=== PATIENT | male | born 1960 | race Caucasian/White ===

== ENCOUNTER → 2017-11-29 12:14 | Outpatient (CLI) | payer MEDICARE, SELFPAY ==
[2017-11-29 13:04] LABS: AST(SGOT) 67 U/L (15-37); Alanine Aminotransfer ALT/SGPT 70 U/L (16-61); Albumin, Serum 3.4 g/dL (3.2-5.0); Alkaline Phosphatase 115 U/L (45-117); Bilirubin, Direct 0.19 mg/dL (0.00-0.30); Cholesterol 181 mg/dL (200); Globulin 3.9 g/dL (2.2-4.2); High Density Lipoprotein 107 mg/dL; Protein, Total 7.3 g/dL (6.4-8.2); Triglycerides 111 mg/dL; Very Low Density Lipoprotein 22 mg/dL (5-40)
--- NOTE | 2018-02-18 09:44 | LEAS ---
Arterial Study - Arterial Study Arterial Study: This is a 57-year-old male with a history of coronary artery disease, hypertension, hyperlipidemia, diabetes mellitus, and smoking. 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 Suspecting the presence of atherosclerotic peripheral arterial occlusive disease, the patient was brought to the noninvasive vascular laboratory at this time for the purpose of bilateral noninvasive lower extremity arterial assessment. Doppler signal assessment was used to evaluate the pulses at ankle level bilaterally. The posterior tibial and dorsalis pedis pulses were triphasic bilaterally. Segmental limb pressures were obtained bilaterally. The right ankle pressure, as determined by posterior tibial pulse, was measured at 151 mmHg. The right ankle pressure, as determined by dorsalis pedis pulse, was measured at 147 mmHg. The right digital pressure was measured at 154 mmHg. The left ankle pressure, as determined by posterior tibial pulse, was measured at 156 mmHg. The left ankle pressure, as determined by dorsalis pedis pulse, was measured at 142 mmHg. The left digital pressure was measured at 130 mmHg. Pulse-volume recordings were obtained bilaterally and segmentally. Waveform amplitudes appeared to be satisfactory at all levels bilaterally, including low thigh, calf, ankle, and digital levels. Resting ankle-brachial indices were calculated bilaterally. The resting right ankle-brachial index was calculated to be 1.15. The resting left ankle-brachial index was calculated to be 1.19. Digital-brachial indices were calculated bilaterally. The right digital-brachial index was calculated to be 1.18. The left digital-brachial index was calculated to be 0.99. Impression: Based upon the findings of this resting noninvasive lower extremity arterial study, there is no evidence of significant atherosclerotic peripheral arterial occlusive disease in the lower extremities bilaterally. Triphasic waveforms were noted at ankle level bilaterally. Resting ankle-brachial indices were bilaterally normal. Digital-brachial indices were also normal bilaterally. In summary, this represents a normal resting noninvasive lower extremity arterial study bilaterally.
--- NOTE | 2018-02-18 09:47 | LEAS_ITS ---
Arterial Study - Arterial Study Arterial Study: This is a 57-year-old male with a history of coronary artery disease, hypertension, hyperlipidemia, diabetes mellitus, and smoking. 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 Suspecting the presence of atherosclerotic peripheral arterial occlusive disease , the patient was brought to the noninvasive vascular laboratory at this time for the purpose of bilateral noninvasive lower extremity arterial assessment. Doppler signal assessment was used to evaluate the pulses at ankle level bilaterally. The posterior tibial and dorsalis pedis pulses were triphasic bilaterally. Segmental limb pressures were obtained bilaterally. The right ankle pressure, as determined by posterior tibial pulse, was measured at 151 mmHg. The right ankle pressure, as determined by dorsalis pedis pulse, was measured at 147 mmHg. The right digital pressure was measured at 154 mmHg. The left ankle pressure, as determined by posterior tibial pulse, was measured at 156 mmHg. The left ankle pressure, as determined by dorsalis pedis pulse, was measured at 142 mmHg. The left digital pressure was measured at 130 mmHg. Pulse-volume recordings were obtained bilaterally and segmentally. Waveform amplitudes appeared to be satisfactory at all levels bilaterally, including low thigh, calf, ankle, and digital levels. Resting ankle-brachial indices were calculated bilaterally. The resting right ankle-brachial index was calculated to be 1.15. The resting left ankle- brachial index was calculated to be 1.19. Digital-brachial indices were calculated bilaterally. The right digital- brachial index was calculated to be 1.18. The left digital-brachial index was calculated to be 0.99. Impression: Based upon the findings of this resting noninvasive lower extremity arterial study, there is no evidence of significant atherosclerotic peripheral arterial occlusive disease in the lower extremities bilaterally. Triphasic waveforms were noted at ankle level bilaterally. Resting ankle-brachial indices were bilaterally normal. Digital-brachial indices were also normal bilaterally. In summary, this represents a normal resting noninvasive lower extremity arterial study bilaterally.
== END ==
PROVIDERS: Family Provider Family Medicine; PCP Family Medicine; Visit Provider Internal Medicine Cardiovascular Disease
DX: E78.5 Hyperlipidemia, unspecified (principal); Z79.899 Other long term (current) drug therapy
CPT/HCPCS: 36415; 80061; 80076

== ENCOUNTER 2018-02-14 14:30 | Outpatient (RCR) | payer MEDICARE, SELFPAY ==
[2018-01-24 13:28] VITALS: BP 151/93; PULSE 77; RESP 20; TEMP 37.4; BMI 36.2
--- NOTE | 2018-01-24 14:30 | PCM.WC.PN ---
(1) Malnutrition Status: Chronic Current Visit: Yes Code(s): E46 - Unspecified protein-calorie malnutrition (2) Chronic ulcer of left foot with fat layer exposed Status: Chronic Current Visit: Yes Code(s): L97.522 - Non-pressure chronic ulcer of other part of left foot with fat layer exposed (3) Charcot foot due to diabetes mellitus Status: Chronic Current Visit: Yes Code(s): E11.610 - Type 2 diabetes mellitus with diabetic neuropathic arthropathy (4) Venous insufficiency of both lower extremities Status: Suspected Current Visit: Yes Code(s): I87.2 - Venous insufficiency (chronic) (peripheral) (5) Peripheral vascular disease Status: Suspected Current Visit: Yes Code(s): I73.9 - Peripheral vascular disease, unspecified Type of Wound Date of Service: 01/25/18 Chief Complaint: Left foot has Charcot joint with a diabetic foot ulcer (midfoot)-recurrent History of Wound: This 56 year old male returns to clinic today for left foot ulcer that has returned within the past 3 weeks. He has a history of charcot. He has recently been moving and admits he has not been wearing his ute walker. He has been wearing his athletic sneaker more. He denies redness, odor, fever, chill, nausea, vomiting. He is presenting today for advanced wound evaluation and application of total contact cast. Progress of Wound: Stable - Physical Exam Vital Signs Temp Pulse Resp BP 99.3 F H 77 20 H 151/93 H 01/24/18 13:28 01/24/18 13:28 01/24/18 13:28 01/24/18 13:28 General: Alert, Oriented x3, Cooperative Extremities: No cyanosis, Capillary Refill Less than 3 Seconds, No Calf Tenderness - Negative Jyothi and Carranza sign bilateral, Diminished Peripheral Pulses, Edema - Mild bilateral lower extremities, - - Rocker-bottom left lower extremity with no laxity noted upon passive manipulation of the midfoot the plantar central lateral left foot. The compartments left lower extremity remain soft. Skin: Ulcer/ Wound - There is no purulence, no erythema, no streaking, no infection, no necrosis. There is no deep tissue or bone or joint exposed left foot Wound Measurements and Assessment WC - Nurse 1 - General Ulcer Measurement Start: 01/24/18 13:25 Freq: Status: Active Protocol: Activity Type Activity Date Activity User E-Sign Co-Sign Detail Recorded Client Recorded Date Recorded By Document 01/24/18 13:28 DL [id number] 01/24/18 13:49 DL 01/24/18 13:28 Wound Center Nurse 1 [Ulcer Assessment] #4 L Plantar -Current Size (cm) - Length 1.7 -Current Size (cm) - Width 1.6 -Current Size (cm) - Depth 0.1 -Total Square Cm 2.72 -Photo Taken Yes -Exudate Amt Medium (34-66%) -Exudate Type Serosanguineous -Wound Margin Thickened -Granulation Amt Medium (34-66%) -Granulation Quality [place] -Necrosis Amt Medium (34-66%) -Necrotic Tissue Type Adherent Slough -Structure Exposed N/A -Texture (Ania-wound Skin Appearance) Scarring -Moisture (Ania-wound Skin Appearance Maceration ) -Color (Ania-wound Skin Appearance) No Abnormality -Temperature (Ania-wound Skin No Abnormality Appearance) (Pt Warm) -Tenderness on Palpation (Ania-wound No Skin Appearance) -Ulcer Cleansing Wound Cleanser -Foul Odor after Cleansing No -Anesthetic Used 4% Lidocaine Solution [Edema Assessment] -Right Calf (cm) 43.5 -Right Ankle (cm) 26 -Left Calf (cm) 39 -Left Ankle (cm) 27 WC - Nurse 2 - General Ulcer CM Notes Start: 01/24/18 13:25 Freq: Status: Active Protocol: Activity Type Activity Date Activity User E-Sign Co-Sign Detail Recorded Client Recorded Date Recorded By Document 01/24/18 14:20 [id number] 01/24/18 14:23 01/24/18 14:20 Wound Center Nurse 2 [Procedure/Treatment] #4 L Plantar -Time 14:21 -Correct Patient Yes -Correct Side, Site, Position Yes -Correct Procedure Yes -Procedure Performed Yes -Type of Procedure Debridement -Clinical Debridement Subcutaneous -Post Debridement Size (cm) - Length 1.8 -Post Debridement Size (cm) - Width 1.7 -Post Debridement Size (cm) - Depth 0.1 -Total Square Cm 3.06 -Wound/Ulcer Outcome Not Healed -Ulcer Cleansing Rinsed/ Irrigated with Saline -Foul Odor after Cleansing No -Bioengineered Tissue No -Topical Lidocaine (%) 4 -Bleeding Controlled with Pressure -Treatment Response Procedure Tolerated Well [See Physician Procedure note for Specifics] Pain Scale: 0-10 Numeric [Pain] -Is Patient Pain Free? Yes Musculoskeletal: No Tenderness to Palpation of Joints or Extremities, Muscle Wasting Neurological: - - Lack of epicritic sensation light touch left lower extremity Psych/Mental Status: Normal Affect, Appropriate Debridement Note Post-Debridement Measurements/Treatment WC - Nurse 2 - General Ulcer CM Notes Start: 01/24/18 13:25 Freq: Status: Active Protocol: Activity Type Activity Date Activity User E-Sign Co-Sign Detail Recorded Client Recorded Date Recorded By Document 01/24/18 14:20 [id number] 01/24/18 14:23 TM 01/24/18 14:20 Wound Center Nurse 2 #4 L Plantar -Time 14:21 -Correct Patient Yes -Correct Side, Site, Position Yes -Correct Procedure Yes -Procedure Performed Yes -Type of Procedure Debridement -Clinical Debridement Subcutaneous -Post Debridement Size (cm) - Length 1.8 -Post Debridement Size (cm) - Width 1.7 -Post Debridement Size (cm) - Depth 0.1 -Total Square Cm 3.06 -Wound/Ulcer Outcome Not Healed -Ulcer Cleansing Rinsed/ Irrigated with Saline -Foul Odor after Cleansing No -Bioengineered Tissue No -Topical Lidocaine (%) 4 -Bleeding Controlled with Pressure -Treatment Response Procedure Tolerated Well Pain Scale: 0-10 Numeric Is Patient Pain Free? Yes Wound debrided: plantar foot Laterality: Left Wound Grade/Stage: grade 1 Type of Debridement: Excisional debridement Anesthesia Used: 4% Lidocaine Solution Depth: in the subcutaneous layer Percentage of wound debrided: 100 Instrument Used: #15 blade Tissue Removed: devitalized subcutaneous, biofilm, slough, fibrous Severity: Fat Layer Exposed Amount of bleeding with debridement: Mild Bleeding Controlled with: Pressure Patient tolerated procedure well Assessment/Plan Active Problems (Last Reviewed 10/13/17 @ 13:10 by Renae Henderson) Malnutrition (Chronic) Chronic ulcer of left foot with fat layer exposed (Chronic) Charcot foot due to diabetes mellitus (Chronic) Assessment: charcot left foot - non acute. diabetic foot ulcer - healed left foot. right ankle ulceration - healed. peripheral vascular disease. diabetes with peripheral neuropathy Plan: I reviewed and discussed his case. Subcutaneous excisional debridement was performed as noted in the nursing clinical panel. Debra was applied to the wound. A total contact cast was applied according to standard protocol and this was permitted to drive. He does have the Charcot boot and he was advised to keep in place over the cast. This is his first week back in a total contact cast and he was advised to return to clinic for nursing visit on Monday to evaluate appropriate fit and if adjustments are needed due to swelling fluctuations. He was reassured no signs of infection are noted. We discussed the etiology of this wound and he understands Charcot reconstruction may be necessary to prevent continued recurrence. He is in the process of moving at this time and want to proceed with the total contact casting. Nutritional supplementation was recommended with Bartolo and proper glycemic control. I recommend he considers a anodize machine operator referral. To elevate limb at rest. To follow-up at the wound care center next Monday for physician visit additional debridement and likely total contact cast reapplication. I answered all his questions.
--- NOTE | 2018-01-24 14:33 | PN.PCM_ITS ---
(1) Malnutrition Status: Chronic Current Visit: Yes Code(s): E46 - Unspecified protein- calorie malnutrition (2) Chronic ulcer of left foot with fat layer exposed Status: Chronic Current Visit: Yes Code(s): L97.522 - Non-pressure chronic ulcer of other part of left foot with fat layer exposed (3) Charcot foot due to diabetes mellitus Status: Chronic Current Visit: Yes Code(s): E11.610 - Type 2 diabetes mellitus with diabetic neuropathic arthropathy (4) Venous insufficiency of both lower extremities Status: Suspected Current Visit: Yes Code(s): I87.2 - Venous insufficiency ( chronic) (peripheral) (5) Peripheral vascular disease Status: Suspected Current Visit: Yes Code(s): I73.9 - Peripheral vascular disease, unspecified Type of Wound Date of Service: 01/25/18 Chief Complaint: Left foot has Charcot joint with a diabetic foot ulcer (midfoot )-recurrent History of Wound: This 56 year old male returns to clinic today for left foot ulcer that has returned within the past 3 weeks. He has a history of charcot. He has recently been moving and admits he has not been wearing his [place] walker. He has been wearing his athletic sneaker more. He denies redness, odor, fever , chill, nausea, vomiting. He is presenting today for advanced wound evaluation and application of total contact cast. Progress of Wound: Stable - Physical Exam Vital Signs Temp Pulse Resp BP 99.3 F H 77 20 H 151/93 H 01/24/18 13:28 01/24/18 13:28 01/24/18 13:28 01/24/18 13:28 General: Alert, Oriented x3, Cooperative Extremities: No cyanosis, Capillary Refill Less than 3 Seconds, No Calf Tenderness - Negative Jyothi and Carranza sign bilateral, Diminished Peripheral Pulses, Edema - Mild bilateral lower extremities, - - Rocker-bottom left lower extremity with no laxity noted upon passive manipulation of the midfoot the plantar central lateral left foot. The compartments left lower extremity remain soft. Skin: Ulcer/ Wound - There is no purulence, no erythema, no streaking, no infection, no necrosis. There is no deep tissue or bone or joint exposed left foot Wound Measurements and Assessment WC - Nurse 1 - General Ulcer Measurement Start: 01/24/18 13:25 Freq: Status: Active Protocol: Activity Type Activity Date Activity User E-Sign Co-Sign Detail Recorded Client Recorded Date Recorded By Document 01/24/18 13:28 DL [id number] 01/24/18 13:49 DL 01/24/18 13:28 Wound Center Nurse 1 [Ulcer Assessment] #4 L Plantar -Current Size (cm) - Length 1.7 -Current Size (cm) - Width 1.6 -Current Size (cm) - Depth 0.1 -Total Square Cm 2.72 -Photo Taken Yes -Exudate Amt Medium (34-66%) -Exudate Type Serosanguineous -Wound Margin Thickened -Granulation Amt Medium (34-66%) -Granulation Quality [place] -Necrosis Amt Medium (34-66%) -Necrotic Tissue Type Adherent Slough -Structure Exposed N/A -Texture (Ania-wound Skin Appearance) Scarring -Moisture (Ania-wound Skin Appearance Maceration ) -Color (Ania-wound Skin Appearance) No Abnormality -Temperature (Ania-wound Skin No Abnormality Appearance) (Pt Warm) -Tenderness on Palpation (Ania-wound No Skin Appearance) -Ulcer Cleansing Wound Cleanser -Foul Odor after Cleansing No -Anesthetic Used 4% Lidocaine Solution [Edema Assessment] -Right Calf (cm) 43.5 -Right Ankle (cm) 26 -Left Calf (cm) 39 -Left Ankle (cm) 27 WC - Nurse 2 - General Ulcer CM Notes Start: 01/24/18 13:25 Freq: Status: Active Protocol: Activity Type Activity Date Activity User E-Sign Co-Sign Detail Recorded Client Recorded Date Recorded By Document 01/24/18 14:20 [id number] 01/24/18 14:23 01/24/18 14:20 Wound Center Nurse 2 [Procedure/Treatment] #4 L Plantar -Time 14:21 -Correct Patient Yes -Correct Side, Site, Position Yes -Correct Procedure Yes -Procedure Performed Yes -Type of Procedure Debridement -Clinical Debridement Subcutaneous -Post Debridement Size (cm) - Length 1.8 -Post Debridement Size (cm) - Width 1.7 -Post Debridement Size (cm) - Depth 0.1 -Total Square Cm 3.06 -Wound/Ulcer Outcome Not Healed -Ulcer Cleansing Rinsed/ Irrigated with Saline -Foul Odor after Cleansing No -Bioengineered Tissue No -Topical Lidocaine (%) 4 -Bleeding Controlled with Pressure -Treatment Response Procedure Tolerated Well [See Physician Procedure note for Specifics] Pain Scale: 0-10 Numeric [Pain] -Is Patient Pain Free? Yes Musculoskeletal: No Tenderness to Palpation of Joints or Extremities, Muscle Wasting Neurological: - - Lack of epicritic sensation light touch left lower extremity Psych/Mental Status: Normal Affect, Appropriate Debridement Note Post-Debridement Measurements/Treatment WC - Nurse 2 - General Ulcer CM Notes Start: 01/24/18 13:25 Freq: Status: Active Protocol: Activity Type Activity Date Activity User E-Sign Co-Sign Detail Recorded Client Recorded Date Recorded By Document 01/24/18 14:20 [id number] 01/24/18 14:23 TM 01/24/18 14:20 Wound Center Nurse 2 #4 L Plantar -Time 14:21 -Correct Patient Yes -Correct Side, Site, Position Yes -Correct Procedure Yes -Procedure Performed Yes -Type of Procedure Debridement -Clinical Debridement Subcutaneous -Post Debridement Size (cm) - Length 1.8 -Post Debridement Size (cm) - Width 1.7 -Post Debridement Size (cm) - Depth 0.1 -Total Square Cm 3.06 -Wound/Ulcer Outcome Not Healed -Ulcer Cleansing Rinsed/ Irrigated with Saline -Foul Odor after Cleansing No -Bioengineered Tissue No -Topical Lidocaine (%) 4 -Bleeding Controlled with Pressure -Treatment Response Procedure Tolerated Well Pain Scale: 0-10 Numeric Is Patient Pain Free? Yes Wound debrided: plantar foot Laterality: Left Wound Grade/Stage: grade 1 Type of Debridement: Excisional debridement Anesthesia Used: 4% Lidocaine Solution Depth: in the subcutaneous layer Percentage of wound debrided: 100 Instrument Used: #15 blade Tissue Removed: devitalized subcutaneous, biofilm, slough, fibrous Severity: Fat Layer Exposed Amount of bleeding with debridement: Mild Bleeding Controlled with: Pressure Patient tolerated procedure well Assessment/Plan Active Problems (Last Reviewed 10/13/17 @ 13:10 by Renae Henderson) Malnutrition (Chronic) Chronic ulcer of left foot with fat layer exposed (Chronic) Charcot foot due to diabetes mellitus (Chronic) Assessment: charcot left foot - non acute. diabetic foot ulcer - healed left foot. right ankle ulceration - healed. peripheral vascular disease. diabetes with peripheral neuropathy Plan: I reviewed and discussed his case. Subcutaneous excisional debridement was performed as noted in the nursing clinical panel. Debra was applied to the wound. A total contact cast was applied according to standard protocol and this was permitted to drive. He does have the Charcot boot and he was advised to keep in place over the cast. This is his first week back in a total contact cast and he was advised to return to clinic for nursing visit on Monday to evaluate appropriate fit and if adjustments are needed due to swelling fluctuations. He was reassured no signs of infection are noted. We discussed the etiology of this wound and he understands Charcot reconstruction may be necessary to prevent continued recurrence. He is in the process of moving at this time and want to proceed with the total contact casting. Nutritional supplementation was recommended with Bartolo and proper glycemic control. I recommend he considers a flotation operator referral. To elevate limb at rest. To follow-up at the wound care center next Monday for physician visit additional debridement and likely total contact cast reapplication. I answered all his questions.
[2018-01-24 18:22] LABS: Absolute Lymphocyte Count 1.12 X10^3/ul (0.83-4.51); Absolute Neutrophil Count 4.7 X10^3/uL (2.0-7.7); Basophil# 0.06 X10^3/uL; Basophil% 0.9 % (0-1); Eosinophil# 0.17 X10^3/uL; Eosinophils% 2.6 % (0-5); Hematocrit 39.2 % (40-54); Hemoglobin 13.6 g/dl (13.0-16.5); Lymphocyte # 1.12 X10^3/ul (4.0); Lymphocyte % 17.1 % (19-41); Mean Corp Hgb Conc 34.7 g/gl (32-36); Mean Corpuscular Hgb 32.5 pg (27.0-32.0); Mean Corpuscular Volume 93.8 fL (80-94); Mean Platelet Vol. 10.1 fl (6.2-12.0); Monocyte# 0.52 X10^3/uL; Monocyte% 7.9 % (0-10); Neutrophil # 4.66 X10^3/uL (2.7-7.7); Neutrophil % 71.2 % (47-70); POSITIVE COUNT NO; POSITIVE DIFFERENTIAL NO; POSITIVE MORPHOLOGY NO; Platelet Count 204 K/mm3 (150-450); RBC Distribution Width CV 13.1 % (11.6-14.6); RBC Distribution Width SD 43.8 fl (35.1-43.9); Red Blood Count 4.18 M/mm3 (4.6-6.2); White Blood Count 6.6 K/mm3 (4.4-11.0)
[2018-01-24 18:43] LABS: Hemoglobin A1c 7.6 % (4.2-6.3)
[2018-01-24 18:45] LABS: Vitamin D,25 Hydroxy 15.4 ng/mL (29.95-100.01)
[2018-01-26 10:26] VITALS: BP 142/84; PULSE 71; RESP 18; TEMP 35.7; BMI 36.2
--- NOTE | 2018-01-26 12:43 | PCM.WC.PN ---
(1) Charcot foot due to diabetes mellitus Status: Chronic Current Visit: Yes Code(s): E11.610 - Type 2 diabetes mellitus with diabetic neuropathic arthropathy (2) Diabetic ulcer of left foot Status: Acute Current Visit: Yes Qualifiers: Diabetes mellitus type: type 2 Code(s): E11.621 - Type 2 diabetes mellitus with foot ulcer; L97.529 - Non-pressure chronic ulcer of other part of left foot with unspecified severity Type of Wound Date of Service: 01/26/18 Chief Complaint: Left foot has Charcot joint with a diabetic foot ulcer (midfoot)-recurrent History of Wound: This 56 year old male returns to clinic today for left foot ulcer that has returned within the past 3 weeks. He has a history of charcot. He has recently been moving and admits he has not been wearing his ekl[place] walker. He has been wearing his athletic sneaker more. He denies redness, odor, fever, chill, nausea, vomiting. He is presenting today for advanced wound evaluation and application of total contact cast. Progress of Wound: Left DFU ulcer looks flatter smaller doing well. Both the TCC and will reapply another total contact cast tolerating well - Physical Exam Vital Signs Temp Pulse Resp BP 96.2 F L 71 18 142/84 H 01/26/18 10:26 01/26/18 10:26 01/26/18 10:26 01/26/18 10:26 General: Oriented x3, Cooperative, Well developed HEENT: Atraumatic, PERRLA Oral: Moist Mucosa Neck: Supple, No JVD Lungs: Clear to auscultation, Normal air movement Cardiovascular: Regular rate, Regular Rhythm Abdomen: Bowel Sounds Present, Soft, Non Tender, No Hepato-splenomegaly Extremities: No clubbing, No edema, - - Foot DFU Wound Measurements and Assessment WC - Nurse 1 - General Ulcer Measurement Start: 01/24/18 13:25 Freq: Status: Active Protocol: Activity Type Activity Date Activity User E-Sign Co-Sign Detail Recorded Client Recorded Date Recorded By Document 01/24/18 13:28 DL [id number] 01/24/18 13:49 DL Document 01/26/18 10:26 TM [id number] 01/26/18 10:29 TM 01/24/18 01/26/18 13:28 10:26 Wound Center Nurse 1 [Ulcer Assessment] #5 L Plantar -Combined with other wound No -Current Size (cm) - Length 1.7 2.0 -Current Size (cm) - Width 1.6 1.5 -Current Size (cm) - Depth 0.1 0.1 -Total Square Cm 2.72 3.00 -Photo Taken Yes No -Epithelialization Small 1-33% -Tunneling No -Undermining/Tunneling No -Circular Undermining No -Classification - Thickness Full Thickness without Exposed Support Structure -Exudate Amt Medium (34-66%) Small (1-33%) -Exudate Type Serosanguineous Serosanguineous -Wound Margin Thickened Distinct, Outline Attached -Granulation Amt Medium (34-66%) Large (67-100%) -Granulation Quality [place] -Slough/Fibrin Yes -Necrosis Amt Medium (34-66%) Small (1-33%) -Necrotic Tissue Type Adherent Slough Adherent Slough -Structure Exposed N/A Fascia Fat Layer Exposed -Texture (Ania-wound Skin Appearance) Scarring Callus Localized Edema Scarring -Moisture (Ania-wound Skin Appearance Maceration No Abnormality ) -Color (Ania-wound Skin Appearance) No Abnormality Erythema -Temperature (Ania-wound Skin No Abnormality No Abnormality Appearance) (Pt Warm) (Pt Warm) -Tenderness on Palpation (Ania-wound No No Skin Appearance) -Ulcer Cleansing Wound Cleanser Rinsed/ Irrigated with Saline -Foul Odor after Cleansing No No -Anesthetic Used 4% Lidocaine 5% Lidocaine Solution Gel [Edema Assessment] -Lower Limb Edema Present Yes -Right Calf (cm) 43.5 -Right Ankle (cm) 26 -Left Calf (cm) 39 43.0 -Left Ankle (cm) 27 28.0 WC - Nurse 2 - General Ulcer CM Notes Start: 01/24/18 13:25 Freq: Status: Active Protocol: Activity Type Activity Date Activity User E-Sign Co-Sign Detail Recorded Client Recorded Date Recorded By Document 01/24/18 14:20 TM [id number] 01/24/18 14:23 TM Document 01/26/18 10:49 MW [id number] 01/26/18 10:50 MW 01/24/18 01/26/18 14:20 10:49 Wound Center Nurse 2 [Procedure/Treatment] #5 L Plantar -Time 14:21 10:49 -Correct Patient Yes Yes -Correct Side, Site, Position Yes Yes -Correct Procedure Yes Yes -Procedure Performed Yes No -Type of Procedure Debridement -Clinical Debridement Subcutaneous -Post Debridement Size (cm) - Length 1.8 2.0 -Post Debridement Size (cm) - Width 1.7 1.5 -Post Debridement Size (cm) - Depth 0.1 0.1 -Total Square Cm 3.06 3.00 -Wound/Ulcer Outcome Not Healed Not Healed -Ulcer Cleansing Rinsed/ Rinsed/ Irrigated with Irrigated with Saline Saline -Foul Odor after Cleansing No No -Bioengineered Tissue No No -Topical Lidocaine (%) 4 -Bleeding Controlled with Pressure NA -Treatment Response Procedure Procedure Tolerated Well Tolerated Well [See Physician Procedure note for Specifics] Pain Scale: 0-10 Numeric [Pain] -Is Patient Pain Free? Yes Yes Musculoskeletal: No Tenderness to Palpation of Joints or Extremities Lymphatic: No Cervical, Supraclavicular, or Inguinal Adenopathy Neurological: Cranial nerves II-XII grossly intact, Neuro grossly intact Psych/Mental Status: Normal Affect, Appropriate, Alert and oriented to time, place, person, mood and affect Debridement Note Post-Debridement Measurements/Treatment WC - Nurse 2 - General Ulcer CM Notes Start: 01/24/18 13:25 Freq: Status: Active Protocol: Activity Type Activity Date Activity User E-Sign Co-Sign Detail Recorded Client Recorded Date Recorded By Document 01/24/18 14:20 TM [id number] 01/24/18 14:23 TM Document 01/26/18 10:49 MW [id number] 01/26/18 10:50 MW 01/24/18 01/26/18 14:20 10:49 Wound Center Nurse 2 #5 L Plantar -Time 14:21 10:49 -Correct Patient Yes Yes -Correct Side, Site, Position Yes Yes -Correct Procedure Yes Yes -Procedure Performed Yes No -Type of Procedure Debridement -Clinical Debridement Subcutaneous -Post Debridement Size (cm) - Length 1.8 2.0 -Post Debridement Size (cm) - Width 1.7 1.5 -Post Debridement Size (cm) - Depth 0.1 0.1 -Total Square Cm 3.06 3.00 -Wound/Ulcer Outcome Not Healed Not Healed -Ulcer Cleansing Rinsed/ Rinsed/ Irrigated with Irrigated with Saline Saline -Foul Odor after Cleansing No No -Bioengineered Tissue No No -Topical Lidocaine (%) 4 -Bleeding Controlled with Pressure NA -Treatment Response Procedure Procedure Tolerated Well Tolerated Well Pain Scale: 0-10 Numeric Is Patient Pain Free? Yes Yes Wound debrided: Left foot DFU No debridement was completed today Assessment/Plan Active Problems (Last Reviewed 10/13/17 @ 13:10 by Renae Henderson) Malnutrition (Chronic) Chronic ulcer of left foot with fat layer exposed (Chronic) Charcot foot due to diabetes mellitus (Chronic) Diabetic ulcer of left foot (Acute) Assessment: charcot left foot - non acute. diabetic foot ulcer - healed left foot. right ankle ulceration - healed. peripheral vascular disease. diabetes with peripheral neuropathy Plan: A total contact cast was applied according to standard protocol and this was permitted to drive. He does have the Charcot boot and he was advised to keep in place over the cast. This will be his second week in a total contact cast and he tolerated the first 1 well with no swelling. He was reassured no signs of infection are noted. We discussed the etiology of this wound and he understands Charcot reconstruction may be necessary to prevent continued recurrence. He is in the process of moving at this time and want to proceed with the total contact casting. Nutritional supplementation was recommended with Bartolo and proper glycemic control. I recommend he considers a community health educator referral. To elevate limb at rest.
--- NOTE | 2018-01-26 12:47 | PN.PCM_ITS ---
(1) Charcot foot due to diabetes mellitus Status: Chronic Current Visit: Yes Code(s): E11.610 - Type 2 diabetes mellitus with diabetic neuropathic arthropathy (2) Diabetic ulcer of left foot Status: Acute Current Visit: Yes Qualifiers: Diabetes mellitus type: type 2 Code(s): E11.621 - Type 2 diabetes mellitus with foot ulcer; L97.529 - Non- pressure chronic ulcer of other part of left foot with unspecified severity Type of Wound Date of Service: 01/26/18 Chief Complaint: Left foot has Charcot joint with a diabetic foot ulcer (midfoot )-recurrent History of Wound: This 56 year old male returns to clinic today for left foot ulcer that has returned within the past 3 weeks. He has a history of charcot. He has recently been moving and admits he has not been wearing his apache walker. He has been wearing his athletic sneaker more. He denies redness, odor, fever , chill, nausea, vomiting. He is presenting today for advanced wound evaluation and application of total contact cast. Progress of Wound: Left DFU ulcer looks flatter smaller doing well. Both the TCC and will reapply another total contact cast tolerating well - Physical Exam Vital Signs Temp Pulse Resp BP 96.2 F L 71 18 142/84 H 01/26/18 10:26 01/26/18 10:26 01/26/18 10:26 01/26/18 10:26 General: Oriented x3, Cooperative, Well developed HEENT: Atraumatic, PERRLA Oral: Moist Mucosa Neck: Supple, No JVD Lungs: Clear to auscultation, Normal air movement Cardiovascular: Regular rate, Regular Rhythm Abdomen: Bowel Sounds Present, Soft, Non Tender, No Hepato-splenomegaly Extremities: No clubbing, No edema, - - Foot DFU Wound Measurements and Assessment WC - Nurse 1 - General Ulcer Measurement Start: 01/24/18 13:25 Freq: Status: Active Protocol: Activity Type Activity Date Activity User E-Sign Co-Sign Detail Recorded Client Recorded Date Recorded By Document 01/24/18 13:28 DL [id number] 01/24/18 13:49 DL Document 01/26/18 10:26 TM [id number] 01/26/18 10:29 TM 01/24/18 01/26/18 13:28 10:26 Wound Center Nurse 1 [Ulcer Assessment] #5 L Plantar -Combined with other wound No -Current Size (cm) - Length 1.7 2.0 -Current Size (cm) - Width 1.6 1.5 -Current Size (cm) - Depth 0.1 0.1 -Total Square Cm 2.72 3.00 -Photo Taken Yes No -Epithelialization Small 1-33% -Tunneling No -Undermining/Tunneling No -Circular Undermining No -Classification - Thickness Full Thickness without Exposed Support Structure -Exudate Amt Medium (34-66%) Small (1-33%) -Exudate Type Serosanguineous Serosanguineous -Wound Margin Thickened Distinct, Outline Attached -Granulation Amt Medium (34-66%) Large (67-100%) -Granulation Quality Bellamy Pale Bellamy -Slough/Fibrin Yes -Necrosis Amt Medium (34-66%) Small (1-33%) -Necrotic Tissue Type Adherent Slough Adherent Slough -Structure Exposed N/A Fascia Fat Layer Exposed -Texture (Ania-wound Skin Appearance) Scarring Callus Localized Edema Scarring -Moisture (Ania-wound Skin Appearance Maceration No Abnormality ) -Color (Ania-wound Skin Appearance) No Abnormality Erythema -Temperature (Ania-wound Skin No Abnormality No Abnormality Appearance) (Pt Warm) (Pt Warm) -Tenderness on Palpation (Ania-wound No No Skin Appearance) -Ulcer Cleansing Wound Cleanser Rinsed/ Irrigated with Saline -Foul Odor after Cleansing No No -Anesthetic Used 4% Lidocaine 5% Lidocaine Solution Gel [Edema Assessment] -Lower Limb Edema Present Yes -Right Calf (cm) 43.5 -Right Ankle (cm) 26 -Left Calf (cm) 39 43.0 -Left Ankle (cm) 27 28.0 WC - Nurse 2 - General Ulcer CM Notes Start: 01/24/18 13:25 Freq: Status: Active Protocol: Activity Type Activity Date Activity User E-Sign Co-Sign Detail Recorded Client Recorded Date Recorded By Document 01/24/18 14:20 TM [id number] 01/24/18 14:23 TM Document 01/26/18 10:49 MW [id number] 01/26/18 10:50 MW 01/24/18 01/26/18 14:20 10:49 Wound Center Nurse 2 [Procedure/Treatment] #5 L Plantar -Time 14:21 10:49 -Correct Patient Yes Yes -Correct Side, Site, Position Yes Yes -Correct Procedure Yes Yes -Procedure Performed Yes No -Type of Procedure Debridement -Clinical Debridement Subcutaneous -Post Debridement Size (cm) - Length 1.8 2.0 -Post Debridement Size (cm) - Width 1.7 1.5 -Post Debridement Size (cm) - Depth 0.1 0.1 -Total Square Cm 3.06 3.00 -Wound/Ulcer Outcome Not Healed Not Healed -Ulcer Cleansing Rinsed/ Rinsed/ Irrigated with Irrigated with Saline Saline -Foul Odor after Cleansing No No -Bioengineered Tissue No No -Topical Lidocaine (%) 4 -Bleeding Controlled with Pressure NA -Treatment Response Procedure Procedure Tolerated Well Tolerated Well [See Physician Procedure note for Specifics] Pain Scale: 0-10 Numeric [Pain] -Is Patient Pain Free? Yes Yes Musculoskeletal: No Tenderness to Palpation of Joints or Extremities Lymphatic: No Cervical, Supraclavicular, or Inguinal Adenopathy Neurological: Cranial nerves II-XII grossly intact, Neuro grossly intact Psych/Mental Status: Normal Affect, Appropriate, Alert and oriented to time, place, person, mood and affect Debridement Note Post-Debridement Measurements/Treatment WC - Nurse 2 - General Ulcer CM Notes Start: 01/24/18 13:25 Freq: Status: Active Protocol: Activity Type Activity Date Activity User E-Sign Co-Sign Detail Recorded Client Recorded Date Recorded By Document 01/24/18 14:20 TM [id number] 01/24/18 14:23 TM Document 01/26/18 10:49 MW [id number] 01/26/18 10:50 MW 01/24/18 01/26/18 14:20 10:49 Wound Center Nurse 2 #5 L Plantar -Time 14:21 10:49 -Correct Patient Yes Yes -Correct Side, Site, Position Yes Yes -Correct Procedure Yes Yes -Procedure Performed Yes No -Type of Procedure Debridement -Clinical Debridement Subcutaneous -Post Debridement Size (cm) - Length 1.8 2.0 -Post Debridement Size (cm) - Width 1.7 1.5 -Post Debridement Size (cm) - Depth 0.1 0.1 -Total Square Cm 3.06 3.00 -Wound/Ulcer Outcome Not Healed Not Healed -Ulcer Cleansing Rinsed/ Rinsed/ Irrigated with Irrigated with Saline Saline -Foul Odor after Cleansing No No -Bioengineered Tissue No No -Topical Lidocaine (%) 4 -Bleeding Controlled with Pressure NA -Treatment Response Procedure Procedure Tolerated Well Tolerated Well Pain Scale: 0-10 Numeric Is Patient Pain Free? Yes Yes Wound debrided: Left foot DFU No debridement was completed today Assessment/Plan Active Problems (Last Reviewed 10/13/17 @ 13:10 by Renae Henderson) Malnutrition (Chronic) Chronic ulcer of left foot with fat layer exposed (Chronic) Charcot foot due to diabetes mellitus (Chronic) Diabetic ulcer of left foot (Acute) Assessment: charcot left foot - non acute. diabetic foot ulcer - healed left foot. right ankle ulceration - healed. peripheral vascular disease. diabetes with peripheral neuropathy Plan: A total contact cast was applied according to standard protocol and this was permitted to drive. He does have the Charcot boot and he was advised to keep in place over the cast. This will be his second week in a total contact cast and he tolerated the first 1 well with no swelling. He was reassured no signs of infection are noted. We discussed the etiology of this wound and he understands Charcot reconstruction may be necessary to prevent continued recurrence. He is in the process of moving at this time and want to proceed with the total contact casting. Nutritional supplementation was recommended with Bartolo and proper glycemic control. I recommend he considers a dental technician referral. To elevate limb at rest.
[2018-01-31 14:52] VITALS: BP 145/85; PULSE 72; RESP 16; TEMP 37.1; BMI 36.2
--- NOTE | 2018-01-31 17:20 | PCM.WC.PN ---
(1) Chronic ulcer of left foot with fat layer exposed Status: Chronic Current Visit: Yes Code(s): L97.522 - Non-pressure chronic ulcer of other part of left foot with fat layer exposed (2) Malnutrition Status: Chronic Current Visit: Yes Code(s): E46 - Unspecified protein-calorie malnutrition (3) Charcot foot due to diabetes mellitus Status: Chronic Current Visit: Yes Code(s): E11.610 - Type 2 diabetes mellitus with diabetic neuropathic arthropathy (4) Venous insufficiency of both lower extremities Status: Chronic Current Visit: Yes Code(s): I87.2 - Venous insufficiency (chronic) (peripheral) (5) Peripheral vascular disease Status: Suspected Current Visit: Yes Code(s): I73.9 - Peripheral vascular disease, unspecified Type of Wound Date of Service: 01/31/18 Chief Complaint: Left foot has Charcot joint with a diabetic foot ulcer (midfoot)-recurrent History of Wound: This 56 year old male returns to clinic today for left foot ulcer that has returned within the past 3 weeks. He has a history of charcot. He admits to increased swelling and drainage over the weekend because he was too active. He is trying to move. He denies redness, odor, fever, chill, nausea, vomiting. He is presenting today for advanced wound evaluation and application of total contact cast. Progress of Wound: Stable - Physical Exam Vital Signs Temp Pulse Resp BP 98.7 F 72 16 145/85 H 01/31/18 14:52 01/31/18 14:52 01/31/18 14:52 01/31/18 14:52 General: Alert, Oriented x3, Cooperative Extremities: No cyanosis, Capillary Refill Less than 3 Seconds, No Calf Tenderness - Negative Jyothi and Carranza left, Edema, Peripheral Pulses Normal Skin: Ulcer/ Wound - No purulence, no erythema, no streaking, no infection, necrosis left. Granular wound base noted. Peripheral skin is atrophic. Wound Measurements and Assessment WC - Nurse 1 - General Ulcer Measurement Start: 01/24/18 13:25 Freq: Status: Active Protocol: Activity Type Activity Date Activity User E-Sign Co-Sign Detail Recorded Client Recorded Date Recorded By Document 01/31/18 14:52 MW [id number] 01/31/18 15:11 MW 01/31/18 14:52 Wound Center Nurse 1 [Ulcer Assessment] #5 L Plantar -Combined with other wound No -Current Size (cm) - Length 1.5 -Current Size (cm) - Width 1.3 -Current Size (cm) - Depth 0.1 -Total Square Cm 1.95 -Photo Taken No -Epithelialization None Present -Tunneling No -Undermining/Tunneling No -Circular Undermining No -Exudate Amt Large (67-100%) -Exudate Type Serosanguineous -Wound Margin Distinct, Outline Attached -Granulation Amt Large (67-100%) -Granulation Quality Red -Slough/Fibrin Yes -Necrosis Amt Small (1-33%) -Necrotic Tissue Type Adherent Slough -Structure Exposed N/A -Texture (Ania-wound Skin Appearance) Assessed Localized Edema Scarring -Moisture (Ania-wound Skin Appearance Assessed ) Maceration -Color (Ania-wound Skin Appearance) Assessed Erythema -Temperature (Ania-wound Skin No Abnormality Appearance) (Pt Warm) -Tenderness on Palpation (Ania-wound No Skin Appearance) -Ulcer Cleansing soap and water -Foul Odor after Cleansing No -Anesthetic Used 5% Lidocaine Gel [Edema Assessment] -Lower Limb Edema Present Yes -Right Calf (cm) 43.2 -Right Ankle (cm) 27.4 WC - Nurse 2 - General Ulcer CM Notes Start: 01/24/18 13:25 Freq: Status: Active Protocol: Activity Type Activity Date Activity User E-Sign Co-Sign Detail Recorded Client Recorded Date Recorded By Document 01/31/18 15:24 [id number] 01/31/18 15:25 01/31/18 15:24 Wound Center Nurse 2 [Procedure/Treatment] #5 L Plantar -Time 15:25 -Correct Patient Yes -Correct Side, Site, Position Yes -Correct Procedure Yes -Procedure Performed Yes -Type of Procedure Debridement -Clinical Debridement Subcutaneous -Post Debridement Size (cm) - Length 1.6 -Post Debridement Size (cm) - Width 1.3 -Post Debridement Size (cm) - Depth 0.2 -Total Square Cm 2.08 -Wound/Ulcer Outcome Not Healed -Ulcer Cleansing Rinsed/ Irrigated with Saline -Foul Odor after Cleansing No -Bioengineered Tissue No -Bleeding Controlled with Pressure -Treatment Response Procedure Tolerated Well [See Physician Procedure note for Specifics] Pain Scale: 0-10 Numeric [Pain] -Is Patient Pain Free? Yes Musculoskeletal: No Tenderness to Palpation of Joints or Extremities, Muscle Wasting, - - Rocker-bottom foot noted with palpable central lateral exostosis. There is no laxity erythema streaking or localized foot edema noted at the Charcot site left Neurological: - - Lack of epicritic sensation light touch left lower extremity consistent with neuropathy Psych/Mental Status: Normal Affect, Appropriate Debridement Note Post-Debridement Measurements/Treatment WC - Nurse 2 - General Ulcer CM Notes Start: 01/24/18 13:25 Freq: Status: Active Protocol: Activity Type Activity Date Activity User E-Sign Co-Sign Detail Recorded Client Recorded Date Recorded By Document 01/24/18 14:20 TM [id number] 01/24/18 14:23 TM Document 01/26/18 10:49 MW [id number] 01/26/18 10:50 MW Document 01/31/18 15:24 JF [id number] 01/31/18 15:25 01/24/18 01/26/18 01/31/18 14:20 10:49 15:24 Wound Center Nurse 2 #5 L Plantar -Time 14:21 10:49 15:25 -Correct Patient Yes Yes Yes -Correct Side, Site, Position Yes Yes Yes -Correct Procedure Yes Yes Yes -Procedure Performed Yes No Yes -Type of Procedure Debridement Debridement -Clinical Debridement Subcutaneous Subcutaneous -Post Debridement Size (cm) - Length 1.8 2.0 1.6 -Post Debridement Size (cm) - Width 1.7 1.5 1.3 -Post Debridement Size (cm) - Depth 0.1 0.1 0.2 -Total Square Cm 3.06 3.00 2.08 -Wound/Ulcer Outcome Not Healed Not Healed Not Healed -Ulcer Cleansing Rinsed/ Rinsed/ Rinsed/ Irrigated with Irrigated with Irrigated with Saline Saline Saline -Foul Odor after Cleansing No No No -Bioengineered Tissue No No No -Topical Lidocaine (%) 4 -Bleeding Controlled with Pressure NA Pressure -Treatment Response Procedure Procedure Procedure Tolerated Well Tolerated Well Tolerated Well Pain Scale: 0-10 Numeric Is Patient Pain Free? Yes Yes Yes Wound debrided: plantar foot Laterality: Left Wound Grade/Stage: grade 1 Type of Debridement: Excisional debridement Anesthesia Used: 4% Lidocaine Solution Depth: in the subcutaneous layer Percentage of wound debrided: 100 Instrument Used: #15 blade Tissue Removed: fibrous, devitalized subcutaneous, biofilm, slough Severity: Fat Layer Exposed Amount of bleeding with debridement: Mild Bleeding Controlled with: Pressure Patient tolerated procedure well Assessment/Plan Active Problems (Last Reviewed 10/13/17 @ 13:10 by Renae Henderson) Malnutrition (Chronic) Chronic ulcer of left foot with fat layer exposed (Chronic) Venous insufficiency of both lower extremities (Chronic) Charcot foot due to diabetes mellitus (Chronic) Diabetic ulcer of left foot (Acute) Assessment: Ulcer left foot fat layer exposed, no infection. charcot left foot - non acute. peripheral vascular disease. diabetes with peripheral neuropathy Plan: I reviewed and discussed his case today. A total contact cast was applied according to standard protocol to the left lower extremity and this was permitted to drive. He does have the Charcot boot and he was advised to keep in place over the cast. This will be his second week in a total contact cast and he tolerated the first week well. He was reassured no signs of infection are noted. We discussed the etiology of this wound and he understands Charcot reconstruction may be necessary to prevent continued recurrence. He is in the process of moving at this time and want to proceed with the total contact casting. Nutritional supplementation was recommended with Bartolo and proper glycemic control. I recommend he considers a missile tracking technician referral. To elevate limb at rest. To return to clinic in [address] Alvarez, and to return to clinic this Monday for potential reapplication of total contact cast. I answered all his questions.
[2018-02-07 12:08] VITALS: BP 148/73; PULSE 66; RESP 18; TEMP 36.6; BMI 36.2
--- NOTE | 2018-02-07 12:58 | PN.PCM_ITS ---
(1) Chronic ulcer of left foot with fat layer exposed Status: Chronic Current Visit: Yes Code(s): L97.522 - Non-pressure chronic ulcer of other part of left foot with fat layer exposed (2) Malnutrition Status: Chronic Current Visit: Yes Code(s): E46 - Unspecified protein- calorie malnutrition (3) Charcot foot due to diabetes mellitus Status: Chronic Current Visit: Yes Code(s): E11.610 - Type 2 diabetes mellitus with diabetic neuropathic arthropathy (4) Venous insufficiency of both lower extremities Status: Chronic Current Visit: Yes Code(s): I87.2 - Venous insufficiency ( chronic) (peripheral) (5) Peripheral vascular disease Status: Suspected Current Visit: Yes Code(s): I73.9 - Peripheral vascular disease, unspecified Type of Wound Date of Service: 02/07/18 Chief Complaint: Left foot has Charcot joint with a diabetic foot ulcer (midfoot )-recurrent History of Wound: This 56 year old male returns to clinic today for left foot ulcer that has reoccurred. He has a history of charcot. He denies redness, odor, fever, chill, nausea, vomiting. He has vascular studies scheduled this afternoon. Preauthorization for advanced wound care application is pending today. He has done well this past week with a total contact cast. He relates he can return this afternoon after the test is completed to have the cast applied. Progress of Wound: Improved - Physical Exam Vital Signs Temp Pulse Resp BP 97.8 F 66 18 148/73 H 02/07/18 12:08 02/07/18 12:08 02/07/18 12:08 02/07/18 12:08 General: Alert, Oriented x3, Cooperative Extremities: No cyanosis, Capillary Refill Less than 3 Seconds, No Calf Tenderness - Negative Jyothi and Carranza bilateral, Edema - Decreased, Peripheral Pulses Normal, - - Palpable prominent central lateral exostosis of the left foot consistent with chronic Charcot deformity. There is no warmth, erythema, or laxity on passive manipulation of the midfoot Skin: Ulcer/ Wound - No purulence, no erythema, streaking, no odor, no acute infection left foot. Peripheral epithelialization is noted. Wound Measurements and Assessment WC - Nurse 1 - General Ulcer Measurement Start: 01/24/18 13:25 Freq: Status: Active Protocol: Activity Type Activity Date Activity User E-Sign Co-Sign Detail Recorded Client Recorded Date Recorded By Document 02/07/18 12:08 RB [id number] 02/07/18 12:22 RB 02/07/18 12:08 Wound Center Nurse 1 [Ulcer Assessment] #5 L Plantar -Combined with other wound No -Current Size (cm) - Length 1.3 -Current Size (cm) - Width 1.0 -Current Size (cm) - Depth 0.1 -Total Square Cm 1.30 -Photo Taken No -Epithelialization Medium 34-66% -Tunneling No -Undermining/Tunneling No -Circular Undermining No -Exudate Amt Small (1-33%) -Exudate Type Serosanguineous -Wound Margin Flat & Intact -Granulation Amt Large (67-100%) -Granulation Quality Red -Slough/Fibrin Yes -Necrosis Amt Small (1-33%) -Necrotic Tissue Type Adherent Slough -Structure Exposed N/A -Texture (Ania-wound Skin Appearance) Assessed -Moisture (Ania-wound Skin Appearance Assessed ) Dry/Scaly -Color (Ania-wound Skin Appearance) Assessed -Temperature (Ania-wound Skin No Abnormality Appearance) (Pt Warm) -Tenderness on Palpation (Ania-wound No Skin Appearance) -Ulcer Cleansing Wound Cleanser -Foul Odor after Cleansing No -Anesthetic Used 4% Lidocaine Solution [Edema Assessment] -Lower Limb Edema Present Yes -Left Calf (cm) 43.0 -Left Ankle (cm) 27.0 WC - Nurse 2 - General Ulcer CM Notes Start: 01/24/18 13:25 Freq: Status: Active Protocol: Activity Type Activity Date Activity User E-Sign Co-Sign Detail Recorded Client Recorded Date Recorded By Document 02/07/18 12:31 [id number] 02/07/18 12:35 02/07/18 12:31 Wound Center Nurse 2 [Procedure/Treatment] #5 L Plantar -Time 12:31 -Correct Patient Yes -Correct Side, Site, Position Yes -Correct Procedure Yes -Procedure Performed Yes -Type of Procedure Debridement -Clinical Debridement Subcutaneous -Post Debridement Size (cm) - Length 1.4 -Post Debridement Size (cm) - Width 1.1 -Post Debridement Size (cm) - Depth 0.1 -Total Square Cm 1.54 -Wound/Ulcer Outcome Not Healed -Ulcer Cleansing Rinsed/ Irrigated with Saline -Foul Odor after Cleansing No -Bioengineered Tissue No -Topical Lidocaine (%) 4 -Bleeding Controlled with Pressure -Treatment Response Procedure Tolerated Well [See Physician Procedure note for Specifics] Pain Scale: 0-10 Numeric [Pain] -Is Patient Pain Free? Yes Musculoskeletal: No Tenderness to Palpation of Joints or Extremities, Muscle Wasting Neurological: - - Lack of epicritic sensation light touch left lower extremity Psych/Mental Status: Normal Affect, Appropriate Debridement Note Post-Debridement Measurements/Treatment WC - Nurse 2 - General Ulcer CM Notes Start: 01/24/18 13:25 Freq: Status: Active Protocol: Activity Type Activity Date Activity User E-Sign Co-Sign Detail Recorded Client Recorded Date Recorded By Document 01/24/18 14:20 TM [id number] 01/24/18 14:23 TM Document 01/26/18 10:49 MW [id number] 01/26/18 10:50 MW Document 01/31/18 15:24 [id number] 01/31/18 15:25 Document 02/07/18 12:31 [id number] 02/07/18 12:35 TM 01/24/18 01/26/18 01/31/18 14:20 10:49 15:24 Wound Center Nurse 2 #5 L Plantar -Time 14:21 10:49 15:25 -Correct Patient Yes Yes Yes -Correct Side, Site, Position Yes Yes Yes -Correct Procedure Yes Yes Yes -Procedure Performed Yes No Yes -Type of Procedure Debridement Debridement -Clinical Debridement Subcutaneous Subcutaneous -Post Debridement Size (cm) - Length 1.8 2.0 1.6 -Post Debridement Size (cm) - Width 1.7 1.5 1.3 -Post Debridement Size (cm) - Depth 0.1 0.1 0.2 -Total Square Cm 3.06 3.00 2.08 -Wound/Ulcer Outcome Not Healed Not Healed Not Healed -Ulcer Cleansing Rinsed/ Rinsed/ Rinsed/ Irrigated with Irrigated with Irrigated with Saline Saline Saline -Foul Odor after Cleansing No No No -Bioengineered Tissue No No No -Topical Lidocaine (%) 4 -Bleeding Controlled with Pressure NA Pressure -Treatment Response Procedure Procedure Procedure Tolerated Well Tolerated Well Tolerated Well Pain Scale: 0-10 Numeric Is Patient Pain Free? Yes Yes Yes 02/07/18 12:31 Wound Center Nurse 2 #5 L Plantar -Time 12:31 -Correct Patient Yes -Correct Side, Site, Position Yes -Correct Procedure Yes -Procedure Performed Yes -Type of Procedure Debridement -Clinical Debridement Subcutaneous -Post Debridement Size (cm) - Length 1.4 -Post Debridement Size (cm) - Width 1.1 -Post Debridement Size (cm) - Depth 0.1 -Total Square Cm 1.54 -Wound/Ulcer Outcome Not Healed -Ulcer Cleansing Rinsed/ Irrigated with Saline -Foul Odor after Cleansing No -Bioengineered Tissue No -Topical Lidocaine (%) 4 -Bleeding Controlled with Pressure -Treatment Response Procedure Tolerated Well Pain Scale: 0-10 Numeric Is Patient Pain Free? Yes Wound debrided: plantar foot Laterality: Left Wound Grade/Stage: grade 1 Type of Debridement: Excisional debridement Anesthesia Used: 4% Lidocaine Solution Depth: in the subcutaneous layer Percentage of wound debrided: 100 Instrument Used: #15 blade Tissue Removed: fibrous, devitalized subcutaneous, biofilm, slough Severity: Fat Layer Exposed Amount of bleeding with debridement: Mild Bleeding Controlled with: Pressure Patient tolerated procedure well Assessment/Plan Active Problems (Last Reviewed 10/13/17 @ 13:10 by Renae Henderson) Malnutrition (Chronic) Chronic ulcer of left foot with fat layer exposed (Chronic) Venous insufficiency of both lower extremities (Chronic) Charcot foot due to diabetes mellitus (Chronic) Diabetic ulcer of left foot (Acute) Assessment: Ulcer left foot fat layer exposed, no infection. charcot left foot - non acute. peripheral vascular disease. diabetes with peripheral neuropathy Plan: I reviewed and discussed his case today. A total contact cast was applied according to standard protocol to the left lower extremity after he returns to clinic from completing his noninvasive vascular studies. He does have the Charcot boot and he was advised to keep in place over the cast. He was reassured no signs of infection are noted. We discussed the etiology of this wound and he understands Charcot reconstruction may be necessary to prevent continued recurrence. He is in the process of moving at this time and want to proceed with the total contact casting. Nutritional supplementation was recommended with Bartolo and proper glycemic control. I recommend he considers a infrastructure architect referral. To elevate limb at rest. I reviewed his preliminary results including triphasic PT and DP, right GIOVANI 1.15, left GIOVANI 1.19 , right toe brachial index 1.1 and 8, and left toe brachial index 0.99. His venous duplex Doppler exam was also reviewed from a preliminary standpoint with no deep venous thrombosis noted. All the veins of the left lower extremity were compressible. 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 The final reports are pending. Baseline laboratory data was also reviewed and he had a white blood cell count of 6.6 which does not suggest there are any underlying infections noted. For some reason his basic metabolic panel was canceled and reordering this will be considered in the future. His vitamin D level is 15.4 and treatment recommendations will be provided at his next visit. To return to clinic in [address] Alvarez, and to return to clinic this Monday for potential reapplication of total contact cast. I answered all his questions.
--- NOTE | 2018-02-07 13:06 | VDLE_ITS ---
Reason For Study: Non-healing wound RIGHT LEFT CFV is compressible, spontaneous, phasic, CFV is compressible, spontaneous, phasic, competent and demonstrates normal competent, and demonstrates normal augmentation. augmentation. FV is compressible, spontaneous, phasic, FV is compressible, spontaneous, phasic, competent and demonstrates normal competent and demonstrates normal augmentation. augmentation. POP V is compressible, spontaneous, phasic, POP V is compressible, spontaneous, phasic, competent and demonstrates normal competent and demonstrates normal augmentation. augmentation. T/P Trunk is compressible. T/P Trunk is compressible. PTV is compressible. PTV is compressible. RT PerV is compressible. LT PerV is compressible. SFJ is competent SFJ is competent GSV is competent above knee GSV is competent GSV is INCOMPETENT below knee with reflux SSV is too small in caliber to assess. greater than .5 sec and diameter of .50 x .55 cm SSV is competent. Procedure Exam performed in department. A preliminary report was called and/or faxed to [facility]. Interpretation Summary Deep veins of the lower extremities are bilaterally patent and compressible segmentally. There is no evidence of deep vein thrombosis on either side. Valvular competence appears intact within the proximal deep venous systems bilaterally. The greater saphenous veins appear bilaterally patent and compressible segmentally. Sapheno-femoral junctions are bilaterally competent . The right greater saphenous vein appears competent above the knee. The right greater saphenous vein appears incompetent below the knee. The left greater saphenous vein appears segmentally competent. The right small saphenous vein is patent and competent. The left small saphenous vein is too small to assess. Ordering Physician: Saba Alvarez Referring Physician: Zenon Almeida Performed By: Chen Chapman RVT
[2018-02-14 14:48] VITALS: BP 144/81; PULSE 64; RESP 16; TEMP 36.7; BMI 36.2
--- NOTE | 2018-02-14 15:45 | PN.PCM_ITS ---
(1) Chronic ulcer of left foot with fat layer exposed Status: Chronic Current Visit: Yes Code(s): L97.522 - Non-pressure chronic ulcer of other part of left foot with fat layer exposed (2) Malnutrition Status: Chronic Current Visit: Yes Code(s): E46 - Unspecified protein- calorie malnutrition (3) Charcot foot due to diabetes mellitus Status: Chronic Current Visit: Yes Code(s): E11.610 - Type 2 diabetes mellitus with diabetic neuropathic arthropathy (4) Venous insufficiency of both lower extremities Status: Chronic Current Visit: Yes Code(s): I87.2 - Venous insufficiency ( chronic) (peripheral) (5) Peripheral vascular disease Status: Suspected Current Visit: Yes Code(s): I73.9 - Peripheral vascular disease, unspecified Type of Wound Date of Service: 02/16/18 Chief Complaint: Left foot has Charcot joint with a diabetic foot ulcer (midfoot )-recurrent History of Wound: This 56 year old male returns to clinic today for left foot ulcer that has reoccurred. He has a history of charcot. He denies redness, odor, fever, chill, nausea, vomiting. He has vascular studies scheduled this afternoon. He has done well this past week with a total contact cast in the ulcer site is nearly closed. He tolerated the total contact cast well this past week. Progress of Wound: Improved - Physical Exam Vital Signs Temp Pulse Resp BP 98.0 F 64 16 144/81 H 02/14/18 14:48 02/14/18 14:48 02/14/18 14:48 02/14/18 14:48 General: Alert, Oriented x3, Cooperative Extremities: No cyanosis, Capillary Refill Less than 3 Seconds, No Calf Tenderness - Negative Jyothi and Carranza, Diminished Peripheral Pulses, Edema Skin: Ulcer/ Wound - No purulence, no erythema, streaking, no odor, no infection , - - Skin is atrophic Wound Measurements and Assessment WC - Nurse 1 - General Ulcer Measurement Start: 01/24/18 13:25 Freq: Status: Active Protocol: Activity Type Activity Date Activity User E-Sign Co-Sign Detail Recorded Client Recorded Date Recorded By Document 02/14/18 14:48 JEWELL [id number] 02/14/18 15:02 JEWELL 02/14/18 14:48 Wound Center Nurse 1 [Ulcer Assessment] #5 L Plantar -Combined with other wound No -Current Size (cm) - Length 0.5 -Current Size (cm) - Width 0.3 -Current Size (cm) - Depth 0.2 -Total Square Cm 0.15 -Date of Last Picture (Recall this 01/24/18 field) -Photo Taken No -Epithelialization Small 1-33% -Tunneling No -Undermining/Tunneling No -Circular Undermining No -Classification - Thickness Full Thickness without Exposed Support Structure -Classification - Rivera Grading ( Grade 3 Diabetic Ulcer) -Change in Wound Grade/Stage No Query Text:If change please identify the Stage/Grade in the comment (ie. S2 G3) -Exudate Amt Small (1-33%) -Exudate Type Serosanguineous -Wound Margin Distinct, Outline Attached -Granulation Amt Small (1-33%) -Granulation Quality Red -Slough/Fibrin Yes -Necrosis Amt None Present (0 %) -Necrotic Tissue Type Adherent Slough -Structure Exposed N/A -Texture (Ania-wound Skin Appearance) Callus -Moisture (Ania-wound Skin Appearance No Abnormality ) -Color (Ania-wound Skin Appearance) No Abnormality -Temperature (Ania-wound Skin No Abnormality Appearance) (Pt Warm) -Tenderness on Palpation (Ania-wound No Skin Appearance) -Ulcer Cleansing PURELL SOAP -Foul Odor after Cleansing No -Anesthetic Used 5% Lidocaine Gel [Edema Assessment] -Lower Limb Edema Present No WC - Nurse 2 - General Ulcer CM Notes Start: 01/24/18 13:25 Freq: Status: Active Protocol: Activity Type Activity Date Activity User E-Sign Co-Sign Detail Recorded Client Recorded Date Recorded By Document 02/14/18 15:16 [email or web address] [id number] 02/14/18 15:17 02/14/18 15:16 Wound Center Nurse 2 [Procedure/Treatment] #5 L Plantar -Time 15:17 -Correct Patient Yes -Correct Side, Site, Position Yes -Correct Procedure Yes -Procedure Performed Yes -Type of Procedure Debridement -Clinical Debridement Subcutaneous -Post Debridement Size (cm) - Length 0.5 -Post Debridement Size (cm) - Width 0.5 -Post Debridement Size (cm) - Depth 0.1 -Total Square Cm 0.25 -Wound/Ulcer Outcome Not Healed -Ulcer Cleansing Rinsed/ Irrigated with Saline -Foul Odor after Cleansing No -Bioengineered Tissue No -Bleeding Controlled with Pressure -Treatment Response Procedure Tolerated Well [See Physician Procedure note for Specifics] Pain Scale: 0-10 Numeric [Pain] -Is Patient Pain Free? Yes Musculoskeletal: No Tenderness to Palpation of Joints or Extremities, Muscle Wasting, - - Rocker-bottom foot deformity with palpable plantar central lateral exostosis noted; there is no laxity, calor, or edema to the foot plantar aspect Neurological: - - Lack of epicritic sensation light touch Psych/Mental Status: Normal Affect, Appropriate Debridement Note Post-Debridement Measurements/Treatment WC - Nurse 2 - General Ulcer CM Notes Start: 01/24/18 13:25 Freq: Status: Active Protocol: Activity Type Activity Date Activity User E-Sign Co-Sign Detail Recorded Client Recorded Date Recorded By Document 01/24/18 14:20 TM [id number] 01/24/18 14:23 Document 01/26/18 10:49 MW [id number] 01/26/18 10:50 MW Document 01/31/18 15:24 [id number] 01/31/18 15:25 Document 02/07/18 12:31 TM [id number] 02/07/18 12:35 Document 02/14/18 15:16 [id number] 02/14/18 15:17 01/24/18 01/26/18 01/31/18 14:20 10:49 15:24 Wound Center Nurse 2 #5 L Plantar -Time 14:21 10:49 15:25 -Correct Patient Yes Yes Yes -Correct Side, Site, Position Yes Yes Yes -Correct Procedure Yes Yes Yes -Procedure Performed Yes No Yes -Type of Procedure Debridement Debridement -Clinical Debridement Subcutaneous Subcutaneous -Post Debridement Size (cm) - Length 1.8 2.0 1.6 -Post Debridement Size (cm) - Width 1.7 1.5 1.3 -Post Debridement Size (cm) - Depth 0.1 0.1 0.2 -Total Square Cm 3.06 3.00 2.08 -Wound/Ulcer Outcome Not Healed Not Healed Not Healed -Ulcer Cleansing Rinsed/ Rinsed/ Rinsed/ Irrigated with Irrigated with Irrigated with Saline Saline Saline -Foul Odor after Cleansing No No No -Bioengineered Tissue No No No -Topical Lidocaine (%) 4 -Bleeding Controlled with Pressure NA Pressure -Treatment Response Procedure Procedure Procedure Tolerated Well Tolerated Well Tolerated Well Pain Scale: 0-10 Numeric Is Patient Pain Free? Yes Yes Yes 02/07/18 02/14/18 12:31 15:16 Wound Center Nurse 2 #5 L Plantar -Time 12: 15:17 -Correct Patient Yes Yes -Correct Side, Site, Position Yes Yes -Correct Procedure Yes Yes -Procedure Performed Yes Yes -Type of Procedure Debridement Debridement -Clinical Debridement Subcutaneous Subcutaneous -Post Debridement Size (cm) - Length 1.4 0.5 -Post Debridement Size (cm) - Width 1.1 0.5 -Post Debridement Size (cm) - Depth 0.1 0.1 -Total Square Cm 1.54 0.25 -Wound/Ulcer Outcome Not Healed Not Healed -Ulcer Cleansing Rinsed/ Rinsed/ Irrigated with Irrigated with Saline Saline -Foul Odor after Cleansing No No -Bioengineered Tissue No No -Topical Lidocaine (%) 4 -Bleeding Controlled with Pressure Pressure -Treatment Response Procedure Procedure Tolerated Well Tolerated Well Pain Scale: 0-10 Numeric Is Patient Pain Free? Yes Yes Wound debrided: plantar foot Laterality: Left Wound Grade/Stage: grade 1 Type of Debridement: Excisional debridement Anesthesia Used: 5% Lidocaine Gel Depth: in the subcutaneous layer Percentage of wound debrided: 100 Instrument Used: #15 blade Tissue Removed: fibrous, devitalized subcutaneous, biofilm, slough Severity: Fat Layer Exposed Amount of bleeding with debridement: Mild Bleeding Controlled with: Pressure Patient tolerated procedure well Assessment/Plan Active Problems (Last Reviewed 10/13/17 @ 13:10 by Renae Henderson) Malnutrition (Chronic) Chronic ulcer of left foot with fat layer exposed (Chronic) Venous insufficiency of both lower extremities (Chronic) Charcot foot due to diabetes mellitus (Chronic) Diabetic ulcer of left foot (Acute) Assessment: Ulcer left foot fat layer exposed, no infection. charcot left foot - non acute. peripheral vascular disease. diabetes with peripheral neuropathy Plan: I reviewed and discussed his case today. A total contact cast was applied according to standard protocol to the left lower extremity after he returns to clinic from completing his noninvasive vascular studies. He does have the Charcot boot and he was advised to keep in place over the cast. He was reassured no signs of infection are noted. We discussed the etiology of this wound and he understands Charcot reconstruction may be necessary to prevent continued recurrence. He is in the process of moving at this time and want to proceed with the total contact casting. Nutritional supplementation was recommended with Bartolo and proper glycemic control. I recommend he considers a embedded software test engineer referral. To elevate limb at rest. I reviewed his preliminary results including triphasic PT and DP, right GIOVANI 1.15, left GIOVANI 1.19 , right toe brachial index 1.1 and 8, and left toe brachial index 0.99. His venous duplex Doppler exam was also reviewed from a preliminary standpoint with no deep venous thrombosis noted. All the veins of the left lower extremity were compressible. 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 Baseline laboratory data was also reviewed and he had a white blood cell count of 6.6 which does not suggest there are any underlying infections noted. For some reason his basic metabolic panel was canceled and reordering this will be considered in the future. His vitamin D level is 15.4 and treatment recommendations will be provided at his next visit. To return to clinic in [address] Alvarez. I answered all his questions.
== END 2018-02-19 23:59 ==
LOC: WC 14:30
PROVIDERS: Family Provider Family Medicine; PCP Family Medicine; Visit Provider Podiatrist
DX: E11.621 Type 2 diabetes mellitus with foot ulcer (principal); E11.610 Type 2 diabetes mellitus with diabetic neuropathic arthropathy; E11.40 Type 2 diabetes mellitus with diabetic neuropathy, unspecified; E11.51 Type 2 diabetes mellitus with diabetic peripheral angiopathy without gangrene; L97.522 Non-pressure chronic ulcer of other part of left foot with fat layer exposed; I83.024 Varicose veins of left lower extremity with ulcer of heel and midfoot; R60.0 Localized edema; M79.604 Pain in right leg; M79.605 Pain in left leg
CPT/HCPCS: 11042; 29445; 82306; 83036; 85025; 93923; 93970; 99213; G0463

== ENCOUNTER → 2018-03-12 14:43 | Outpatient (CLI) | payer MEDICARE, SELFPAY ==
[2018-03-12 16:15] LABS: AST(SGOT) 69 U/L (15-37); Alanine Aminotransfer ALT/SGPT 66 U/L (16-61); Albumin, Serum 3.7 g/dL (3.2-5.0); Alkaline Phosphatase 123 U/L (45-117); Bilirubin, Direct 0.26 mg/dL (0.00-0.30); Cholesterol 195 mg/dL (200); High Density Lipoprotein 113 mg/dL; Protein, Total 7.7 g/dL (6.4-8.2); Triglycerides 63 mg/dL; Very Low Density Lipoprotein 13 mg/dL (5-40)
== END ==
PROVIDERS: Family Provider Family Medicine; PCP Family Medicine; Visit Provider Internal Medicine Cardiovascular Disease
DX: E78.5 Hyperlipidemia, unspecified (principal); I25.10 Atherosclerotic heart disease of native coronary artery without angina pectoris; I25.5 Ischemic cardiomyopathy
CPT/HCPCS: 36415; 80061; 80076

== ENCOUNTER 2018-03-21 14:30 | Outpatient (RCR) | payer MEDICARE, SELFPAY ==
[2018-02-20 01:06] VITALS: PULSE 64; RESP 16; TEMP 36.7
[2018-02-21 13:31] VITALS: BP 145/77; PULSE 69; RESP 18; TEMP 37.2
--- NOTE | 2018-02-21 17:24 | PN.PCM_ITS ---
(1) Venous insufficiency of both lower extremities Status: Chronic Current Visit: Yes Code(s): I87.2 - Venous insufficiency ( chronic) (peripheral) (2) Edema extremities Status: Chronic Current Visit: Yes Code(s): R60.0 - Localized edema (3) Chronic ulcer of left foot with fat layer exposed Status: Resolved Current Visit: Yes Code(s): L97.522 - Non-pressure chronic ulcer of other part of left foot with fat layer exposed (4) Diabetes mellitus with polyneuropathy Status: Chronic Current Visit: Yes Qualifiers: Diabetes mellitus type: type 2 Qualified Code(s): E11.42 - Type 2 diabetes mellitus with diabetic polyneuropathy Code(s): E11.42 - Type 2 diabetes mellitus with diabetic polyneuropathy (5) Charcot's joint, left ankle and foot Status: Chronic Current Visit: Yes Code(s): M14.672 - Charcot's joint, left ankle and foot Type of Wound Date of Service: 02/22/18 Chief Complaint: Left foot has Charcot joint with a diabetic foot ulcer (midfoot )-recurrent History of Wound: This 56 year old male returns to clinic today for left foot ulcer that has reoccurred. He has a history of charcot. He denies redness, odor, fever, chill, nausea, vomiting. He has vascular studies scheduled this afternoon. He has done well this past week with a total contact cast in the ulcer site is nearly closed. He tolerated the total contact cast well this past week. Progress of Wound: Improved - Physical Exam Vital Signs Temp Pulse Resp BP 99 F 69 18 145/77 H 02/21/18 13:31 02/21/18 13:31 02/21/18 13:31 02/21/18 13:31 General: Alert, Oriented x3, Cooperative Extremities: No cyanosis, Capillary Refill Less than 3 Seconds, No Calf Tenderness, Diminished Peripheral Pulses, Edema Skin: Ulcer/ Wound - No purulence, no erythema, streaking, no odor, no acute signs of infection. Skin is atrophic Wound Measurements and Assessment WC - Nurse 1 - General Ulcer Measurement Start: 02/21/18 13:31 Freq: Status: Active Protocol: Activity Type Activity Date Activity User E-Sign Co-Sign Detail Recorded Client Recorded Date Recorded By Document 02/21/18 13:31 RB [id number] 02/21/18 13:34 02/21/18 13:31 Wound Center Nurse 1 [Ulcer Assessment] #5 L Plantar -Combined with other wound No -Current Size (cm) - Length 0.3 -Current Size (cm) - Width 0.3 -Current Size (cm) - Depth 0.1 -Total Square Cm 0.09 -Photo Taken Yes -Epithelialization Small 1-33% -Tunneling No -Undermining/Tunneling No -Circular Undermining No -Classification - Rivera Grading ( Grade 3 Diabetic Ulcer) -Exudate Amt Small (1-33%) -Exudate Type Serosanguineous -Wound Margin Thickened -Granulation Amt Medium (34-66%) -Granulation Quality Reader -Slough/Fibrin Yes -Necrosis Amt Small (1-33%) -Necrotic Tissue Type Adherent Slough -Structure Exposed N/A -Texture (Ania-wound Skin Appearance) Callus -Moisture (Ania-wound Skin Appearance Assessed ) -Color (Ania-wound Skin Appearance) Assessed -Temperature (Ania-wound Skin No Abnormality Appearance) (Pt Warm) -Tenderness on Palpation (Ania-wound No Skin Appearance) -Ulcer Cleansing Wound Cleanser -Anesthetic Used 5% Lidocaine Gel [Edema Assessment] -Left Calf (cm) 42.5 -Left Ankle (cm) 26 WC - Nurse 2 - General Ulcer CM Notes Start: 02/21/18 13:31 Freq: Status: Active Protocol: Activity Type Activity Date Activity User E-Sign Co-Sign Detail Recorded Client Recorded Date Recorded By Document 02/21/18 13:52 [id number] 02/21/18 13:53 02/21/18 13:52 Wound Center Nurse 2 [Procedure/Treatment] #5 L Plantar -Time 13:52 -Correct Patient Yes -Correct Side, Site, Position Yes -Correct Procedure Yes -Procedure Performed Yes -Type of Procedure Debridement -Clinical Debridement Subcutaneous -Post Debridement Size (cm) - Length 0.4 -Post Debridement Size (cm) - Width 0.2 -Post Debridement Size (cm) - Depth 0.1 -Total Square Cm 0.08 -Wound/Ulcer Outcome Not Healed -Ulcer Cleansing Rinsed/ Irrigated with Saline -Foul Odor after Cleansing No -Bioengineered Tissue No -Topical Lidocaine (%) 5 -Bleeding Controlled with Pressure -Treatment Response Procedure Tolerated Well [See Physician Procedure note for Specifics] Pain Scale: 0-10 Numeric [Pain] -Is Patient Pain Free? Yes Musculoskeletal: No Tenderness to Palpation of Joints or Extremities, Muscle Wasting, - - Prominent rocker-bottom foot left. No laxity or acute Charcot noted Neurological: - - Lack of epicritic sensation light touch Psych/Mental Status: Normal Affect, Appropriate Debridement Note Post-Debridement Measurements/Treatment WC - Nurse 2 - General Ulcer CM Notes Start: 02/21/18 13:31 Freq: Status: Active Protocol: Activity Type Activity Date Activity User E-Sign Co-Sign Detail Recorded Client Recorded Date Recorded By Document 02/21/18 13:52 [id number] 02/21/18 13:53 TM 02/21/18 13:52 Wound Center Nurse 2 #5 L Plantar -Time 13:52 -Correct Patient Yes -Correct Side, Site, Position Yes -Correct Procedure Yes -Procedure Performed Yes -Type of Procedure Debridement -Clinical Debridement Subcutaneous -Post Debridement Size (cm) - Length 0.4 -Post Debridement Size (cm) - Width 0.2 -Post Debridement Size (cm) - Depth 0.1 -Total Square Cm 0.08 -Wound/Ulcer Outcome Not Healed -Ulcer Cleansing Rinsed/ Irrigated with Saline -Foul Odor after Cleansing No -Bioengineered Tissue No -Topical Lidocaine (%) 5 -Bleeding Controlled with Pressure -Treatment Response Procedure Tolerated Well Pain Scale: 0-10 Numeric Is Patient Pain Free? Yes Wound debrided: plantar foot Laterality: Left Wound Grade/Stage: grade 1 Type of Debridement: Excisional debridement Anesthesia Used: 5% Lidocaine Gel Depth: Down to and including healthy tissue Percentage of wound debrided: 100 Instrument Used: #15 blade Tissue Removed: fibrous, devitalized subcutaneous, biofilm, slough Severity: Fat Layer Exposed Amount of bleeding with debridement: Mild Bleeding Controlled with: Pressure Patient tolerated procedure well Assessment/Plan Active Problems (Last Reviewed 10/13/17 @ 13:10 by Renae Henderson) Venous insufficiency of both lower extremities (Chronic) Edema extremities (Chronic) Diabetes mellitus with polyneuropathy (Chronic) Charcot's joint, left ankle and foot (Chronic) Assessment: Ulcer left foot fat layer exposed, no infection. charcot left foot - non acute. peripheral vascular disease. diabetes with peripheral neuropathy Plan: I reviewed and discussed his case today. A total contact cast was applied according to standard protocol to the left lower extremity after he returns to clinic from completing his noninvasive vascular studies. He does have the Charcot boot and he was advised to keep in place over the cast. He was reassured no signs of infection are noted. We discussed the etiology of this wound and he understands Charcot reconstruction may be necessary to prevent continued recurrence. He is in the process of moving at this time and want to proceed with the total contact casting. Nutritional supplementation was recommended with Bartolo and proper glycemic control. I recommend he considers a block press operator referral. To elevate limb at rest. I reviewed his preliminary results including triphasic PT and DP, right GIOVANI 1.15, left GIOVANI 1.19 , right toe brachial index 1.1 and 8, and left toe brachial index 0.99. His venous duplex Doppler exam was also reviewed from a preliminary standpoint with no deep venous thrombosis noted. All the veins of the left lower extremity were compressible. 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 Baseline laboratory data was also reviewed and he had a white blood cell count of 6.6 which does not suggest there are any underlying infections noted. For some reason his basic metabolic panel was canceled and reordering this will be considered in the future if needed. He is close to healing this wound. An additional debridement and total contact cast will be considered if his ulcer site remains opened next week; otherwise he will resume P[employer]AY[employer]E walker use. To return to clinic in 1 week; Dr. Rios will be covering. I answered all his questions.
[2018-03-01 16:01] VITALS: BP 147/86; PULSE 65; RESP 16; TEMP 36.7
--- NOTE | 2018-03-01 18:00 | PCM.WC.PN ---
(1) Chronic ulcer of left foot with fat layer exposed Status: Chronic Current Visit: No Code(s): L97.522 - Non-pressure chronic ulcer of other part of left foot with fat layer exposed (2) Venous insufficiency of both lower extremities Status: Chronic Current Visit: Yes Code(s): I87.2 - Venous insufficiency (chronic) (peripheral) (3) Edema extremities Status: Chronic Current Visit: Yes Code(s): R60.0 - Localized edema (4) Diabetes mellitus with polyneuropathy Status: Chronic Current Visit: Yes Qualifiers: Diabetes mellitus type: type 2 Qualified Code(s): E11.42 - Type 2 diabetes mellitus with diabetic polyneuropathy Code(s): E11.42 - Type 2 diabetes mellitus with diabetic polyneuropathy (5) Charcot's joint, left ankle and foot Status: Chronic Current Visit: Yes Code(s): M14.672 - Charcot's joint, left ankle and foot Type of Wound Date of Service: 03/01/18 Chief Complaint: Left foot has Charcot joint with a diabetic foot ulcer (midfoot)-recurrent History of Wound: This 56 year old male returns to clinic today for left foot ulcer that has reoccurred. He has a history of charcot. He denies redness, odor, fever, chill, nausea, vomiting. He has vascular studies scheduled this afternoon. He has done well this past week with a total contact cast in the ulcer site is nearly closed. He tolerated the total contact cast well this past week. Progress of Wound: Improved - Physical Exam Vital Signs Temp Pulse Resp BP 98.0 F 65 16 147/86 H 03/01/18 16:01 03/01/18 16:01 03/01/18 16:01 03/01/18 16:01 General: Alert, Oriented x3, Cooperative, No apparent distress Extremities: No cyanosis, Capillary Refill Less than 3 Seconds, No Calf Tenderness, Diminished Peripheral Pulses, Edema Skin: Ulcer/ Wound - No open ulcer appreciated at this time. There is no surrounding or extending cellulitis, increased warmth, or any other signs of local infection appreciated at this time. Skin is atrophic Wound Measurements and Assessment WC - Nurse 1 - General Ulcer Measurement Start: 02/21/18 13:31 Freq: Status: Active Protocol: Activity Type Activity Date Activity User E-Sign Co-Sign Detail Recorded Client Recorded Date Recorded By Document 03/01/18 16:01 MW [id number] 03/01/18 16:14 MW 03/01/18 16:01 Wound Center Nurse 1 [Ulcer Assessment] #5 L Plantar -Combined with other wound No -Current Size (cm) - Length 0.1 -Current Size (cm) - Width 0.1 -Current Size (cm) - Depth 0.1 -Total Square Cm 0.01 -Date of Last Picture (Recall this 03/01/18 field) -Photo Taken Yes -Epithelialization Small 1-33% -Tunneling No -Undermining/Tunneling No -Circular Undermining No -Exudate Amt None Present (0 %) -Granulation Amt None Present (0 %) -Granulation Quality N/A -Slough/Fibrin No -Necrosis Amt None Present (0 %) -Structure Exposed N/A -Texture (Ania-wound Skin Appearance) Assessed Scarring -Moisture (Ania-wound Skin Appearance Assessed ) Dry/Scaly -Color (Ania-wound Skin Appearance) No Abnormality Assessed -Temperature (Ania-wound Skin No Abnormality Appearance) (Pt Warm) -Tenderness on Palpation (Ania-wound No Skin Appearance) -Ulcer Cleansing Wound Cleanser -Foul Odor after Cleansing No -Anesthetic Used 5% Lidocaine Gel [Edema Assessment] -Lower Limb Edema Present Yes -Left Calf (cm) 42.0 -Left Ankle (cm) 25.5 WC - Nurse 2 - General Ulcer CM Notes Start: 02/21/18 13:31 Freq: Status: Active Protocol: Activity Type Activity Date Activity User E-Sign Co-Sign Detail Recorded Client Recorded Date Recorded By Document 03/01/18 16:54 [id number] 03/01/18 17:02 TM 03/01/18 16:54 Wound Center Nurse 2 [Procedure/Treatment] #5 L Plantar -Time 16:54 -Correct Patient Yes -Correct Side, Site, Position Yes -Correct Procedure Yes -Procedure Performed Yes -Post Debridement Size (cm) - Length 0 -Post Debridement Size (cm) - Width 0 -Post Debridement Size (cm) - Depth 0 -Total Square Cm 0 -Wound/Ulcer Outcome Healed- Epithelialized -Ulcer Cleansing Rinsed/ Irrigated with Saline -Foul Odor after Cleansing No -Bioengineered Tissue No -Bleeding Controlled with NA -Treatment Response Procedure Tolerated Well [See Physician Procedure note for Specifics] Pain Scale: 0-10 Numeric [Pain] -Is Patient Pain Free? Yes Musculoskeletal: No Tenderness to Palpation of Joints or Extremities, - - Left Charcot foot deformity Neurological: - - Epicritic sensation is absent Psych/Mental Status: Normal Affect, Appropriate Debridement Note Post-Debridement Measurements/Treatment WC - Nurse 2 - General Ulcer CM Notes Start: 02/21/18 13:31 Freq: Status: Active Protocol: Activity Type Activity Date Activity User E-Sign Co-Sign Detail Recorded Client Recorded Date Recorded By Document 02/21/18 13:52 TM [id number] 02/21/18 13:53 TM Document 03/01/18 16:54 TM [id number] 03/01/18 17:02 TM 02/21/18 03/01/18 13:52 16:54 Wound Center Nurse 2 #5 L Plantar -Time 13:52 16:54 -Correct Patient Yes Yes -Correct Side, Site, Position Yes Yes -Correct Procedure Yes Yes -Procedure Performed Yes Yes -Type of Procedure Debridement -Clinical Debridement Subcutaneous -Post Debridement Size (cm) - Length 0.4 0 -Post Debridement Size (cm) - Width 0.2 0 -Post Debridement Size (cm) - Depth 0.1 0 -Total Square Cm 0.08 0 -Wound/Ulcer Outcome Not Healed Healed- Epithelialized -Ulcer Cleansing Rinsed/ Rinsed/ Irrigated with Irrigated with Saline Saline -Foul Odor after Cleansing No No -Bioengineered Tissue No No -Topical Lidocaine (%) 5 -Bleeding Controlled with Pressure NA -Treatment Response Procedure Procedure Tolerated Well Tolerated Well Pain Scale: 0-10 Numeric Is Patient Pain Free? Yes Yes No debridement was completed today Assessment/Plan Active Problems (Last Reviewed 10/13/17 @ 13:10 by Renae Henderson) Venous insufficiency of both lower extremities (Chronic) Edema extremities (Chronic) Diabetes mellitus with polyneuropathy (Chronic) Charcot's joint, left ankle and foot (Chronic) Assessment: Ulcer left foot fat layer exposed, no infection. charcot left foot - non acute. peripheral vascular disease. diabetes with peripheral neuropathy Plan: Patient was examined in the absence of Dr. Alvarez today. I reviewed and discussed his case today. The ulcer site appears to be healed at this time. He refuses any further TCC because he says he wants to shower. I also do not feel he needs one this week. He was instructed to use his [place] and to monitor his foot multiple times daily to make sure there is no break down of the skin. He was reassured no signs of infection are noted. We discussed the etiology of this wound and he understands Charcot reconstruction may be necessary to prevent continued recurrence. Nutritional supplementation was recommended with Bartolo and proper glycemic control. To elevate limb at rest. To return to clinic in 1 week for any last instruction from Dr. Alvarez. I answered all his questions.
--- NOTE | 2018-03-01 18:10 | PN.PCM_ITS ---
(1) Chronic ulcer of left foot with fat layer exposed Status: Chronic Current Visit: No Code(s): L97.522 - Non-pressure chronic ulcer of other part of left foot with fat layer exposed (2) Venous insufficiency of both lower extremities Status: Chronic Current Visit: Yes Code(s): I87.2 - Venous insufficiency ( chronic) (peripheral) (3) Edema extremities Status: Chronic Current Visit: Yes Code(s): R60.0 - Localized edema (4) Diabetes mellitus with polyneuropathy Status: Chronic Current Visit: Yes Qualifiers: Diabetes mellitus type: type 2 Qualified Code(s): E11.42 - Type 2 diabetes mellitus with diabetic polyneuropathy Code(s): E11.42 - Type 2 diabetes mellitus with diabetic polyneuropathy (5) Charcot's joint, left ankle and foot Status: Chronic Current Visit: Yes Code(s): M14.672 - Charcot's joint, left ankle and foot Type of Wound Date of Service: 03/01/18 Chief Complaint: Left foot has Charcot joint with a diabetic foot ulcer (midfoot )-recurrent History of Wound: This 56 year old male returns to clinic today for left foot ulcer that has reoccurred. He has a history of charcot. He denies redness, odor, fever, chill, nausea, vomiting. He has vascular studies scheduled this afternoon. He has done well this past week with a total contact cast in the ulcer site is nearly closed. He tolerated the total contact cast well this past week. Progress of Wound: Improved - Physical Exam Vital Signs Temp Pulse Resp BP 98.0 F 65 16 147/86 H 03/01/18 16:01 03/01/18 16:01 03/01/18 16:01 03/01/18 16:01 General: Alert, Oriented x3, Cooperative, No apparent distress Extremities: No cyanosis, Capillary Refill Less than 3 Seconds, No Calf Tenderness, Diminished Peripheral Pulses, Edema Skin: Ulcer/ Wound - No open ulcer appreciated at this time. There is no surrounding or extending cellulitis, increased warmth, or any other signs of local infection appreciated at this time. Skin is atrophic Wound Measurements and Assessment WC - Nurse 1 - General Ulcer Measurement Start: 02/21/18 13:31 Freq: Status: Active Protocol: Activity Type Activity Date Activity User E-Sign Co-Sign Detail Recorded Client Recorded Date Recorded By Document 03/01/18 16:01 MW [id number] 03/01/18 16:14 MW 03/01/18 16:01 Wound Center Nurse 1 [Ulcer Assessment] #5 L Plantar -Combined with other wound No -Current Size (cm) - Length 0.1 -Current Size (cm) - Width 0.1 -Current Size (cm) - Depth 0.1 -Total Square Cm 0.01 -Date of Last Picture (Recall this 03/01/18 field) -Photo Taken Yes -Epithelialization Small 1-33% -Tunneling No -Undermining/Tunneling No -Circular Undermining No -Exudate Amt None Present (0 %) -Granulation Amt None Present (0 %) -Granulation Quality N/A -Slough/Fibrin No -Necrosis Amt None Present (0 %) -Structure Exposed N/A -Texture (Ania-wound Skin Appearance) Assessed Scarring -Moisture (Ania-wound Skin Appearance Assessed ) Dry/Scaly -Color (Ania-wound Skin Appearance) No Abnormality Assessed -Temperature (Ania-wound Skin No Abnormality Appearance) (Pt Warm) -Tenderness on Palpation (Ania-wound No Skin Appearance) -Ulcer Cleansing Wound Cleanser -Foul Odor after Cleansing No -Anesthetic Used 5% Lidocaine Gel [Edema Assessment] -Lower Limb Edema Present Yes -Left Calf (cm) 42.0 -Left Ankle (cm) 25.5 WC - Nurse 2 - General Ulcer CM Notes Start: 02/21/18 13:31 Freq: Status: Active Protocol: Activity Type Activity Date Activity User E-Sign Co-Sign Detail Recorded Client Recorded Date Recorded By Document 03/01/18 16:54 [id number] 03/01/18 17:02 TM 03/01/18 16:54 Wound Center Nurse 2 [Procedure/Treatment] #5 L Plantar -Time 16:54 -Correct Patient Yes -Correct Side, Site, Position Yes -Correct Procedure Yes -Procedure Performed Yes -Post Debridement Size (cm) - Length 0 -Post Debridement Size (cm) - Width 0 -Post Debridement Size (cm) - Depth 0 -Total Square Cm 0 -Wound/Ulcer Outcome Healed- Epithelialized -Ulcer Cleansing Rinsed/ Irrigated with Saline -Foul Odor after Cleansing No -Bioengineered Tissue No -Bleeding Controlled with NA -Treatment Response Procedure Tolerated Well [See Physician Procedure note for Specifics] Pain Scale: 0-10 Numeric [Pain] -Is Patient Pain Free? Yes Musculoskeletal: No Tenderness to Palpation of Joints or Extremities, - - Left Charcot foot deformity Neurological: - - Epicritic sensation is absent Psych/Mental Status: Normal Affect, Appropriate Debridement Note Post-Debridement Measurements/Treatment WC - Nurse 2 - General Ulcer CM Notes Start: 02/21/18 13:31 Freq: Status: Active Protocol: Activity Type Activity Date Activity User E-Sign Co-Sign Detail Recorded Client Recorded Date Recorded By Document 02/21/18 13:52 TM [id number] 02/21/18 13:53 TM Document 03/01/18 16:54 TM [id number] 03/01/18 17:02 TM 02/21/18 03/01/18 13:52 16:54 Wound Center Nurse 2 #5 L Plantar -Time 13:52 16:54 -Correct Patient Yes Yes -Correct Side, Site, Position Yes Yes -Correct Procedure Yes Yes -Procedure Performed Yes Yes -Type of Procedure Debridement -Clinical Debridement Subcutaneous -Post Debridement Size (cm) - Length 0.4 0 -Post Debridement Size (cm) - Width 0.2 0 -Post Debridement Size (cm) - Depth 0.1 0 -Total Square Cm 0.08 0 -Wound/Ulcer Outcome Not Healed Healed- Epithelialized -Ulcer Cleansing Rinsed/ Rinsed/ Irrigated with Irrigated with Saline Saline -Foul Odor after Cleansing No No -Bioengineered Tissue No No -Topical Lidocaine (%) 5 -Bleeding Controlled with Pressure NA -Treatment Response Procedure Procedure Tolerated Well Tolerated Well Pain Scale: 0-10 Numeric Is Patient Pain Free? Yes Yes No debridement was completed today Assessment/Plan Active Problems (Last Reviewed 10/13/17 @ 13:10 by Renae Henderson) Venous insufficiency of both lower extremities (Chronic) Edema extremities (Chronic) Diabetes mellitus with polyneuropathy (Chronic) Charcot's joint, left ankle and foot (Chronic) Assessment: Ulcer left foot fat layer exposed, no infection. charcot left foot - non acute. peripheral vascular disease. diabetes with peripheral neuropathy Plan: Patient was examined in the absence of Dr. Alvarez today. I reviewed and discussed his case today. The ulcer site appears to be healed at this time. He refuses any further TCC because he says he wants to shower. I also do not feel he needs one this week. He was instructed to use his [place] and to monitor his foot multiple times daily to make sure there is no break down of the skin. He was reassured no signs of infection are noted. We discussed the etiology of this wound and he understands Charcot reconstruction may be necessary to prevent continued recurrence. Nutritional supplementation was recommended with Bartolo and proper glycemic control. To elevate limb at rest. To return to clinic in 1 week for any last instruction from Dr. Alvarez. I answered all his questions.
[2018-03-07 15:24] VITALS: BP 140/80; PULSE 66; RESP 18; TEMP 36
--- NOTE | 2018-03-07 16:01 | PN.PCM_ITS ---
(1) Chronic ulcer of left foot with fat layer exposed Status: Acute Current Visit: Yes Code(s): L97.522 - Non-pressure chronic ulcer of other part of left foot with fat layer exposed (2) Venous insufficiency of both lower extremities Status: Chronic Current Visit: Yes Code(s): I87.2 - Venous insufficiency ( chronic) (peripheral) (3) Edema extremities Status: Chronic Current Visit: Yes Code(s): R60.0 - Localized edema (4) Diabetes mellitus with polyneuropathy Status: Chronic Current Visit: Yes Qualifiers: Diabetes mellitus type: type 2 Qualified Code(s): E11.42 - Type 2 diabetes mellitus with diabetic polyneuropathy Code(s): E11.42 - Type 2 diabetes mellitus with diabetic polyneuropathy (5) Charcot's joint, left ankle and foot Status: Chronic Current Visit: Yes Code(s): M14.672 - Charcot's joint, left ankle and foot Type of Wound Date of Service: 03/09/18 Chief Complaint: Left foot has Charcot joint with a diabetic foot ulcer (midfoot )-recurrent History of Wound: This 56 year old male returns to clinic today for left foot ulcer that has reoccurred. He has a history of charcot. He denies redness, odor, fever, chill, nausea, vomiting. He has vascular studies scheduled this afternoon. He was active this weekend and his foot got moist. He thinks the ulcer site reopened after he took a shower this morning. Progress of Wound: worse - Physical Exam Vital Signs Temp Pulse Resp BP 96.8 F L 66 18 140/80 H 03/07/18 15:24 03/07/18 15:24 03/07/18 15:24 03/07/18 15:24 General: Alert, Oriented x3, Cooperative Extremities: No cyanosis, Capillary Refill Less than 3 Seconds, No Calf Tenderness - negative bailey and almonte sign bilateral, Diminished Peripheral Pulses - palpable DP pulse, lefft, Edema Skin: Ulcer/ Wound - no erythema, no purulence, no streaking, no acute infection. ulcer has returned. no fluctuance on palpation noted. atrophic skin is noted Wound Measurements and Assessment WC - Nurse 1 - General Ulcer Measurement Start: 02/21/18 13:31 Freq: Status: Active Protocol: Activity Type Activity Date Activity User E-Sign Co-Sign Detail Recorded Client Recorded Date Recorded By Document 03/07/18 15:24 DL [id number] 03/07/18 15:28 DL 03/07/18 15:24 Wound Center Nurse 1 [Ulcer Assessment] #5 L Plantar -Current Size (cm) - Length 0.7 -Current Size (cm) - Width 0.5 -Current Size (cm) - Depth 0.1 -Total Square Cm 0.35 -Photo Taken No -Exudate Amt Small (1-33%) -Exudate Type Serosanguineous -Wound Margin Flat & Intact -Granulation Amt Large (67-100%) -Granulation Quality [place]an -Necrosis Amt Small (1-33%) -Necrotic Tissue Type Adherent Slough -Structure Exposed N/A -Texture (Ania-wound Skin Appearance) Callus -Moisture (Ania-wound Skin Appearance Maceration ) -Color (Ania-wound Skin Appearance) Rubor -Temperature (Ania-wound Skin No Abnormality Appearance) (Pt Warm) -Tenderness on Palpation (Ania-wound No Skin Appearance) -Ulcer Cleansing Rinsed/ Irrigated with Saline -Foul Odor after Cleansing No -Anesthetic Used 4% Lidocaine Solution WC - Nurse 2 - General Ulcer CM Notes Start: 02/21/18 13:31 Freq: Status: Active Protocol: Activity Type Activity Date Activity User E-Sign Co-Sign Detail Recorded Client Recorded Date Recorded By Document 03/07/18 15:47 [id number] 03/07/18 15:48 03/07/18 15:47 Wound Center Nurse 2 [Procedure/Treatment] -Time 15:48 -Correct Patient Yes -Correct Side, Site, Position Yes -Correct Procedure Yes -Procedure Performed Yes -Type of Procedure Debridement -Clinical Debridement Subcutaneous -Post Debridement Size (cm) - Length 1.2 -Post Debridement Size (cm) - Width 1.2 -Post Debridement Size (cm) - Depth 0.1 -Total Square Cm 1.44 -Wound/Ulcer Outcome Not Healed -Ulcer Cleansing Rinsed/ Irrigated with Saline -Foul Odor after Cleansing No -Bioengineered Tissue No -Bleeding Controlled with Pressure -Treatment Response Procedure Tolerated Well [See Physician Procedure note for Specifics] Pain Scale: 0-10 Numeric [Pain] -Is Patient Pain Free? Yes Musculoskeletal: No Tenderness to Palpation of Joints or Extremities, Muscle Wasting, - - left rocker bottom foot deformity noted without laxity, calor, or erythema noted Neurological: - - lack of epicritic sensation via light touch Psych/Mental Status: Normal Affect, Appropriate Debridement Note Post-Debridement Measurements/Treatment WC - Nurse 2 - General Ulcer CM Notes Start: 02/21/18 13:31 Freq: Status: Active Protocol: Activity Type Activity Date Activity User E-Sign Co-Sign Detail Recorded Client Recorded Date Recorded By Document 02/21/18 13:52 [id number] 02/21/18 13:53 TM Document 03/01/18 16:54 [id number] 03/01/18 17:02 TM Document 03/07/18 15:47 [id number] 03/07/18 15:48 02/21/18 03/01/18 03/07/18 13:52 16:54 15:47 Wound Center Nurse 2 #5 L Plantar -Time 13:52 16:54 15:48 -Correct Patient Yes Yes Yes -Correct Side, Site, Position Yes Yes Yes -Correct Procedure Yes Yes Yes -Procedure Performed Yes Yes Yes -Type of Procedure Debridement Debridement -Clinical Debridement Subcutaneous Subcutaneous -Post Debridement Size (cm) - Length 0.4 0 1.2 -Post Debridement Size (cm) - Width 0.2 0 1.2 -Post Debridement Size (cm) - Depth 0.1 0 0.1 -Total Square Cm 0.08 0 1.44 -Wound/Ulcer Outcome Not Healed Healed- Not Healed Epithelialized -Ulcer Cleansing Rinsed/ Rinsed/ Rinsed/ Irrigated with Irrigated with Irrigated with Saline Saline Saline -Foul Odor after Cleansing No No No -Bioengineered Tissue No No No -Topical Lidocaine (%) 5 -Bleeding Controlled with Pressure NA Pressure -Treatment Response Procedure Procedure Procedure Tolerated Well Tolerated Well Tolerated Well Pain Scale: 0-10 Numeric Is Patient Pain Free? Yes Yes Yes Wound debrided: plantar foot Laterality: Left Wound Grade/Stage: grade 1 Type of Debridement: Excisional debridement Anesthesia Used: 5% Lidocaine Gel Depth: in the subcutaneous layer Percentage of wound debrided: 100 Instrument Used: #15 blade Tissue Removed: fibrous, devitalized subcutaneous, biofilm, slough Severity: Fat Layer Exposed Amount of bleeding with debridement: Mild Bleeding Controlled with: Pressure Patient tolerated procedure well Assessment/Plan Active Problems (Last Reviewed 10/13/17 @ 13:10 by Renae Henderson) Venous insufficiency of both lower extremities (Chronic) Edema extremities (Chronic) Chronic ulcer of left foot with fat layer exposed (Acute) Diabetes mellitus with polyneuropathy (Chronic) Charcot's joint, left ankle and foot (Chronic) Assessment: Ulcer left foot fat layer exposed, no infection. charcot left foot - non acute. peripheral vascular disease. diabetes with peripheral neuropathy Plan: I reviewed and discussed his case today. The ulcer site appears to be reopened at this time. A total contact cast was applied according to standard protocol in a rectus position to offload the ulcer site. The ulcer was debrided as noted in the clinical panel and juanito was applied. He was reassured no signs of infection are noted. We discussed the etiology of this wound and he understands Charcot reconstruction may be necessary to prevent continued recurrence. Nutritional supplementation was recommended with Bartolo and proper glycemic control. To elevate limb at rest. To return to clinic in 1 week or call sooner if concerns.
[2018-03-14 14:17] VITALS: BP 160/85; PULSE 81; RESP 18; TEMP 36.3
--- NOTE | 2018-03-14 16:23 | PCM.WC.PN ---
(1) Chronic ulcer of left foot with fat layer exposed Status: Acute Code(s): L97.522 - Non-pressure chronic ulcer of other part of left foot with fat layer exposed (2) Venous insufficiency of both lower extremities Status: Chronic Code(s): I87.2 - Venous insufficiency (chronic) (peripheral) (3) Edema extremities Status: Chronic Code(s): R60.0 - Localized edema (4) Diabetes mellitus with polyneuropathy Status: Chronic Qualifiers: Diabetes mellitus type: type 2 Qualified Code(s): E11.42 - Type 2 diabetes mellitus with diabetic polyneuropathy Code(s): E11.42 - Type 2 diabetes mellitus with diabetic polyneuropathy (5) Charcot's joint, left ankle and foot Status: Chronic Code(s): M14.672 - Charcot's joint, left ankle and foot (6) Onycholysis Status: Acute Code(s): L60.1 - Onycholysis Type of Wound Date of Service: 03/19/18 Chief Complaint: Left foot has Charcot joint with a diabetic foot ulcer (midfoot)-recurrent History of Wound: This 56 year old male returns to clinic today for left foot ulcer that has reoccurred. He has a history of charcot. He denies redness, odor, fever, chill, nausea, vomiting. Progress of Wound: improving - Physical Exam Vital Signs Temp Pulse Resp BP 97.3 F L 81 18 160/85 H 03/14/18 14:17 03/14/18 14:17 03/14/18 14:17 03/14/18 14:17 General: Alert, Oriented x3, Cooperative Extremities: No cyanosis, Capillary Refill Less than 3 Seconds, No Calf Tenderness, Diminished Peripheral Pulses, Edema Skin: Ulcer/ Wound - no purulence no erythema, no necrosis, no infection. atrohic skin. decreased wound size noted Wound Measurements and Assessment WC - Nurse 1 - General Ulcer Measurement Start: 02/21/18 13:31 Freq: Status: Active Protocol: Activity Type Activity Date Activity User E-Sign Co-Sign Detail Recorded Client Recorded Date Recorded By Document 03/14/18 14:17 [facility] [id number] 03/14/18 14:29 [facility] 03/14/18 14:17 Wound Center Nurse 1 [Ulcer Assessment] #5 L Plantar -Combined with other wound No -Current Size (cm) - Length 1.1 -Current Size (cm) - Width 0.5 -Current Size (cm) - Depth 0.1 -Total Square Cm 0.55 -Photo Taken No -Epithelialization Small 1-33% -Tunneling No -Undermining/Tunneling No -Circular Undermining No -Exudate Amt Medium (34-66%) -Exudate Type Serous -Wound Margin Distinct, Outline Attached -Granulation Amt Large (67-100%) -Granulation Quality Red -Slough/Fibrin No -Necrosis Amt None Present (0 %) -Structure Exposed None/Limited to Skin Breakdown -Texture (Ania-wound Skin Appearance) Scarring -Moisture (Ania-wound Skin Appearance Maceration ) -Color (Ania-wound Skin Appearance) Palor -Temperature (Ania-wound Skin No Abnormality Appearance) (Pt Warm) -Tenderness on Palpation (Ania-wound No Skin Appearance) -Ulcer Cleansing Wound Cleanser -Foul Odor after Cleansing No -Anesthetic Used 4% Lidocaine Solution [Edema Assessment] -Lower Limb Edema Present No -Left Calf (cm) 41.5 -Left Ankle (cm) 26.2 WC - Nurse 2 - General Ulcer CM Notes Start: 02/21/18 13:31 Freq: Status: Active Protocol: Activity Type Activity Date Activity User E-Sign Co-Sign Detail Recorded Client Recorded Date Recorded By Document 03/14/18 15:00 [id number] 03/14/18 15:01 03/14/18 15:00 Wound Center Nurse 2 [Procedure/Treatment] #5 L Plantar -Time 15:01 -Correct Patient Yes -Correct Side, Site, Position Yes -Correct Procedure Yes -Procedure Performed Yes -Type of Procedure Debridement -Clinical Debridement Subcutaneous -Post Debridement Size (cm) - Length 0.4 -Post Debridement Size (cm) - Width 0.6 -Post Debridement Size (cm) - Depth 0.1 -Total Square Cm 0.24 -Wound/Ulcer Outcome Not Healed -Ulcer Cleansing Rinsed/ Irrigated with Saline -Foul Odor after Cleansing No -Bioengineered Tissue No -Bleeding Controlled with Pressure -Treatment Response Procedure Tolerated Well [See Physician Procedure note for Specifics] Pain Scale: 0-10 Numeric [Pain] -Is Patient Pain Free? Yes Musculoskeletal: No Tenderness to Palpation of Joints or Extremities, Muscle Wasting, - - rockerbottom foot, left Neurological: - - lack of epicritic sensation noted via light touch, left Psych/Mental Status: Normal Affect, Appropriate Debridement Note Post-Debridement Measurements/Treatment WC - Nurse 2 - General Ulcer CM Notes Start: 02/21/18 13:31 Freq: Status: Active Protocol: Activity Type Activity Date Activity User E-Sign Co-Sign Detail Recorded Client Recorded Date Recorded By Document 02/21/18 13:52 [id number] 02/21/18 13:53 Document 03/01/18 16:54 [id number] 03/01/18 17:02 Document 03/07/18 15:47 [id number] 03/07/18 15:48 Document 03/14/18 15:00 [id number] 03/14/18 15:01 02/21/18 03/01/18 03/07/18 13:52 16:54 15:47 Wound Center Nurse 2 #5 L Plantar -Time 13:52 16:54 15:48 -Correct Patient Yes Yes Yes -Correct Side, Site, Position Yes Yes Yes -Correct Procedure Yes Yes Yes -Procedure Performed Yes Yes Yes -Type of Procedure Debridement Debridement -Clinical Debridement Subcutaneous Subcutaneous -Post Debridement Size (cm) - Length 0.4 0 1.2 -Post Debridement Size (cm) - Width 0.2 0 1.2 -Post Debridement Size (cm) - Depth 0.1 0 0.1 -Total Square Cm 0.08 0 1.44 -Wound/Ulcer Outcome Not Healed Healed- Not Healed Epithelialized -Ulcer Cleansing Rinsed/ Rinsed/ Rinsed/ Irrigated with Irrigated with Irrigated with Saline Saline Saline -Foul Odor after Cleansing No No No -Bioengineered Tissue No No No -Topical Lidocaine (%) 5 -Bleeding Controlled with Pressure NA Pressure -Treatment Response Procedure Procedure Procedure Tolerated Well Tolerated Well Tolerated Well Pain Scale: 0-10 Numeric Is Patient Pain Free? Yes Yes Yes 03/14/18 15:00 Wound Center Nurse 2 #5 L Plantar -Time 15:01 -Correct Patient Yes -Correct Side, Site, Position Yes -Correct Procedure Yes -Procedure Performed Yes -Type of Procedure Debridement -Clinical Debridement Subcutaneous -Post Debridement Size (cm) - Length 0.4 -Post Debridement Size (cm) - Width 0.6 -Post Debridement Size (cm) - Depth 0.1 -Total Square Cm 0.24 -Wound/Ulcer Outcome Not Healed -Ulcer Cleansing Rinsed/ Irrigated with Saline -Foul Odor after Cleansing No -Bioengineered Tissue No -Topical Lidocaine (%) -Bleeding Controlled with Pressure -Treatment Response Procedure Tolerated Well Pain Scale: 0-10 Numeric Is Patient Pain Free? Yes Wound debrided: plantar foot Laterality: Left Wound Grade/Stage: grade 1 Type of Debridement: Excisional debridement Anesthesia Used: 5% Lidocaine Gel Depth: in the subcutaneous layer Percentage of wound debrided: 100 Instrument Used: #15 blade Tissue Removed: fibrous, devitalized subcutaneous, biofilm, slough Severity: Fat Layer Exposed Amount of bleeding with debridement: Mild Bleeding Controlled with: Pressure Patient tolerated procedure well Assessment/Plan Assessment: Ulcer left foot fat layer exposed, no infection. charcot left foot - non acute. peripheral vascular disease. diabetes with peripheral neuropathy Plan: I reviewed and discussed his case today. The ulcer site appears to be reopened at this time. A total contact cast was applied according to standard protocol in a rectus position to offload the ulcer site. The ulcer was debrided as noted in the clinical panel and juanito was applied. He was reassured no signs of infection are noted. We discussed the etiology of this wound and he understands Charcot reconstruction may be necessary to prevent continued recurrence. Nutritional supplementation was recommended with Bartolo and proper glycemic control. To elevate limb at rest. His previous arterial studies from 2018 demonstrate normal perfusion and his left lower extremity veins are compressible without venous reflux noted. To return to clinic in 1 week or call sooner if concerns.
[2018-03-21 14:44] VITALS: BP 137/80; PULSE 76; RESP 18; TEMP 37
--- NOTE | 2018-03-21 15:31 | PCM.WC.PN ---
(1) Ulcer of right foot with fat layer exposed Status: Chronic Current Visit: Yes Code(s): L97.512 - Non-pressure chronic ulcer of other part of right foot with fat layer exposed (2) Chronic ulcer of left foot with fat layer exposed Status: Resolved Current Visit: Yes Code(s): L97.522 - Non-pressure chronic ulcer of other part of left foot with fat layer exposed (3) Venous insufficiency of both lower extremities Status: Chronic Current Visit: Yes Code(s): I87.2 - Venous insufficiency (chronic) (peripheral) (4) Edema extremities Status: Chronic Current Visit: Yes Code(s): R60.0 - Localized edema (5) Diabetes mellitus with polyneuropathy Status: Chronic Current Visit: Yes Qualifiers: Diabetes mellitus type: type 2 Qualified Code(s): E11.42 - Type 2 diabetes mellitus with diabetic polyneuropathy Code(s): E11.42 - Type 2 diabetes mellitus with diabetic polyneuropathy (6) Charcot's joint, left ankle and foot Status: Chronic Current Visit: Yes Code(s): M14.672 - Charcot's joint, left ankle and foot (7) Onycholysis Status: Resolved Current Visit: No Code(s): L60.1 - Onycholysis Type of Wound Date of Service: 03/21/18 Chief Complaint: Left foot has Charcot joint with a diabetic foot ulcer (midfoot)-recurrent. New injury right foot History of Wound: This 56 year old male returns to clinic today for left foot ulcer that has reoccurred. He has a history of charcot. He denies redness, odor, fever, chill, nausea, vomiting. He relates he was mowing the yard a lot this past week and he thinks he has a new wound to his right foot near his fourth and fifth toe. He has been compliant with a total contact cast to left lower extremity. He denies loss of appetite or odor or redness. Progress of Wound: Healed left. New wound right - Physical Exam Vital Signs Temp Pulse Resp BP 98.6 F 76 18 137/80 H 03/21/18 14:44 03/21/18 14:44 03/21/18 14:44 03/21/18 14:44 General: Alert, Oriented x3, Cooperative Extremities: No cyanosis, Capillary Refill Less than 3 Seconds, No Calf Tenderness, Diminished Peripheral Pulses, Edema, - - Rocker-bottom foot left. Dorsal contraction of lesser digits right Skin: Ulcer/ Wound - No purulence, no erythema, streaking, no odor, no infection to the right foot. No interdigital maceration right foot. Full epithelialization is noted to the left recently healed ulcer site at the midfoot. The peripheral skin is atrophic and very thin. Wound Measurements and Assessment WC - Nurse 1 - General Ulcer Measurement Start: 02/21/18 13:31 Freq: Status: Active Protocol: Activity Type Activity Date Activity User E-Sign Co-Sign Detail Recorded Client Recorded Date Recorded By Document 03/21/18 14:44 DL [id number] 03/21/18 15:04 DL 03/21/18 14:44 Wound Center Nurse 1 [Ulcer Assessment] #5 L Plantar -Current Size (cm) - Length 0.1 -Current Size (cm) - Width 0.1 -Current Size (cm) - Depth 0.1 -Total Square Cm 0.01 -Photo Taken No -Exudate Amt Small (1-33%) -Exudate Type Serosanguineous -Wound Margin Flat & Intact -Granulation Amt Small (1-33%) -Granulation Quality [place] -Necrosis Amt Small (1-33%) -Necrotic Tissue Type Adherent Slough -Structure Exposed N/A -Texture (Ania-wound Skin Appearance) No Abnormality -Moisture (Ania-wound Skin Appearance No Abnormality ) -Color (Ania-wound Skin Appearance) No Abnormality -Temperature (Ania-wound Skin No Abnormality Appearance) (Pt Warm) -Ulcer Cleansing Rinsed/ Irrigated with Saline -Foul Odor after Cleansing No -Anesthetic Used 4% Lidocaine Solution WC - Nurse 2 - General Ulcer CM Notes Start: 02/21/18 13:31 Freq: Status: Active Protocol: Activity Type Activity Date Activity User E-Sign Co-Sign Detail Recorded Client Recorded Date Recorded By Document 03/21/18 15:21 DL [id number] 03/21/18 15:21 DL 03/21/18 15:21 Wound Center Nurse 2 [Procedure/Treatment] 6-right 4th/5th webspace -Time 15:27 -Correct Patient Yes -Correct Side, Site, Position Yes -Correct Procedure Yes -Procedure Performed Yes -Type of Procedure Debridement -Clinical Debridement Subcutaneous -Post Debridement Size (cm) - Length 0.1 -Post Debridement Size (cm) - Width 0.1 -Post Debridement Size (cm) - Depth 0.1 -Total Square Cm 0.01 -Wound/Ulcer Outcome Not Healed -Ulcer Cleansing Rinsed/ Irrigated with Saline -Foul Odor after Cleansing No -Bioengineered Tissue No -Bleeding Controlled with Pressure -Treatment Response Procedure Tolerated Well #5 L Plantar -Correct Patient No -Correct Side, Site, Position No -Correct Procedure No -Procedure Performed No -Post Debridement Size (cm) - Length 0 -Post Debridement Size (cm) - Width 0 -Total Square Cm 0 -Wound/Ulcer Outcome Healed- Epithelialized [See Physician Procedure note for Specifics] Pain Scale: 0-10 Numeric [Pain] -Is Patient Pain Free? Yes Musculoskeletal: No Tenderness to Palpation of Joints or Extremities, Muscle Wasting Neurological: - - Lack of epicritic sensation to light touch bilateral lower extremities Psych/Mental Status: Normal Affect, Appropriate Debridement Note Post-Debridement Measurements/Treatment WC - Nurse 2 - General Ulcer CM Notes Start: 02/21/18 13:31 Freq: Status: Active Protocol: Activity Type Activity Date Activity User E-Sign Co-Sign Detail Recorded Client Recorded Date Recorded By Document 02/21/18 13:52 [id number] 02/21/18 13:53 Document 03/01/18 16:54 [id number] 03/01/18 17:02 Document 03/07/18 15:47 [id number] 03/07/18 15:48 Document 03/14/18 15:00 [id number] 03/14/18 15:01 Document 03/21/18 15:21 DL [id number] 03/21/18 15:21 DL 02/21/18 03/01/18 03/07/18 13:52 16:54 15:47 Wound Center Nurse 2 6-right 4th/5th webspace -Time -Correct Patient -Correct Side, Site, Position -Correct Procedure -Procedure Performed -Type of Procedure -Clinical Debridement -Post Debridement Size (cm) - Length -Post Debridement Size (cm) - Width -Post Debridement Size (cm) - Depth -Total Square Cm -Wound/Ulcer Outcome -Ulcer Cleansing -Foul Odor after Cleansing -Bioengineered Tissue -Bleeding Controlled with -Treatment Response #5 L Plantar -Time 13:52 16:54 15:48 -Correct Patient Yes Yes Yes -Correct Side, Site, Position Yes Yes Yes -Correct Procedure Yes Yes Yes -Procedure Performed Yes Yes Yes -Type of Procedure Debridement Debridement -Clinical Debridement Subcutaneous Subcutaneous -Post Debridement Size (cm) - Length 0.4 0 1.2 -Post Debridement Size (cm) - Width 0.2 0 1.2 -Post Debridement Size (cm) - Depth 0.1 0 0.1 -Total Square Cm 0.08 0 1.44 -Wound/Ulcer Outcome Not Healed Healed- Not Healed Epithelialized -Ulcer Cleansing Rinsed/ Rinsed/ Rinsed/ Irrigated with Irrigated with Irrigated with Saline Saline Saline -Foul Odor after Cleansing No No No -Bioengineered Tissue No No No -Topical Lidocaine (%) 5 -Bleeding Controlled with Pressure NA Pressure -Treatment Response Procedure Procedure Procedure Tolerated Well Tolerated Well Tolerated Well Pain Scale: 0-10 Numeric Is Patient Pain Free? Yes Yes Yes 03/14/18 03/21/18 15:00 15:21 Wound Center Nurse 2 6-right 4th/5th webspace -Time 15:27 -Correct Patient Yes -Correct Side, Site, Position Yes -Correct Procedure Yes -Procedure Performed Yes -Type of Procedure Debridement -Clinical Debridement Subcutaneous -Post Debridement Size (cm) - Length 0.1 -Post Debridement Size (cm) - Width 0.1 -Post Debridement Size (cm) - Depth 0.1 -Total Square Cm 0.01 -Wound/Ulcer Outcome Not Healed -Ulcer Cleansing Rinsed/ Irrigated with Saline -Foul Odor after Cleansing No -Bioengineered Tissue No -Bleeding Controlled with Pressure -Treatment Response Procedure Tolerated Well #5 L Plantar -Time 15:01 -Correct Patient Yes No -Correct Side, Site, Position Yes No -Correct Procedure Yes No -Procedure Performed Yes No -Type of Procedure Debridement -Clinical Debridement Subcutaneous -Post Debridement Size (cm) - Length 0.4 0 -Post Debridement Size (cm) - Width 0.6 0 -Post Debridement Size (cm) - Depth 0.1 -Total Square Cm 0.24 0 -Wound/Ulcer Outcome Not Healed Healed- Epithelialized -Ulcer Cleansing Rinsed/ Irrigated with Saline -Foul Odor after Cleansing No -Bioengineered Tissue No -Topical Lidocaine (%) -Bleeding Controlled with Pressure -Treatment Response Procedure Tolerated Well Pain Scale: 0-10 Numeric Is Patient Pain Free? Yes Yes Wound debrided: sulcus sub 4 and 5th toes Laterality: Right - g Wound Grade/Stage: grade 1 Type of Debridement: Excisional debridement Anesthesia Used: 5% Lidocaine Gel Depth: in the subcutaneous layer Percentage of wound debrided: 100 Instrument Used: #15 blade Tissue Removed: fibrous, devitalized subcutaneous, biofilm, slough Severity: Fat Layer Exposed Amount of bleeding with debridement: Mild Bleeding Controlled with: Pressure Assessment/Plan Active Problems (Last Reviewed 10/13/17 @ 13:10 by Renae Henderson) Venous insufficiency of both lower extremities (Chronic) Ulcer of right foot with fat layer exposed (Chronic) Edema extremities (Chronic) Diabetes mellitus with polyneuropathy (Chronic) Charcot's joint, left ankle and foot (Chronic) Assessment: Ulcer left foot fat layer exposed, healed. New ulcer right foot with fat layer exposed, no infection or foreign body. charcot left foot - non acute. peripheral vascular disease. diabetes with peripheral neuropathy Plan: I reviewed and discussed his case today. A new wound is present to the right foot and with subcutaneous debridement was performed as noted in the clinical panel to remove callus and other tissue. Pressure was applied to maintain hemostasis. To change dressing with Debra which is applied today. To secure in place with a interdigital gauze. The ulcer site appears to be healed at this time to the left lower extremity and additional dressing care in total contact cast is not recommended. He will progress back into the [place] walker in a very slow progressive manner and will use crutches this next week. He will only progress to limited weightbearing activities for 30 minute increments and increase each day only if additional blistering or breakdown is not noted. He was reassured no signs of infection are noted. We discussed the etiology of this wound and he understands Charcot reconstruction may be necessary to prevent continued recurrence. Nutritional supplementation was recommended with Bartolo and proper glycemic control. To elevate limb at rest. His previous arterial studies from 2018 demonstrate normal perfusion and his left lower extremity veins are compressible without venous reflux noted. To return to clinic in 2 week or call sooner if concerns.
== END 2018-03-22 23:59 ==
LOC: WC 14:30
PROVIDERS: Family Provider Family Medicine; PCP Family Medicine; Visit Provider Podiatrist
DX: L97.512 Non-pressure chronic ulcer of other part of right foot with fat layer exposed (principal); L97.522 Non-pressure chronic ulcer of other part of left foot with fat layer exposed; I73.9 Peripheral vascular disease, unspecified; E11.42 Type 2 diabetes mellitus with diabetic polyneuropathy; I87.2 Venous insufficiency (chronic) (peripheral); R60.0 Localized edema; M14.672 Charcot's joint, left ankle and foot; L60.1 Onycholysis
CPT/HCPCS: 11042; 29445; 99213; G0463

== ENCOUNTER 2018-04-18 13:00 | Outpatient (RCR) | payer MEDICARE, SELFPAY ==
[2018-03-23 00:54] VITALS: BP 137/80; PULSE 76; RESP 18; TEMP 37
[2018-04-04 13:21] VITALS: BP 151/71; PULSE 69; RESP 18; TEMP 36.1
--- NOTE | 2018-04-04 13:23 | WC ---
pt hastwo scabbed areas on left ant ankle pt states from the cast rubbing use [employer]
--- NOTE | 2018-04-04 13:49 | PCM.WC.PN ---
(1) Ulcer of left lower extremity with fat layer exposed Status: Acute Current Visit: Yes Code(s): L97.922 - Non-pressure chronic ulcer of unspecified part of left lower leg with fat layer exposed (2) Peripheral vascular disease Status: Suspected Current Visit: Yes Code(s): I73.9 - Peripheral vascular disease, unspecified (3) Edema extremities Status: Chronic Current Visit: Yes Code(s): R60.0 - Localized edema (4) Diabetes mellitus with polyneuropathy Status: Chronic Current Visit: Yes Qualifiers: Code(s): E11.42 - Type 2 diabetes mellitus with diabetic polyneuropathy (5) Malnutrition Status: Chronic Current Visit: Yes Code(s): E46 - Unspecified protein-calorie malnutrition (6) Charcot's joint, left ankle and foot Status: Chronic Current Visit: Yes Code(s): M14.672 - Charcot's joint, left ankle and foot Type of Wound Date of Service: 04/04/18 Chief Complaint: Left foot has Charcot joint with a diabetic foot ulcer (midfoot)-remains healed. Left anterior ankle ulcer History of Wound: This 57 year old male returns to clinic today for follow-up of recently healed left foot ulcer at his Charcot site . He also reports a new left anterior leg ulcer with an onset of the last couple weeks. He thinks this may have rubbed on his previous cast. He has been gently brushing aside any scab and washes this while he showers. He wears a [place] walker. He denies redness, odor, fever, chill, nausea, vomiting, leg redness. He denies loss of appetite or odor or redness. Progress of Wound: Healed left foot. left ankle wound new - Physical Exam Vital Signs Temp Pulse Resp BP 97 F L 69 18 151/71 H 04/04/18 13:21 04/04/18 13:21 04/04/18 13:21 04/04/18 13:21 General: Alert, Oriented x3, Cooperative Extremities: No cyanosis, Capillary Refill Less than 3 Seconds, No Calf Tenderness - Negative Jyothi and Carranza bilateral, Diminished Peripheral Pulses, Edema, - - Rocker-bottom Charcot foot left lower extremity without laxity or Calor; this is chronic and stable Skin: Ulcer/ Wound - Full epithelialization continues to plantar left foot and the site remains healed. There is a new skin discontinuity to the anterior left ankle upon removal of eschar. The bed is granular and fibrous. The adjacent skin is atrophic and hairless bilateral lower extremities Wound Measurements and Assessment WC - Nurse 1 - General Ulcer Measurement Start: 04/04/18 13:21 Freq: Status: Active Protocol: Activity Type Activity Date Activity User E-Sign Co-Sign Detail Recorded Client Recorded Date Recorded By Document 04/04/18 13:23 RB [id number] 04/04/18 13:24 RB 04/04/18 13:23 Wound Center Nurse 1 [Edema Assessment] -Lower Limb Edema Present Yes 04/04/18 13:23 Wound Center by Tatum Mccall pt hastwo scabbed areas on left ant ankle pt states from the cast rubbing use [employer] ag Initialized on 04/04/18 13:23 - END OF NOTE WC - Nurse 2 - General Ulcer CM Notes Start: 04/04/18 13:21 Freq: Status: Active Protocol: Activity Type Activity Date Activity User E-Sign Co-Sign Detail Recorded Client Recorded Date Recorded By Document 04/04/18 13:30 [id number] 04/04/18 13:31 04/04/18 13:30 Wound Center Nurse 2 [Procedure/Treatment] 7-left anterior ankle -Time 13:30 -Correct Patient Yes -Correct Side, Site, Position Yes -Correct Procedure Yes -Procedure Performed Yes -Type of Procedure Debridement -Clinical Debridement Subcutaneous -Post Debridement Size (cm) - Length 0.5 -Post Debridement Size (cm) - Width 0.8 -Post Debridement Size (cm) - Depth 0.1 -Total Square Cm 0.40 -Wound/Ulcer Outcome Not Healed -Ulcer Cleansing Rinsed/ Irrigated with Saline -Foul Odor after Cleansing No -Bioengineered Tissue No -Bleeding Controlled with Pressure -Treatment Response Procedure Tolerated Well [See Physician Procedure note for Specifics] Pain Scale: 0-10 Numeric [Pain] -Is Patient Pain Free? Yes Musculoskeletal: No Tenderness to Palpation of Joints or Extremities, Muscle Wasting Neurological: - - Lack of epicritic sensation light touch bilateral lower extremities consistent with neuropathy Psych/Mental Status: Normal Affect, Appropriate Debridement Note Post-Debridement Measurements/Treatment WC - Nurse 2 - General Ulcer CM Notes Start: 04/04/18 13:21 Freq: Status: Active Protocol: Activity Type Activity Date Activity User E-Sign Co-Sign Detail Recorded Client Recorded Date Recorded By Document 04/04/18 13:30 DEREK [id number] 04/04/18 13:31 DEREK 04/04/18 13:30 Wound Center Nurse 2 7-left anterior ankle -Time 13:30 -Correct Patient Yes -Correct Side, Site, Position Yes -Correct Procedure Yes -Procedure Performed Yes -Type of Procedure Debridement -Clinical Debridement Subcutaneous -Post Debridement Size (cm) - Length 0.5 -Post Debridement Size (cm) - Width 0.8 -Post Debridement Size (cm) - Depth 0.1 -Total Square Cm 0.40 -Wound/Ulcer Outcome Not Healed -Ulcer Cleansing Rinsed/ Irrigated with Saline -Foul Odor after Cleansing No -Bioengineered Tissue No -Bleeding Controlled with Pressure -Treatment Response Procedure Tolerated Well Pain Scale: 0-10 Numeric Is Patient Pain Free? Yes Wound debrided: anterior ankle/leg Laterality: Left Wound Grade/Stage: grade 1 Type of Debridement: Excisional debridement Anesthesia Used: 5% Lidocaine Gel Depth: in the subcutaneous layer Percentage of wound debrided: 100 Instrument Used: #15 blade Tissue Removed: fibrous, devitalized subcutaneous, biofilm, slough, eschar Severity: Fat Layer Exposed Amount of bleeding with debridement: Mild Bleeding Controlled with: Pressure Patient tolerated procedure well Assessment/Plan Active Problems (Last Updated 03/23/18 @ 15:06 by Love Ramsey) Ulcer of left lower extremity with fat layer exposed (Acute) Edema extremities (Chronic) Diabetes mellitus with polyneuropathy (Chronic) Malnutrition (Chronic) Charcot's joint, left ankle and foot (Chronic) Assessment: Ulcer left foot fat layer exposed, healed. New ulcer right foot with fat layer exposed, no infection or foreign body. charcot left foot - non acute. peripheral vascular disease. diabetes with peripheral neuropathy Plan: I reviewed and discussed his case today. A new wound is present to the left ankle and with subcutaneous debridement was performed as noted in the clinical panel. Pressure was applied to maintain hemostasis. To change dressing with aquacel which is applied today. To secure in place with a interdigital gauze. The ulcer site appears to be healed at this time to the left lower extremity and additional dressing care in total contact cast is not recommended. He will progress back into the [place] walker in a very slow progressive manner. He was reassured no signs of infection are noted. We discussed the etiology of this wound and he understands Charcot reconstruction may be necessary to prevent continued recurrence. Nutritional supplementation was recommended with Bartolo and proper glycemic control. To elevate limb at rest. His previous arterial studies from 2018 demonstrate normal perfusion and his left lower extremity veins are compressible without venous reflux noted. To return to clinic in 1 week or call sooner if concerns. He was reassured no acute infection is noted.
--- NOTE | 2018-04-04 13:55 | PN.PCM_ITS ---
(1) Ulcer of left lower extremity with fat layer exposed Status: Acute Current Visit: Yes Code(s): L97.922 - Non-pressure chronic ulcer of unspecified part of left lower leg with fat layer exposed (2) Peripheral vascular disease Status: Suspected Current Visit: Yes Code(s): I73.9 - Peripheral vascular disease, unspecified (3) Edema extremities Status: Chronic Current Visit: Yes Code(s): R60.0 - Localized edema (4) Diabetes mellitus with polyneuropathy Status: Chronic Current Visit: Yes Qualifiers: Code(s): E11.42 - Type 2 diabetes mellitus with diabetic polyneuropathy (5) Malnutrition Status: Chronic Current Visit: Yes Code(s): E46 - Unspecified protein- calorie malnutrition (6) Charcot's joint, left ankle and foot Status: Chronic Current Visit: Yes Code(s): M14.672 - Charcot's joint, left ankle and foot Type of Wound Date of Service: 04/04/18 Chief Complaint: Left foot has Charcot joint with a diabetic foot ulcer (midfoot )-remains healed. Left anterior ankle ulcer History of Wound: This 57 year old male returns to clinic today for follow-up of recently healed left foot ulcer at his Charcot site . He also reports a new left anterior leg ulcer with an onset of the last couple weeks. He thinks this may have rubbed on his previous cast. He has been gently brushing aside any scab and washes this while he showers. He wears a [place] walker. He denies redness, odor, fever, chill, nausea, vomiting, leg redness. He denies loss of appetite or odor or redness. Progress of Wound: Healed left foot. left ankle wound new - Physical Exam Vital Signs Temp Pulse Resp BP 97 F L 69 18 151/71 H 04/04/18 13:21 04/04/18 13:21 04/04/18 13:21 04/04/18 13:21 General: Alert, Oriented x3, Cooperative Extremities: No cyanosis, Capillary Refill Less than 3 Seconds, No Calf Tenderness - Negative Jyothi and Carranza bilateral, Diminished Peripheral Pulses, Edema, - - Rocker-bottom Charcot foot left lower extremity without laxity or Calor; this is chronic and stable Skin: Ulcer/ Wound - Full epithelialization continues to plantar left foot and the site remains healed. There is a new skin discontinuity to the anterior left ankle upon removal of eschar. The bed is granular and fibrous. The adjacent skin is atrophic and hairless bilateral lower extremities Wound Measurements and Assessment WC - Nurse 1 - General Ulcer Measurement Start: 04/04/18 13:21 Freq: Status: Active Protocol: Activity Type Activity Date Activity User E-Sign Co-Sign Detail Recorded Client Recorded Date Recorded By Document 04/04/18 13:23 RB [id number] 04/04/18 13:24 RB 04/04/18 13:23 Wound Center Nurse 1 [Edema Assessment] -Lower Limb Edema Present Yes 04/04/18 13:23 Wound Center by Tatum Mccall pt hastwo scabbed areas on left ant ankle pt states from the cast rubbing use aquacel ag Initialized on 04/04/18 13:23 - END OF NOTE WC - Nurse 2 - General Ulcer CM Notes Start: 04/04/18 13:21 Freq: Status: Active Protocol: Activity Type Activity Date Activity User E-Sign Co-Sign Detail Recorded Client Recorded Date Recorded By Document 04/04/18 13:30 [id number] 04/04/18 13:31 04/04/18 13:30 Wound Center Nurse 2 [Procedure/Treatment] 7-left anterior ankle -Time 13:30 -Correct Patient Yes -Correct Side, Site, Position Yes -Correct Procedure Yes -Procedure Performed Yes -Type of Procedure Debridement -Clinical Debridement Subcutaneous -Post Debridement Size (cm) - Length 0.5 -Post Debridement Size (cm) - Width 0.8 -Post Debridement Size (cm) - Depth 0.1 -Total Square Cm 0.40 -Wound/Ulcer Outcome Not Healed -Ulcer Cleansing Rinsed/ Irrigated with Saline -Foul Odor after Cleansing No -Bioengineered Tissue No -Bleeding Controlled with Pressure -Treatment Response Procedure Tolerated Well [See Physician Procedure note for Specifics] Pain Scale: 0-10 Numeric [Pain] -Is Patient Pain Free? Yes Musculoskeletal: No Tenderness to Palpation of Joints or Extremities, Muscle Wasting Neurological: - - Lack of epicritic sensation light touch bilateral lower extremities consistent with neuropathy Psych/Mental Status: Normal Affect, Appropriate Debridement Note Post-Debridement Measurements/Treatment WC - Nurse 2 - General Ulcer CM Notes Start: 04/04/18 13:21 Freq: Status: Active Protocol: Activity Type Activity Date Activity User E-Sign Co-Sign Detail Recorded Client Recorded Date Recorded By Document 04/04/18 13:30 DEREK [id number] 04/04/18 13:31 DEREK 04/04/18 13:30 Wound Center Nurse 2 7-left anterior ankle -Time 13:30 -Correct Patient Yes -Correct Side, Site, Position Yes -Correct Procedure Yes -Procedure Performed Yes -Type of Procedure Debridement -Clinical Debridement Subcutaneous -Post Debridement Size (cm) - Length 0.5 -Post Debridement Size (cm) - Width 0.8 -Post Debridement Size (cm) - Depth 0.1 -Total Square Cm 0.40 -Wound/Ulcer Outcome Not Healed -Ulcer Cleansing Rinsed/ Irrigated with Saline -Foul Odor after Cleansing No -Bioengineered Tissue No -Bleeding Controlled with Pressure -Treatment Response Procedure Tolerated Well Pain Scale: 0-10 Numeric Is Patient Pain Free? Yes Wound debrided: anterior ankle/leg Laterality: Left Wound Grade/Stage: grade 1 Type of Debridement: Excisional debridement Anesthesia Used: 5% Lidocaine Gel Depth: in the subcutaneous layer Percentage of wound debrided: 100 Instrument Used: #15 blade Tissue Removed: fibrous, devitalized subcutaneous, biofilm, slough, eschar Severity: Fat Layer Exposed Amount of bleeding with debridement: Mild Bleeding Controlled with: Pressure Patient tolerated procedure well Assessment/Plan Active Problems (Last Updated 03/23/18 @ 15:06 by Love Ramsey) Ulcer of left lower extremity with fat layer exposed (Acute) Edema extremities (Chronic) Diabetes mellitus with polyneuropathy (Chronic) Malnutrition (Chronic) Charcot's joint, left ankle and foot (Chronic) Assessment: Ulcer left foot fat layer exposed, healed. New ulcer right foot with fat layer exposed, no infection or foreign body. charcot left foot - non acute. peripheral vascular disease. diabetes with peripheral neuropathy Plan: I reviewed and discussed his case today. A new wound is present to the left ankle and with subcutaneous debridement was performed as noted in the clinical panel. Pressure was applied to maintain hemostasis. To change dressing with aquacel which is applied today. To secure in place with a interdigital gauze. The ulcer site appears to be healed at this time to the left lower extremity and additional dressing care in total contact cast is not recommended. He will progress back into the [place] walker in a very slow progressive manner. He was reassured no signs of infection are noted. We discussed the etiology of this wound and he understands Charcot reconstruction may be necessary to prevent continued recurrence. Nutritional supplementation was recommended with Bartolo and proper glycemic control. To elevate limb at rest. His previous arterial studies from 2018 demonstrate normal perfusion and his left lower extremity veins are compressible without venous reflux noted. To return to clinic in 1 week or call sooner if concerns. He was reassured no acute infection is noted.
[2018-04-11 13:18] VITALS: BP 155/87; PULSE 69; RESP 18; TEMP 37.1
--- NOTE | 2018-04-11 14:14 | PCM.WC.PN ---
(1) Ulcer of left lower extremity with fat layer exposed Status: Acute Current Visit: Yes Code(s): L97.922 - Non-pressure chronic ulcer of unspecified part of left lower leg with fat layer exposed (2) Ulcer of right lower extremity with fat layer exposed Status: Acute Current Visit: Yes Code(s): L97.912 - Non-pressure chronic ulcer of unspecified part of right lower leg with fat layer exposed (3) Peripheral vascular disease Status: Suspected Current Visit: Yes Code(s): I73.9 - Peripheral vascular disease, unspecified (4) Edema extremities Status: Chronic Current Visit: Yes Code(s): R60.0 - Localized edema (5) Diabetes mellitus with polyneuropathy Status: Chronic Current Visit: Yes Qualifiers: Code(s): E11.42 - Type 2 diabetes mellitus with diabetic polyneuropathy (6) Malnutrition Status: Chronic Current Visit: Yes Code(s): E46 - Unspecified protein-calorie malnutrition (7) Charcot's joint, left ankle and foot Status: Chronic Current Visit: Yes Code(s): M14.672 - Charcot's joint, left ankle and foot Type of Wound Date of Service: 04/11/18 Chief Complaint: Left foot has Charcot joint with a diabetic foot ulcer (midfoot)-remains healed. Left anterior ankle ulcer. New wound and scratch right leg History of Wound: This 57 year old male returns to clinic today for follow-up of left lower extremity wound and new draining wound to the right leg has reopened. He thinks he is scratching his leg in the middle of night while he is sleeping. To the left lower extremity he wears a [place] walker . He denies redness, odor, fever, chill, nausea, vomiting, leg redness. He denies loss of appetite or odor or redness. Progress of Wound: Remains healed left foot. left ankle wound improving. New wound at previous abrasion scratch site of the right leg - Physical Exam Vital Signs Temp Pulse Resp BP 98.7 F 69 18 155/87 H 04/11/18 13:18 04/11/18 13:18 04/11/18 13:18 04/11/18 13:18 General: Alert, Oriented x3, Cooperative Extremities: No cyanosis, Capillary Refill Less than 3 Seconds, No Calf Tenderness, Diminished Peripheral Pulses, Edema, - - Rocker-bottom left lower extremity with prominent osseous aspect. No calor, edema, laxity left Skin: Ulcer/ Wound - No purulence, no erythema, streaking, no odor, no infection bilateral lower tremors. There is a new serosanguineous draining wound with granular fiber space to the lateral right leg adjacent to the previous abrasion site without infection. There is peripheral epithelialization towards the left lower extremity wound also. The peripheral skin is atrophic and hairless bilateral lower extremities Wound Measurements and Assessment WC - Nurse 1 - General Ulcer Measurement Start: 04/04/18 13:21 Freq: Status: Active Protocol: Activity Type Activity Date Activity User E-Sign Co-Sign Detail Recorded Client Recorded Date Recorded By Document 04/11/18 13:18 DEREK [id number] 04/11/18 13:21 DEREK 04/11/18 13:18 Wound Center Nurse 1 [Ulcer Assessment] 7-left anterior ankle -Combined with other wound No -Current Size (cm) - Length 0.4 -Current Size (cm) - Width 0.5 -Current Size (cm) - Depth 0.1 -Total Square Cm 0.20 -Photo Taken No -Epithelialization Medium 34-66% -Tunneling No -Undermining/Tunneling No -Circular Undermining No -Exudate Amt Small (1-33%) -Exudate Type Serosanguineous -Wound Margin Flat & Intact -Granulation Amt Large (67-100%) -Granulation Quality [place] -Slough/Fibrin Yes -Necrosis Amt Small (1-33%) -Necrotic Tissue Type Adherent Slough -Structure Exposed N/A -Texture (Ania-wound Skin Appearance) Assessed Scarring -Moisture (Ania-wound Skin Appearance Assessed ) Dry/Scaly -Color (Ania-wound Skin Appearance) Assessed -Temperature (Ania-wound Skin No Abnormality Appearance) (Pt Warm) -Tenderness on Palpation (Ania-wound No Skin Appearance) -Ulcer Cleansing Rinsed/ Irrigated with Saline -Foul Odor after Cleansing No -Anesthetic Used 4% Lidocaine Solution [Edema Assessment] -Lower Limb Edema Present Yes -Left Calf (cm) 40.5 -Left Ankle (cm) 26.5 WC - Nurse 2 - General Ulcer CM Notes Start: 04/04/18 13:21 Freq: Status: Active Protocol: Activity Type Activity Date Activity User E-Sign Co-Sign Detail Recorded Client Recorded Date Recorded By Document 04/11/18 13:18 JF [id number] 04/11/18 13:21 04/11/18 13:18 Wound Center Nurse 2 [Procedure/Treatment] 7-left anterior ankle -Time 13:20 -Correct Patient Yes -Correct Side, Site, Position Yes -Correct Procedure Yes -Procedure Performed Yes -Type of Procedure Debridement -Clinical Debridement Subcutaneous -Post Debridement Size (cm) - Length 0.5 -Post Debridement Size (cm) - Width 0.5 -Post Debridement Size (cm) - Depth 0.1 -Total Square Cm 0.25 -Wound/Ulcer Outcome Not Healed -Ulcer Cleansing Rinsed/ Irrigated with Saline -Foul Odor after Cleansing No -Bioengineered Tissue No -Bleeding Controlled with Pressure -Treatment Response Procedure Tolerated Well Musculoskeletal: No Tenderness to Palpation of Joints or Extremities, Muscle Wasting Neurological: - - Lack of epicritic sensation to light touch bilateral lower extremities Psych/Mental Status: Normal Affect, Appropriate Debridement Note Post-Debridement Measurements/Treatment WC - Nurse 2 - General Ulcer CM Notes Start: 04/04/18 13:21 Freq: Status: Active Protocol: Activity Type Activity Date Activity User E-Sign Co-Sign Detail Recorded Client Recorded Date Recorded By Document 04/04/18 13:30 [id number] 04/04/18 13:31 Document 04/11/18 13:18 [id number] 04/11/18 13:21 04/04/18 04/11/18 13:30 13:18 Wound Center Nurse 2 7-left anterior ankle -Time 13:30 13:20 -Correct Patient Yes Yes -Correct Side, Site, Position Yes Yes -Correct Procedure Yes Yes -Procedure Performed Yes Yes -Type of Procedure Debridement Debridement -Clinical Debridement Subcutaneous Subcutaneous -Post Debridement Size (cm) - Length 0.5 0.5 -Post Debridement Size (cm) - Width 0.8 0.5 -Post Debridement Size (cm) - Depth 0.1 0.1 -Total Square Cm 0.40 0.25 -Wound/Ulcer Outcome Not Healed Not Healed -Ulcer Cleansing Rinsed/ Rinsed/ Irrigated with Irrigated with Saline Saline -Foul Odor after Cleansing No No -Bioengineered Tissue No No -Bleeding Controlled with Pressure Pressure -Treatment Response Procedure Procedure Tolerated Well Tolerated Well Pain Scale: 0-10 Numeric Is Patient Pain Free? Yes Wound debrided: dorsal foot/anterior ankle Laterality: Left Wound Grade/Stage: grade 1 Type of Debridement: Excisional debridement Anesthesia Used: 5% Lidocaine Gel Depth: in the subcutaneous layer Percentage of wound debrided: 100 Instrument Used: #15 blade Tissue Removed: fibrous, devitalized subcutaneous, biofilm, slough Severity: Fat Layer Exposed Amount of bleeding with debridement: Mild Bleeding Controlled with: Pressure Patient tolerated procedure well Assessment/Plan Active Problems (Last Updated 03/23/18 @ 15:06 by Love Ramsey) Ulcer of right lower extremity with fat layer exposed (Acute) Ulcer of left lower extremity with fat layer exposed (Acute) Edema extremities (Chronic) Diabetes mellitus with polyneuropathy (Chronic) Malnutrition (Chronic) Charcot's joint, left ankle and foot (Chronic) Assessment: ulcer right foot with fat layer exposed, no infection or foreign body-bell grade 1. Right leg ulcer with previous abrasion- bell grade 1. charcot left foot - non acute. peripheral vascular disease. diabetes with peripheral neuropathy Plan: I reviewed and discussed his case today. Subcutaneous excisional debridement was performed as noted in the clinical panel to the left lower extremity. Pressure was applied to maintain hemostasis. To change dressing with hydrogel and Adaptic which is applied today to bilateral lower extremity ulcer sites. He will see me with the [place] walker in a very slow progressive manner. He was reassured no signs of infection are noted. We discussed the etiology of this wound and he understands Charcot reconstruction may be necessary to prevent continued recurrence. Nutritional supplementation was recommended with Bartolo and proper glycemic control. To elevate limb at rest. His previous arterial studies from 2018 demonstrate normal perfusion and his left lower extremity veins are compressible without venous reflux noted. To return to clinic in 1 week or call sooner if concerns. He was reassured no acute infection is noted.
--- NOTE | 2018-04-11 14:20 | PN.PCM_ITS ---
(1) Ulcer of left lower extremity with fat layer exposed Status: Acute Current Visit: Yes Code(s): L97.922 - Non-pressure chronic ulcer of unspecified part of left lower leg with fat layer exposed (2) Ulcer of right lower extremity with fat layer exposed Status: Acute Current Visit: Yes Code(s): L97.912 - Non-pressure chronic ulcer of unspecified part of right lower leg with fat layer exposed (3) Peripheral vascular disease Status: Suspected Current Visit: Yes Code(s): I73.9 - Peripheral vascular disease, unspecified (4) Edema extremities Status: Chronic Current Visit: Yes Code(s): R60.0 - Localized edema (5) Diabetes mellitus with polyneuropathy Status: Chronic Current Visit: Yes Qualifiers: Code(s): E11.42 - Type 2 diabetes mellitus with diabetic polyneuropathy (6) Malnutrition Status: Chronic Current Visit: Yes Code(s): E46 - Unspecified protein- calorie malnutrition (7) Charcot's joint, left ankle and foot Status: Chronic Current Visit: Yes Code(s): M14.672 - Charcot's joint, left ankle and foot Type of Wound Date of Service: 04/11/18 Chief Complaint: Left foot has Charcot joint with a diabetic foot ulcer (midfoot )-remains healed. Left anterior ankle ulcer. New wound and scratch right leg History of Wound: This 57 year old male returns to clinic today for follow-up of left lower extremity wound and new draining wound to the right leg has reopened. He thinks he is scratching his leg in the middle of night while he is sleeping. To the left lower extremity he wears a [place] walker . He denies redness, odor, fever, chill, nausea, vomiting, leg redness. He denies loss of appetite or odor or redness. Progress of Wound: Remains healed left foot. left ankle wound improving. New wound at previous abrasion scratch site of the right leg - Physical Exam Vital Signs Temp Pulse Resp BP 98.7 F 69 18 155/87 H 04/11/18 13:18 04/11/18 13:18 04/11/18 13:18 04/11/18 13:18 General: Alert, Oriented x3, Cooperative Extremities: No cyanosis, Capillary Refill Less than 3 Seconds, No Calf Tenderness, Diminished Peripheral Pulses, Edema, - - Rocker-bottom left lower extremity with prominent osseous aspect. No calor, edema, laxity left Skin: Ulcer/ Wound - No purulence, no erythema, streaking, no odor, no infection bilateral lower tremors. There is a new serosanguineous draining wound with granular fiber space to the lateral right leg adjacent to the previous abrasion site without infection. There is peripheral epithelialization towards the left lower extremity wound also. The peripheral skin is atrophic and hairless bilateral lower extremities Wound Measurements and Assessment WC - Nurse 1 - General Ulcer Measurement Start: 04/04/18 13:21 Freq: Status: Active Protocol: Activity Type Activity Date Activity User E-Sign Co-Sign Detail Recorded Client Recorded Date Recorded By Document 04/11/18 13:18 DEREK [id number] 04/11/18 13:21 DEREK 04/11/18 13:18 Wound Center Nurse 1 [Ulcer Assessment] 7-left anterior ankle -Combined with other wound No -Current Size (cm) - Length 0.4 -Current Size (cm) - Width 0.5 -Current Size (cm) - Depth 0.1 -Total Square Cm 0.20 -Photo Taken No -Epithelialization Medium 34-66% -Tunneling No -Undermining/Tunneling No -Circular Undermining No -Exudate Amt Small (1-33%) -Exudate Type Serosanguineous -Wound Margin Flat & Intact -Granulation Amt Large (67-100%) -Granulation Quality [place] -Slough/Fibrin Yes -Necrosis Amt Small (1-33%) -Necrotic Tissue Type Adherent Slough -Structure Exposed N/A -Texture (Ania-wound Skin Appearance) Assessed Scarring -Moisture (Ania-wound Skin Appearance Assessed ) Dry/Scaly -Color (Ania-wound Skin Appearance) Assessed -Temperature (Ania-wound Skin No Abnormality Appearance) (Pt Warm) -Tenderness on Palpation (Ania-wound No Skin Appearance) -Ulcer Cleansing Rinsed/ Irrigated with Saline -Foul Odor after Cleansing No -Anesthetic Used 4% Lidocaine Solution [Edema Assessment] -Lower Limb Edema Present Yes -Left Calf (cm) 40.5 -Left Ankle (cm) 26.5 WC - Nurse 2 - General Ulcer CM Notes Start: 04/04/18 13:21 Freq: Status: Active Protocol: Activity Type Activity Date Activity User E-Sign Co-Sign Detail Recorded Client Recorded Date Recorded By Document 04/11/18 13:18 JF [id number] 04/11/18 13:21 04/11/18 13:18 Wound Center Nurse 2 [Procedure/Treatment] 7-left anterior ankle -Time 13:20 -Correct Patient Yes -Correct Side, Site, Position Yes -Correct Procedure Yes -Procedure Performed Yes -Type of Procedure Debridement -Clinical Debridement Subcutaneous -Post Debridement Size (cm) - Length 0.5 -Post Debridement Size (cm) - Width 0.5 -Post Debridement Size (cm) - Depth 0.1 -Total Square Cm 0.25 -Wound/Ulcer Outcome Not Healed -Ulcer Cleansing Rinsed/ Irrigated with Saline -Foul Odor after Cleansing No -Bioengineered Tissue No -Bleeding Controlled with Pressure -Treatment Response Procedure Tolerated Well Musculoskeletal: No Tenderness to Palpation of Joints or Extremities, Muscle Wasting Neurological: - - Lack of epicritic sensation to light touch bilateral lower extremities Psych/Mental Status: Normal Affect, Appropriate Debridement Note Post-Debridement Measurements/Treatment WC - Nurse 2 - General Ulcer CM Notes Start: 04/04/18 13:21 Freq: Status: Active Protocol: Activity Type Activity Date Activity User E-Sign Co-Sign Detail Recorded Client Recorded Date Recorded By Document 04/04/18 13:30 [id number] 04/04/18 13:31 Document 04/11/18 13:18 [id number] 04/11/18 13:21 04/04/18 04/11/18 13:30 13:18 Wound Center Nurse 2 7-left anterior ankle -Time 13:30 13:20 -Correct Patient Yes Yes -Correct Side, Site, Position Yes Yes -Correct Procedure Yes Yes -Procedure Performed Yes Yes -Type of Procedure Debridement Debridement -Clinical Debridement Subcutaneous Subcutaneous -Post Debridement Size (cm) - Length 0.5 0.5 -Post Debridement Size (cm) - Width 0.8 0.5 -Post Debridement Size (cm) - Depth 0.1 0.1 -Total Square Cm 0.40 0.25 -Wound/Ulcer Outcome Not Healed Not Healed -Ulcer Cleansing Rinsed/ Rinsed/ Irrigated with Irrigated with Saline Saline -Foul Odor after Cleansing No No -Bioengineered Tissue No No -Bleeding Controlled with Pressure Pressure -Treatment Response Procedure Procedure Tolerated Well Tolerated Well Pain Scale: 0-10 Numeric Is Patient Pain Free? Yes Wound debrided: dorsal foot/anterior ankle Laterality: Left Wound Grade/Stage: grade 1 Type of Debridement: Excisional debridement Anesthesia Used: 5% Lidocaine Gel Depth: in the subcutaneous layer Percentage of wound debrided: 100 Instrument Used: #15 blade Tissue Removed: fibrous, devitalized subcutaneous, biofilm, slough Severity: Fat Layer Exposed Amount of bleeding with debridement: Mild Bleeding Controlled with: Pressure Patient tolerated procedure well Assessment/Plan Active Problems (Last Updated 03/23/18 @ 15:06 by Love Ramsey) Ulcer of right lower extremity with fat layer exposed (Acute) Ulcer of left lower extremity with fat layer exposed (Acute) Edema extremities (Chronic) Diabetes mellitus with polyneuropathy (Chronic) Malnutrition (Chronic) Charcot's joint, left ankle and foot (Chronic) Assessment: ulcer right foot with fat layer exposed, no infection or foreign body-bell grade 1. Right leg ulcer with previous abrasion- bell grade 1. charcot left foot - non acute. peripheral vascular disease. diabetes with peripheral neuropathy Plan: I reviewed and discussed his case today. Subcutaneous excisional debridement was performed as noted in the clinical panel to the left lower extremity. Pressure was applied to maintain hemostasis. To change dressing with hydrogel and Adaptic which is applied today to bilateral lower extremity ulcer sites. He will see me with the [place] walker in a very slow progressive manner. He was reassured no signs of infection are noted. We discussed the etiology of this wound and he understands Charcot reconstruction may be necessary to prevent continued recurrence. Nutritional supplementation was recommended with Bartolo and proper glycemic control. To elevate limb at rest. His previous arterial studies from 2018 demonstrate normal perfusion and his left lower extremity veins are compressible without venous reflux noted. To return to clinic in 1 week or call sooner if concerns. He was reassured no acute infection is noted.
[2018-04-18 13:02] VITALS: BP 164/90; PULSE 73; RESP 16; TEMP 36.6
--- NOTE | 2018-04-18 16:01 | PCM.WC.PN ---
(1) Ulcer of left lower extremity with fat layer exposed Status: Chronic Code(s): L97.922 - Non-pressure chronic ulcer of unspecified part of left lower leg with fat layer exposed (2) Edema extremities Status: Chronic Code(s): R60.0 - Localized edema (3) Diabetes mellitus with polyneuropathy Status: Chronic Qualifiers: Code(s): E11.42 - Type 2 diabetes mellitus with diabetic polyneuropathy (4) Malnutrition Status: Chronic Code(s): E46 - Unspecified protein-calorie malnutrition (5) Charcot's joint, left ankle and foot Status: Chronic Code(s): M14.672 - Charcot's joint, left ankle and foot Type of Wound Date of Service: 04/22/18 Chief Complaint: Left foot has Charcot joint with a diabetic foot ulcer (midfoot)-remains healed. Left anterior ankle ulcer. New wound and scratch right leg History of Wound: This 57 year old male returns to clinic today for follow-up of left lower extremity wound. He denies redness, odor, fever, chill, nausea, vomiting, leg redness. He denies loss of appetite or odor or redness. He thinks his wound site is closed. Progress of Wound: Remains healed left foot. left ankle wound improving r. ight leg abrasion healed - Physical Exam Vital Signs Temp Pulse Resp BP 98 F 73 16 164/90 H 04/18/18 13:02 04/18/18 13:02 04/18/18 13:02 04/18/18 13:02 General: Alert, Oriented x3, Cooperative Extremities: No cyanosis, Capillary Refill Less than 3 Seconds, No Calf Tenderness, Diminished Peripheral Pulses, Edema Skin: Ulcer/ Wound - No purulence, erythema, streaking, odor, no infection. The peripheral skin is atrophic. There is peripheral epithelialization noted Wound Measurements and Assessment WC - Nurse 1 - General Ulcer Measurement Start: 04/04/18 13:21 Freq: Status: Active Protocol: Activity Type Activity Date Activity User E-Sign Co-Sign Detail Recorded Client Recorded Date Recorded By Document 04/18/18 13:02 [facility] [id number] 04/18/18 13:07 [facility] 04/18/18 13:02 Wound Center Nurse 1 [Ulcer Assessment] 7-left anterior ankle -Combined with other wound No -Current Size (cm) - Length 0.2 -Current Size (cm) - Width 0.2 -Current Size (cm) - Depth 0.1 -Total Square Cm 0.04 -Photo Taken No -Epithelialization Small 1-33% -Tunneling No -Undermining/Tunneling No -Circular Undermining No -Exudate Amt None Present (0 %) -Wound Margin Distinct, Outline Attached -Granulation Amt Large (67-100%) -Granulation Quality Red -Slough/Fibrin No -Necrosis Amt None Present (0 %) -Structure Exposed None/Limited to Skin Breakdown -Texture (Ania-wound Skin Appearance) Scarring -Moisture (Ania-wound Skin Appearance Dry/Scaly ) -Color (Ania-wound Skin Appearance) Assessed Erythema -Temperature (Ania-wound Skin No Abnormality Appearance) (Pt Warm) -Tenderness on Palpation (Ania-wound No Skin Appearance) -Ulcer Cleansing Rinsed/ Irrigated with Saline -Foul Odor after Cleansing No -Anesthetic Used 4% Lidocaine Solution WC - Nurse 2 - General Ulcer CM Notes Start: 04/04/18 13:21 Freq: Status: Active Protocol: Activity Type Activity Date Activity User E-Sign Co-Sign Detail Recorded Client Recorded Date Recorded By Document 04/18/18 13:45 [id number] 04/18/18 13:48 04/18/18 13:45 Wound Center Nurse 2 [Procedure/Treatment] -Time 13:46 -Correct Patient Yes -Correct Side, Site, Position Yes -Correct Procedure Yes -Procedure Performed Yes -Type of Procedure Debridement -Clinical Debridement Subcutaneous -Post Debridement Size (cm) - Length 0.3 -Post Debridement Size (cm) - Width 0.3 -Post Debridement Size (cm) - Depth 0.1 -Total Square Cm 0.09 -Wound/Ulcer Outcome Not Healed -Ulcer Cleansing Rinsed/ Irrigated with Saline -Foul Odor after Cleansing No -Bioengineered Tissue No -Topical Lidocaine (%) 4 -Bleeding Controlled with Pressure -Treatment Response Procedure Tolerated Well [See Physician Procedure note for Specifics] Pain Scale: 0-10 Numeric [Pain] -Is Patient Pain Free? Yes Musculoskeletal: No Tenderness to Palpation of Joints or Extremities, Muscle Wasting, - - Rocker-bottom left lower extremity consistent with chronic stable Charcot Neurological: - - Lack of epicritic sensation light touch bilateral lower extremities Psych/Mental Status: Normal Affect, Appropriate Debridement Note Post-Debridement Measurements/Treatment WC - Nurse 2 - General Ulcer CM Notes Start: 04/04/18 13:21 Freq: Status: Active Protocol: Activity Type Activity Date Activity User E-Sign Co-Sign Detail Recorded Client Recorded Date Recorded By Document 04/04/18 13:30 [id number] 04/04/18 13:31 JF Document 04/11/18 13:18 [id number] [id number] 04/11/18 13:21 Document 04/18/18 13:45 [id number] 04/18/18 13:48 04/04/18 04/11/18 04/18/18 13:30 13:18 13:45 Wound Center Nurse 2 7-left anterior ankle -Time 13:30 13:20 13:46 -Correct Patient Yes Yes Yes -Correct Side, Site, Position Yes Yes Yes -Correct Procedure Yes Yes Yes -Procedure Performed Yes Yes Yes -Type of Procedure Debridement Debridement Debridement -Clinical Debridement Subcutaneous Subcutaneous Subcutaneous -Post Debridement Size (cm) - Length 0.5 0.5 0.3 -Post Debridement Size (cm) - Width 0.8 0.5 0.3 -Post Debridement Size (cm) - Depth 0.1 0.1 0.1 -Total Square Cm 0.40 0.25 0.09 -Wound/Ulcer Outcome Not Healed Not Healed Not Healed -Ulcer Cleansing Rinsed/ Rinsed/ Rinsed/ Irrigated with Irrigated with Irrigated with Saline Saline Saline -Foul Odor after Cleansing No No No -Bioengineered Tissue No No No -Topical Lidocaine (%) 4 -Bleeding Controlled with Pressure Pressure Pressure -Treatment Response Procedure Procedure Procedure Tolerated Well Tolerated Well Tolerated Well Pain Scale: 0-10 Numeric Is Patient Pain Free? Yes Yes Wound debrided: dorsal foot/anterior ankle Laterality: Left Wound Grade/Stage: grade 1 Type of Debridement: Excisional debridement Anesthesia Used: 5% Lidocaine Gel Depth: in the subcutaneous layer Percentage of wound debrided: 100 Instrument Used: #15 blade Tissue Removed: fibrous, devitalized subcutaneous, biofilm, slough Severity: Fat Layer Exposed Amount of bleeding with debridement: Mild Bleeding Controlled with: Pressure Patient tolerated procedure well Assessment/Plan Assessment: ulcer right foot with fat layer exposed, no infection or foreign body-bell grade 1. Right leg ulcer with previous abrasion- bell grade 1. charcot left foot - non acute. peripheral vascular disease. diabetes with peripheral neuropathy Plan: I reviewed and discussed his case today. Subcutaneous excisional debridement was performed as noted in the clinical panel to the left lower extremity. Pressure was applied to maintain hemostasis. To change dressing with hydrogel and Adaptic which is applied today to left lower extremity ulcer site. He will continue to use the [place] walker as advised. He was reassured no signs of infection are noted. Nutritional supplementation was recommended with Bartolo and proper glycemic control. To elevate limb at rest. His previous arterial studies from 2018 demonstrate normal perfusion and his left lower extremity veins are compressible without venous reflux noted. To return to clinic in 2 week or call sooner if concerns. The wound center is closed next mon due to national holiday. He was reassured no acute infection is noted.
== END 2018-04-21 23:59 ==
LOC: WC 13:00
PROVIDERS: Family Provider Family Medicine; PCP Family Medicine; Visit Provider Podiatrist
DX: E11.622 Type 2 diabetes mellitus with other skin ulcer (principal); E11.51 Type 2 diabetes mellitus with diabetic peripheral angiopathy without gangrene; R60.0 Localized edema; E11.42 Type 2 diabetes mellitus with diabetic polyneuropathy; L97.322 Non-pressure chronic ulcer of left ankle with fat layer exposed; M14.672 Charcot's joint, left ankle and foot
CPT/HCPCS: 11042

== ENCOUNTER 2018-05-02 12:31 | Outpatient (RCR) | payer MEDICARE, SELFPAY ==
[2018-04-22 00:47] VITALS: BP 164/90; PULSE 73; RESP 16; TEMP 36.6
[2018-05-02 13:36] VITALS: BP 150/82; PULSE 69; RESP 16; TEMP 35.9
--- NOTE | 2018-05-02 14:25 | PN.PCM_ITS ---
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 Left anterior ankle ulcer healed History of Wound: This 57 year old male returns to clinic today for follow-up of left lower extremity wound and he thinks the site is healed today because there is no drainage. To the left lower extremity he wears a [employer] walker . He denies redness, odor, fever, chill, nausea, vomiting, leg redness. He denies loss of appetite or odor or redness. He does not feel safe trimming his nails today and asked for help trimming right 124 and 5 and left 125. He saw his primary care physician on April 09, 2018; Dr. Cem Nj. Progress of Wound: Ulcer sites remain healed - Physical Exam Vital Signs Temp Pulse Resp BP 96.6 F L 69 16 150/82 H 05/02/18 13:36 05/02/18 13:36 05/02/18 13:36 05/02/18 13:36 General: Alert, Oriented x3, Cooperative Extremities: No cyanosis, Capillary Refill Less than 3 Seconds, No Calf Tenderness - Negative Jyothi and Carranza left, Diminished Peripheral Pulses, Edema - Mild bilateral lower extremities Skin: Ulcer/ Wound - No purulence, no erythema, streaking, odor, no infection bilateral lower extremities. The skin is atrophic bilateral. Full epithelialization is maintained to the anterior left ankle on the plantar left foot and this demonstrates the wound has healed. His toenails are long, thick, dystrophic with subungual debris right 124 and 5 and left 125. Wound Measurements and Assessment WC - Nurse 1 - General Ulcer Measurement Start: 05/02/18 13:36 Freq: Status: Active Protocol: Activity Type Activity Date Activity User E-Sign Co-Sign Detail Recorded Client Recorded Date Recorded By Document 05/02/18 13:36 [facility] [id number] 05/02/18 13:42 [facility] 05/02/18 13:36 Wound Center Nurse 1 [Ulcer Assessment] 7-left anterior ankle -Combined with other wound No -Current Size (cm) - Length 0 -Current Size (cm) - Width 0 -Current Size (cm) - Depth 0 -Total Square Cm 0 -Date of Last Picture (Recall this 05/02/18 field) -Photo Taken Yes -Epithelialization Large 67-100% WC - Nurse 2 - General Ulcer CM Notes Start: 05/02/18 13:36 Freq: Status: Active Protocol: Activity Type Activity Date Activity User E-Sign Co-Sign Detail Recorded Client Recorded Date Recorded By Document 05/02/18 14:07 [id number] 05/02/18 14:10 05/02/18 14:07 Wound Center Nurse 2 [Procedure/Treatment] -Time 14:08 -Correct Patient Yes -Correct Side, Site, Position Yes -Correct Procedure Yes -Procedure Performed Yes -Post Debridement Size (cm) - Length 0 -Post Debridement Size (cm) - Width 0 -Post Debridement Size (cm) - Depth 0 -Total Square Cm 0 -Wound/Ulcer Outcome Healed- Epithelialized -Ulcer Cleansing Rinsed/ Irrigated with Saline -Foul Odor after Cleansing No -Bioengineered Tissue No -Topical Lidocaine (%) 4 -Bleeding Controlled with NA -Treatment Response Procedure Tolerated Well [See Physician Procedure note for Specifics] Pain Scale: 0-10 Numeric [Pain] -Is Patient Pain Free? Yes Musculoskeletal: No Tenderness to Palpation of Joints or Extremities, Muscle Wasting, - - Partial toe amputations right third toe and left third and fourth toes. Rocker-bottom foot consistent with chronic nonactive Charcot left Neurological: - - Lack of epicritic sensation light touch bilateral lower extremities Psych/Mental Status: Normal Affect, Appropriate Debridement Note Post-Debridement Measurements/Treatment WC - Nurse 2 - General Ulcer CM Notes Start: 05/02/18 13:36 Freq: Status: Active Protocol: Activity Type Activity Date Activity User E-Sign Co-Sign Detail Recorded Client Recorded Date Recorded By Document 05/02/18 14:07 [id number] 05/02/18 14:10 05/02/18 14:07 Wound Center Nurse 2 7-left anterior ankle -Time 14:08 -Correct Patient Yes -Correct Side, Site, Position Yes -Correct Procedure Yes -Procedure Performed Yes -Post Debridement Size (cm) - Length 0 -Post Debridement Size (cm) - Width 0 -Post Debridement Size (cm) - Depth 0 -Total Square Cm 0 -Wound/Ulcer Outcome Healed- Epithelialized -Ulcer Cleansing Rinsed/ Irrigated with Saline -Foul Odor after Cleansing No -Bioengineered Tissue No -Topical Lidocaine (%) 4 -Bleeding Controlled with NA -Treatment Response Procedure Tolerated Well Pain Scale: 0-10 Numeric Is Patient Pain Free? Yes Patient tolerated procedure well - The wounds have healed Assessment/Plan Active Problems (Last Updated 03/23/18 @ 15:06 by Love Rmasey) Malnutrition (Chronic) 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) Charcot ankle (Chronic) Charcot's joint, left ankle and foot (Chronic) Assessment: ulcer right foot- healed. charcot left foot - non acute. peripheral vascular disease. diabetes with peripheral neuropathy Plan: I reviewed and discussed his case today. He was reassured no signs of infection are noted. We discussed the etiology of this wound and he understands Charcot reconstruction may be necessary to prevent continued recurrence. to elevate limb at rest. His previous arterial studies from 2018 demonstrate normal perfusion and his left lower extremity veins are compressible without venous reflux noted. The wound has healed. D/c dressing. check daily. D/c from wound center. Follow up [facility] two months. The nails were trimmed with nail nipper to the right 1, 2,4 and 5 nails and to the left 1, 2 and 5 nails without incident. They were debrided in length and thickness to reduce fungal load decrease pressure and promote wound formation. He does not feel safe performing this on his own.
== END 2018-05-22 23:59 ==
LOC: WC 12:31
PROVIDERS: Family Provider Family Medicine; PCP Family Medicine; Visit Provider Podiatrist
DX: Z09 Encounter for follow-up examination after completed treatment for conditions other than malignant neoplasm (principal); E11.610 Type 2 diabetes mellitus with diabetic neuropathic arthropathy; B35.1 Tinea unguium; E11.51 Type 2 diabetes mellitus with diabetic peripheral angiopathy without gangrene; E11.42 Type 2 diabetes mellitus with diabetic polyneuropathy
CPT/HCPCS: 11721; 99213; G0463

== ENCOUNTER → 2018-07-23 09:50 | Outpatient (CLI) | payer MEDICARE, SELFPAY ==
[2018-07-23 10:52] LABS: Hemoglobin A1c 7.6 % (4.2-6.3)
[2018-07-23 11:15] LABS: ALB/GLOB Ratio 0.9 RATIO (0.9-2.4); AST(SGOT) 26 U/L (15-37); Alanine Aminotransfer ALT/SGPT 37 U/L (16-61); Albumin, Serum 3.5 g/dL (3.2-5.0); Alkaline Phosphatase 121 U/L (45-117); Anion Gap 5 (5-15); BUN 7 mg/dL (7-18); BUN/Creat Ratio 7.2 RATIO (10-20); Calcium,Total 9.1 mg/dL (8.5-10.1); Chloride 93 mmol/L (98-107); Creatinine, Serum 0.98 mg/dL (0.70-1.30); EST Glomerular Filtration Rate 84 mL/min (>60); Est Glom Filt Rate - Afr Amer 101 mL/min (>60); Glucose 214 mg/dL (74-106); Potassium 4.3 mmol/L (3.5-5.1); Protein, Total 7.5 g/dL (6.4-8.2); Sodium Level 129 mmol/L (136-145)
== END ==
PROVIDERS: Family Provider Family Medicine; PCP Family Medicine; Referring Provider Family Medicine; Visit Provider Family Medicine
DX: F10.10 Alcohol abuse, uncomplicated (principal); Z79.899 Other long term (current) drug therapy
CPT/HCPCS: 36415; 80053; 83036

== ENCOUNTER → 2018-10-05 12:06 | Outpatient (CLI) | payer MEDICARE, SELFPAY ==
[2018-07-19 15:21] VITALS: BMI 35.4
[2018-10-05 13:57] LABS: AST(SGOT) 68 U/L (15-37); Alanine Aminotransfer ALT/SGPT 53 U/L (16-61); Albumin, Serum 3.4 g/dL (3.2-5.0); Alkaline Phosphatase 118 U/L (45-117); Cholesterol 174 mg/dL (200); Globulin 3.8 g/dL (2.2-4.2); High Density Lipoprotein 96 mg/dL; Protein, Total 7.2 g/dL (6.4-8.2); Triglycerides 75 mg/dL; Very Low Density Lipoprotein 15 mg/dL (5-40)
--- OUTSIDE RECORDS SUMMARY | 2018-11-21 06:50 | XMS RPT_ITS ---
:1960 Author Organization OHIP Support Name Relationship Address Phone D Unavailable Unavailable Unavailable NEGRITO, REESE Unavailable . + [place] [address] D Unavailable Unavailable Unavailable NEGRITO, REESE Unavailable . + [place] [address] D Unavailable Unavailable Unavailable NEGRITO, REESE Unavailable . + [place] [address] D Unavailable Unavailable Unavailable NEGRITO, REESE Unavailable . + [place] [address] D Unavailable Unavailable Unavailable NEGRITO, REESE Unavailable Unavailable + [place] [address] D Unavailable Unavailable Unavailable NEGRITO, REESE Unavailable . + [place] [address] D Unavailable Unavailable Unavailable NEGRITO, REESE Unavailable . + [place] [address] D Unavailable Unavailable Unavailable NEGRITO, REESE Unavailable . + [place] [address] D Unavailable Unavailable Unavailable NEGRITO, REESE Unavailable . + [place] [address] D Unavailable Unavailable Unavailable NEGRITO, REESE Unavailable . + [place] [address] D Unavailable Unavailable Unavailable NEGRITO, REESE Unavailable . + [place] [address] D Unavailable Unavailable Unavailable NEGRITO, REESE Unavailable . + [place] [address] D Unavailable Unavailable Unavailable NEGRITO, REESE Unavailable Unavailable + [place] [address] D Unavailable Unavailable Unavailable NEGRITO, REESE Unavailable Unavailable + [place] [address] D Unavailable Unavailable Unavailable NEGRITO, REESE Unavailable Unavailable + [place] [address] D Unavailable Unavailable Unavailable REESE MAHAN Unavailable NA + [place], [place] D Unavailable Unavailable Unavailable REESE MAHAN Unavailable NA + [place], [place] Care Team Providers Name Role Phone Zenon Almeida Attending Unavailable Elle, Zenon Referring Unavailable Brown, Cem Primary Care Unavailable Roof, Benitez Nobles Attending Unavailable Brown, Cem Referring Unavailable Moodispaw, Zenon Attending Unavailable Moodispaw, Zenon Referring Unavailable Brown, Cem Primary Care Unavailable Fascione, Saba Attending Unavailable Brown, Cem Primary Care Unavailable Fascione, Saba Attending Unavailable Brown, Cem Primary Care Unavailable Brown, Cem Attending Unavailable Brown, Cem Referring Unavailable Fascione, Saba Attending Unavailable Brown, Cem Primary Care Unavailable Fascione, Saba Attending Unavailable Brown, Cem Primary Care Unavailable Moodispaw, Zenon Attending Unavailable Moodispaw, Zenon Referring Unavailable Brown, Cem Primary Care Unavailable Fascione, Saba Attending Unavailable Brown, Cem Primary Care Unavailable Love Ramsey Attending Unavailable Brown, Cem Attending Unavailable Brown, Cem Referring Unavailable Brown, Cem Primary Care Unavailable Roof, Benitez H Attending Unavailable Brown, Cem Referring Unavailable Fascione, Saba Attending Unavailable Brown, Cem Primary Care Unavailable Fascione, Saba Attending Unavailable Brown, Cem Primary Care Unavailable Brown, Cem Attending Unavailable Brown, Cem Referring Unavailable Brown, Cem Attending Unavailable Brown, Cem Referring Unavailable Brown, Cem Primary Care Unavailable PROBLEMS PROBLEMS DATE TYPE CONDITION / CODE ATTENDING STATUS SOURCE 10/30/2018 Unknown E13.9 - Other Cem Nj Active [facility] specified diabetes Community mellitus without Hospital complications / Repository E13.9(ICD-10) 10/09/2018 Unknown R07.9 - Chest pain, Benitez Méndez Active [facility] unspecified / Community R07.9(ICD-10) Hospital Repository 10/09/2018 Unknown I25.10 - Benitez Méndez Active [facility] Atherosclerotic heart Community disease of [facility] coronary artery Repository without angina pectoris / I25.10(ICD-10) 10/09/2018 Unknown I25.5 - Ischemic Benitez Méndez Active [facility] cardiomyopathy / Community I25.5(ICD-10) Hospital Repository 07/23/2018 Unknown Z79.899 - Other long Cem Nj Active [facility] term (current) drug Community therapy / Hospital Z79.899(ICD-10) Repository 07/23/2018 Unknown F10.10 - Alcohol Cem Nj Active [facility] abuse, [facility] Community / F10.10(ICD-10) Hospital Repository 01/26/2018 Unknown I73.9 - Peripheral Fascione, Active [facility] vascular disease, [facility] unspecified / Hospital I73.9(ICD-10) Repository 01/26/2018 Unknown R60.0 - Localized Fascione, Active [facility] edema / R60.0(ICD-10) [facility] Hospital Repository 01/26/2018 Unknown M79.605 - Pain in Fascione, Active [facility] left leg / [facility] M79.605(ICD-10) Hospital Repository 01/26/2018 Unknown M79.604 - Pain in Fascione, Active [facility] right leg / [facility] M79.604(ICD-10) Hospital Repository 01/26/2018 Unknown E11.9 - Type 2 Fascione, Active [facility] diabetes mellitus [facility] without complications Hospital / E11.9(ICD-10) Repository PROCEDURES PROCEDURES No Procedure Records FoundRESULTS RESULTS INTERNAL MEDICINE Observed: 10/30/2018 Status: F Source: [facility] OFFICE VISIT 4:52 PM [facility] REPOSITORY [facility] [address] [place] [address] [place] [address] OFFICE VISIT Date of Service: 10/30/18 MR#: [id number] Acct: [id number] Name: SVETLANA MARQUIS Adriana Rep #: [id number] : 1960 Provider: Cem Nj DO Age/Sex: 58/M Location: [facility] Status: Signed Intake Vital Signs10/30/18 Body Mass Index (BMI) 36.6 10/30/18 Height 5 ft 11 in Intake Visit Reasons: 3 MO FU, UPDATE HIPPA Chief Complaint: f/u diabetic check Is patient in pain?: No Allergies lisinopril Adverse Reaction (Verified 10/09/18 13:05) Cough pet dander Allergy (Intermediate, Uncoded 10/09/18 13:06) runny nose, sneezing Medications aspirin 81 mg tablet,delayed release 81 mg PO QDAY 10/12/17 [History Confirmed 10/30/18] ascorbic acid (vitamin C) 500 mg tablet 500 mg PO BID 03/23/18 [History Confirmed 10/30/18] blood sugar diagnostic strips See Dose Instructions .ROUTE .MEDSUPPLY #20 ea 03/23/18 [History Confirmed 10/30/18] atenolol 50 mg tablet 50 mg PO DAILY #90 tab 06/11/18 [Rx Confirmed 10/30/18] metformin 1,000 mg tablet 1,000 mg PO QDAY #90 tab 07/19/18 [Rx Confirmed 10/30/18] nitroglycerin 0.4 mg sublingual tablet 0.4 mg SUBLINGUAL Q5M PRN #25 tab 07/19/18 [Rx Confirmed 10/30/18] amlodipine 5 mg tablet 5 mg PO QDAY #90 tab 08/06/18 [Rx Confirmed 10/30/18] losartan 25 mg tablet 25 mg PO DAILY #90 tab 10/09/18 [Rx Confirmed 10/30/18] losartan 50 mg tablet 50 mg PO DAILY #90 tab 10/09/18 [Rx Confirmed 10/30/18] amoxicillin 500 mg-potassium clavulanate 125 mg tablet 1 tab PO TID #30 tab 10/30/18 [Rx Confirmed 10/30/18] glipizide ER 2.5 mg tablet, extended release 24 hr 2.5 mg PO DAILY #90 tab 10/30/18 [Rx Confirmed 10/30/18] [facility] Medical History Ulcer of right lower extremity with fat layer exposed (Chronic) 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) Ulcer of left lower extremity with fat layer exposed (Resolved) Sleep disorder (Chronic) Depressive disorder (Chronic) Alcohol abuse (Chronic) Diabetes (Chronic) Malnutrition (Chronic) Chronic ulcer of left foot with fat layer exposed (Chronic) Venous insufficiency of both lower extremities (Chronic) Peripheral vascular disease (Suspected) Onycholysis (Resolved) Ulcer of right foot with fat layer exposed (Chronic) Elevated liver function tests (Acute) Ischemic cardiomyopathy (Chronic) CAD (coronary artery disease) (Chronic) Angina pectoris (Chronic) Chest pain (Acute) Hyperlipidemia (Chronic) HTN (hypertension) (Chronic) Chronic ulcer of right ankle with fat layer exposed (Acute) Diabetes 1.5, managed as type 2 (Chronic) Edema extremities (Chronic) Diabetes mellitus (Chronic) Diabetes mellitus with circulatory complication (Chronic) 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) Diabetes mellitus with neurologic complication, with long- term current use of insulin (Chronic) Charcot ankle (Chronic) Charc t's arthritis due to secondary diabetes (Chronic) Charcot foot due to diabetes mellitus (Chronic) Diabetic foot ulcers (Chronic) Open wound of foot with complication (Chronic) Open wound of right ankle (Chronic) Open wound of left ankle with complication (Chronic) Diabetic ulcer of right foot (Acute) Diabetic ulcer of left foot (Acute) Ulcer of right ankle (Acute) Acquired equinus deformity of both feet (Chronic) Healed ulcer of left foot on examination (Chronic) Chronic ulcer of left foot with fat layer exposed (Resolved) Diabetes mellitus with polyneuropathy (Chronic) Malnutrition (Chronic) Charcot's joint, left ankle and foot (Chronic) Surgical History Hx of oral surgery (Resolved) Hx of cholecystectomy (Resolved) History of amputation of toe (Resolved) S/P PTCA (percutaneous transluminal coronary angioplasty) (Chronic 02/2016) Family History Mother Heart disease Father Heart disease Social History Smoking Status: Former smoker alcohol intake: current alcohol intake frequency: 0-2 drinks per day Alcohol type: beer substance use type: does not use caffeine: Yes Type: carbonated beverages Number of servings: 1 HPI HPI Chief Complaint: f/u diabetic check Details: SVETLANA MARQUIS, is a 58 M who presents to the office today for a follow-up on his diabetes and also examination for upper respiratory tract infection symptoms that he said for over a week. He has had some chest pain with coughing a productive cough and he can feel something in his chest when he coughs. ROS Const Constitutional: No weight change, body ache, chills, fatigue, sleep problems, fever(s), change in appetite, snoring, weakness, frequent falls, headache(s) or excessive sweating Eyes Eyes: No change in vision, eye pain, light sensitivity or blurry vision ENT ENT: Positive for nasal congestion, sore throat and nasal discharge; no headache(s), abnormal hearing, ear pain, tinnitus or neck pain Resp Respiratory: Positive for cough Cough: Yes productive; no snoring, shortness of breath or wheezing Cardio Cardiology: No excessive sweating, chest pain at rest, chest pain with exertion, shortness of breath, dyspnea on exertion, palpitations, orthopnea or lightheadedness Gastro GI: No abdominal pain, change in bowel habits, constipation, diarrhea, vomiting, nausea/dyspepsia or cramping Genitourinary Male: No painful urination, urinary incontinence, urinary frequency, urinary urgency, blood in urine, testicle pain or other Musc Musculoskeletal: No neck pain, abnormal walking, joint pain, back pain, limited range of motion, numbness or tingling Skin Skin: No redness, dry skin, itching, lesions, wounds or rash Neuro Neurology: No weakness, frequent falls, headache(s), abnormal hearing, abnormal walking, numbness, tingling, abnormal speech, dizziness or memory loss Psych Psychiatric: No change in appetite, No memory loss, No anxiety, No depression, No Thoughts of harming yourself/Others Endo Endocrine: No fatigue, excessive sweating, cold intolerance, increased thirst/drinking, heat intolerance, flushing or increased hunger Aller/Imm Allergy/Immunologic: No wheezing, itchy eyes, hives or seasonal allergy symptoms Jairo/Lymp Hematologic/Lymphatic: No easy bleeding, easy bruising or enlarged lymph nodes Exam Const General: cooperative Nutritional Appearance: overweight Orientation: oriented x3 HENMT Head: normal to inspection Ears: hearing grossly normal bilaterally Nose: external nose normal Face and sinus: normal facial exam Neck Neck: no lymphadenopathy Neck mass: No Thyroid: thyroid normal Resp Effort AND Inspection: normal respiratory effort, able to speak in complete sentences, cough Quality of cough: wet Auscultation: Right: Rales, Crackles Cardio Rate: regular rate Rhythm: regular rhythm Skin General: no rashes or lesions noted Extrem General: no clubbing, cyanosis or edema Other: Left leg is in a boot, due to charcot joint Psych Affect: normal affect Results POC A1C POC A1C 8.4 % Last Edit by Cammie Baron on 10/30/18 14:24 Assessment AND Plan Problems 1. Hammertoe of right foot M20.41 2. History of amputation of toe Z89.429 Rt middle toe 3. Depressive disorder F32.9 4. Alcohol abuse F10.10 5. Type 2 diabetes mellitus without complication, without long-term current use of insulin E11.9 6. Peripheral vascular disease I73.9 7. Chest pain R07.2 8. Hyperlipidemia, unspecified hyperlipidemia type E78.5 9. Essential hypertension I10 10. 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 Diabetes mellitus with neurologic complication, with long- term current use of insulin E11.49; Z79.4 Plan This patient was seen for a follow-up examination for his diabetes. His hemoglobin A1c's were significantly elevated and because of that I thought I would add glipizide to his metformin. He is already had many complications of the diabetes and he needs to have much stricter glucose control. He also has had an upper respiratory tract infection and has significant congestion on the right side of his chest, I feel it probably started out as a viral infection and then changed to a bacterial secondary infection. I treated that with Augmentin and will follow up in 3 months to re-evaluate his diabetic control. 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 insulin use: without longterm use Peripheral vascular disease I73.9 Chest pain R07.2 Chest pain type: precordial chest pain Hyperlipidemia, unspecified hyperlipidemia type E78.5 Hyperlipidemia type: unspecified Essential hypertension I10 Hypertension type: essential hypertension 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 [place] [address] OFFICE VISIT Date of Service: 10/09/18 MR#: [id number] Acct: [id number] Name: SVETLANA MARQUIS Rep #: [id number] : 1960 Provider: RICHARD Méndez Age/Sex: 58/M Location: [facility] Status: Signed HPI HPI Details: SVETLANA MARQUIS, is a 58 M who presents to the office today for a cardiovascular outpatient follow-up. He has a history of coronary artery disease status post PTCA/stent to the LCx in 2002 and PTCA/KIRILL to mid and distal RCA and ostial PDA in February 2016. He also has history of ischemic mediated cardiomyopathy, hypertension, hyperlipidemia, elevated liver enzymes, chronic lower extremity ulcers, and diabetes. Pt. denies arm, jaw, or neck discomfort. His exercise tolerance is stable. Pt. denies symptoms of CHF, palpitations, lightheadedness, dizziness, near syncope, or syncopal episodes. Pt. denies edema or claudication issues. Pt. denies orthopnea, PND, blood in stool with recent hemorrhoid flare, myalgia, or unexplainable fatigue. He states questionable chest pain with episodes of anxiety. This occur both at rest and with activity. He denies any secondary symptoms during these episodes. 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 Accompanied by: None Is patient in pain?: No Allergies lisinopril Adverse Reaction (Verified 10/09/18 13:05) Cough pet dander Allergy (Intermediate, Uncoded 10/09/18 13:06) runny nose, sneezing Medications aspirin 81 mg tablet,delayed release 81 mg PO QDAY 10/12/17 [History Confirmed 10/09/18] ascorbic acid (vitamin C) 500 mg tablet 500 mg PO BID 03/23/18 [History Confirmed 10/09/18] blood sugar diagnostic strips See Dose Instructions .ROUTE .MEDSUPPLY #20 ea 03/23/18 [History Confirmed 10/09/18] atenolol 50 mg tablet 50 mg PO DAILY #90 tab 06/11/18 [Rx Confirmed 10/09/18] metformin 1,000 mg tablet 1,000 mg PO QDAY #90 tab 07/19/18 [Rx Confirmed 10/09/18] nitroglycerin 0.4 mg sublingual tablet 0.4 mg SUBLINGUAL Q5M PRN #25 tab 07/19/18 [Rx Confirmed 10/09/18] amlodipine 5 mg tablet 5 mg PO QDAY #90 tab 08/06/18 [Rx Confirmed 10/09/18] losartan 25 mg tablet 25 mg PO DAILY #90 tab 10/09/18 [Rx Confirmed 10/09/18] losartan 50 mg tablet 50 mg PO DAILY #90 tab 10/09/18 [Rx Confirmed 10/09/18] Ejection fraction %: 55 to 59 PFSH Medical History Ulcer of right lower extremity with fat layer exposed (Acute) Other longterm (current) drug therapy (Chronic) Ulcer of left lower extremity with fat layer exposed (Resolved) Sleep disorder (Chronic) Depressive disorder (Chronic) Alcohol abuse (Chronic) Diabetes (Chronic) Malnutrition (Chronic) Chronic ulcer of left foot with fat layer exposed (Chronic) Venous insufficiency of both lower extremities (Chronic) Peripheral vascular disease (Suspected) Onycholysis (Resolved) Ulcer of right foot with fat layer exposed (Chronic) Elevated liver function tests (Acute) Ischemic cardiomyopathy (Chronic) CAD (coronary artery disease) (Chronic) Angina pectoris (Chronic) Chest pain (Acute) Hyperlipidemia (Chronic) HTN (hypertension) (Chronic) Chronic ulcer of right ankle with fat layer exposed (Acute) Diabetes 1.5, managed as type 2 (Chronic) Edema extremities (Chronic) Diabetes mellitus (Chronic) Diabetes mellitus with circulatory complication (Chronic) 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) Diabetes mellitus with neurologic complication, with long- term current use of insulin (Chronic) Charcot ankle (Chronic) Charc t's arthritis due to secondary diabetes (Chronic) Charcot foot due to diabetes mellitus (Chronic) Diabetic foot ulcers (Chronic) Open wound of foot with complication (Chronic) Open wound of right ankle (Chronic) Open wound of left ankle with complication (Chronic) Diabetic ulcer of right foot (Acute) Diabetic ulcer of left foot (Acute) Ulcer of right ankle (Acute) Acquired equinus deformity of both feet (Chronic) Healed ulcer of left foot on examination (Chronic) Chronic ulcer of left foot with fat layer exposed (Resolved) Diabetes mellitus with polyneuropathy (Chronic) Malnutrition (Chronic) Charcot's joint, left ankle and foot (Chronic) Surgical History Hx of oral surgery (Resolved) Hx of cholecystectomy (Resolved) History of amputation of toe (Resolved) S/P PTCA (percutaneous transluminal coronary angioplasty) (Chronic 02/2016) Family History Mother Heart disease Father Heart disease Social History Smoking Status: Former smoker alcohol intake: current alcohol intake frequency: 0-2 drinks per day Alcohol type: beer substance use type: does not use caffeine: Yes Type: carbonated beverages Number of servings: 1 ROS Const Const: Negative for fatigue, weakness, body ache, fever(s) or chills ENT ENT: Negative for dizziness Cardio Chest Pain: Yes Palpitations: No Edema: None Muscle aches with walking: None Resp Respiratory: Negative for SOB with activity, SOB at rest, SOB orthopnea\SOB lying down or paroxysmal nocturnal dyspnea GI GI: Negative nausea, black,tarry stools, bright, red blood in stools or vomiting blood/hematemesis : Negative for hematuria or frequent nighttime urination/ nocturia Musc Musc: Negative for muscle aches/ myalgia Skin Skin: Negative non-healing lesions or rash Neuro Neuro: Negative for weakness, dizziness, lightheadedness, near syncope, syncope or orthostatic symptoms Endo Endo: Negative for fatigue Allergy Allergy/Immunology: Negative for rash Cardiology Exam Const Appearance: cooperative, healthy appearing, comfortable and no acute distress Nutritional Appearance: obese and well nourished Orientation: alert, awake and oriented x3 Head Head: normal to inspection Ears: hearing grossly normal bilaterally Nose: external nose normal Face and Sinus: face symmetric Mouth: oral mucosae normal Eyes General: appearance normal, both eyes and all related structures Eyelids: eyelids normal Neck Neck: no JVD and normal visual inspection Carotids: normal carotid upstroke Chest Chest inspection: normal inspection of the chest, normal respiratory effort and symmetric chest movement; negative cough Auscultation: Bilateral: Clear to Auscultation Cardio Rate: regular rate Rhythm: regular rhythm Heart sounds: S1 normal and S2 normal; negative rub or gallop GI GI: normal to inspection and obese Neuro General: alert, awake, oriented x3 and CN's II-XI intact bilaterally Skin Skin: no rashes or lesions noted Extremities Pulses: Normal: Right Posterior Tibial Pulse, Left Posterior Tibial Pulse, Right Radial Pulse, Left Radial Pulse Lower Extremity Edema: None: Bilateral Psych Psychological: normal affect Assessment AND Plan 1. Coronary artery disease involving [place] coronary artery of [place] heart without angina pectoris I25.10 PCI w/ KIRILL to distal RCA, ostial PDA, and mid RCA 03/07; previous PTCA w/stent to mid main CX 09/24 Plan Patient continues to have chest pain that is most noted during anxious situations. His chest pain continues to appear atypical. However, due to coronary artery disease history and no current explanation of his chest pain to undergo a stress test for further evaluation prior to next office visit. Orders Orders: 2. Ischemic cardiomyopathy I25.5 Plan This appears resolved. His most recent echocardiogram in January 2009 showed ejection fraction 55%. His most recent heart catheterization February 2016 showed ejection fraction of 25%. He will continue with current beta-shalini and ARB. We will continue to monitor. Orders Orders: 3. Essential hypertension I10 Plan He states his blood pressure is better controlled at home. At this time we will continue to monitor and he will continue with current medications. 4. Hyperlipidemia, unspecified hyperlipidemia type E78.5 Plan Lipid panel from September 2018 showed cholesterol: 174, HDL: 96, LDL: 63, and triglycerides: 75. He is not on any cholesterol lowering medication. We will continue to monitor. Plan Detail Other Orders Orders: Other Medications New: Changed: Additional Comments Thank you for allowing us to participate in the patient's plan of care, if you have any questions please do not hesitate to call. This note was generated using a voice recognition system and there may be incorrect words, spelling, or punctuation that were not noted upon reviewing the office note prior to saving. Coding Level of Care Code Off vis,est,level 3 Diagnoses Coronary artery disease involving [place] coronary artery of [place] heart without angina pectoris I25.10 Associated angina: without angina Coronary Disease-Associated Artery/Lesion type: [place] artery [place] vs. transplanted heart: [place] heart Ischemic cardiomyopathy I25.5 Essential hypertension I10 Hypertension type: essential hypertension Hyperlipidemia, unspecified hyperlipidemia type E78.5 Hyperlipidemia type: unspecified Coding Level of Care Code Off vis,est,level 3 Diagnoses Coronary artery disease involving [place] coronary artery of [place] heart without angina pectoris I25.10 Associated angina: without angina Coronary Disease-Associated Artery/Lesion type: [place] artery [place] vs. transplanted heart: [place] heart Ischemic cardiomyopathy I25.5 Essential hypertension I10 Hypertension type: essential hypertension Hyperlipidemia, unspecified hyperlipidemia type E78.5 Hyperlipidemia type: unspecified 10/10/18 1247 <Electronically signed by Benitez HER> Date Benitez HER Cosigner Signature: Date (if applicable) CC: Cem Nj DO LIVER PROFILE Collected: 10/05/2018 Status: F Source: [place] 12:23 PM [facility] REPOSITORY TYPE CODE TESTS RESULT OUT OF RANGE REFERENCE UNITS LAB L501.1500 6.4-8.2 g/dL Normal T PROT 7.2 LAB L501.1800 3.2-5.0 g/dL Normal ALB 3.4 LAB L501.1950 2.2-4.2 g/dL Normal GLOB 3.8 LAB L501.4100 15-37 U/L High AST 68 LAB L501.4305 45-117 U/L High ALK P 118 LAB L501.4405 16-61 U/L Normal ALT 53 LAB L501.4600 0.20-1.00 mg/dL Normal T BILI 0.50 LAB L501.4700 0.00-0.30 mg/dL Normal D BILI 0.20 Performed By: #### L500.3400, L500.4100 #### [facility] [place], [address] LIPID PROFILE Collected: 10/05/2018 Status: F Source: [place] 12:23 PM [facility] REPOSITORY TYPE CODE TESTS RESULT OUT OF RANGE REFERENCE UNITS LAB L501.4900 200 mg/dL Normal CHOL 174 Result Comment: <200 mg/dL Desirable 200-240 mg/dL Borderline >240 mg/dL High Risk LAB L501.5000 mg/dL Normal TRIG 75 Result Comment: The drugs N-Acetylcysteine and Metamizole may falsely depress this assay. Serum Triglycerides Reference Interval Normal <150 mg/dL Borderline high 150 - 199 mg/dL High 200 - 499 mg/dL Very High > or = 500 mg/dL LAB L501.6400 mg/dL Normal HDL 96 Result Comment: The drugs N-Acetylcysteine and Metamizole may falsely depress this assay. Reference Range HDL <40 mg/dL Low HDL Cholesterol HDL >or= 60 mg/dL High HDL Cholesterol LAB L501.6500 0-130 mg/dL Normal LDL 63 LAB L501.6600 5-40 mg/dL Normal VLDL 15 Performed By: #### L500.3400, L500.4100 #### [facility] [address] [place], [address] HEMOGLOBIN A1C Collected: 07/23/2018 Status: F Source: [place] 9:54 AM [facility] REPOSITORY TYPE CODE TESTS RESULT OUT OF RANGE REFERENCE UNITS LAB L501.9985 4.2-6.3 % High HGB A1C 7.6 Performed By: #### L501.9985 #### [facility] [address] [place], [address] COMPREHENSIVE METABOLIC Collected: 07/23/2018 Status: F Source: [facility] 9:54 AM [facility] REPOSITORY TYPE CODE TESTS RESULT OUT OF RANGE REFERENCE UNITS LAB L501.0100 74-106 mg/dL High GLU 214 Result Comment: Glucose result greater than or equal to 200 mg/dL suggests DIABETES MELLITUS per A.D.A. criteria. Please note revised GLUCOSE reference range effective 2017. LAB L501.1000 7-18 mg/dL Normal BUN 7 LAB L501.1100 0.70-1.30 mg/dL Normal CREAT,SERUM 0.98 Result Comment: The validity of the calculated GFR AND GFRAA in patients over 70 years has not been determined. Clinical correlation is essential. LAB L501.1110 >60 mL/min Normal EST GFR 84 Result Comment: Non- GFR Calc LAB L501.1115 >60 mL/min Normal EST GFR - AA 101 Result Comment: GFR Calc LAB L501.1300 10-20 RATIO Low BUN/CRE 7.2 LAB L501.1500 6.4-8.2 g/dL Normal T PROT 7.5 LAB L501.1800 3.2-5.0 g/dL Normal ALB 3.5 LAB L501.1950 2.2-4.2 g/dL Normal GLOB 4.0 LAB L501.2000 0.9-2.4 RATIO Normal A/G 0.9 LAB L501.2200 8.5-10.1 mg/dL Normal CA 9.1 LAB L501.4100 15-37 U/L Normal AST 26 LAB L501.4305 45-117 U/L High ALK P 121 LAB L501.4405 16-61 U/L Normal ALT 37 LAB L501.4600 0.20-1.00 mg/dL Normal T BILI 0.40 LAB L501.5300 136-145 mmol/L Low NA 129 LAB L501.5600 3.5-5.1 mmol/L Normal K 4.3 LAB L501.5900 98-107 mmol/L Low CL 93 LAB L501.6100 21.0-32.0 mmol/L Normal CO2 31.0 LAB L501.6200 5-15 Normal GAP 5 Performed By: #### L500.4050 #### [facility] [address] [place], [address] INTERNAL MEDICINE Observed: 07/19/2018 Status: F Source: [place] OFFICE VISIT 4:03 PM [facility] REPOSITORY [facility] [address] [place] [address] [place] [address] OFFICE VISIT Date of Service: 07/19/18 MR#: [id number] Acct: [id number] Name: SVETLANA MARQUIS Rep #: [id number] : 1960 Provider: Cem Nj DO Age/Sex: 57/M Location: [facility] Status: Signed Intake Vital Signs07/19/18 Height 5 ft 11 in Intake Visit Reasons: 3 MO FU Allergies lisinopril Adverse Reaction (Verified 04/09/18 13:12) Cough Medications amlodipine 5 mg tablet 5 mg PO QDAY 10/12/17 [History Confirmed 07/19/18] aspirin 81 mg tablet,delayed release 81 mg PO QDAY 10/12/17 [History Confirmed 07/19/18] ascorbic acid (vitamin C) 500 mg tablet 500 mg PO BID 03/23/18 [History Confirmed 07/19/18] blood sugar diagnostic strips See Dose Instructions .ROUTE .MEDSUPPLY #20 ea 03/23/18 [History Confirmed 07/19/18] sildenafil (antihypertensive) 20 mg tablet See Rx Instructions PO .COMPLEX PRN 03/23/18 [History Confirmed 07/19/18] atenolol 50 mg tablet 50 mg PO DAILY #90 tab 06/11/18 [Rx Confirmed 07/19/18] losartan 50 mg tablet 50 mg PO DAILY #90 tab 07/11/18 [Rx Confirmed 07/19/18] metformin 1,000 mg tablet 1,000 mg PO QDAY #90 tab 07/19/18 [Rx Confirmed 07/19/18] nitroglycerin 0.4 mg sublingual tablet 0.4 mg SUBLINGUAL Q5M PRN #25 tab 07/19/18 [Rx Confirmed 07/19/18] [facility] Medical History 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) Ulcer of left lower extremity with fat layer exposed (Resolved) Sleep disorder (Chronic) Depressive disorder (Chronic) Alcohol abuse (Chronic) Diabetes (Chronic) Malnutrition (Chronic) Chronic ulcer of left foot with fat layer exposed (Chronic) Venous insufficiency of both lower extremities (Chronic) Peripheral vascular disease (Suspected) Onycholysis (Resolved) Ulcer of right foot with fat layer exposed (Chronic) Elevated liver function tests (Acute) Ischemic cardiomyopathy (Chronic) CAD (coronary artery disease) (Chronic) Angina pectoris (Chronic) Chest pain (Acute) Hyperlipidemia (Chronic) HTN (hypertension) (Chronic) Chronic ulcer of right ankle with fat layer exposed (Acute) Diabetes 1.5, managed as type 2 (Chronic) Edema extremities (Chronic) Diabetes mellitus (Chronic) Diabetes mellitus with circulatory complication (Chronic) 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) Diabetes mellitus with neurologic complication, with long- term current use of insulin (Chronic) Charcot ankle (Chronic) Charc t's arthritis due to secondary diabetes (Chronic) Charcot foot due to diabetes mellitus (Chronic) Diabetic foot ulcers (Chronic) Open wound of foot with complication (Chronic) Open wound of right ankle (Chronic) Open wound of left ankle with complication (Chronic) Diabetic ulcer of right foot (Acute) Diabetic ulcer of left foot (Acute) Ulcer of right ankle (Acute) Acquired equinus deformity of both feet (Chronic) Healed ulcer of left foot on examination (Chronic) Chronic ulcer of left foot with fat layer exposed (Resolved) Diabetes mellitus with polyneuropathy (Chronic) Malnutrition (Chronic) Charcot's joint, left ankle and foot (Chronic) Surgical History Hx of oral surgery (Resolved) Hx of cholecystectomy (Resolved) History of amputation of toe (Resolved) S/P PTCA (percutaneous transluminal coronary angioplasty) (Chronic 02/2016) Family History Mother Heart disease Father Heart disease Social History Smoking Status: Former smoker alcohol intake: current substance use type: does not use caffeine: Yes Type: carbonated beverages Number of servings: 1 HPI HPI Details: SVETLANA MARQUIS, is a 57 M who presents to the office today for follow-up on his diabetes. He is concerned because he has had problems with elevated liver enzymes. He has no new complaints. ROS Const Constitutional: No weight change, body ache, chills, fatigue, sleep problems, fever(s), change in appetite, snoring, weakness, frequent falls, headache(s) or excessive sweating Eyes Eyes: No change in vision, eye pain, light sensitivity or blurry vision ENT ENT: No headache(s), abnormal hearing, ear pain, tinnitus, nasal congestion, sore throat or neck pain Resp Respiratory: No snoring, cough, shortness of breath or wheezing Cardio Cardiology: No excessive sweating, chest pain at rest, chest pain with exertion, shortness of breath, dyspnea on exertion, palpitations, orthopnea or lightheadedness Gastro GI: No abdominal pain, change in bowel habits, constipation, diarrhea, vomiting, nausea/dyspepsia or cramping Genitourinary Male: No painful urination, urinary incontinence, urinary frequency, urinary urgency, blood in urine, testicle pain or other Musc Musculoskeletal: Positive for joint pain (arthritic pains in knuckle and left knee); no neck pain, abnormal walking, back pain, limited range of motion, numbness or tingling Skin Skin: No redness, dry skin, itching, lesions, wounds or rash Neuro Neurology: No weakness, frequent falls, headache(s), abnormal hearing, abnormal walking, numbness, tingling, abnormal speech, dizziness or memory loss Psych Psychiatric: No change in appetite, No memory loss, No anxiety, No depression, No Thoughts of harming yourself/Others Endo Endocrine: No fatigue, excessive sweating, cold intolerance, increased thirst/drinking, heat intolerance, flushing or increased hunger Aller/Imm Allergy/Immunologic: No wheezing, itchy eyes, hives or seasonal allergy symptoms Jairo/Lymp Hematologic/Lymphatic: No easy bleeding, easy bruising or enlarged lymph nodes Exam Const General: cooperative Nutritional Appearance: overweight Orientation: oriented x3 HENMT Head: normal to inspection Ears: hearing grossly normal bilaterally Nose: external nose normal Face and sinus: normal facial exam Neck Neck: no lymphadenopathy Neck mass: No Thyroid: thyroid normal Resp Effort AND Inspection: normal respiratory effort Auscultation: Bilateral: Clear to Auscultation Cardio Rate: regular rate Rhythm: regular rhythm Skin General: no rashes or lesions noted Extrem General: no clubbing, cyanosis or edema Other: Left leg is in a boot, due to charcot joint Psych Affect: normal affect Assessment AND Plan Problems 1. Ulcer of left lower extremity with fat layer exposed L97.922 2. Depressive disorder F32.9 3. Alcohol abuse F10.10 4. Type 2 diabetes mellitus without complication, without long-term current use of insulin E11.9 5. Elevated liver function tests R94.5 6. Hyperlipidemia, unspecified hyperlipidemia type E78.5 7. Essential hypertension I10 8. Charcot foot due to diabetes mellitus E11.610 Plan This patient was seen for regular checkup. He has a Charcot joint of the left foot it remains in the boot because he has frequent ulcerations of that ankle. He is concerned about his elevated liver enzymes he says that he is cut back on hard alcohol but still drinks beer I told him that I would check liver enzymes but really he should abstain from all alcohol. Orders Orders: Medications Refilled: nitroglycerin Place one tab under tongue e0.4 mg Sublingual Q5M PRN 25 tabs 0RF Chest very 5 minutes x 3 doses as needed Pain Plan Detail Follow Up 3 Months Coding Level of Care Code Off vis,est,level 3 Diagnoses Ulcer of left lower extremity with fat layer exposed L97.922 Depressive disorder F32.9 Alcohol abuse F10.10 Type 2 diabetes mellitus without complication, without long- term current use of insulin E11.9 Diabetes mellitus type: type 2 Diabetes mellitus complication status: without complication Diabetes mellitus terminal operations supervisor insulin use: without terminal operations supervisor use Elevated liver function tests R94.5 Hyperlipidemia, unspecified hyperlipidemia type E78.5 Hyperlipidemia type: unspecified Essential hypertension I10 Hypertension type: essential hypertension Charcot foot due to diabetes mellitus E11.610 07/19/18 1603 <Electronically signed by Cem Nj DO> Date Cem Nj DO Cosigner Signature: Date (if applicable) CC: CARDIOLOGY VISIT Observed: 04/10/2018 Status: F Source: [place] REPORT 7:40 AM [facility] REPOSITORY [facility] [address] [place] [address]. [address] [place] [address] OFFICE VISIT Date of Service: 04/09/18 MR#: [id number] Acct: [id number] Name: SVETLANA MARQUIS Rep #: [id number] : 1960 Provider: RICHARD Méndez Age/Sex: 57/M Location[place] [facility] [place] Status: Signed HPI HPI Details: SVETLANA MARQUIS, is a 57 M who presents to the office today for a cardiovascular outpatient follow-up. He has a history of coronary artery disease status post PTCA/stent to the LCx in 2002 and PTCA/KIRILL to mid and distal RCA and ostial PDA in February 2016. He also has history of ischemic mediated cardiomyopathy, hypertension, hyperlipidemia, and diabetes. Pt. denies arm, jaw, or neck discomfort. His exercise tolerance is stable. Pt. denies symptoms of CHF, palpitations, lightheadedness, dizziness, near syncope, or syncopal episodes. Pt. denies edema or claudication issues. Pt. denies orthopnea, PND, fever, chills, blood in urine, blood in stool, myalgia, or unexplainable fatigue. He states questionable chest pain with episodes of anxiety. This occur both at rest and with activity. He denies any secondary symptoms during these episodes. This happened once over the last 6 months and lasts 10-60 minutes. It was relieved on its own. 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 Accompanied by: none Is patient in pain?: No Allergies lisinopril Adverse Reaction (Verified 04/09/18 13:12) Cough Medications Atenolol [Tenormin (beta shalini)] 50 mg PO DAILY 12/09/15 [History Confirmed 04/09/18] Losartan Potassium [Cozaar] 50 mg PO DAILY 12/09/15 [History Confirmed 04/09/18] Nitroglycerin [Nitrostat] 0.4 mg SUBLINGUAL Q5M PRN #25 tab 02/20/16 [Rx Confirmed 04/09/18] amlodipine 5 mg tablet 5 mg PO QDAY 10/12/17 [History Confirmed 04/09/18] aspirin 81 mg tablet,delayed release 81 mg PO QDAY 10/12/17 [History Confirmed 04/09/18] metformin 1,000 mg tablet 1,000 mg PO QDAY #90 tab 01/10/18 [Rx Confirmed 04/09/18] ascorbic acid (vitamin C) 500 mg tablet 500 mg PO BID 03/23/18 [History Confirmed 04/09/18] blood sugar diagnostic strips See Dose Instructions .ROUTE .MEDSUPPLY #20 ea 03/23/18 [History Confirmed 04/09/18] sildenafil (antihypertensive) 20 mg tablet See Label Instructions PO .COMPLEX PRN 03/23/18 [History Confirmed 04/09/18] Ejection fraction %: 55 to 59 PFSH Medical History 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) Ulcer of left lower extremity with fat layer exposed (Acute) Sleep disorder (Chronic) Depressive disorder (Chronic) Alcohol abuse (Chronic) Diabetes (Chronic) Malnutrition (Chronic) Chronic ulcer of left foot with fat layer exposed (Chronic) Venous insufficiency of both lower extremities (Chronic) Peripheral vascular disease (Suspected) Onycholysis (Resolved) Ulcer of right foot with fat layer exposed (Chronic) Elevated liver function tests (Acute) Ischemic cardiomyopathy (Chronic) CAD (coronary artery disease) (Chronic) Angina pectoris (Chronic) Chest pain (Acute) Hyperlipidemia (Chronic) HTN (hypertension) (Chronic) Chronic ulcer of right ankle with fat layer exposed (Acute) Diabetes 1.5, managed as type 2 (Chronic) Edema extremities (Chronic) Diabetes mellitus (Chronic) Diabetes mellitus with circulatory complication (Chronic) 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) Diabetes mellitus with neurologic complication, with long- term current use of insulin (Chronic) Charcot ankle (Chronic) Charc t's arthritis due to secondary diabetes (Chronic) Charcot foot due to diabetes mellitus (Chronic) Diabetic foot ulcers (Chronic) Open wound of foot with complication (Chronic) Open wound of right ankle (Chronic) Open wound of left ankle with complication (Chronic) Diabetic ulcer of right foot (Acute) Diabetic ulcer of left foot (Acute) Ulcer of right ankle (Acute) Acquired equinus deformity of both feet (Chronic) Healed ulcer of left foot on examination (Chronic) Chronic ulcer of left foot with fat layer exposed (Resolved) Diabetes mellitus with polyneuropathy (Chronic) Malnutrition (Chronic) Charcot's joint, left ankle and foot (Chronic) Surgical History Hx of oral surgery (Resolved) Hx of cholecystectomy (Resolved) History of amputation of toe (Resolved) S/P PTCA (percutaneous transluminal coronary angioplasty) (Chronic 02/2016) Family History Mother Heart disease Father Heart disease Social History Smoking Status: Former smoker alcohol intake: current substance use type: does not use caffeine: Yes Type: carbonated beverages Number of servings: 1 ROS Const Const: Negative for fatigue, weakness, body ache, fever(s) or chills ENT ENT: Negative for dizziness Cardio Chest Pain: Yes Palpitations: No Edema: None Muscle aches with walking: None Resp Respiratory: Negative for SOB with activity, SOB at rest, SOB orthopnea\SOB lying down or paroxysmal nocturnal dyspnea GI GI: Negative nausea, black,tarry stools, bright, red blood in stools or vomiting blood/hematemesis : Negative for hematuria or frequent nighttime urination/ nocturia Musc Musc: Negative for muscle aches/ myalgia Skin Skin: Negative non-healing lesions or rash Neuro Neuro: Negative for weakness, dizziness, lightheadedness, near syncope, syncope or orthostatic symptoms Endo Endo: Negative for fatigue Psych Psych: Positive for anxiety Allergy Allergy/Immunology: Negative for rash Cardiology Exam Const Appearance: cooperative, healthy appearing, comfortable and no acute distress Orientation: alert, awake and oriented x3 Head Head: normal to inspection Ears: hearing grossly normal bilaterally Nose: external nose normal Face and Sinus: face symmetric Mouth: oral mucosae normal Eyes General: appearance normal, both eyes and all related structures Eyelids: eyelids normal Neck Neck: no JVD and normal visual inspection Carotids: normal carotid upstroke Chest Chest inspection: normal inspection of the chest and normal respiratory effort; negative cough Auscultation: Bilateral: Clear to Auscultation Cardio Rate: regular rate Rhythm: regular rhythm Heart sounds: S1 normal and S2 normal; negative rub or gallop GI GI: normal to inspection Neuro General: alert, awake, oriented x3 and CN's II-XI intact bilaterally Skin Skin: no rashes or lesions noted Extremities Pulses: Normal: Right Posterior Tibial Pulse, Left Posterior Tibial Pulse, Right Radial Pulse, Left Radial Pulse Lower Extremity Edema: None: Bilateral Psych Psychological: normal affect Supplemental Info Heart catheterization from February 2016 showed an ejection fraction 55%, left main coronary artery that was angiographically normal, LAD with 25-50% stenosis, LCx with patent proximal stent followed by 25% stenosis, and RCA with distal 75% stenosis followed by subsequent subtotal occlusion. He underwent stenting to mid and distal RCA and ostial PDA. Echocardiogram from January 2009 showed estimated ejection fraction 55%, trivial mitral valve insufficiency, trivial tricuspid valve insufficiency, trivial aortic valve insufficiency, and trivial pulmonic valve insufficiency. Assessment AND Plan 1. Coronary artery disease involving [place] coronary artery of [place] heart without angina pectoris I25.10 PCI w/ KIRILL to distal RCA, ostial PDA, and mid RCA 03/07; previous PTCA w/stent to mid main CX 09/24 Plan Patient's one episode of chest pain since last office visit appears atypical. At this time we will continue to monitor. He was instructed to contact our office if chest pain occurs more frequently, worsens with exertion, or reminds him of previous discomfort with PCIs. He denies any shortness of breath, left arm, jaw, or neck pain, or unexplained fatigue. He will continue current medications, lifestyle modification, and risk factor modification. 2. S/P PTCA (percutaneous transluminal coronary angioplasty) Z98.61 PCI w/ KIRILL to distal RCA, ostial PDA, and mid RCA 03/07; previous PTCA w/stent to mid main CX 09/24 Plan He will continue current plan as outlined above. 3. Ischemic cardiomyopathy I25.5 Plan Patient's echocardiogram from January 2009 showed ejection fraction of 55%. His heart catheterization from February 2016 showed ejection fraction of 55%. Patient denies any shortness of breath or bilateral lower extremity pedal edema. His activity level has remained stable. He will continue with atenolol and losartan medication. We will continue to monitor this through history, exam, and repeat echocardiogram as needed. 4. Essential hypertension I10 Plan Patient's blood pressure is well-controlled today in the office. We will continue to monitor this. We will not make any medication regimen changes. 5. Hyperlipidemia, unspecified hyperlipidemia type E78.5 Plan Patient's lipid panel from February 2018 showed cholesterol: 195, HDL: 113, LDL: 69, and triglycerides: 63. His AST remains elevated at 69. His ALT remains elevated at 66. His alkaline phosphatase remains elevated at 123. It will be discussed further with Dr. Almeida regarding statin medication. He is currently not on any statin medication. He was asked to continue to follow-up with primary care physician for noncardiac explanation of elevated liver enzymes. It is possible that his nightly alcohol/beer intake may be contributing to this. He has completely stopped all liquor and statin medication with his most recent liver enzyme evaluation. . 6. Type 2 diabetes mellitus without complication, without long-term current use of insulin E11.9 Plan He will continue current medications and follow-up with primary care physician for ongoing evaluation of this. Plan Detail Additional Comments Thank you for allowing us to participate in the patients plan of care, if you have any questions please do not hesitate to call. This note was generated using a voice recognition system and there may be incorrect words, spelling or punctuation that were not noted when reviewing the office note prior to saving. 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 transplanted heart: [place] heart S/P PTCA (percutaneous transluminal coronary angioplasty) Z98.61 Ischemic cardiomyopathy I25.5 Essential hypertension I10 Hypertension type: essential hypertension Hyperlipidemia, unspecified hyperlipidemia type E78.5 Hyperlipidemia type: unspecified Type 2 diabetes mellitus without complication, without long- term current use of insulin E11.9 Diabetes mellitus complication status: without complication Diabetes mellitus longterm insulin use: without terminal operations supervisor use Diabetes mellitus type: type 2 Coding Level of Care Code Off vis,est,level 3 Diagnoses Coronary artery disease involving [place] coronary artery of [place] heart without angina pectoris I25.10 Associated angina: without angina Coronary Disease-Associated Artery/Lesion type: [place] artery [place] vs. transplanted heart: [place] heart S/P PTCA (percutaneous transluminal coronary angioplasty) Z98.61 Ischemic cardiomyopathy I25.5 Essential hypertension I10 Hypertension type: essential hypertension Hyperlipidemia, unspecified hyperlipidemia type E78.5 Hyperlipidemia type: unspecified Type 2 diabetes mellitus without complication, without long- term current use of insulin E11.9 Diabetes mellitus complication status: without complication Diabetes mellitus terminal operations supervisor insulin use: without longterm use Diabetes mellitus type: type 2 04/10/18 0740 <Electronically signed by Benitez HER> Date Benitez HER Cosigner Signature: Date (if applicable) CC: Cem Nj DO LIVER PROFILE Collected: 03/12/2018 Status: F Source: [place] 2:46 PM [facility] REPOSITORY TYPE CODE TESTS RESULT OUT OF RANGE REFERENCE UNITS LAB L501.1500 6.4-8.2 g/dL Normal T PROT 7.7 LAB L501.1800 3.2-5.0 g/dL Normal ALB 3.7 LAB L501.1950 2.2-4.2 g/dL Normal GLOB 4.0 LAB L501.4100 15-37 U/L High AST 69 LAB L501.4305 45-117 U/L High ALK P 123 LAB L501.4405 16-61 U/L High ALT 66 LAB L501.4600 0.20-1.00 mg/dL Normal T BILI 1.00 LAB L501.4700 0.00-0.30 mg/dL Normal D BILI 0.26 Performed By: #### L500.3400, L500.4100 #### [facility] [address] [place], [address] LIPID PROFILE Collected: 03/12/2018 Status: F Source: [place] 2:46 PM [facility] REPOSITORY TYPE CODE TESTS RESULT OUT OF RANGE REFERENCE UNITS LAB L501.4900 200 mg/dL Normal CHOL 195 Result Comment: <200 mg/dL Desirable 200-240 mg/dL Borderline >240 mg/dL High Risk LAB L501.5000 mg/dL Normal TRIG 63 Result Comment: The drugs N-Acetylcysteine and Metamizole may falsely depress this assay. Serum Triglycerides Reference Interval Normal <150 mg/dL Borderline high 150 - 199 mg/dL High 200 - 499 mg/dL Very High > or = 500 mg/dL LAB L501.6400 mg/dL Normal HDL 113 Result Comment: The drugs N-Acetylcysteine and Metamizole may falsely depress this assay. Reference Range HDL <40 mg/dL Low HDL Cholesterol HDL >or= 60 mg/dL High HDL Cholesterol LAB L501.6500 0-130 mg/dL Normal LDL 69 LAB L501.6600 5-40 mg/dL Normal VLDL 13 Performed By: #### L500.3400, L500.4100 #### [facility] Laboratory [address] [place], [address] LOWER EXT ARTERIAL Observed: 02/18/2018 Status: F Source: [place] STUDY 9:47 AM [facility] REPOSITORY [facility] Cardiovascular Services [address] [place] [address] 02/18/18 0944 MR#: [id number] Acct: [id number] Name: SVETLANA MARQUIS Rep #: [id number] : 1960 57 From: Mark Emerson MD Attending Dr: Zenon Almeida MD Status: REG CLI Ordering Dr: Date: 02/18/18 Location: LAB Sex: Adelina Butler Admitted: Arterial Study - Arterial Study Arterial Study: This is a 57-year-old male with a history of coronary artery disease, hypertension, hyperlipidemia, diabetes mellitus, and smoking. 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 Suspecting the presence of atherosclerotic peripheral arterial occlusive disease, the patient was brought to the noninvasive vascular laboratory at this time for the purpose of bilateral noninvasive lower extremity arterial assessment. Doppler signal assessment was used to evaluate the pulses at ankle level bilaterally. The posterior tibial and dorsalis pedis pulses were triphasic bilaterally. Segmental limb pressures were obtained bilaterally. The right ankle pressure, as determined by posterior tibial pulse, was measured at 151 mmHg. The right ankle pressure, as determined by dorsalis pedis pulse, was measured at 147 mmHg. The right digital pressure was measured at 154 mmHg. The left ankle pressure, as determined by posterior tibial pulse, was measured at 156 mmHg. The left ankle pressure, as determined by dorsalis pedis pulse, was measured at 142 mmHg. The left digital pressure was measured at 130 mmHg. Pulse-volume recordings were obtained bilaterally and segmentally. Waveform amplitudes appeared to be satisfactory at all levels bilaterally, including low thigh, calf, ankle, and digital levels. Resting ankle-brachial indices were calculated bilaterally. The resting right ankle-brachial index was calculated to be 1.15. The resting left ankle-brachial index was calculated to be 1.19. Digital-brachial indices were calculated bilaterally. The right digital-brachial index was calculated to be 1.18. The left digital-brachial index was calculated to be 0.99. Impression: Based upon the findings of this resting noninvasive lower extremity arterial study, there is no evidence of significant atherosclerotic peripheral arterial occlusive disease in the lower extremities bilaterally. Triphasic waveforms were noted at ankle level bilaterally. Resting ankle-brachial indices were bilaterally normal. Digital- brachial indices were also normal bilaterally. In summary, this represents a normal resting noninvasive lower extremity arterial study bilaterally. 02/18/18 0947 <Electronically signed by Mark Emerson MD> Date Mark Emerson MD CC: Cem Nj DO; Zenon Almeida MD Date Dictated: 02/18/18943 Date Transcribed: 02/18/18943 Sound Designer: BRITTON Sanders VENOUS DUPLEX LOWER Observed: 02/11/2018 Status: F Source: [place] EXTREMITY 8:22 PM [facility] REPOSITORY [facility] Cardiovascular Services [address] [place] [address] Venous Duplex US - Jesse Extrem 02/07/18 1309 MR#: [id number] Acct: [id number] Name: SVETLANA MARQUIS Rep #: [id number] : 1960 57 From: Mark Emerson MD Attending Dr: Saba Alvarez DPM Status: REG RCR Ordering Dr: Saba Alvarez DPM Date: 02/07/18 Location: Sex: M C Admitted: Reason For Study: Non-healing wound RIGHT LEFT CFV is compressible, spontaneous, phasic, CFV is compressible, spontaneous, phasic, competent and demonstrates normal competent, and demonstrates normal augmentation. augmentation. FV is compressible, spontaneous, phasic, FV is compressible, spontaneous, phasic, competent and demonstrates normal competent and demonstrates normal augmentation. augmentation. POP V is compressible, spontaneous, phasic, POP V is compressible, spontaneous, phasic, competent and demonstrates normal competent and demonstrates normal augmentation. augmentation. T/P Trunk is compressible. T/P Trunk is compressible. PTV is compressible. PTV is compressible. RT PerV is compressible. LT PerV is compressible. SFJ is competent SFJ is competent GSV is competent above knee GSV is competent GSV is INCOMPETENT below knee with reflux SSV is too small in caliber to assess. greater than .5 sec and diameter of .50 x .55 cm SSV is competent. Procedure Exam performed in department. A preliminary report was called and/or faxed to [facility]. Interpretation Summary Deep veins of the lower extremities are bilaterally patent and compressible segmentally. There is no evidence of deep vein thrombosis on either side. Valvular competence appears intact within the proximal deep venous systems bilaterally. The greater saphenous veins appear bilaterally patent and compressible segmentally. Sapheno-femoral junctions are bilaterally competent . The right greater saphenous vein appears competent above the knee. The right greater saphenous vein appears incompetent below the knee. The left greater saphenous vein appears segmentally competent. The right small saphenous vein is patent and competent. The left small saphenous vein is too small to assess. Ordering Physician: Saba Alvarez Referring Physician: Zenon Almeida Performed By: Chen Chapman RVT 02/11/182020 Date Mark Emerson MD CC: Cem Nj DO; Saba Alvarez DPM Date Dictated: 02/07/18 1309 Date Transcribed: 02/11/182020 Sound Designer: Signed CBC W/DIFF, AUTOMATED Collected: 01/24/2018 Status: F Source: [place] 2:50 PM [facility] REPOSITORY TYPE CODE TESTS RESULT OUT OF RANGE REFERENCE UNITS LAB L100.1000 4.4-11.0 K/mm3 Normal WBC 6.6 LAB L100.1200 4.6-6.2 M/mm3 Low RBC 4.18 LAB L100.1300 13.0-16.5 g/dl Normal HGB 13.6 LAB L100.1400 40-54 % Low HCT 39.2 LAB L100.1500 80-94 fL Normal MCV 93.8 LAB L100.1600 27.0-32.0 pg High MCH 32.5 LAB L100.1700 32-36 g/gl Normal MCHC 34.7 LAB L100.1810 11.6-14.6 % Normal RDW CV 13.1 LAB L100.1820 35.1-43.9 fl Normal RDW SD 43.8 LAB L100.1900 150-450 K/mm3 Normal PLT 204 LAB L100.2000 6.2-12.0 fl Normal MPV 10.1 LAB L100.2100 47-70 % High NEUT% 71.2 LAB L100.2200 19-41 % Low LY% 17.1 LAB L100.2300 0-10 % Normal MONO% 7.9 LAB L100.2400 0-5 % Normal EO% 2.6 LAB L100.2500 0-1 % Normal BASO% 0.9 LAB L100.2550 0.0-0.9 % Normal IM GRAN % 0.300 Result Comment: IG% - Immature Granulocytes (promyelocytes, myelocytes and metamyelocytes) > 1% indicates that a LEFT SHIFT is Present. LAB L100.2620 2.0-7.7 X10 3/uL Normal Absolute Neut 4.7 LAB L100.2720 0.83-4.51 X10 3/ul Normal Absolute Lymph 1.12 Performed By: #### L100.0100 #### [facility] Laboratory [address] [place], [place], [address] HEMOGLOBIN A1C Collected: 01/24/2018 Status: F Source: [place] 2:50 PM [facility] REPOSITORY TYPE CODE TESTS RESULT OUT OF RANGE REFERENCE UNITS LAB L501.9985 4.2-6.3 % High HGB A1C 7.6 Performed By: #### L501.9985 #### [facility] Laboratory [address] [place], [address] VITAMIN D,25 HYDROXY Collected: 01/24/2018 Status: F Source: [place] 2:50 PM [facility] REPOSITORY TYPE CODE TESTS RESULT OUT OF REFERENCE UNITS RANGE LAB L506.1000 29.95-100.01 ng/mL Low Vitamin D 15.4 25-OH Result Comment: Vitamin D 25(OH) Status Range Deficiency <20 ng/mL (50nmol/L) Insuffciency 20 - 30 ng/mL (50 - 75 nmol/L) Sufficiency 30 - 100 ng/mL (75 - 250 nmol/L) Toxicity >100 ng/mL (>250 nmol/L) Performed By: #### L506.1000 #### [facility] [address] [place], [address] LIVER PROFILE Collected: 11/29/2017 Status: F Source: [place] 12:23 PM [facility] REPOSITORY Order Comment: Order Date: 06/01/17 Order Info: [id number] - *Hepatic Function Panel Order Info: [id number] - *Lipid Profile CC PCP Comments: 12 hours fasting, may have water. TYPE CODE TESTS RESULT OUT OF RANGE REFERENCE UNITS LAB L501.1500 6.4-8.2 g/dL Normal T PROT 7.3 LAB L501.1800 3.2-5.0 g/dL Normal ALB 3.4 LAB L501.1950 2.2-4.2 g/dL Normal GLOB 3.9 LAB L501.4100 15-37 U/L High AST 67 LAB L501.4305 45-117 U/L Normal ALK P 115 LAB L501.4405 16-61 U/L High ALT 70 Result Comment: Please note revised ALT reference range effective 2017. LAB L501.4600 0.20-1.00 mg/dL Normal T BILI 0.50 LAB L501.4700 0.00-0.30 mg/dL Normal D BILI 0.19 Performed By: #### L500.3400 #### [facility] [address] [place], [address] LIPID PROFILE Collected: 11/29/2017 Status: F Source: [place] 12:23 PM [facility] REPOSITORY Order Comment: Order Date: 06/01/17 Order Info: [id number] - *Hepatic Function Panel Order Info: [id number] - *Lipid Profile CC PCP Comments: 12 hours fasting, may have water. TYPE CODE TESTS RESULT OUT OF RANGE REFERENCE UNITS LAB L501.4900 200 mg/dL Normal CHOL 181 Result Comment: <200 mg/dL Desirable 200-240 mg/dL Borderline >240 mg/dL High Risk LAB L501.5000 mg/dL Normal TRIG 111 Result Comment: The drugs N-Acetylcysteine and Metamizole may falsely depress this assay. Serum Triglycerides Reference Interval Normal <150 mg/dL Borderline high 150 - 199 mg/dL High 200 - 499 mg/dL Very High > or = 500 mg/dL LAB L501.6400 mg/dL Normal HDL 107 Result Comment: The drugs N-Acetylcysteine and Metamizole may falsely depress this assay. Reference Range HDL <40 mg/dL Low HDL Cholesterol HDL >or= 60 mg/dL High HDL Cholesterol LAB L501.6500 0-130 mg/dL Normal LDL 52 LAB L501.6600 5-40 mg/dL Normal VLDL 22 Performed By: #### L500.4100 #### [facility] [address] [place], [address] ALLERGIES ALLERGIES DATE TYPE / CODE NAME / CODE REACTION SEVERITY SOURCE 10/09/2018 Drug lisinopril/F cough Unknown [place] Allergy/[id number](S [id number](RX [facility] NOM[facility]) NORM) Hospital Repository 10/09/2018 Miscellaneous pet dander runny nose, [place] Allergy/623682884(S sneezing [facility] NOM[facility]) Hospital Repository ENCOUNTERS ENCOUNTERS ADMIT/DISCHARGE ACCOUNT ADMITTING ENCOUNTER LOCATION SOURCE NUMBER CLASS 11/07/2018 [id number] Amb[place] [facility] ing: Repository 10/30/2018/ [id number] Ambulatory [place] [facility] [place] [place] 10/17/2018/ [id number] [place] [address] [facility] ing: Repository 10/09/2018/ [id number] Ambulatory BMSBuilding:B [place] 8 4 [facility] Repository 10/05/2018 [id number] Ambulatory [place] 0 [facility] Hospital ing:LAB Repository 07/23/2018 [id number] Amb[place] [address] [facility] ing:LAB Repository 07/19/2018/ [id number] Ambulatory BMSBuilding:B [place] 8 6 [facility] [place] 06/02/2018 [id number] [place] [address] [facility] ing: Repository 05/02/2018/ [id number] Ambulatory [place] [address] [facility] ing: Repository 04/18/2018/ [id number] [place] [address] [facility] ing:WC Repository 04/09/2018/ [id number] Ambulatory BMSBuilding:B [place] 8 2 [facility] Repository 03/27/2018/ [id number] Ambulatory BMSBuilding:B [place] 8 8 [facility] [place] 03/23/2018 [id number] Ambulatory BMSBuilding:B [place] 2 [facility] [place] 03/21/2018/ [id number] Ambulatory [place] [address] [facility] ing:WC Repository 03/12/2018 [id number] [place] [address] [facility] ing:LAB Repository 02/14/2018/ [id number] Amb[place] [address] [facility] ing:WC Repository 11/29/2017 [id number] Amb[place] [address] [facility] ing:LAB Repository PAYERS PAYERS ENCOUNTER GUARANTOR PAYER SUBSCRIBER SOURCE 11/07/2018 SVETLANA D Primary SVETLANA D [place] [id number] [place] Insurance:MEDICARE SINGERDOB: [place] [facility] [id number] [id number]: (330) Number: Repository [phone] () [id number] Date:2018-10-17 11/07/2018 Secondary NOT GIVENUNK [place] Insurance:SELF PAY [facility] Number: Effective Repository Date:2018-10-23 10/30/2018 SVETLANA D Primary SVETLANA D [place] [id number] [place] Insurance:MEDICARE SINGERDOB: [place] [facility] [id number] Hospital [id number]: (330) Number: Repository [phone] () [id number] Date:2018-07-19 10/30/2018 Secondary NOT GIVENUNK [place] Insurance:SELF PAY [facility] Number: Effective Repository Date:2018-10-17 10/17/2018 SVETLANA D Primary SVETLANA D [place] [id number] [place] Insurance:MEDICARE SINGERDOB: [place] [facility] [id number] Hospital [address]Pbn: (330) Number: Repository [phone] () [id number] Date:2018-10-17 10/17/2018 Secondary NOT GIVENUNK [place] Insurance:SELF PAY [facility] Number: Effective Repository Date:2018-10-17 10/09/2018 SVETLANA D Primary SVETLANA D [place] [id number] [place] Insurance:MEDICARE SINGERDOB: [place] [facility] [id number] Hospital [address]Wky: (330) Number: Repository [phone] () [id number] Date:2018-04-09 10/09/2018 Secondary NOT GIVENUNK [place] Insurance:SELF PAY [facility] Number: Effective Repository Date:2018-10-09 10/05/2018 SVETLANA D Primary SVETLANA D [place] [id number] [place] Insurance:MEDICARE SINGERDOB: [place] [facility] [id number] Hospital [address]Pkx: (330) Number: Repository [phone] () [id number] Date:2018-10-05 10/05/2018 Secondary NOT GIVENUNK [place] Insurance:SELF PAY [facility] Number: Effective Repository Date:2018-10-05 07/23/2018 SVETLANA D Primary SVETLANA D [place] [id number] [place] Insurance:MEDICARE SINGERDOB: [place] [facility] [id number] Hospital [address]Czz: (330) Number: Repository [phone] () [id number] Date:2018-07-23 07/23/2018 Secondary NOT GIVENUNK [place] Insurance:SELF PAY [facility] Number: Effective Repository Date:2018-07-23 07/19/2018 SVETLAAN D Primary SVETLANA D [place] [id number] [place] Insurance:MEDICARE SINGERDOB: [place] [facility] [id number] Hospital [address]Dqp: (330) Number: Repository [phone] () [id number] Date:2018-05-16 07/19/2018 Secondary NOT GIVENUNK [place] Insurance:SELF PAY [facility] Number: Effective Repository Date:2018-07-19 06/02/2018 SVETLANA D Primary SVETLANA D [place] [id number] [place] Insurance:MEDICARE SINGERDOB: [place] [facility] [id number] Hospital [address]Zbt: (330) Number: Repository [phone] () [id number] Date:2018-01-24 06/02/2018 Secondary NOT GIVENUNK [place] Insurance:SELF PAY [facility] Number: Effective Repository Date:2018-05-23 05/02/2018 SVETLANA D Primary SVETLANA D [place] [id number] [place] Insurance:MEDICARE SINGERDOB: [place] [facility] [id number] Hospital [address]Gzy: (330) Number: Repository [phone] () [id number] Date:2018-01-24 05/02/2018 Secondary NOT GIVENUNK [place] Insurance:SELF PAY [facility] Number: Effective Repository Date:2018-04-22 04/18/2018 SVETLANA D Primary SVETLANA D [place] [id number] [place] Insurance:MEDICARE SINGERDOB: [place] [facility] [id number] Hospital [address]Oeb: (330) Number: Repository [phone] () [id number] Date:2018-01-24 04/18/2018 Secondary NOT GIVENUNK [place] Insurance:SELF PAY [facility] Number: Effective Repository Date:2018-03-23 04/09/2018 SVETLANA D Primary SVETLANA D [place] [id number] [place] Insurance:MEDICARE SINGERDOB: [place] [facility] [id number] Hospital [address]Tsy: (330) Number: Repository [phone] () [id number] Date:2017-10-13 04/09/2018 Secondary NOT GIVENUNK [place] Insurance:SELF PAY [facility] Number: Effective Repository Date:2018-04-09 03/27/2018 SVETLANA D Primary SVETLANA D [place] [id number] [place] Insurance:MEDICARE SINGERDOB: [place] [facility] [id number] Hospital [address]Kbd: (330) Number: Repository [phone] () [id number] Date:2018-01-10 03/27/2018 Secondary NOT GIVENUNK [place] Insurance:SELF PAY [facility] Number: Effective Repository Date:2018-04-05 03/23/2018 SVETLANA D Primary SVETLANA D [place] [id number] [place] Insurance:MEDICARE SINGERDOB: [place] [facility] [id number] [id number]: (330) Number: Repository [phone] () [id number] Date:2018-03-23 03/23/2018 Secondary NOT GIVENUNK [place] Insurance:SELF PAY [facility] Number: Effective Repository Date:2018-03-23 03/21/2018 SVETLANA D Primary SVETLANA D [place] [id number] [place] Insurance:MEDICARE SINGERDOB: [place] [facility] [id number] [id number]: (330) Number: Repository [phone] () [id number] Date:2018-01-24 03/21/2018 Secondary NOT GIVENUNK [place] Insurance:SELF PAY [facility] Number: Effective Repository Date:2018-02-20 03/12/2018 SVETLANA D Primary SVETLANA D [place] [id number] [place] Insurance:MEDICARE SINGERDOB: [place] [facility] [id number] [id number]: (330) Number: Repository [phone] () [id number] Date:2018-03-12 03/12/2018 Secondary NOT GIVENUNK [place] Insurance:SELF PAY [facility] Number: Effective Repository Date:2018-03-12 02/14/2018 SVETLANA D Primary SVETLANA D [place] [id number] [place] Insurance:MEDICARE SINGERDOB: [place] [facility] [id number] [id number]: (330) Number: Repository [phone] () [id number] Date:2018-01-24 02/14/2018 Secondary NOT GIVENUNK [place] Insurance:SELF PAY [facility] Number: Effective Repository Date:2018-01-24 11/29/2017 SVETLANA Adriana Primary SVETLANA [place] [id number] [place] Insurance:MEDICARE SINGERDOB: [facility] [place] [facility] [id number] Hospital [address]May: (330) Number: Repository [phone] () [id number] Date:2017-11-29 11/29/2017 Secondary NOT GIVENUNK [place] Insurance:SELF PAY [facility] Number: Effective Repository Date:2017-11-29
== END ==
PROVIDERS: Family Provider Family Medicine; PCP Family Medicine; Referring Provider Internal Medicine Cardiovascular Disease; Visit Provider Internal Medicine Cardiovascular Disease
DX: E78.5 Hyperlipidemia, unspecified (principal)
CPT/HCPCS: 36415; 80061; 80076

== ENCOUNTER 2018-10-17 14:57 | Outpatient (RCR) | payer MEDICARE, SELFPAY ==
[2018-10-09 12:57] VITALS: BMI 36.6
[2018-10-17 15:35] VITALS: BP 141/92; PULSE 72; RESP 18; TEMP 36.8; BMI 36.6
--- NOTE | 2018-10-17 16:28 | PCM.WC.PN ---
(1) Ulcer of right lower extremity with fat layer exposed Status: Acute Current Visit: Yes Code(s): L97.912 - Non-pressure chronic ulcer of unspecified part of right lower leg with fat layer exposed (2) Hammertoe of right foot Status: Chronic Current Visit: Yes Code(s): M20.41 - Other hammer toe(s) (acquired), right foot (3) Diabetes mellitus with polyneuropathy Status: Chronic Current Visit: Yes Qualifiers: Diabetes mellitus type: type 2 Code(s): E11.42 - Type 2 diabetes mellitus with diabetic polyneuropathy (4) Malnutrition Status: Chronic Current Visit: Yes Code(s): E46 - Unspecified protein-calorie malnutrition Type of Wound Date of Service: 10/17/18 Chief Complaint: Right third and fourth toe ulcers History of Wound: This 58 year old male presents to the wound healing center for care of right foot third and fourth toe ulcers with an onset of within the past month. He was referred by the [facility] and [facility] Center. He denies pain, redness, odor, fever, chill, nausea, vomiting. He has been using his knee roller and now reports some skin irritation. He wants to try that using a walker. He is previously well known to the wound healing center for left foot ulcer complicated with Charcot deformity. This has remained closed and he continues to use his car walker. Progress of Wound: Improving - Physical Exam Vital Signs Temp Pulse Resp BP 98.2 F 72 18 141/92 H 10/17/18 15:35 10/17/18 15:35 10/17/18 15:35 10/17/18 15:35 General: Alert, Oriented x3, Cooperative Extremities: No cyanosis, Capillary Refill Less than 3 Seconds, No Calf Tenderness - Negative Jyothi and Carranza sign right, Diminished Peripheral Pulses - Palpable DP pulse right, Edema, - - [place] walker intact left lower extremity Skin: Ulcer/ Wound - No purulence, erythema, streaking, odor, or acute signs of infection. The ulcer bases are granular and healthy. The peripheral skin is hairless and atrophic. There is no interdigital maceration. Wound Measurements and Assessment WC - Nurse 1 - General Ulcer Measurement Start: 10/17/18 15:34 Freq: Status: Active Protocol: Activity Type Activity Date Activity User E-Sign Co-Sign Detail Recorded Client Recorded Date Recorded By Document 12/26/18 15:35 RB [id number] 10/17/18 15:45 RB 10/17/18 15:35 Wound Center Nurse 1 [Ulcer Assessment] 9. R 4th toe -Current Size (cm) - Length 0.5 -Current Size (cm) - Width 0.7 -Current Size (cm) - Depth 0.1 -Total Square Cm 0.35 -Photo Taken Yes -Tunneling No -Undermining/Tunneling No -Circular Undermining No -Classification - Thickness Full Thickness without Exposed Support Structure -Exudate Amt Small (1-33%) -Exudate Type Serosanguineous -Wound Margin Thickened -Granulation Amt Large (67-100%) -Granulation Quality [place] -Slough/Fibrin Yes -Necrosis Amt Small (1-33%) -Necrotic Tissue Type Adherent Slough -Structure Exposed N/A -Texture (Ania-wound Skin Appearance) Callus -Moisture (Ania-wound Skin Appearance Dry/Scaly ) -Color (Ania-wound Skin Appearance) Assessed -Temperature (Ania-wound Skin No Abnormality Appearance) (Pt Warm) -Tenderness on Palpation (Ania-wound No Skin Appearance) -Ulcer Cleansing Rinsed/ Irrigated with Saline -Foul Odor after Cleansing No -Anesthetic Used 5% Lidocaine Gel 8. R 3rd toe -Combined with other wound No -Current Size (cm) - Length 0.8 -Current Size (cm) - Width 0.2 -Current Size (cm) - Depth 0.1 -Total Square Cm 0.16 -Photo Taken Yes -Tunneling No -Undermining/Tunneling No -Circular Undermining No -Classification - Thickness Full Thickness without Exposed Support Structure -Exudate Amt Small (1-33%) -Exudate Type Serosanguineous -Wound Margin Thickened -Granulation Amt Large (67-100%) -Granulation Quality [place] -Slough/Fibrin Yes -Necrosis Amt Small (1-33%) -Necrotic Tissue Type Adherent Slough -Structure Exposed N/A -Texture (Ania-wound Skin Appearance) Callus -Moisture (Ania-wound Skin Appearance Dry/Scaly ) -Color (Ania-wound Skin Appearance) Assessed -Temperature (Ania-wound Skin No Abnormality Appearance) (Pt Warm) -Foul Odor after Cleansing Yes, Due to Product Use -Anesthetic Used 5% Lidocaine Gel [Edema Assessment] -Lower Limb Edema Present Yes -Right Calf (cm) 44 -Right Ankle (cm) 26.6 WC - Nurse 2 - General Ulcer CM Notes Start: 10/17/18 15:34 Freq: Status: Active Protocol: Activity Type Activity Date Activity User E-Sign Co-Sign Detail Recorded Client Recorded Date Recorded By Document 10/17/18 15:56 [id number] 10/17/18 15:57 10/17/18 15:56 Wound Center Nurse 2 [Procedure/Treatment] 9. R 4th toe -Time 15:56 -Correct Patient Yes -Correct Side, Site, Position Yes -Correct Procedure Yes -Procedure Performed Yes -Type of Procedure Debridement -Clinical Debridement Subcutaneous -Post Debridement Size (cm) - Length 0.5 -Post Debridement Size (cm) - Width 0.8 -Post Debridement Size (cm) - Depth 0.1 -Total Square Cm 0.40 -Wound/Ulcer Outcome Not Healed -Ulcer Cleansing Rinsed/ Irrigated with Saline -Foul Odor after Cleansing No -Bioengineered Tissue No -Bleeding Controlled with Pressure -Offloading Yes -Type of Offloading Surgical Shoe -Treatment Response Procedure Tolerated Well 8. R 3rd toe -Time 15:57 -Correct Patient Yes -Correct Side, Site, Position Yes -Correct Procedure Yes -Procedure Performed Yes -Type of Procedure Debridement -Clinical Debridement Subcutaneous -Post Debridement Size (cm) - Length 0.8 -Post Debridement Size (cm) - Width 0.3 -Post Debridement Size (cm) - Depth 0.1 -Total Square Cm 0.24 -Wound/Ulcer Outcome Not Healed -Ulcer Cleansing Rinsed/ Irrigated with Saline -Foul Odor after Cleansing No -Bioengineered Tissue No -Bleeding Controlled with Pressure -Offloading Yes -Type of Offloading Surgical Shoe -Treatment Response Procedure Tolerated Well [See Physician Procedure note for Specifics] Pain Scale: 0-10 Numeric [Pain] -Is Patient Pain Free? Yes Musculoskeletal: No Tenderness to Palpation of Joints or Extremities, Muscle Wasting, - - Dorsal contraction of lesser toes right foot Neurological: - - Lack of epicritic sensation to light touch consistent with neuropathy right lower extremity Psych/Mental Status: Normal Affect, Appropriate Debridement Note Post-Debridement Measurements/Treatment WC - Nurse 2 - General Ulcer CM Notes Start: 10/17/18 15:34 Freq: Status: Active Protocol: Activity Type Activity Date Activity User E-Sign Co-Sign Detail Recorded Client Recorded Date Recorded By Document 10/17/18 15:56 [email or web address] [id number] 10/17/18 15:57 [email or web address] 10/17/18 15:56 Wound Center Nurse 2 9. R 4th toe -Time 15:56 -Correct Patient Yes -Correct Side, Site, Position Yes -Correct Procedure Yes -Procedure Performed Yes -Type of Procedure Debridement -Clinical Debridement Subcutaneous -Post Debridement Size (cm) - Length 0.5 -Post Debridement Size (cm) - Width 0.8 -Post Debridement Size (cm) - Depth 0.1 -Total Square Cm 0.40 -Wound/Ulcer Outcome Not Healed -Ulcer Cleansing Rinsed/ Irrigated with Saline -Foul Odor after Cleansing No -Bioengineered Tissue No -Bleeding Controlled with Pressure -Offloading Yes -Type of Offloading Surgical Shoe -Treatment Response Procedure Tolerated Well 8. R 3rd toe -Time 15:57 -Correct Patient Yes -Correct Side, Site, Position Yes -Correct Procedure Yes -Procedure Performed Yes -Type of Procedure Debridement -Clinical Debridement Subcutaneous -Post Debridement Size (cm) - Length 0.8 -Post Debridement Size (cm) - Width 0.3 -Post Debridement Size (cm) - Depth 0.1 -Total Square Cm 0.24 -Wound/Ulcer Outcome Not Healed -Ulcer Cleansing Rinsed/ Irrigated with Saline -Foul Odor after Cleansing No -Bioengineered Tissue No -Bleeding Controlled with Pressure -Offloading Yes -Type of Offloading Surgical Shoe -Treatment Response Procedure Tolerated Well Pain Scale: 0-10 Numeric Is Patient Pain Free? Yes Wound debrided: third toe Laterality: Right Wound Grade/Stage: grade 1 Type of Debridement: Excisional debridement Anesthesia Used: 5% Lidocaine Gel Depth: in the subcutaneous layer Percentage of wound debrided: 100 Instrument Used: #15 blade Tissue Removed: fibrous, devitalized subcutaneous, biofilm, slough Severity: Fat Layer Exposed Amount of bleeding with debridement: Mild Bleeding Controlled with: Pressure Patient tolerated procedure well - Additional Wound Wound debrided: fourth toe Laterality: Right Wound Grade/Stage: grade 1 Type of Debridement: Excisional debridement Anesthesia Used: 5% Lidocaine Gel Depth: in the subcutaneous layer Percentage of wound debrided: 100 Instrument Used: #15 blade Tissue Removed: fibrous, devitalized subcutaneous, biofilm, slough Severity: Fat Layer Exposed Amount of bleeding with debridement: Mild Bleeding Controlled with: Pressure Patient tolerated procedure: Patient tolerated procedure well Assessment/Plan Active Problems (Last Reviewed 07/19/18 @ 15:28 by Cammie Baron) Hammertoe of right foot (Chronic) Ulcer of right lower extremity with fat layer exposed (Acute) Diabetes mellitus with polyneuropathy (Chronic) Malnutrition (Chronic) Assessment: ulcer right foot third and fourth toes -fat layer exposed, no infection. Right hammertoes. peripheral vascular disease. diabetes with peripheral neuropathy. Malnutrition suspected. History of delayed healing Plan: I reviewed and discussed his case today. Debridement was performed subcutaneously as noted in the clinical panel. To change the dressing daily with Aquacel Ag; this was applied today. To keep pressure off the ulcer sites to promote healing by using a walker. I recommended he give the knee roller a rest to avoid skin irritation and ulcer development on his knee. He demonstrates understanding. He will also continue with a surgical shoe in place weight on the heel during times of transfer. To take nutritional supplementation optimize healing; samples of Bartolo was provided. He was reassured no signs of infection are noted. to elevate limb at rest. His previous arterial studies from 2018 demonstrate normal perfusion. To follow-up with the wound healing center 1 week or call sooner if is any questions or concerns. I answered all his questions today.
--- NOTE | 2018-10-17 16:32 | PN.PCM_ITS ---
(1) Ulcer of right lower extremity with fat layer exposed Status: Acute Current Visit: Yes Code(s): L97.912 - Non-pressure chronic ulcer of unspecified part of right lower leg with fat layer exposed (2) Hammertoe of right foot Status: Chronic Current Visit: Yes Code(s): M20.41 - Other hammer toe(s) (acquired), right foot (3) Diabetes mellitus with polyneuropathy Status: Chronic Current Visit: Yes Qualifiers: Diabetes mellitus type: type 2 Code(s): E11.42 - Type 2 diabetes mellitus with diabetic polyneuropathy (4) Malnutrition Status: Chronic Current Visit: Yes Code(s): E46 - Unspecified protein- calorie malnutrition Type of Wound Date of Service: 10/17/18 Chief Complaint: Right third and fourth toe ulcers History of Wound: This 58 year old male presents to the wound healing center for care of right foot third and fourth toe ulcers with an onset of within the past month. He was referred by the [facility]. He denies pain, redness, odor, fever, chill, nausea, vomiting. He has been using his knee roller and now reports some skin irritation. He wants to try that using a walker. He is previously well known to the wound healing center for left foot ulcer complicated with Charcot deformity. This has remained closed and he continues to use his car walker. Progress of Wound: Improving - Physical Exam Vital Signs Temp Pulse Resp BP 98.2 F 72 18 141/92 H 10/17/18 15:35 10/17/18 15:35 10/17/18 15:35 10/17/18 15:35 General: Alert, Oriented x3, Cooperative Extremities: No cyanosis, Capillary Refill Less than 3 Seconds, No Calf Tenderness - Negative Jyothi and Carranza sign right, Diminished Peripheral Pulses - Palpable DP pulse right, Edema, - - [place] walker intact left lower extremity Skin: Ulcer/ Wound - No purulence, erythema, streaking, odor, or acute signs of infection. The ulcer bases are granular and healthy. The peripheral skin is hairless and atrophic. There is no interdigital maceration. Wound Measurements and Assessment WC - Nurse 1 - General Ulcer Measurement Start: 10/17/18 15:34 Freq: Status: Active Protocol: Activity Type Activity Date Activity User E-Sign Co-Sign Detail Recorded Client Recorded Date Recorded By Document 12/26/18 15:35 RB [id number] 10/17/18 15:45 RB 10/17/18 15:35 Wound Center Nurse 1 [Ulcer Assessment] 9. R 4th toe -Current Size (cm) - Length 0.5 -Current Size (cm) - Width 0.7 -Current Size (cm) - Depth 0.1 -Total Square Cm 0.35 -Photo Taken Yes -Tunneling No -Undermining/Tunneling No -Circular Undermining No -Classification - Thickness Full Thickness without Exposed Support Structure -Exudate Amt Small (1-33%) -Exudate Type Serosanguineous -Wound Margin Thickened -Granulation Amt Large (67-100%) -Granulation Quality [place] -Slough/Fibrin Yes -Necrosis Amt Small (1-33%) -Necrotic Tissue Type Adherent Slough -Structure Exposed N/A -Texture (Ania-wound Skin Appearance) Callus -Moisture (Ania-wound Skin Appearance Dry/Scaly ) -Color (Ania-wound Skin Appearance) Assessed -Temperature (Ania-wound Skin No Abnormality Appearance) (Pt Warm) -Tenderness on Palpation (Ania-wound No Skin Appearance) -Ulcer Cleansing Rinsed/ Irrigated with Saline -Foul Odor after Cleansing No -Anesthetic Used 5% Lidocaine Gel 8. R 3rd toe -Combined with other wound No -Current Size (cm) - Length 0.8 -Current Size (cm) - Width 0.2 -Current Size (cm) - Depth 0.1 -Total Square Cm 0.16 -Photo Taken Yes -Tunneling No -Undermining/Tunneling No -Circular Undermining No -Classification - Thickness Full Thickness without Exposed Support Structure -Exudate Amt Small (1-33%) -Exudate Type Serosanguineous -Wound Margin Thickened -Granulation Amt Large (67-100%) -Granulation Quality [place] -Slough/Fibrin Yes -Necrosis Amt Small (1-33%) -Necrotic Tissue Type Adherent Slough -Structure Exposed N/A -Texture (Ania-wound Skin Appearance) Callus -Moisture (Ania-wound Skin Appearance Dry/Scaly ) -Color (Ania-wound Skin Appearance) Assessed -Temperature (Ania-wound Skin No Abnormality Appearance) (Pt Warm) -Foul Odor after Cleansing Yes, Due to Product Use -Anesthetic Used 5% Lidocaine Gel [Edema Assessment] -Lower Limb Edema Present Yes -Right Calf (cm) 44 -Right Ankle (cm) 26.6 WC - Nurse 2 - General Ulcer CM Notes Start: 10/17/18 15:34 Freq: Status: Active Protocol: Activity Type Activity Date Activity User E-Sign Co-Sign Detail Recorded Client Recorded Date Recorded By Document 10/17/18 15:56 [id number] 10/17/18 15:57 10/17/18 15:56 Wound Center Nurse 2 [Procedure/Treatment] 9. R 4th toe -Time 15:56 -Correct Patient Yes -Correct Side, Site, Position Yes -Correct Procedure Yes -Procedure Performed Yes -Type of Procedure Debridement -Clinical Debridement Subcutaneous -Post Debridement Size (cm) - Length 0.5 -Post Debridement Size (cm) - Width 0.8 -Post Debridement Size (cm) - Depth 0.1 -Total Square Cm 0.40 -Wound/Ulcer Outcome Not Healed -Ulcer Cleansing Rinsed/ Irrigated with Saline -Foul Odor after Cleansing No -Bioengineered Tissue No -Bleeding Controlled with Pressure -Offloading Yes -Type of Offloading Surgical Shoe -Treatment Response Procedure Tolerated Well 8. R 3rd toe -Time 15:57 -Correct Patient Yes -Correct Side, Site, Position Yes -Correct Procedure Yes -Procedure Performed Yes -Type of Procedure Debridement -Clinical Debridement Subcutaneous -Post Debridement Size (cm) - Length 0.8 -Post Debridement Size (cm) - Width 0.3 -Post Debridement Size (cm) - Depth 0.1 -Total Square Cm 0.24 -Wound/Ulcer Outcome Not Healed -Ulcer Cleansing Rinsed/ Irrigated with Saline -Foul Odor after Cleansing No -Bioengineered Tissue No -Bleeding Controlled with Pressure -Offloading Yes -Type of Offloading Surgical Shoe -Treatment Response Procedure Tolerated Well [See Physician Procedure note for Specifics] Pain Scale: 0-10 Numeric [Pain] -Is Patient Pain Free? Yes Musculoskeletal: No Tenderness to Palpation of Joints or Extremities, Muscle Wasting, - - Dorsal contraction of lesser toes right foot Neurological: - - Lack of epicritic sensation to light touch consistent with neuropathy right lower extremity Psych/Mental Status: Normal Affect, Appropriate Debridement Note Post-Debridement Measurements/Treatment WC - Nurse 2 - General Ulcer CM Notes Start: 10/17/18 15:34 Freq: Status: Active Protocol: Activity Type Activity Date Activity User E-Sign Co-Sign Detail Recorded Client Recorded Date Recorded By Document 10/17/18 15:56 [email or web address] [id number] 10/17/18 15:57 [email or web address] 10/17/18 15:56 Wound Center Nurse 2 9. R 4th toe -Time 15:56 -Correct Patient Yes -Correct Side, Site, Position Yes -Correct Procedure Yes -Procedure Performed Yes -Type of Procedure Debridement -Clinical Debridement Subcutaneous -Post Debridement Size (cm) - Length 0.5 -Post Debridement Size (cm) - Width 0.8 -Post Debridement Size (cm) - Depth 0.1 -Total Square Cm 0.40 -Wound/Ulcer Outcome Not Healed -Ulcer Cleansing Rinsed/ Irrigated with Saline -Foul Odor after Cleansing No -Bioengineered Tissue No -Bleeding Controlled with Pressure -Offloading Yes -Type of Offloading Surgical Shoe -Treatment Response Procedure Tolerated Well 8. R 3rd toe -Time 15:57 -Correct Patient Yes -Correct Side, Site, Position Yes -Correct Procedure Yes -Procedure Performed Yes -Type of Procedure Debridement -Clinical Debridement Subcutaneous -Post Debridement Size (cm) - Length 0.8 -Post Debridement Size (cm) - Width 0.3 -Post Debridement Size (cm) - Depth 0.1 -Total Square Cm 0.24 -Wound/Ulcer Outcome Not Healed -Ulcer Cleansing Rinsed/ Irrigated with Saline -Foul Odor after Cleansing No -Bioengineered Tissue No -Bleeding Controlled with Pressure -Offloading Yes -Type of Offloading Surgical Shoe -Treatment Response Procedure Tolerated Well Pain Scale: 0-10 Numeric Is Patient Pain Free? Yes Wound debrided: third toe Laterality: Right Wound Grade/Stage: grade 1 Type of Debridement: Excisional debridement Anesthesia Used: 5% Lidocaine Gel Depth: in the subcutaneous layer Percentage of wound debrided: 100 Instrument Used: #15 blade Tissue Removed: fibrous, devitalized subcutaneous, biofilm, slough Severity: Fat Layer Exposed Amount of bleeding with debridement: Mild Bleeding Controlled with: Pressure Patient tolerated procedure well - Additional Wound Wound debrided: fourth toe Laterality: Right Wound Grade/Stage: grade 1 Type of Debridement: Excisional debridement Anesthesia Used: 5% Lidocaine Gel Depth: in the subcutaneous layer Percentage of wound debrided: 100 Instrument Used: #15 blade Tissue Removed: fibrous, devitalized subcutaneous, biofilm, slough Severity: Fat Layer Exposed Amount of bleeding with debridement: Mild Bleeding Controlled with: Pressure Patient tolerated procedure: Patient tolerated procedure well Assessment/Plan Active Problems (Last Reviewed 07/19/18 @ 15:28 by Cammie Baron) Hammertoe of right foot (Chronic) Ulcer of right lower extremity with fat layer exposed (Acute) Diabetes mellitus with polyneuropathy (Chronic) Malnutrition (Chronic) Assessment: ulcer right foot third and fourth toes -fat layer exposed, no infection. Right hammertoes. peripheral vascular disease. diabetes with peripheral neuropathy. Malnutrition suspected. History of delayed healing Plan: I reviewed and discussed his case today. Debridement was performed subcutaneously as noted in the clinical panel. To change the dressing daily with Aquacel Ag; this was applied today. To keep pressure off the ulcer sites to promote healing by using a walker. I recommended he give the knee roller a rest to avoid skin irritation and ulcer development on his knee. He demonstrates understanding. He will also continue with a surgical shoe in place weight on the heel during times of transfer. To take nutritional supplementation optimize healing; samples of [place] was provided. He was reassured no signs of infection are noted. to elevate limb at rest. His previous arterial studies from 2018 demonstrate normal perfusion. To follow-up with the wound healing center 1 week or call sooner if is any questions or concerns. I answered all his questions today.
== END 2018-10-22 23:59 ==
LOC: WC 14:57
PROVIDERS: Family Provider Family Medicine; PCP Family Medicine; Visit Provider Podiatrist
DX: E11.622 Type 2 diabetes mellitus with other skin ulcer (principal); E11.42 Type 2 diabetes mellitus with diabetic polyneuropathy; M20.41 Other hammer toe(s) (acquired), right foot; L97.812 Non-pressure chronic ulcer of other part of right lower leg with fat layer exposed; E11.610 Type 2 diabetes mellitus with diabetic neuropathic arthropathy
CPT/HCPCS: 11042; 99212; G0463

== ENCOUNTER 2018-11-07 15:45 | Outpatient (RCR) | payer MEDICARE, SELFPAY ==
[2018-10-23 01:38] VITALS: BP 141/92; PULSE 72; RESP 18; TEMP 36.8
[2018-10-24 15:59] VITALS: BP 158/82; PULSE 65; RESP 18; TEMP 34.4; BMI 36.6
--- NOTE | 2018-10-24 16:42 | PCM.WC.PN ---
(1) Ulcer of right lower extremity with fat layer exposed Status: Chronic Current Visit: Yes Code(s): L97.912 - Non-pressure chronic ulcer of unspecified part of right lower leg with fat layer exposed (2) Hammertoe of right foot Status: Chronic Current Visit: Yes Code(s): M20.41 - Other hammer toe(s) (acquired), right foot (3) Diabetes mellitus with polyneuropathy Status: Chronic Current Visit: Yes Qualifiers: Diabetes mellitus type: type 2 Qualified Code(s): E11.42 - Type 2 diabetes mellitus with diabetic polyneuropathy Code(s): E11.42 - Type 2 diabetes mellitus with diabetic polyneuropathy Type of Wound Date of Service: 10/24/18 Chief Complaint: Right third and fourth toe ulcers History of Wound: This 58 year old male presents to the wound healing center for care of right foot third and fourth toe ulcers. He denies pain, redness, odor, fever, chill, nausea, vomiting. He has been using his knee roller and a walker. He denies right third toe drainage and thinks this ulcer site has healed. He has been performing dressing changes as advised. Progress of Wound: Improving fourth toe. Healed third toe ulcer - Physical Exam Vital Signs Temp Pulse Resp BP 94.0 F L 65 18 158/82 H 10/24/18 15:59 10/24/18 15:59 10/24/18 15:59 10/24/18 15:59 General: Alert, Oriented x3, Cooperative Extremities: No cyanosis, Capillary Refill Less than 3 Seconds - All digits right foot, No Calf Tenderness - Negative Jyothi and Carranza sign bilateral, Diminished Peripheral Pulses, Edema - Bilateral lower extremities, - - Dorsal contraction lesser toes right foot Skin: Ulcer/ Wound - No purulence, erythema, streaking, odor, or infection right foot. Peripheral skin is hairless and atrophic. There is full epithelialization noted to the distal right third toe site has healed. There is no interdigital maceration. Wound Measurements and Assessment WC - Nurse 1 - General Ulcer Measurement Start: 10/24/18 15:58 Freq: Status: Active Protocol: Activity Type Activity Date Activity User E-Sign Co-Sign Detail Recorded Client Recorded Date Recorded By Document 10/24/18 15:59 DV [id number] 10/24/18 16:07 DV 10/24/18 15:59 Wound Center Nurse 1 [Ulcer Assessment] 9. R 4th toe -Combined with other wound No -Current Size (cm) - Length 1.1 -Current Size (cm) - Width 1.0 -Current Size (cm) - Depth 0.1 -Total Square Cm 1.10 -Photo Taken No -Epithelialization None Present -Tunneling No -Undermining/Tunneling No -Circular Undermining No -Exudate Amt None Present (0 %) -Wound Margin Indistinct, Non -Visible -Granulation Amt None Present (0 %) -Granulation Quality N/A -Slough/Fibrin Yes -Necrosis Amt Large (67-100%) -Necrotic Tissue Type Adherent Slough -Structure Exposed None/Limited to Skin Breakdown -Texture (Ania-wound Skin Appearance) Assessed Scarring -Moisture (Ania-wound Skin Appearance Assessed ) Dry/Scaly -Color (Ania-wound Skin Appearance) No Abnormality Assessed -Ulcer Cleansing Rinsed/ Irrigated with Saline -Foul Odor after Cleansing No -Anesthetic Used 4% Lidocaine Solution 8. R 3rd toe -Combined with other wound No -Current Size (cm) - Length 1.0 -Current Size (cm) - Width 0.3 -Current Size (cm) - Depth 0.1 -Total Square Cm 0.30 -Photo Taken No -Epithelialization None Present -Tunneling No -Undermining/Tunneling No -Circular Undermining No -Exudate Amt None Present (0 %) -Wound Margin Indistinct, Non -Visible -Granulation Amt None Present (0 %) -Granulation Quality N/A -Slough/Fibrin Yes -Necrosis Amt Large (67-100%) -Necrotic Tissue Type Adherent Slough -Structure Exposed None/Limited to Skin Breakdown -Texture (Ania-wound Skin Appearance) Assessed Scarring -Moisture (Ania-wound Skin Appearance Assessed ) Dry/Scaly -Color (Ania-wound Skin Appearance) Assessed -Temperature (Ania-wound Skin No Abnormality Appearance) (Pt Warm) -Tenderness on Palpation (Ania-wound No Skin Appearance) -Ulcer Cleansing Rinsed/ Irrigated with Saline -Foul Odor after Cleansing No -Anesthetic Used 4% Lidocaine Solution WC - Nurse 2 - General Ulcer CM Notes Start: 10/24/18 15:58 Freq: Status: Active Protocol: Activity Type Activity Date Activity User E-Sign Co-Sign Detail Recorded Client Recorded Date Recorded By Document 10/24/18 16:18 [id number] 10/24/18 16:19 10/24/18 16:18 Wound Center Nurse 2 [Procedure/Treatment] 9. R 4th toe -Time 16:18 -Correct Patient Yes -Correct Side, Site, Position Yes -Correct Procedure Yes -Procedure Performed Yes -Type of Procedure Debridement -Clinical Debridement Subcutaneous -Post Debridement Size (cm) - Length 1.1 -Post Debridement Size (cm) - Width 1.1 -Post Debridement Size (cm) - Depth 0.1 -Total Square Cm 1.21 -Wound/Ulcer Outcome Not Healed -Ulcer Cleansing Rinsed/ Irrigated with Saline -Foul Odor after Cleansing No -Bioengineered Tissue No -Bleeding Controlled with Pressure -Offloading Yes -Type of Offloading Surgical Shoe 8. R 3rd toe -Correct Patient No -Correct Side, Site, Position No -Correct Procedure No -Procedure Performed No -Post Debridement Size (cm) - Length 0 -Post Debridement Size (cm) - Width 0 -Post Debridement Size (cm) - Depth 0 -Total Square Cm 0 -Wound/Ulcer Outcome Healed- Epithelialized [See Physician Procedure note for Specifics] Pain Scale: 0-10 Numeric [Pain] -Is Patient Pain Free? Yes Musculoskeletal: No Tenderness to Palpation of Joints or Extremities, Muscle Wasting Neurological: - - Lack of epicritic sensation light touch right foot consistent with neuropathy status Psych/Mental Status: Normal Affect, Appropriate Debridement Note Post-Debridement Measurements/Treatment WC - Nurse 2 - General Ulcer CM Notes Start: 10/24/18 15:58 Freq: Status: Active Protocol: Activity Type Activity Date Activity User E-Sign Co-Sign Detail Recorded Client Recorded Date Recorded By Document 10/24/18 16:18 [id number] 10/24/18 16:19 10/24/18 16:18 Wound Center Nurse 2 9. R 4th toe -Time 16:18 -Correct Patient Yes -Correct Side, Site, Position Yes -Correct Procedure Yes -Procedure Performed Yes -Type of Procedure Debridement -Clinical Debridement Subcutaneous -Post Debridement Size (cm) - Length 1.1 -Post Debridement Size (cm) - Width 1.1 -Post Debridement Size (cm) - Depth 0.1 -Total Square Cm 1.21 -Wound/Ulcer Outcome Not Healed -Ulcer Cleansing Rinsed/ Irrigated with Saline -Foul Odor after Cleansing No -Bioengineered Tissue No -Bleeding Controlled with Pressure -Offloading Yes -Type of Offloading Surgical Shoe 8. R 3rd toe -Correct Patient No -Correct Side, Site, Position No -Correct Procedure No -Procedure Performed No -Post Debridement Size (cm) - Length 0 -Post Debridement Size (cm) - Width 0 -Post Debridement Size (cm) - Depth 0 -Total Square Cm 0 -Wound/Ulcer Outcome Healed- Epithelialized Pain Scale: 0-10 Numeric Is Patient Pain Free? Yes Wound debrided: fourth distal toe Laterality: Right Wound Grade/Stage: grade 1 Type of Debridement: Excisional debridement Anesthesia Used: 5% Lidocaine Gel Depth: in the subcutaneous layer Percentage of wound debrided: 100 Instrument Used: #15 blade Tissue Removed: fibrous, devitalized subcutaneous, biofilm, slough Severity: Fat Layer Exposed Amount of bleeding with debridement: Mild Bleeding Controlled with: Pressure Patient tolerated procedure well Assessment/Plan Active Problems (Last Reviewed 07/19/18 @ 15:28 by Cammie Baron) Hammertoe of right foot (Chronic) Ulcer of right lower extremity with fat layer exposed (Chronic) Diabetes mellitus with polyneuropathy (Chronic) Assessment: ulcer right foot fourth toes -fat layer exposed, no infection. Healed right third toe ulcer. Right hammertoes. peripheral vascular disease. diabetes with peripheral neuropathy. Malnutrition suspected. History of delayed healing Plan: I reviewed and discussed his case today. Debridement was performed subcutaneously as noted in the clinical panel to the right fourth toe. To change the dressing daily with Aquacel Ag; this was applied today. To keep pressure off the ulcer site to promote healing by using a walker. He will also continue with a surgical shoe in place weight on the heel during times of transfer. To take nutritional supplementation optimize healing; samples of [place] was provided previously. He will try to pick his prescription for later today. He was reassured no signs of infection are noted. to elevate limb at rest. His previous arterial studies from 2018 demonstrate normal perfusion. To follow-up with the wound healing center 1 week or call sooner if is any questions or concerns. I answered all his questions today.
[2018-11-07 15:40] VITALS: BP 150/99; PULSE 79; RESP 18; TEMP 37.1; BMI 36.6
--- NOTE | 2018-11-07 16:38 | PCM.WC.PN ---
(1) Ulcer of right lower extremity with fat layer exposed Status: Resolved Current Visit: Yes Code(s): L97.912 - Non-pressure chronic ulcer of unspecified part of right lower leg with fat layer exposed (2) Hammertoe of right foot Status: Chronic Current Visit: Yes Code(s): M20.41 - Other hammer toe(s) (acquired), right foot (3) Diabetes mellitus with polyneuropathy Status: Chronic Current Visit: Yes Qualifiers: Diabetes mellitus type: type 2 Qualified Code(s): E11.42 - Type 2 diabetes mellitus with diabetic polyneuropathy Code(s): E11.42 - Type 2 diabetes mellitus with diabetic polyneuropathy Type of Wound Date of Service: 11/07/18 Chief Complaint: Right third and fourth toe ulcers History of Wound: This 58 year old male presents to the wound healing center for care of right foot third and fourth toe ulcers. He denies pain, redness, odor, fever, chill, nausea, vomiting. He has been using his knee roller and a walker. He denies right third toe drainage and thinks this ulcer site has healed. He has been performing dressing changes as advised. Progress of Wound: Healed fourth toe. Healed third toe ulcer - Physical Exam Vital Signs Temp Pulse Resp BP 98.8 F 79 18 150/99 H 11/07/18 15:40 11/07/18 15:40 11/07/18 15:40 11/07/18 15:40 General: Alert, Oriented x3, Cooperative Extremities: No cyanosis, Capillary Refill Less than 3 Seconds, No Calf Tenderness - Negative Jyothi and Carranza sign bilateral, Diminished Peripheral Pulses, Edema - Bilateral lower extremities controlled, - - Digital toe deformities noted right lower extremity with dorsal contraction Skin: Ulcer/ Wound - There is no purulence, erythema, streaking, odor, infection, maceration right foot. Full epithelialization is noted to both the third and fourth toe and the sites are healed ulcers. His bilateral lower extremity skin remains hairless and atrophic Wound Measurements and Assessment WC - Nurse 1 - General Ulcer Measurement Start: 10/24/18 15:58 Freq: Status: Active Protocol: Activity Type Activity Date Activity User E-Sign Co-Sign Detail Recorded Client Recorded Date Recorded By Document 11/07/18 15:40 MW [id number] 11/07/18 15:46 MW 11/07/18 15:40 Wound Center Nurse 1 [Ulcer Assessment] 9. R 4th toe -Combined with other wound No -Current Size (cm) - Length 0.1 -Current Size (cm) - Width 0.1 -Current Size (cm) - Depth 0.1 -Total Square Cm 0.01 -Photo Taken No -Epithelialization None Present -Tunneling No -Undermining/Tunneling No -Circular Undermining No -Exudate Amt None Present -Granulation Amt None Present (0 %) -Granulation Quality N/A -Slough/Fibrin Yes -Necrosis Amt Large (67-100%) -Necrotic Tissue Type Adherent Slough -Structure Exposed N/A -Texture (Ania-wound Skin Appearance) Assessed Callus -Moisture (Ania-wound Skin Appearance Assessed ) Dry/Scaly -Color (Ania-wound Skin Appearance) No Abnormality Assessed -Temperature (Ania-wound Skin No Abnormality Appearance) (Pt Warm) -Tenderness on Palpation (Ania-wound No Skin Appearance) -Ulcer Cleansing Rinsed/ Irrigated with Saline -Foul Odor after Cleansing No -Anesthetic Used 5% Lidocaine Gel [Edema Assessment] -Lower Limb Edema Present No WC - Nurse 2 - General Ulcer CM Notes Start: 10/24/18 15:58 Freq: Status: Active Protocol: Activity Type Activity Date Activity User E-Sign Co-Sign Detail Recorded Client Recorded Date Recorded By Document 11/07/18 15:55 [email or web address] [id number] 11/07/18 15:59 DEREK 11/07/18 15:55 Wound Center Nurse 2 [Procedure/Treatment] 9. R 4th toe -Correct Patient No -Correct Side, Site, Position No -Correct Procedure No -Procedure Performed No -Post Debridement Size (cm) - Length 0 -Post Debridement Size (cm) - Width 0 -Post Debridement Size (cm) - Depth 0 -Total Square Cm 0 -Wound/Ulcer Outcome Healed- Epithelialized [See Physician Procedure note for Specifics] Pain Scale: 0-10 Numeric [Pain] -Is Patient Pain Free? Yes Musculoskeletal: No Tenderness to Palpation of Joints or Extremities, Muscle Wasting Neurological: - - Lack of epicritic sensation light touch bilateral lower extremities consistent with neuropathy Psych/Mental Status: Normal Affect, Appropriate Debridement Note Post-Debridement Measurements/Treatment WC - Nurse 2 - General Ulcer CM Notes Start: 10/24/18 15:58 Freq: Status: Active Protocol: Activity Type Activity Date Activity User E-Sign Co-Sign Detail Recorded Client Recorded Date Recorded By Document 10/24/18 16:18 [id number] 10/24/18 16:19 Document 11/07/18 15:55 [id number] 11/07/18 15:59 10/24/18 11/07/18 16:18 15:55 Wound Center Nurse 2 9. R 4th toe -Time 16:18 -Correct Patient Yes No -Correct Side, Site, Position Yes No -Correct Procedure Yes No -Procedure Performed Yes No -Type of Procedure Debridement -Clinical Debridement Subcutaneous -Post Debridement Size (cm) - Length 1.1 0 -Post Debridement Size (cm) - Width 1.1 0 -Post Debridement Size (cm) - Depth 0.1 0 -Total Square Cm 1.21 0 -Wound/Ulcer Outcome Not Healed Healed- Epithelialized -Ulcer Cleansing Rinsed/ Irrigated with Saline -Foul Odor after Cleansing No -Bioengineered Tissue No -Bleeding Controlled with Pressure -Offloading Yes -Type of Offloading Surgical Shoe 8. R 3rd toe -Correct Patient No -Correct Side, Site, Position No -Correct Procedure No -Procedure Performed No -Post Debridement Size (cm) - Length 0 -Post Debridement Size (cm) - Width 0 -Post Debridement Size (cm) - Depth 0 -Total Square Cm 0 -Wound/Ulcer Outcome Healed- Epithelialized Pain Scale: 0-10 Numeric Is Patient Pain Free? Yes Yes No debridement was completed today - the ulcer site has healed Assessment/Plan Active Problems (Last Reviewed 10/30/18 @ 16:49 by Cem Nj, DO) Hammertoe of right foot (Chronic) Diabetes mellitus with polyneuropathy (Chronic) Assessment: ulcer right foot fourth toe now healed. Healed right third toe ulcer. Right hammertoes. peripheral vascular disease. diabetes with peripheral neuropathy. Malnutrition suspected. History of delayed healing Plan: I reviewed and discussed his case today. Debridement was not performed because the ulcer site is healed. To discontinue dressing changes. To progress out of offloading surgical shoe to extra-depth diabetic shoe. It is noted he is ready for an update and I recommend follow-up of the foot and ankle Center to get measured for extra-depth shoe with dual density Plastizote insole. I recommended he check his foot periodically to confirm continued skin remodeling. He was reassured the ulcer is closed today and there are no signs of infection. Is okay to discontinue nutritional supplementation for the ulcer has healed. He is discharged from the wound healing center at this time. To follow-up with the foot and ankle Center as he is already scheduled.
== END 2018-11-22 23:59 ==
LOC: WC 15:45
PROVIDERS: Family Provider Family Medicine; PCP Family Medicine; Visit Provider Podiatrist
DX: E11.622 Type 2 diabetes mellitus with other skin ulcer (principal); E11.42 Type 2 diabetes mellitus with diabetic polyneuropathy; M20.42 Other hammer toe(s) (acquired), left foot; E11.610 Type 2 diabetes mellitus with diabetic neuropathic arthropathy; L97.812 Non-pressure chronic ulcer of other part of right lower leg with fat layer exposed
CPT/HCPCS: 11042; 99213; G0463

== ENCOUNTER 2019-03-21 15:30 | Outpatient (RCR) | payer MEDICARE, SELFPAY ==
[2018-11-23 01:36] VITALS: BP 150/99; PULSE 79; RESP 18; TEMP 37.1
[2019-02-19 13:37] VITALS: BMI 36.6
[2019-02-21 13:56] VITALS: RESP 18; TEMP 36.6; BMI 38.0
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
[2019-02-28 15:51] VITALS: BP 131/95; PULSE 79; RESP 18; TEMP 35.7; BMI 38.0
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
[2019-03-07 15:33] VITALS: BP 150/85; PULSE 75; RESP 18; TEMP 36; BMI 38.0
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
[2019-03-14 15:32] VITALS: BP 143/86; PULSE 79; RESP 18; TEMP 36.6; BMI 38.0
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
[2019-03-21 15:34] VITALS: BP 141/89; PULSE 69; RESP 18; TEMP 36.6; BMI 38.0
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
== END 2019-03-22 23:59 ==
LOC: WC 15:30
PROVIDERS: Family Provider Family Medicine; PCP Family Medicine; Visit Provider Nurse Practitioner Family
DX: E11.622 Type 2 diabetes mellitus with other skin ulcer (principal); I25.10 Atherosclerotic heart disease of native coronary artery without angina pectoris; E11.610 Type 2 diabetes mellitus with diabetic neuropathic arthropathy; I10 Essential (primary) hypertension; L97.822 Non-pressure chronic ulcer of other part of left lower leg with fat layer exposed; T24.202D Burn of second degree of unspecified site of left lower limb, except ankle and foot, subsequent encounter; X16.XXXD Contact with hot heating appliances, radiators and pipes, subsequent encounter; E11.51 Type 2 diabetes mellitus with diabetic peripheral angiopathy without gangrene; E11.42 Type 2 diabetes mellitus with diabetic polyneuropathy
CPT/HCPCS: 11042; 11045; 15271; 15272; 99203; Q4196; G0463

== ENCOUNTER 2019-04-12 14:00 | Outpatient (RCR) | payer MEDICARE, SELFPAY ==
[2019-03-23 00:17] VITALS: BP 141/89; PULSE 69; RESP 18; TEMP 36.6
[2019-03-28 15:25] VITALS: BP 166/89; PULSE 69; RESP 20; TEMP 36.6; BMI 38.0
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
[2019-04-05 16:35] VITALS: BP 147/75; PULSE 64; RESP 12; TEMP 36.6; BMI 38.0
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
[2019-04-12 14:45] VITALS: BP 147/81; PULSE 65; RESP 18; TEMP 37; BMI 38.0
[2019-04-18 15:35] VITALS: BP 130/70; PULSE 69; RESP 18; TEMP 36.5; BMI 38.0
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
== END 2019-04-21 23:59 ==
LOC: WC 14:00
PROVIDERS: Family Provider Family Medicine; PCP Family Medicine; Visit Provider Nurse Practitioner Family
DX: E13.622 Other specified diabetes mellitus with other skin ulcer (principal); I10 Essential (primary) hypertension; E13.51 Other specified diabetes mellitus with diabetic peripheral angiopathy without gangrene; L97.822 Non-pressure chronic ulcer of other part of left lower leg with fat layer exposed; R60.0 Localized edema; M20.41 Other hammer toe(s) (acquired), right foot; T24.20 Burn of second degree of unspecified site of lower limb, except ankle and foot; X19.XXXS Contact with other heat and hot substances, sequela; E13.42 Other specified diabetes mellitus with diabetic polyneuropathy
CPT/HCPCS: 15271; Q4160

== ENCOUNTER → 2019-04-24 14:39 | Outpatient (CLI) | payer MEDICARE, SELFPAY ==
[2019-04-24 13:40] VITALS: BMI 38.2
--- NOTE | 2019-04-24 14:42 | RAD_ITS ---
STUDY: X-RAY CHEST REASON FOR EXAM: Male, 58 years old. Cough. TECHNIQUE: Single frontal view of the chest. COMPARISON: 04/14/2016. FINDINGS: No definite acute abnormality. Probable mild COPD. Probable pleural-parenchymal scarring in the anterior lower left chest from previous rib fractures. No definite infiltrates. No effusions. Normal size heart. Normal mediastinum and annemarie. Normal visualized pulmonary arteries. Normal visualized aortic arch and descending thoracic aorta. There are diffuse degenerative changes of the visualized thoracic spine. Normal visualized ribs, clavicles, and shoulders. There is no demonstrated abnormality of the visualized soft tissue structures of the upper abdomen. RAD/Chest PA and Lateral IMPRESSION: No definite acute chest disease. Electronically Signed: Matthew Parada MD at 19:31 EDT , Service support ,
== END ==
PROVIDERS: Family Provider Family Medicine; PCP Family Medicine; Referring Provider Family Medicine; Visit Provider Family Medicine
DX: R05 Cough (principal)
CPT/HCPCS: 71046

== ENCOUNTER 2019-04-26 10:23 | Outpatient (RCR) | payer MEDICARE, SELFPAY ==
[2019-04-22 00:14] VITALS: BP 130/70; PULSE 69; RESP 18; TEMP 36.5
[2019-04-24 13:40] VITALS: BMI 38.2
[2019-04-26 16:42] VITALS: BP 139/81; PULSE 63; RESP 18; TEMP 36.5; BMI 38.2
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
== END 2019-05-22 23:59 ==
LOC: WC 10:23
PROVIDERS: Family Provider Family Medicine; PCP Family Medicine; Visit Provider Nurse Practitioner Family
DX: E11.622 Type 2 diabetes mellitus with other skin ulcer (principal); E11.42 Type 2 diabetes mellitus with diabetic polyneuropathy; L97.822 Non-pressure chronic ulcer of other part of left lower leg with fat layer exposed; E11.65 Type 2 diabetes mellitus with hyperglycemia; E11.51 Type 2 diabetes mellitus with diabetic peripheral angiopathy without gangrene
CPT/HCPCS: 97597

== ENCOUNTER → 2019-05-20 11:55 | Outpatient (CLI) | payer MEDICARE, SELFPAY ==
[2019-05-03 13:02] VITALS: BMI 36.6
[2019-05-20 12:57] LABS: AST(SGOT) 13 U/L (15-37); Alanine Aminotransfer ALT/SGPT 18 U/L (16-61); Albumin, Serum 3.4 g/dL (3.2-5.0); Alkaline Phosphatase 103 U/L (45-117); Bilirubin, Direct 0.17 mg/dL (0.00-0.30); Cholesterol 178 mg/dL (200); Globulin 3.8 g/dL (2.2-4.2); High Density Lipoprotein 70 mg/dL; Protein, Total 7.2 g/dL (6.4-8.2); Triglycerides 63 mg/dL; Very Low Density Lipoprotein 13 mg/dL (5-40)
== END ==
PROVIDERS: Family Provider Family Medicine; PCP Family Medicine; Referring Provider Internal Medicine Cardiovascular Disease; Visit Provider Internal Medicine Cardiovascular Disease
DX: I25.10 Atherosclerotic heart disease of native coronary artery without angina pectoris (principal); E78.5 Hyperlipidemia, unspecified
CPT/HCPCS: 36415; 80061; 80076

== ENCOUNTER → 2019-05-21 14:59 | Outpatient (CLI) | payer MEDICARE, SELFPAY ==
[2019-05-03 13:02] VITALS: BMI 36.6
--- NOTE | 2019-05-21 15:00 | ECHOCS_ITS ---
Reason For Study: CAD/ASHD Procedure This was a 2D Doppler, Color Flow transthoracic echocardiogram. The study was technically difficult. Contrast injection was performed. Exam performed in department. Left Ventricle Normal LV size. Segmental dysfunction with preserved ejection fraction (see wall motion). The estimated ejection fraction is 65 %. Diastolic function is indeterminate. Posterior-Basal: Hypokinetic. Infero-Basal: Hypokinetic. Mid-Posterior: Hypokinetic. Right Ventricle Normal RV size. Normal systolic function. Atria The left atrium is mildly enlarged. Normal right atrium. No doppler evidence for ASD. Mitral Valve There is no mitral annular calcification. Normal mitral valve. Trivial mitral valve insufficiency. Tricuspid Valve Normal tricuspid valve. Trivial tricuspid valve insufficiency. Right ventricular systolic pressure estimated to be 35 mmHg. Aortic Valve Trisinus/trileaflet aortic valve. Normal aortic valve. Pulmonic Valve The pulmonic valve is not well visualized. Great Vessels Normal sized aortic root. Pericardium/Pleural No pericardial effusion. Medication 22 gauge I.V. with prn adaptor inserted into right arm. Diluted definity 7ml given slow IV push to enhance endocardial definition. MMode/2D Measurements & Calculations LVIDd: 4.8 cm IVSd: 1.0 cm Ao root diam: 3.4 cm LVIDs: 3.2 cm LVPWd: 0.96 cm RVDd: 4.1 cm FS: 33.7 % LAV(MOD-bp): 71.3 ml LVAd ap4: 38.1 cm2 SV(MOD-sp4): 94.6 ml LAV(MOD-bp) Indexed: 30.0 ml/m2 EDV(MOD-sp4): 140.6 ml LAV(MOD-sp2): 90.3 ml EDV(sp4-el): 149.9 ml LAV(MOD-sp4): 56.4 ml LVAs ap4: 18.9 cm2 ESV(MOD-sp4): 46.0 ml ESV(sp4-el): 48.0 ml EF(MOD-sp4): 67.3 % EF(sp4-el): 67.9 % SV(sp4-el): 101.8 ml LA A4 area: 19.9 cm2 LA dimension(2D): 4.2 cm RA A4 area: 17.8 cm2 Time Measurements MV dec time: 0.21 sec Doppler Measurements & Calculations MV E max [place]: 96.4 cm/sec Lat Peak E' [place]: 10.6 cm/sec Med Peak E' [place]: 6.7 cm/sec MV A max [place]: 71.7 cm/sec E/E' lat: 9.1 E/E' med: 14.3 MV E/A: 1.3 Ao V2 max: 132.2 cm/sec LV V1 max: 127.0 cm/sec PA V2 max: 95.2 cm/sec Ao max P.0 mmHg LV V1 max P.5 mmHg TR max [place]: 282.3 cm/sec TR max P.9 mmHg Interpretation Summary The study was technically difficult. Contrast injection was performed. Segmental dysfunction with preserved ejection fraction (see wall motion). The estimated ejection fraction is 65 %. The left atrium is mildly enlarged. Trivial mitral valve insufficiency. Trivial tricuspid valve insufficiency. Right ventricular systolic pressure estimated to be 35 mmHg. Diastolic function is indeterminate. Ordering Physician: Zenon Almeida Referring Physician: DEBBIE MEREDITH Performed By: Becky Santizo RDCS
== END ==
PROVIDERS: Family Provider Family Medicine; PCP Family Medicine; Referring Provider Internal Medicine Cardiovascular Disease; Visit Provider Internal Medicine Cardiovascular Disease
DX: I25.10 Atherosclerotic heart disease of native coronary artery without angina pectoris (principal)
CPT/HCPCS: 93306; Q9957; A4216; C8929

== ENCOUNTER → 2019-12-25 15:53 | Outpatient (CLI) | payer MEDICARE, SELFPAY ==
[2019-12-25 15:44] VITALS: BMI 38.7
[2019-12-25 17:22] LABS: Absolute Lymphocyte Count 0.95 X10^3/uL (0.83-4.51); Absolute Neutrophil Count 6.9 X10^3/uL (2.0-7.7); Basophil# 0.07 X10^3/uL; Basophil% 0.8 % (0-1); Eosinophil# 0.07 X10^3/uL; Eosinophils% 0.8 % (0-5); Hematocrit 38.7 % (40-54); Hemoglobin 13.1 g/dL (13.0-16.5); Lymphocyte # 0.95 X10^3/ul (4.0); Lymphocyte % 10.5 % (19-41); Mean Corp Hgb Conc 33.9 g/dL (32-36); Mean Corpuscular Hgb 30.5 pg (27.0-32.0); Mean Platelet Vol. 10.3 fl (6.2-12.0); Monocyte# 1.01 X10^3/uL; Monocyte% 11.2 % (0-10); NRBC Flagged by Analyzer 0 % (0-5); Neutrophil # 6.89 X10^3/uL (2.7-7.7); Platelet Count 212 K/mm3 (150-450); RBC Distribution Width CV 13.2 % (11.6-14.6); White Blood Count 9.1 K/mm3 (4.4-11.0)
[2019-12-25 17:39] LABS: ALB/GLOB Ratio 0.7 RATIO (0.9-2.4); AST(SGOT) 21 U/L (15-37); Alanine Aminotransfer ALT/SGPT 25 U/L (16-61); Albumin, Serum 3.3 g/dL (3.2-5.0); Alkaline Phosphatase 142 U/L (45-117); BUN 9 mg/dL (7-18); BUN/Creat Ratio 7.7 RATIO (10-20); Calcium,Total 9.1 mg/dL (8.5-10.1); Chloride 86 mmol/L (98-107); Creatinine, Serum 1.17 mg/dL (0.70-1.30); EST Glomerular Filtration Rate 68 mL/min (>60); Est Glom Filt Rate - Afr Amer 82 mL/min (>60); Globulin 4.6 g/dL (2.2-4.2); Glucose 172 mg/dL (74-106); Potassium 4.3 mmol/L (3.5-5.1); Protein, Total 7.9 g/dL (6.4-8.2); Sodium Level 124 mmol/L (136-145)
[2019-12-25 17:40] LABS: Anion Gap 7 (5-15)
[2019-12-25 17:42] LABS: Erythrocyte Sedimentation Rate 19 mm/hr (0-20)
== END ==
PROVIDERS: PCP Family Medicine; Referring Provider Podiatrist; Visit Provider Podiatrist
DX: E11.621 Type 2 diabetes mellitus with foot ulcer (principal); L97.522 Non-pressure chronic ulcer of other part of left foot with fat layer exposed; E11.42 Type 2 diabetes mellitus with diabetic polyneuropathy; I87.2 Venous insufficiency (chronic) (peripheral); R60.0 Localized edema; E78.5 Hyperlipidemia, unspecified; I25.10 Atherosclerotic heart disease of native coronary artery without angina pectoris; L97.422 Non-pressure chronic ulcer of left heel and midfoot with fat layer exposed; E11.610 Type 2 diabetes mellitus with diabetic neuropathic arthropathy
CPT/HCPCS: 11042; 36415; 80053; 85025; 85652; 86140; 87070; 87075; 87077; 87186; 87205; 87640; 99213; G0463

== ENCOUNTER 2020-01-01 15:53 | Inpatient (IN) | payer MEDICARE, SELFPAY ==
[2020-01-01] VITALS (7 sets, daily range): BP systolic 115–139; BP diastolic 63–89; PULSE 63–75; RESP 11–16; TEMP 36.3–37.1; O2SAT 98–100; BMI 38.7; BMI 35.5; BMI 35.6; BMI 35.1
--- NOTE | 2020-01-01 16:31 | ED.RN ---
pt denies abd pain, it's just upset. Normal BM, LBM today.
--- NOTE | 2020-01-01 16:45 | ED.RN ---
LT FOOT DIABETIC ULCER. RT MIDDLE TOE AMPUTATION.
--- NOTE | 2020-01-01 16:49 | EKG12_ITS ---
Test Reason : GEN ILLNESS Blood Pressure : / mmHG Vent. Rate : 060 BPM Atrial Rate : 060 BPM P-R Int : 180 ms QRS Dur : 100 ms QT Int : 468 ms P-R-T Axes : 085 004 076 degrees QTc Int : 468 ms Normal sinus rhythm Normal ECG Confirmed by BRITANY ARROYO, HOME ([id number]), art editor ERICK GARCIA ([id number]) on 01/03/2020 1:00:18 PM Referred By: ASHLEY Confirmed By:ENMANUEL GARG MD
--- NOTE | 2020-01-01 16:51 | ED.DCSUM_ITS ---
History of Present Illness Chief Complaint: General Illness Informant: Patient Onset: Weeks Context: Gradual Onset Current Severity: Moderate Maximum Severity: Moderate Narrative: Patient reports just not feeling well for the past week or so. His PCP put him on Keflex for left foot infection. His order builder loader, Dr. siddiqi on, changed this to Augmentin and Cipro yesterday. He was seen in the wound center today. Packing was change in his left foot. They report the foot overall looks pretty good and they are concerned about another possible infection. Patient was sent to the ER for further evaluation. He has had decreased appetite and increased acid reflux lately. He reports having nausea with some dry heaves. He denies fever or cough but has felt somewhat short of breath. He denies chest pain. - Past Medical History (1) Infection of left foot Status: Acute Comment: differential diagnosis (2) Charcot's joint, left ankle and foot Status: Chronic (3) Diabetes mellitus Status: Chronic (4) Essential hypertension Status: Chronic (5) Hyperlipidemia Status: Chronic (6) Ischemic cardiomyopathy Status: Chronic (7) Presence of stent in coronary artery Status: Chronic Comment: PCI w/ KIRILL to distal RCA, ostial PDA, and mid RCA 03/07; previous PTCA w/stent to mid main CX 09/24 (8) Peripheral vascular disease Status: Suspected Past Medical History - Allergies and Home Meds Allergies/Adverse Reactions: Allergies lisinopril Adverse Reaction (Verified 01/01/20 15:56) Cough pet dander Allergy (Intermediate, Uncoded 01/01/20 15:56) runny nose, sneezing Primary Care Physician: Cem Nj DO [Primary Care Provider] - Prior records reviewed: Yes Surgical History: angioplasty, cholecystectomy Smoking Status: Former smoker - Family History Paternal Family History: Family History (Last Reviewed 12/25/19 @ 15:[address] Cem Nj DO) Mother Heart disease Father Heart disease Family History: Reports: Heart Disease - CHF Maternal Family History: Family History (Last Reviewed 12/25/19 @ 15:[address] Cem Nj DO) Mother Heart disease Father Heart disease Family History: Reports: Heart Disease - CHF Review of Systems General: Reports: Fever, Subjective. Denies: Chills Eyes: Denies: Visual changes - bilaterally ENT: Denies: Bilateral ear pain Cardiovascular: Denies: Chest pain Respiratory: Reports: Dyspnea. Denies: Cough Gastrointestinal: Denies: Abdominal pain, Nausea, Vomiting, Diarrhea Genitourinary: Denies: Dysuria Musculoskeletal: Reports: Extremity Pain Skin: Reports: Wounds Neurological: Denies: Headache Allergy: Denies: Uticaria Physical Exam Vital Signs/Narrative: Vital Signs Temp Pulse Resp BP Pulse Ox 01/01/20 15:54 97.8 F 73 16 136/78 H 98 Inital Vital Signs reviewed: Yes General: Well nourished, Well developed Head: Normocephalic ENT: Moist mucous membranes Neck: Supple Cardiovascular: Regular rate, Regular rhythm Respiratory: No distress, CTA bilaterally Abdomen: Soft, Nontender Extremities: - - Patient has an area of superficial ulceration to the bottom of the left foot measuring 7 x 4 cm. There is a wick in place in the center of this lesion into a deep wound. Neurological: Alert, Oriented x3 Psychological: Normal affect Diagnostic/Tx/Re-eval Impressions Chest X-Ray 01/01/20 17:30 IMPRESSION: No acute disease Electronically Signed: Juan Garner MD at 18:32 EDT , Service support , 01/01/20 17:30 Chest 1 View (Portable) [RAD] Stat 01/01/20 18:46 Foot min 3 Views [RAD] Stat 01/01/20 17:11 Mucosa - Nose Influenza Types A,B Direct FA (PAN) - Final Laboratory Results 01/01/20 01/01/20 01/01/20 17:00 17:00 17:00 WBC 7.6 RBC 4.05 L Hgb 12.5 L Hct 35.0 L MCV 86.4 MCH 30.9 MCHC 35.7 RDW Std Deviation 38.1 RDW Coeff of Sherita 12.0 Plt Count 259 MPV 9.9 Immature Gran % (Auto) 1.200 H Neut % (Auto) 80.9 H Lymph % (Auto) 10.3 L [place] % (Auto) 5.9 Eos % (Auto) 0.8 Baso % (Auto) 0.9 Absolute Neuts (auto) 6.1 Absolute Lymphs (auto) 0.78 L Nucleated RBC % 0 ESR 46 H Sodium 115 L* Potassium 3.8 Chloride 77 L Carbon Dioxide 26.0 Anion Gap 12 BUN 8 Creatinine 0.91 Estim Creat Clear Calc 93.09 Est GFR (MDRD) Af Amer 110 Est GFR (MDRD) Non-Af 91 BUN/Creatinine Ratio 8.8 L Glucose 153 H Lactic Acid 1.4 Calcium 8.8 Total Bilirubin 0.80 Direct Bilirubin 0.29 AST 27 ALT 25 Alkaline Phosphatase 147 H Troponin I < 0.015 C-React Prot Ext Range 23.90 H Total Protein 7.3 Albumin 3.2 Globulin 4.1 Urine Color Urine Clarity Urine pH Ur Specific [place] Urine Protein Urine Glucose (UA) Urine Ketones Urine Occult Blood Urine Nitrite Urine Bilirubin Urine Urobilinogen Ur Leukocyte Esterase Urine RBC Urine WBC Ur Squamous Epith Cells Urine Bacteria Hyaline Casts Urine Mucus 01/01/20 17:33 WBC RBC Hgb Hct MCV MCH MCHC RDW Std Deviation RDW Coeff of Sherita Plt Count MPV Immature Gran % (Auto) Neut % (Auto) Lymph % (Auto) [place] % (Auto) Eos % (Auto) Baso % (Auto) Absolute Neuts (auto) Absolute Lymphs (auto) Nucleated RBC % ESR Sodium Potassium Chloride Carbon Dioxide Anion Gap BUN Creatinine Estim Creat Clear Calc Est GFR (MDRD) Af Amer Est GFR (MDRD) Non-Af BUN/Creatinine Ratio Glucose Lactic Acid Calcium Total Bilirubin Direct Bilirubin AST ALT Alkaline Phosphatase Troponin I C-React Prot Ext Range Total Protein Albumin Globulin Urine Color Yellow Urine Clarity Sl. Cloudy Urine pH 5.0 Ur Specific [place] 1.020 Urine Protein 30 H Urine Glucose (UA) Normal Urine Ketones 50 H Urine Occult Blood 25 H Urine Nitrite Negative Urine Bilirubin Negative Urine Urobilinogen 1 H Ur Leukocyte Esterase 25 H Urine RBC 0 SEEN Urine WBC 0 SEEN Ur Squamous Epith Cells 0 SEEN Urine Bacteria 0 SEEN Hyaline Casts 10-25 SEEN Urine Mucus 0 SEEN - EKG Initial EKG Interpretation: Sinus Rhythm - Sinus at 60 with no acute ischemia. - Medical Decision Making Patient is given IV fluids here. Chest x-ray is unremarkable per my review. Laboratory work-up is remarkable for a sodium level of 115. Earlier this month his sodium was 124. Influenza swab is negative. Sed rate and CRP are both elevated. I spoke with Dr. Alvarez. Patient will be admitted to hospitalist service secondary to his hyponatremia and she will follow along as far as the foot infection is concerned. Patient will get a foot x-ray before going upstairs. ED Disposition - Plan for ED Patient: Disposition: Acute Care [facility] Diagnosis: Hyponatremia, Left foot infection Referrals: Cem Nj DO [Primary Care Provider] -
[2020-01-01] MEDS: 0.9% Normal Saline 1,000 ML 1000 ML IV (17:08)
[2020-01-01] MEDS: 0.9% Normal Saline 1,000 ML 150 ML IV (17:08)
[2020-01-01] MEDS: Ondansetron 4 MG/2 ML Vial IV (17:11)
--- NOTE | 2020-01-01 17:20 | ED.RN ---
PT AWARE THAT HE NEEDS A URINE SAMPLE.
[2020-01-01 17:26] LABS: Absolute Lymphocyte Count 0.78 X10^3/uL (0.83-4.51); Absolute Neutrophil Count 6.1 X10^3/uL (2.0-7.7); Basophil# 0.07 X10^3/uL; Basophil% 0.9 % (0-1); Eosinophil# 0.06 X10^3/uL; Eosinophils% 0.8 % (0-5); Hemoglobin 12.5 g/dL (13.0-16.5); Lymphocyte # 0.78 X10^3/ul (4.0); Lymphocyte % 10.3 % (19-41); Mean Corp Hgb Conc 35.7 g/dL (32-36); Mean Corpuscular Hgb 30.9 pg (27.0-32.0); Mean Corpuscular Volume 86.4 fL (80-94); Mean Platelet Vol. 9.9 fl (6.2-12.0); Monocyte# 0.45 X10^3/uL; Monocyte% 5.9 % (0-10); NRBC Flagged by Analyzer 0 % (0-5); Neutrophil # 6.12 X10^3/uL (2.7-7.7); Neutrophil % 80.9 % (47-70); Platelet Count 259 K/mm3 (150-450); RBC Distribution Width SD 38.1 fl (35.1-43.9); Red Blood Count 4.05 M/mm3 (4.6-6.2); White Blood Count 7.6 K/mm3 (4.4-11.0)
--- NOTE | 2020-01-01 17:30 | RAD_ITS ---
STUDY: X-RAY CHEST REASON FOR EXAM: Male, 59 years old. SOB AND GENERAL ILLNESS TECHNIQUE: Single frontal view of the chest. COMPARISON: April 24, 2019 FINDINGS: The lungs are clear and expanded. Small left pleural reaction. Normal size heart. Normal mediastinum and annemarie. Normal visualized pulmonary arteries. Normal visualized aortic arch and descending thoracic aorta. Normal visualized thoracic spine. old rib fractures on the right. There is no demonstrated abnormality of the visualized soft tissue structures of the upper abdomen. RAD/Chest 1 View (Portable) IMPRESSION: No acute disease Electronically Signed: Juan Garner MD at 18:32 EDT , Service support ,
[2020-01-01 17:41] LABS: Lactic Acid 1.4 mmol/L (0.4-1.9)
[2020-01-01 17:44] LABS: AST(SGOT) 27 U/L (15-37); Alanine Aminotransfer ALT/SGPT 25 U/L (16-61); Albumin, Serum 3.2 g/dL (3.2-5.0); Alkaline Phosphatase 147 U/L (45-117); Anion Gap 12 (5-15); BUN 8 mg/dL (7-18); BUN/Creat Ratio 8.8 RATIO (10-20); Bilirubin, Direct 0.29 mg/dL (0.00-0.30); Calcium,Total 8.8 mg/dL (8.5-10.1); Chloride 77 mmol/L (98-107); Creatinine, Serum 0.91 mg/dL (0.70-1.30); EST Glomerular Filtration Rate 91 mL/min (>60); Est Glom Filt Rate - Afr Amer 110 mL/min (>60); Estimated Creatinine Clearance 93.09 ml/min; Globulin 4.1 g/dL (2.2-4.2); Glucose 153 mg/dL (74-106); Potassium 3.8 mmol/L (3.5-5.1); Protein, Total 7.3 g/dL (6.4-8.2); Sodium Level 115 mmol/L (136-145)
[2020-01-01 17:46] LABS: Bacteria 0 SEEN /hpf (None Seen); Mucous, Urine 0 SEEN /hpf (<or=2+); Red Blood Cells-Urine 0 SEEN /hpf (0-5); Squamous Epithelial Cells - UA 0 SEEN /hpf (0-5); White Blood Cells 0 SEEN /hpf (0-5)
[2020-01-01 17:49] LABS: Color, Urine Yellow (Yellow); Glucose, Dipstick Normal (Normal); Ketone-Dipstick 50 mg/dl (Negative); Leukocyte Esterase-Dipstick 25 /ul (Negative); Nitrite-Dipstick Negative (Negative); Occult Blood-Urine 25 /ul (Negative); Protein-Dipstick 30 mg/dl (Negative); Urine Bilirubin Dipstick Negative (Negative); Urine Clarity Sl. Cloudy (Clear); Urine Urobilinogen 1 mg/dl (Normal)
[2020-01-01 18:03] LABS: Hyaline Cast 10-25 SEEN /lpf (0-5)
[2020-01-01] MEDS: 0.9% Normal Saline 1,000 ML 999 ML IV (18:05)
[2020-01-01 18:17] LABS: Erythrocyte Sedimentation Rate 46 mm/hr (0-20)
--- NOTE | 2020-01-01 19:13 | PCM.HP.STD ---
Problem List (1) Infection of left foot Status: Acute Comment: differential diagnosis (2) Hyponatremia Status: Acute (3) Former tobacco use Status: Chronic (4) Essential hypertension Status: Chronic (5) Alcohol abuse Status: Chronic (6) Ischemic cardiomyopathy Status: Chronic (7) Hyperlipidemia Status: Chronic Qualifiers: Hyperlipidemia type: unspecified Qualified Code(s): E78.5 - Hyperlipidemia, unspecified (8) Diabetes mellitus Status: Chronic Qualifiers: Diabetes mellitus type: type 2 Diabetes mellitus complication status: with skin complications Diabetes mellitus complication detail: with other skin ulcer (9) Charcot's joint, left ankle and foot Status: Chronic History of Present Illness Date of Admission: 01/01/20 Chief Complaint: L foot infection, malaise, fatigue The patient is a 59 y/o M w/ PMHx: Chronic Hyponatremia, HTN, HLD, CAD s/p PCI x 4, Diabetes mellitus type II, Ischemic cardiomyopathy, PVD, Depression and Anxiety, Hx Charcot foot following w/ Dr. Alvarez, EtOH Abuse, Chronic L foot wound following with wound care who presents to the [facility] ED on 01/01/20 with history of ongoing treatment for L foot diabetic wound with [facility] evaluation on day of presentation, started on cipro and augmentin the day prior; however, noted to be feeling so poorly that he was referred to the ED for evaluation with ongoing history of mild nausea, occasional dry heaves, intermittent rare loose stool with poor appetite with no specific fevers or chills prompting evaluation. Work-up in the ED included T 97.8, heart rate of 73, BP 136/78, respiratory rate 16, 98% on room air, CBC with WC 7.6, hemoglobin 12.5, platelet 259 with mild left shift, ESR 46, CMP with sodium 115, chloride 77, glucose 153, lactic acid 1.4, total bilirubin 0.8, direct bilirubin 0.29, AST/ALT 27/25, alk phos 147, troponin less than 0.015, CRP 23.9, urinalysis with elevated specific [place] 1.020, protein 30, ketones 50, occult blood 25, negative nitrite, leukocyte esterase 25, no marketed urine WBCs or bacteria, blood culture x2 pending per ED, rapid influenza negative, chest x-ray with no acute cardiopulmonary findings, EKG was sinus rhythm with no acute evidence of ischemia. In the ED patient ministered normal saline, Zofran. Past Medical History Past Medical History (Chronic Problems): Chronic Problems (Last Reviewed 12/25/19 @ 15:[address] Cem Nj, DO) Localized edema (Chronic) Former tobacco use (Chronic) Eczema of lower extremity (Chronic) Presence of stent in coronary artery (Chronic ~02/2016) PCI w/ KIRILL to distal RCA, ostial PDA, and mid RCA 03/07; previous PTCA w/stent to mid main CX 09/24 Atherosclerotic heart disease of [place] coronary artery without angina pectoris (Chronic) PCI w/ KIRILL to distal RCA, ostial PDA, and mid RCA 03/07; previous PTCA w/stent to mid main CX 09/24 Essential hypertension (Chronic) Hammertoe of right foot (Chronic) Diabetic ulcer of left lower leg (Chronic) s/p 2nd degree burn with fat layer exposed Diabetic ulcer of left lower leg with fat layer exposed (Chronic) 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 (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) Sleep disorder (Chronic) Depressive disorder (Chronic) Alcohol abuse (Chronic) Malnutrition (Chronic) Chronic ulcer of left foot with fat layer exposed (Chronic) Venous insufficiency of both lower extremities (Chronic) Ulcer of right foot with fat layer exposed (Chronic) Ischemic cardiomyopathy (Chronic) Angina pectoris (Chronic) Hyperlipidemia (Chronic) Diabetes 1.5, managed as type 2 (Chronic) Edema extremities (Chronic) Diabetes mellitus (Chronic) Diabetes mellitus with circulatory complication (Chronic) 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) Diabetes mellitus with neurologic complication, with long-term current use of insulin (Chronic) Charcot ankle (Chronic) Charc?t's arthritis due to secondary diabetes (Chronic) Charcot foot due to diabetes mellitus (Chronic) Diabetic foot ulcers (Chronic) Open wound of foot with complication (Chronic) Open wound of right ankle (Chronic) Open wound of left ankle with complication (Chronic) Acquired equinus deformity of both feet (Chronic) Healed ulcer of left foot on examination (Chronic) Diabetes mellitus with polyneuropathy (Chronic) Malnutrition (Chronic) Charcot's joint, left ankle and foot (Chronic) Medical History: Medical History (Last Reviewed 12/25/19 @ 15:[address] Cem Nj, DO) Presence of stent in coronary artery (Chronic) Onset Date: ~02/2016 Z95.5 PCI w/ KIRILL to distal RCA, ostial PDA, and mid RCA 0516; previous PTCA w/stent to mid main CX 09/24 Atherosclerotic heart disease of [place] coronary artery without angina pectoris (Chronic) I25.10 PCI w/ KIRILL to distal RCA, ostial PDA, and mid RCA 0516; previous PTCA w/stent to mid main CX 09/24 Essential hypertension (Chronic) I10 Ulcer of right lower extremity with fat layer exposed (Resolved) L97.912 Other chcf (current) drug therapy (Chronic) Z79.899 Ulcer of left lower extremity with fat layer exposed (Resolved) L97.922 Sleep disorder (Chronic) G47.9 Depressive disorder (Chronic) F32.9 Alcohol abuse (Chronic) F10.10 Malnutrition (Chronic) E46 Chronic ulcer of left foot with fat layer exposed (Chronic) L97.522 Venous insufficiency of both lower extremities (Chronic) I87.2 Peripheral vascular disease (Suspected) I73.9 Onycholysis (Resolved) L60.1 Ulcer of right foot with fat layer exposed (Chronic) L97.512 Elevated liver function tests (Acute) R79.89 Ischemic cardiomyopathy (Chronic) I25.5 Angina pectoris (Chronic) I20.9 Chest pain (Acute) R07.9 Hyperlipidemia (Chronic) E78.5 Chronic ulcer of right ankle with fat layer exposed (Acute) L97.312 Diabetes 1.5, managed as type 2 (Chronic) E13.9 Edema extremities (Chronic) R60.0 Diabetes mellitus (Chronic) E11.9 Diabetes mellitus with circulatory complication (Chronic) E11.59 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) E11.610 Diabetes mellitus with neurologic complication, with long-term current use of insulin (Chronic) E11.49, Z79.4 Charcot ankle (Chronic) M14.679 Charc?t's arthritis due to secondary diabetes (Chronic) E13.610 Charcot foot due to diabetes mellitus (Chronic) E11.610 Diabetic foot ulcers (Chronic) E11.621, L97.509 Open wound of foot with complication (Chronic) S91.309A Open wound of right ankle (Chronic) S91.001A Open wound of left ankle with complication (Chronic) S91.002A Diabetic ulcer of right foot (Acute) E11.621, L97.519 Diabetic ulcer of left foot (Acute) E11.621, L97.529 Ulcer of right ankle (Acute) L97.319 Acquired equinus deformity of both feet (Chronic) M21.6X1, M21.6X2 Healed ulcer of left foot on examination (Chronic) L97.529 Chronic ulcer of left foot with fat layer exposed (Resolved) L97.522 Diabetes mellitus with polyneuropathy (Chronic) E11.42 Malnutrition (Chronic) E46 Charcot's joint, left ankle and foot (Chronic) M14.672 Allergies lisinopril Adverse Reaction (Verified 01/01/20 15:56) Cough pet dander Allergy (Intermediate, Uncoded 01/01/20 15:56) runny nose, sneezing Home Medications: Ambulatory Orders Medication Instructions Recorded aspirin 81 mg tablet,delayed 81 mg PO DAILY 10/12/17 release ascorbic acid (vitamin C) 500 mg 500 mg PO BID 03/23/18 tablet nitroglycerin 0.4 mg sublingual 0.4 mg SUBLINGUAL Q5M PRN #25 tab 07/19/18 tablet atenolol 50 mg tablet 50 mg PO DAILY #90 tab 08/07/19 losartan 100 mg tablet 100 mg PO DAILY #90 tab 08/07/19 betamethasone dipropionate 0.05 % 1 applic TOPICAL BID #45 g 09/12/19 topical cream Amlodipine Besylate 5 mg PO DAILY 01/01/20 Amoxicillin/Potassium Clav 1 tab PO BID 01/01/20 [Augmentin 875-125 Tablet] Ciprofloxacin [Cipro] 500 mg PO BID 01/01/20 Hydrochlorothiazide [Hctz] 25 mg PO DAILY 01/01/20 Metformin HCl 1,000 mg PO DAILY 01/01/20 glipiZIDE XL [Glucotrol Xl] 5 mg PO DAILY 01/01/20 Surgical History: Surgical History (Last Reviewed 12/25/19 @ 15:[address] eCm Nj, DO) S/P PTCA (percutaneous transluminal coronary angioplasty) Onset Date: ~02/2016 Z98.61 PCI w/ KIRILL to distal RCA, ostial PDA, and mid RCA 03/07; previous PTCA w/stent to mid main CX 09/24 History of amputation of toe Z89.429 Rt middle toe Hx of cholecystectomy Z90.49 Hx of oral surgery Z98.890 Surgical History: angioplasty, cholecystectomy, - - PCI x3, bilateral foot surgeries, cholecystectomy. Psychiatric History: Anxiety, Depression Lives: Alone Smoking Status: Former smoker - Quit cigarette tobacco usage in 2002 with prior to this approximately 20-year history of 1 to 1.5 pack/day usage. Tobacco Use: Non-smoker Alcohol: Heavy - Patient notes a 4 to 5, 12 ounce beers daily. Drugs: None - *Family History Paternal Family History: Family History (Last Reviewed 12/25/19 @ 15:[address] Cem Nj DO) Mother Heart disease Father Heart disease History Items: High Cholesterol, Heart Disease - CHF, Hypertension Maternal Family History: Family History (Last Reviewed 12/25/19 @ 15:[address] Cem Nj DO) Mother Heart disease Father Heart disease History Items: High Cholesterol, Heart Disease - CHF, Hypertension Review of Systems Constitutional: Reports: Anorexia, Malaise, Weakness, Fatigue. Denies: Chills, Fever, Weight Change HEENT: Denies: Head Aches, Sinus Congestion, Sinus Drainage Cardiovascular: Denies: Chest Pain, Palpitations Respiratory: Denies: Cough, Shortness of breath at rest, Sputum production Gastrointestinal: Reports: Diarrhea, Nausea, Vomiting. Denies: Abdominal Pain Genitourinary: Denies: Dysuria Musculoskeletal: Reports: Joint Pain. Denies: Joint Tenderness Skin: Reports: Skin Changes, Wounds. Denies: Rash Neurological: Denies: Numbness, Tingling, Focal weakness Psychiatric: Reports: Anxiety, Depression. Denies: Homicidal Ideations, Suicidal Ideations Hematologic/ Lymphatic: Reports: Anemia, Easy Bruising, Easy Bleeding VTE Information - Inpt Only VTE Present on Admission: No VTE Mechan Device Prophylaxis: SCD's VTE Pharm Prophylaxis ordered?: Yes Patient Problems: Active and Suspected Problems (Last Reviewed 12/25/19 @ 15:[address] Cem Nj DO) Infection of left foot (Acute) differential diagnosis Hyponatremia (Acute) Subjective: Patient seated upright in the bed, fatigued appearance but notes since ED administration of IV fluids feeling somewhat improved. Objective: Physical Examination: General: awake, alert, oriented x 3 and cooperative, seated upright in bed in no apparent distress however fatigued appearance. Skin: normal color, turgor, no icterus, cyanosis except for noted left lower extremity with distal edema, not markedly pitting, ulcer with no market purulent material with fibrous base, decreased erythema from prior but ongoing. HEENT: AT/NC, EOMI, PERRLA, dry MM, no carotid bruits or JVD noted. Lungs: CTA bilaterally, moderate effort, moderate decrease BL bases, no rales, ronchi or wheezing. Heart: Regular rate and rhythm; no gallop, rub audible. Abdomen: soft, obese, NTTP, ND, hyperactive BS, positive HM. Extremities: no cyanosis, clubbing, see skin, left lower extremity distal murphy to foot edema, not markedly pitting. Neurological: patient awake, alert, oriented x 3; cognitive function despite significant hyponatremia baseline intact; pupils equally reactive to light and accomodation; cranial nerves II-XII grossly normal, moving all 4 extremities, no focal deficits, strength moderately global decrease secondary to acute complaints. Psychiatric: affect appears fatigued, no acute evidence of depressive or anxiety feelings. - Physical Exam Vitals/I&O's: Vital Signs Temp Pulse Resp BP Pulse Ox 97.5 F L 66 13 123/80 H 100 01/01/20 17:00 01/01/20 18:15 01/01/20 17:00 01/01/20 18:15 01/01/20 18:15 Oxygen Delivery Method Room Air Weight: 255 lb Body Mass Index (BMI) 35.5 Intake and Output for Last 24 Hours 12/30/19 12/31/19 01/01/20 23:59 23:59 23:59 Intake Total 1000 / 1000 Balance 1000 / 1000 Microbiology Past 72 Hours 01/01/20 17:11 Mucosa - Nose Influenza Types A,B Direct FA (PAN) - Final Laboratory Results 01/01/20 17:00: WBC 7.6, RBC 4.05 L, Hgb 12.5 L, Hct 35.0 L, MCV 86.4, MCH 30.9, MCHC 35.7, RDW Std Deviation 38.1, RDW Coeff of [place]ita 12.0, Plt Count 259, MPV 9.9, Immature Gran % (Auto) 1.200 H, Neut % (Auto) 80.9 H, Lymph % (Auto) 10.3 L, [place] % (Auto) 5.9, Eos % (Auto) 0.8, Baso % (Auto) 0.9, Absolute Neuts (auto) 6.1, Absolute Lymphs (auto) 0.78 L, Nucleated RBC % 0, ESR 46 H 01/01/20 17:00: Sodium 115 L*, Potassium 3.8, Chloride 77 L, Carbon Dioxide 26.0, Anion Gap 12, BUN 8, Creatinine 0.91, Estim Creat Clear Calc 93.09, Est GFR (MDRD) Af Amer 110, Est GFR (MDRD) Non-Af 91, BUN/Creatinine Ratio 8.8 L, Glucose 153 H, Calcium 8.8, Total Bilirubin 0.80, Direct Bilirubin 0.29, AST 27, ALT 25, Alkaline Phosphatase 147 H, Troponin I < 0.015, C-React Prot Ext Range 23.90 H, Total Protein 7.3, Albumin 3.2, Globulin 4.1 01/01/20 17:00: Lactic Acid 1.4 01/01/20 17:33: Urine Color Yellow, Urine Clarity Sl. Cloudy, Urine pH 5.0, Ur Specific [place] 1.020, Urine Protein 30 H, Urine Glucose (UA) Normal, Urine Ketones 50 H, Urine Occult Blood 25 H, Urine Nitrite Negative, Urine Bilirubin Negative, Urine Urobilinogen 1 H, Ur Leukocyte Esterase 25 H, Urine RBC 0 SEEN, Urine WBC 0 SEEN, Ur Squamous Epith Cells 0 SEEN, Urine Bacteria 0 SEEN, Hyaline Casts 10-25 SEEN, Urine Mucus 0 SEEN Current Medications Sodium Chloride () 1,000 mls @ 150 mls/hr IV .Q6H40M KEVIN Last Admin: 01/01/20 17:08 Dose: 150 mls/hr Documented by: Assessment/Plan All Active Problems (Last Reviewed 12/25/19 @ 15:[address] Cem Nj, DO) Infection of left foot (Acute) Hyponatremia (Acute) Ulcer of right lower extremity with fat layer exposed (Resolved) Ulcer of left lower extremity with fat layer exposed (Resolved) Onycholysis (Resolved) Elevated liver function tests (Acute) Chest pain (Acute) Chronic ulcer of right ankle with fat layer exposed (Acute) Diabetic ulcer of right foot (Acute) Diabetic ulcer of left foot (Acute) Ulcer of right ankle (Acute) Chronic ulcer of left foot with fat layer exposed (Resolved) Myocardial infarction (Resolved) The patient is a 59 y/o M w/ PMHx: Chronic Hyponatremia, HTN, HLD, CAD s/p PCI x 4, Diabetes mellitus type II, Ischemic cardiomyopathy, PVD, Depression and Anxiety, Hx Charcot foot following w/ Dr. Alvarez, EtOH Abuse, Chronic L foot wound following with wound care who presents to the [facility] ED on 01/01/20 with history of ongoing treatment for L foot diabetic wound with [facility] evaluation on day of presentation, started on cipro and augmentin the day prior; however, noted to be feeling so poorly that he was referred to the ED for evaluation with ongoing history of mild nausea, occasional dry heaves, intermittent rare loose stool with poor appetite with no specific fevers or chills prompting evaluation. 1. Acute L Foot Diabetic Wound Infection: Will admit to PCU given concurrent findings, maintain on IV vanc and zosyn, will obtain Wound Cx, will obtain Wound MRSA PCR, continue podiatry consultation, pending plain film of the L foot per Podiatry request, plan repeat CBC in AM, continue affected extremity elevation above heart when seated and in bed, monitor erythema outline with VS checks. Respiratory panel requested as well as stool culture and C. difficile given vague generalized complaints and loose stools concurrently. 2. Acute on Chronic Hyponatremia: Likely secondary to oral intake as well as chronic component with alcohol abuse, admission sodium 115, baseline appears 120s to 133, will gently hydrate, to be cautious will obtain FeNa, TSH, UOsm also and continue to serially obtain BMP to avoid too aggressive correction. 3. EtOH Abuse: Patient notes routine consumption of 4-5 12 ounce beers per day but does note he has gone days at a time without having any beer and has not not had any withdrawal symptoms. Will maintain on CIWA protocol, MVI, thiamine and folic acid. Magnesium and phosphorus levels requested. Case management consulted. 4. CAD: PTCA/stent LCx 2002 and PTCA/KIRILL to mid and distal RCA, ostial PDA in February 2016, continue aspirin, beta-shalini, losartan, from current list not on statin therapy but clarifying. 5. Ischemic cardiomyopathy: We will continue patient aspirin, beta-shalini, losartan, from current list not on statin therapy but clarifying, holding hydrochlorothiazide given patient severe hyponatremia. 05/04/19 ECHO w/ segmental dysfunction with preserved EF, EF 65%, mild enlarged LA, trivial MVI, trivial TBI, RVSP 35 mmHg, diastolic function indeterminate. 6. Hypertension: Continue home regimen including Norvasc, atenolol, losartan, PRN hydralazine. Hydrochlorothiazide given severity of hyponatremia. 7. Hyperlipidemia: Not currently listed on statin, awaiting med rec, continue if present. 8. Diabetes mellitus type II: Hold oral home regimen, ADA diet, accu checks w/ ISS. 9. Depression and anxiety: Not on regimen per current list, defer to outpatient. 10. DVT Prophylaxis: SCDs, lovenox. 11. CODE status: Patient HCPOA is his niece Shoshana Portillo and living will is currently in place. Discussed CODE status at length including difference between FULL code, DNR-CCA and DNR-CC status. Following discussions about the differences in these status, requested Full Code status. Advanced Care Planning Face to Face Time: 16 minutes. Inpatient E&M: 52261 Init Hosp L3 Procedures: 86276 Advncd Care Plan 30 Min
--- NOTE | 2020-01-01 20:02 | RAD_ITS ---
STUDY: X-RAY - LEFT FOOT CLINICAL: Male, 59 years old. LEFT FOOT INFECTION TECHNIQUE: 3 view(s) of the foot. COMPARISON: December 27, 2019 FINDINGS: Normal talus, calcaneus, and tarsal bones. Plantar heel spur. Degenerative changes again noted in the midfoot. Periosteal reaction second third and fourth metatarsals. Normal metatarsophalangeal joint of the great toe. Normal tibial and fibular sesamoid bones. Normal interphalangeal joint of the great toe. Normal phalanges of the great toe. Normal second through fifth metatarsophalangeal joints. Normal interphalangeal joints and phalanges of the lesser toes. Increasing soft tissue swelling of the forefoot. No subcutaneous gas noted. RAD/Foot min 3 Views IMPRESSION: Increasing soft tissue swelling. 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 Triple phase bone scan or MRI with contrast would be more sensitive for infection. Electronically Signed: Juan Garner MD at 20:25 EDT , Service support ,
[2020-01-01 21:08] LABS: Amphetamine Urine VISTA NEGATIVE (<1000 ng/mL); Barbiturate Urine VISTA NEGATIVE (< 200 ng/mL); Benzodiazepine Urine VISTA NEGATIVE (< 200 ng/mL); Cocaine Urine VISTA NEGATIVE (< 300 ng/mL); Ecstacy Urine VISTA NEGATIVE (< 500 ng/mL); Methadone Urine VISTA NEGATIVE (< 300 ng/mL); PCP Urine VISTA NEGATIVE (< 25 ng/mL); THC Urine VISTA POSITIVE (< 50 ng/mL); Vista UDS pH Range 7
--- NOTE | 2020-01-01 21:29 | ED.RN ---
pt temp was not taken before pt taken to floor by TILE DESIGNER.
[2020-01-01 21:54] LABS: Hemoglobin A1c 6.2 % (4.2-6.3)
[2020-01-01] MEDS: 0.9% Normal Saline 1,000 ML 125 ML IV (22:08)
[2020-01-01 22:10] LABS: BUN 7 mg/dL (7-18); Glucose 153 mg/dL (74-106)
[2020-01-01] MEDS: Famotidine 20 MG Tablet PO (22:10)
[2020-01-01] MEDS: Ascorbic Acid 500 MG Tablet PO (22:10)
[2020-01-01 22:11] LABS: Anion Gap 8 (5-15); BUN/Creat Ratio 8.8 RATIO (10-20); Calcium,Total 8.4 mg/dL (8.5-10.1); Chloride 84 mmol/L (98-107); EST Glomerular Filtration Rate 105 mL/min (>60); Est Glom Filt Rate - Afr Amer 127 mL/min (>60); Estimated Creatinine Clearance 105.89 ml/min; Magnesium 1.5 mg/dL (1.6-2.6); Phosphorus 2.3 mg/dL (2.5-4.9); Sodium Level 120 mmol/L (136-145); T4 Free Direct 1.02 ng/dL (0.76-1.46); Thyroid Stim Hormone (TSH) 1.88 uIU/mL (0.358-3.74)
[2020-01-01 22:30] LABS: Bedside Glucose 142 mg/dL (70-110)
[2020-01-02] VITALS (10 sets, daily range): BP systolic 103–157; BP diastolic 65–89; PULSE 69–84; RESP 16–18; TEMP 36.4–37.1; O2SAT 95–99
[2020-01-02 00:33] LABS: Urine Sodium 20 mmol/L (Not Establ.)
[2020-01-02 02:04] LABS: Anion Gap 9 (5-15); BUN 7 mg/dL (7-18); BUN/Creat Ratio 9.2 RATIO (10-20); Calcium,Total 8.5 mg/dL (8.5-10.1); Chloride 87 mmol/L (98-107); Creatinine, Serum 0.76 mg/dL (0.70-1.30); EST Glomerular Filtration Rate 112 mL/min (>60); Est Glom Filt Rate - Afr Amer 135 mL/min (>60); Estimated Creatinine Clearance 111.46 ml/min; Glucose 125 mg/dL (74-106); Potassium 3.9 mmol/L (3.5-5.1); Sodium Level 122 mmol/L (136-145)
[2020-01-02 02:10] LABS: Osmolality, Urine 93 mOsm/KG
--- NOTE | 2020-01-02 02:18 | PCM.RX.CS ---
Consult Pharmacy has been consulted to manage selected antiobiotic: Vancomycin Type of Consult: New start Labs: Sodium 122 mmol/L (136-145) L 01/02/20 01:00 Potassium 3.9 mmol/L (3.5-5.1) 01/02/20 01:00 Chloride 87 mmol/L (98-107) L 01/02/20 01:00 Carbon Dioxide 26.0 mmol/L (21.0-32.0) 01/02/20 01:00 Anion Gap 9 (5-15) 01/02/20 01:00 BUN 7 mg/dL (7-18) 01/02/20 01:00 Creatinine 0.76 mg/dL (0.70-1.30) 01/02/20 01:00 Est GFR (MDRD) Af Amer 135 mL/min (>60) 01/02/20 01:00 Est GFR (MDRD) Non-Af 112 mL/min (>60) 01/02/20 01:00 BUN/Creatinine Ratio 9.2 RATIO (10-20) L 01/02/20 01:00 Glucose 125 mg/dL (74-106) H 01/02/20 01:00 Microbiology: Microbiology 01/01/20 17:11 Mucosa - Nose Influenza Types A,B Direct FA (PAN) - Final Weight used for dosin kg Estimated Creatinine Clearance: 112.23 Goal Trough: 15-20 mcg/mL Pharmacy Plan for Drug Dosing: Pharmacy Service will continue to monitor and adjust dosing as required. Medications Vancomycin HCl 1,500 mg/ (Sodium Chloride) 530 mls @ 250 mls/hr IV Q8H KEVIN Discontinued Medications Vancomycin HCl 2,000 mg/ (Sodium Chloride) 540 mls @ 250 mls/hr IV X1 ONE Stop: 01/01/20 23:39 Last Admin: 01/01/20 22:48 Dose: 250 mls/hr Documented by: Follow-Up Labs: Trough Vancomycin Labs to be done on [date and time ordered]: 01/01 @ 2418
[2020-01-02 04:57] LABS: Absolute Lymphocyte Count 0.89 X10^3/uL (0.83-4.51); Absolute Neutrophil Count 4.5 X10^3/uL (2.0-7.7); Basophil# 0.08 X10^3/uL; Basophil% 1.3 % (0-1); Eosinophil# 0.08 X10^3/uL; Eosinophils% 1.3 % (0-5); Hematocrit 32.5 % (40-54); Hemoglobin 11.6 g/dL (13.0-16.5); Lymphocyte # 0.89 X10^3/ul (4.0); Lymphocyte % 14.4 % (19-41); Mean Corp Hgb Conc 35.7 g/dL (32-36); Mean Corpuscular Hgb 31.1 pg (27.0-32.0); Mean Corpuscular Volume 87.1 fL (80-94); Mean Platelet Vol. 10.1 fl (6.2-12.0); Monocyte# 0.54 X10^3/uL; Monocyte% 8.7 % (0-10); NRBC Flagged by Analyzer 0 % (0-5); Neutrophil # 4.54 X10^3/uL (2.7-7.7); Neutrophil % 73.3 % (47-70); Platelet Count 246 K/mm3 (150-450); Red Blood Count 3.73 M/mm3 (4.6-6.2); White Blood Count 6.2 K/mm3 (4.4-11.0)
[2020-01-02 05:35] LABS: Anion Gap 10 (5-15); BUN 7 mg/dL (7-18); BUN/Creat Ratio 8.6 RATIO (10-20); Calcium,Total 8.2 mg/dL (8.5-10.1); Chloride 87 mmol/L (98-107); Creatinine, Serum 0.82 mg/dL (0.70-1.30); EST Glomerular Filtration Rate 103 mL/min (>60); Est Glom Filt Rate - Afr Amer 124 mL/min (>60); Estimated Creatinine Clearance 103.31 ml/min; Glucose 152 mg/dL (74-106); Potassium 3.8 mmol/L (3.5-5.1); Sodium Level 122 mmol/L (136-145)
[2020-01-02 07:01] LABS: Bedside Glucose 142 mg/dL (70-110)
--- NOTE | 2020-01-02 07:53 | CON.PCM_ITS ---
Reason for Consult Date of Consultation: 01/02/20 Reason for Consultation: Left foot ulcer History of Present Illness: The patient is a 59 year old gentleman was seen today for left foot ulceration. 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 Alvarez yesterday at wound center. Wound was debrided. There is some surrounding cellulitis to the ulcer site, culture pending. Patient relates he has knee walker, crutches and a wheelchair at home to stay off of the foot. He also relates he has a [place] boot, but has trouble with the fit so he does not wear it much. He relates he would like to go home today. He has no other complaints at this time. Past Medical History Past Medical History (Chronic Problems): Chronic Problems (Last Reviewed 12/25/19 @ 15:[address] Cem Nj, DO) Localized edema (Chronic) Former tobacco use (Chronic) Eczema of lower extremity (Chronic) Presence of stent in coronary artery (Chronic ~02/2016) PCI w/ KIRILL to distal RCA, ostial PDA, and mid RCA 03/07; previous PTCA w/stent to mid main CX 09/24 Atherosclerotic heart disease of [place] coronary artery without angina pectoris (Chronic) PCI w/ KIRILL to distal RCA, ostial PDA, and mid RCA 03/07; previous PTCA w/stent to mid main CX 09/24 Essential hypertension (Chronic) Hammertoe of right foot (Chronic) Diabetic ulcer of left lower leg (Chronic) s/p 2nd degree burn with fat layer exposed Diabetic ulcer of left lower leg with fat layer exposed (Chronic) Other detention (current) drug therapy (Chronic) Sleep disorder (Chronic) Depressive disorder (Chronic) Alcohol abuse (Chronic) Malnutrition (Chronic) Chronic ulcer of left foot with fat layer exposed (Chronic) Venous insufficiency of both lower extremities (Chronic) Ulcer of right foot with fat layer exposed (Chronic) Ischemic cardiomyopathy (Chronic) Angina pectoris (Chronic) Hyperlipidemia (Chronic) Diabetes 1.5, managed as type 2 (Chronic) Edema extremities (Chronic) Diabetes mellitus (Chronic) Diabetes mellitus with circulatory complication (Chronic) 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) Diabetes mellitus with neurologic complication, with long-term current use of insulin (Chronic) Charcot ankle (Chronic) Charc?t's arthritis due to secondary diabetes (Chronic) Charcot foot due to diabetes mellitus (Chronic) Diabetic foot ulcers (Chronic) Open wound of foot with complication (Chronic) Open wound of right ankle (Chronic) Open wound of left ankle with complication (Chronic) Acquired equinus deformity of both feet (Chronic) Healed ulcer of left foot on examination (Chronic) Diabetes mellitus with polyneuropathy (Chronic) Malnutrition (Chronic) Charcot's joint, left ankle and foot (Chronic) Medical History: Medical History (Last Reviewed 12/25/19 @ 15:[address] Cem Nj, DO) Presence of stent in coronary artery (Chronic) Onset Date: ~02/2016 Z95.5 PCI w/ KIRILL to distal RCA, ostial PDA, and mid RCA 16; previous PTCA w/stent to mid main CX 09/24 Atherosclerotic heart disease of [place] coronary artery without angina pectoris (Chronic) I25.10 PCI w/ KIRILL to distal RCA, ostial PDA, and mid RCA /16; previous PTCA w/stent to mid main CX 09/24 Essential hypertension (Chronic) I10 Ulcer of right lower extremity with fat layer exposed (Resolved) L97.912 Other detention (current) drug therapy (Chronic) Z79.899 Ulcer of left lower extremity with fat layer exposed (Resolved) L97.922 Sleep disorder (Chronic) G47.9 Depressive disorder (Chronic) F32.9 Alcohol abuse (Chronic) F10.10 Malnutrition (Chronic) E46 Chronic ulcer of left foot with fat layer exposed (Chronic) L97.522 Venous insufficiency of both lower extremities (Chronic) I87.2 Peripheral vascular disease (Suspected) I73.9 Onycholysis (Resolved) L60.1 Ulcer of right foot with fat layer exposed (Chronic) L97.512 Elevated liver function tests (Acute) R79.89 Ischemic cardiomyopathy (Chronic) I25.5 Angina pectoris (Chronic) I20.9 Chest pain (Acute) R07.9 Hyperlipidemia (Chronic) E78.5 Chronic ulcer of right ankle with fat layer exposed (Acute) L97.312 Diabetes 1.5, managed as type 2 (Chronic) E13.9 Edema extremities (Chronic) R60.0 Diabetes mellitus (Chronic) E11.9 Diabetes mellitus with circulatory complication (Chronic) E11.59 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) E11.610 Diabetes mellitus with neurologic complication, with long-term current use of insulin (Chronic) E11.49, Z79.4 Charcot ankle (Chronic) M14.679 Charc?t's arthritis due to secondary diabetes (Chronic) E13.610 Charcot foot due to diabetes mellitus (Chronic) E11.610 Diabetic foot ulcers (Chronic) E11.621, L97.509 Open wound of foot with complication (Chronic) S91.309A Open wound of right ankle (Chronic) S91.001A Open wound of left ankle with complication (Chronic) S91.002A Diabetic ulcer of right foot (Acute) E11.621, L97.519 Diabetic ulcer of left foot (Acute) E11.621, L97.529 Ulcer of right ankle (Acute) L97.319 Acquired equinus deformity of both feet (Chronic) M21.6X1, M21.6X2 Healed ulcer of left foot on examination (Chronic) L97.529 Chronic ulcer of left foot with fat layer exposed (Resolved) L97.522 Diabetes mellitus with polyneuropathy (Chronic) E11.42 Malnutrition (Chronic) E46 Charcot's joint, left ankle and foot (Chronic) M14.672 Allergies lisinopril Adverse Reaction (Verified 01/01/20 15:56) Cough pet dander Allergy (Intermediate, Uncoded 01/01/20 15:56) runny nose, sneezing Home Medications: Ambulatory Orders Medication Instructions Recorded aspirin 81 mg tablet,delayed 81 mg PO DAILY 10/12/17 release ascorbic acid (vitamin C) 500 mg 500 mg PO BID 03/23/18 tablet nitroglycerin 0.4 mg sublingual 0.4 mg SUBLINGUAL Q5M PRN #25 tab 07/19/18 tablet atenolol 50 mg tablet 50 mg PO DAILY #90 tab 08/07/19 losartan 100 mg tablet 100 mg PO DAILY #90 tab 08/07/19 betamethasone dipropionate 0.05 % 1 applic TOPICAL BID #45 g 09/12/19 topical cream Amlodipine Besylate 5 mg PO DAILY 01/01/20 Amoxicillin/Potassium Clav 1 tab PO BID 01/01/20 [Augmentin 875-125 Tablet] Ciprofloxacin [Cipro] 500 mg PO BID 01/01/20 Hydrochlorothiazide [Hctz] 25 mg PO DAILY 01/01/20 Metformin HCl 1,000 mg PO DAILY 01/01/20 glipiZIDE XL [Glucotrol Xl] 5 mg PO DAILY 01/01/20 Surgical History: Surgical History (Last Reviewed 12/25/19 @ 15:[address] Cme Nj DO) S/P PTCA (percutaneous transluminal coronary angioplasty) Onset Date: ~02/2016 Z98.61 PCI w/ KIRILL to distal RCA, ostial PDA, and mid RCA 03/07; previous PTCA w/stent to mid main CX 09/24 History of amputation of toe Z89.429 Rt middle toe Hx of cholecystectomy Z90.49 Hx of oral surgery Z98.890 Surgical History: angioplasty, cholecystectomy, - - PCI x3, bilateral foot surgeries, cholecystectomy. Psychiatric History: Anxiety, Depression Lives: Alone Smoking Status: Former smoker - Quit cigarette tobacco usage in 2002 with prior to this approximately 20-year history of 1 to 1.5 pack/day usage. Tobacco Use: Non-smoker Alcohol: Heavy - Patient notes a 4 to 5, 12 ounce beers daily. Drugs: None - *Family History Paternal Family History: Family History (Last Reviewed 12/25/19 @ 15:[address] Cem Nj DO) Mother Heart disease Father Heart disease History Items: High Cholesterol, Heart Disease - CHF, Hypertension Maternal Family History: Family History (Last Reviewed 12/25/19 @ 15:[address] Cem Nj DO) Mother Heart disease Father Heart disease History Items: High Cholesterol, Heart Disease - CHF, Hypertension Review of Systems Constitutional: Denies: Chills, Fever Gastrointestinal: Denies: Nausea, Vomiting Skin: Reports: Wounds Patient Problems: Active and Suspected Problems (Last Reviewed 12/25/19 @ 15:[address] Cem Nj DO) Infection of left foot (Acute) differential diagnosis Hyponatremia (Acute) - Physical Exam Vitals/I&O's: Vital Signs Temp Pulse Resp BP Pulse Ox 98.4 F 74 16 123/89 H 98 01/02/20 02:25 01/02/20 02:40 01/02/20 02:25 01/02/20 02:25 01/02/20 02:25 Oxygen Delivery Method Room Air Weight: 114.1 kg Body Mass Index (BMI) 35.1 Intake and Output for Last 24 Hours 12/31/19 01/01/20 01/02/20 23:59 23:59 23:59 Intake Total 3004.17 / 3004.17 590 / 590 Output Total 1000 / 1000 Balance 3004.17 / 2404.17 -410 / -410 General: Alert, Oriented x3, Cooperative, No apparent distress Extremities: No cyanosis, Capillary Refill Less than 3 Seconds, No Calf Tenderness, Peripheral Pulses Normal, - - Ulceration x 2 to the plantar left foot down to subcutaneous tissue, no probe to bone or joint, or to deeper tissue, base granular and margins viable, there is no necrosis, no maloder, no fluctuance, no visible abscess, no crepitus, no purulence at this time; there is some mild erythema to the area. There is chronic charcot deformity to the left foot, no gross instability at this time. No POP or pain on ROM to the foot / ankle bilateral. No open lesions to the right foot, there is a dry callus to the plantar right arch, but no open lesions or evidence of infection to the right foot or ankle. There is a rash to the lateral right leg which he relates is from his psoriasis. Musculoskeletal: No Tenderness to Palpation of Joints or Extremities - to the foot/ankle bilateral. Psych/Mental Status: Appropriate, Alert and oriented to time, place, person, mood and affect Microbiology Past 72 Hours 01/02/20 01:26 Stool C. difficile DNA Amplification - Final 01/01/20 17:11 Mucosa - Nose Influenza Types A,B Direct FA (PAN) - Final Laboratory Results 01/01/20 17:00: WBC 7.6, RBC 4.05 L, Hgb 12.5 L, Hct 35.0 L, MCV 86.4, MCH 30.9, MCHC 35.7, RDW Std Deviation 38.1, RDW Coeff of Sherita 12.0, Plt Count 259, MPV 9.9, Immature Gran % (Auto) 1.200 H, Neut % (Auto) 80.9 H, Lymph % (Auto) 10.3 L , [place] % (Auto) 5.9, Eos % (Auto) 0.8, Baso % (Auto) 0.9, Absolute Neuts (auto) 6.1, Absolute Lymphs (auto) 0.78 L, Nucleated RBC % 0, ESR 46 H 01/01/20 17:00: Sodium 115 L*, Potassium 3.8, Chloride 77 L, Carbon Dioxide 26.0, Anion Gap 12, BUN 8, Creatinine 0.91, Estim Creat Clear Calc 93.09, Est GFR (MDRD) Af Amer 110, Est GFR (MDRD) Non-Af 91, BUN/Creatinine Ratio 8.8 L, Glucose 153 H, Calcium 8.8, Total Bilirubin 0.80, Direct Bilirubin 0.29, AST 27, ALT 25, Alkaline Phosphatase 147 H, Troponin I < 0.015, C-React Prot Ext Range 23.90 H, Total Protein 7.3, Albumin 3.2, Globulin 4.1 01/01/20 17:00: Lactic Acid 1.4 01/01/20 17:00: Hemoglobin A1c 6.2 01/01/20 17:33: Urine Color Yellow, Urine Clarity Sl. Cloudy, Urine pH 5.0, Ur Specific [place] 1.020, Urine Protein 30 H, Urine Glucose (UA) Normal, Urine Ketones 50 H, Urine Occult Blood 25 H, Urine Nitrite Negative, Urine Bilirubin Negative, Urine Urobilinogen 1 H, Ur Leukocyte Esterase 25 H, Urine RBC 0 SEEN, Urine WBC 0 SEEN, Ur Squamous Epith Cells 0 SEEN, Urine Bacteria 0 SEEN, Hyaline Casts 10-25 SEEN, Urine Mucus 0 SEEN 01/01/20 17:33: Urine Opiates Screen NEGATIVE, Urine Methadone Screen NEGATIVE, Ur Barbiturates Screen NEGATIVE, Ur Phencyclidine Scrn NEGATIVE, Ur Amphetamines Screen NEGATIVE, U Methamphetamin-MDMA NEGATIVE, U Benzodiazepines Scrn NEGATIVE, Urine Cocaine Screen NEGATIVE, U Cannabinoids Screen POSITIVE H, Ur Drug Screen Comment 01/01/20 21:26: Ethyl Alcohol 6.0 01/01/20 21:26: Sodium 120 L, Potassium 4.0, Chloride 84 L, Carbon Dioxide 28.0, Anion Gap 8, BUN 7, Creatinine 0.80, Estim Creat Clear Calc 105.89, Est GFR (MDRD) Af Amer 127, Est GFR (MDRD) Non-Af 105, BUN/Creatinine Ratio 8.8 L, Glucose 153 H, Calcium 8.4 L, Phosphorus 2.3 L, Magnesium 1.5 L, TSH 1.88, Free T4 1.02 01/01/20 22:21: POC Glucose 142 H 01/02/20 00:02: Urine Osmolality 93 01/02/20 00:02: Urine Creatinine 15.70 01/02/20 00:02: Ur Random Sodium 20 01/02/20 01:00: Sodium 122 L, Potassium 3.9, Chloride 87 L, Carbon Dioxide 26.0, Anion Gap 9, BUN 7, Creatinine 0.76, Estim Creat Clear Calc 111.46, Est GFR (MDRD) Af Amer 135, Est GFR (MDRD) Non-Af 112, BUN/Creatinine Ratio 9.2 L, Glucose 125 H, Calcium 8.5 01/02/20 04:40: Sodium 122 L, Potassium 3.8, Chloride 87 L, Carbon Dioxide 25.0, Anion Gap 10, BUN 7, Creatinine 0.82, Estim Creat Clear Calc 103.31, Est GFR (MDRD) Af Amer 124, Est GFR (MDRD) Non-Af 103, BUN/Creatinine Ratio 8.6 L, Glucose 152 H, Calcium 8.2 L 01/02/20 04:40: WBC 6.2, RBC 3.73 L, Hgb 11.6 L, Hct 32.5 L, MCV 87.1, MCH 31.1, MCHC 35.7, RDW Std Deviation 39.0, RDW Coeff of Sherita 12.0, Plt Count 246, MPV 10.1, Immature Gran % (Auto) 1.000 H, Neut % (Auto) 73.3 H, Lymph % (Auto) 14.4 L, [place] % (Auto) 8.7, Eos % (Auto) 1.3, Baso % (Auto) 1.3 H, Absolute Neuts (auto) 4.5, Absolute Lymphs (auto) 0.89, Nucleated RBC % 0 01/02/20 06:55: POC Glucose 142 H Current Medications Acetaminophen (Tylenol) 650 mg PO Q6H PRN PRN PRN Reason: Pain Score 1-10/Temp > 100.7 F Al Hydroxide/Mg Hydroxide (Mylanta Ii) 30 ml PO Q6H PRN PRN PRN Reason: Gastric Burning Albuterol Sulfate (Ventolin Aerosols) 2.5 mg INHALATION Q2H PRN PRN PRN Reason: SOB/Wheezing Amlodipine Besylate (Norvasc) 5 mg PO DAILY [facility] Ascorbic Acid (Vitamin C) 500 mg PO BID [facility] Last Admin: 01/01/20 22:10 Dose: 500 mg Documented by: Aspirin (Ecotrin) 81 mg PO DAILY [facility] Atenolol (Tenormin (Beta Yolanda)) 50 mg PO DAILY [facility] Betamethasone Valerate (Valisone 0.1% Cream ([facility])) 1 applic TOPICAL BID [facility] Enoxaparin Sodium (Lovenox) 40 mg SC DAILY [facility] Famotidine (Pepcid) 20 mg PO BID [facility] Last Admin: 01/01/20 22:10 Dose: 20 mg Documented by: Folic Acid (Folic Acid) 1 mg PO DAILY@0800 [facility] Stop: 01/04/20 08:01 Glucagon () 1 mg IM .X1 PRN PRN Reason: Hypoglycemia Guaifenesin (Robitussin) 20 ml PO Q4H PRN PRN PRN Reason: COUGH Hydralazine HCl (Apresoline Iv) 10 mg IV Q4H PRN PRN PRN Reason: SBP > 160 Sodium Chloride () 1,000 mls @ 125 mls/hr IV .Q8H [facility] Last Infusion: 01/02/20 02:10 Dose: 125 mls/hr Documented by: Piperacillin Sod/Tazobactam (Sod 3.375 gm/ Sodium Chloride) 50 mls @ 12.5 mls/hr IV Q8 [facility] Last Infusion: 01/02/20 02:10 Dose: Infused Documented by: Vancomycin IV Pharmacy to Dose (1 ea/ Sodium Chloride) 500 mls @ 250 mls/hr IV X1 PRN; Protocol PRN Reason: Rx to Dose Dextrose (Dextrose 10%-Water) 250 mls @ 999 mls/hr IV .Q16M PRN; Protocol PRN Reason: HYPOGLYCEMIA Vancomycin HCl 1,500 mg/ (Sodium Chloride) 530 mls @ 250 mls/hr IV Q8H [facility] Insulin Human Lispro (Humalog Kwikpen ([facility])) 0 unit SC ACHS [facility]; Protocol Last Admin: 01/02/20 06:58 Dose: Not Given Documented by: Lactobacillus Acidophilus (Acidophilus) 2 tablet PO TID [facility] Last Admin: 01/01/20 22:10 Dose: 2 tablet Documented by: Lorazepam (Ativan) 2 mg PO Q2H PRN PRN; Protocol PRN Reason: CIWA score > 8 but <15 Lorazepam (Ativan) 2 mg PO UD PRN; Protocol PRN Reason: CIWA score >/=15. Lorazepam (Ativan) 2 mg IV Q2H PRN PRN; Protocol PRN Reason: CIWA score > 8 but <15 Lorazepam (Ativan) 2 mg IV UD PRN; Protocol PRN Reason: CIWA score >/=15. Losartan Potassium (Cozaar) 100 mg PO DAILY [facility] Melatonin (Melatonin) 3 mg PO QHS PRN PRN PRN Reason: INSOMNIA Morphine Sulfate () 2 mg IV Q3H PRN PRN PRN Reason: Pain Score 6-10/10 Multivitamins/Minerals (Multivitamin With Minerals ([facility])) [facility] Nitroglycerin (Nitrostat) 0.4 mg SUBLINGUAL Q5M PRN PRN Reason: CARDIAC/CHEST PAIN Nutritional Formula (Lactose Free) (Glucerna Shake) 120 ml PO TIDCM [facility] Ondansetron HCl (Zofran) 4 mg IV Q8H PRN PRN PRN Reason: NAUSEA/VOMITING Oxycodone HCl (Oxyir) 5 mg PO Q4H PRN PRN PRN Reason: Pain Score 4-5/10 Prochlorperazine Edisylate (Compazine Iv) 5 mg IV Q4H PRN PRN PRN Reason: Breakthrough Nausea/Vomiting Sodium Chloride () 10 - 40 ml IV UD PRN PRN Reason: SALINE FLUSH Thiamine HCl (Vitamin B1) 100 mg PO BIDCM [facility] Stop: 01/04/20 17:01 Throat Lozenges (Cepacol Sore Throat Lozenge) 1 lozenge MUCOUS MEM Q2H PRN PRN PRN Reason: SORE THROAT Assessment/Plan All Active Problems (Last Reviewed 12/25/19 @ 15:[address] Cem Nj, DO) Infection of left foot (Acute) Hyponatremia (Acute) Ulcer of right lower extremity with fat layer exposed (Resolved) Ulcer of left lower extremity with fat layer exposed (Resolved) Onycholysis (Resolved) Elevated liver function tests (Acute) Chest pain (Acute) Chronic ulcer of right ankle with fat layer exposed (Acute) Diabetic ulcer of right foot (Acute) Diabetic ulcer of left foot (Acute) Ulcer of right ankle (Acute) Chronic ulcer of left foot with fat layer exposed (Resolved) Myocardial infarction (Resolved) Ulceration plantar left foot down to subcutaneous tissue layer w/ cellulitis Chronic Charcot Neuroarthropathy, left foot Alcoholism, Diabetes, w/ Peripheral Neuropathy Patient afebrile, WBC normal, left foot xrays reviewed - no gas, no acute osseous finding - there is chronic charcot neuroarthropathy. Culture from ulceration left foot has been obtained and now pending. Continue with board spectrum antibiotics, follow cultures. No urgent foot surgery needed at this time. Wound care left foot: Aquacel Ag with overlying gauze, kerlix and nicholas - change daily. No weightbearing left foot. Diabetes and management of other medical conditions per medicine team. Podiatry will continue to follow.
--- NOTE | 2020-01-02 08:12 | NURSING ---
wound photo: left foot
[2020-01-02] MEDS: Folic Acid 1 MG Tablet PO (08:54)
[2020-01-02] MEDS: Multivitamins,Ther W-Minerals Tablet 1 TABLET PO (08:54)
[2020-01-02] MEDS: Thiamine Hydrochloride 100 MG Tablet PO ×2 (08:54→17:47)
[2020-01-02] MEDS: Glucerna Shake 120 ML LIQUID PO ×2 (09:07→11:59)
[2020-01-02] MEDS: 0.9% Saline Lock 10 ML Syringe IV (09:07)
[2020-01-02] MEDS: amLODIPine 5 MG Tablet PO (09:24)
[2020-01-02] MEDS: Losartan Potassium 100 MG Tablet PO (09:24)
[2020-01-02] MEDS: Enoxaparin 40 MG/0.4 ML Syringe SC (09:24)
[2020-01-02] MEDS: Ascorbic Acid 500 MG Tablet PO ×2 (09:24→22:45)
[2020-01-02] MEDS: Atenolol 50 MG Tablet PO (09:24)
[2020-01-02] MEDS: Famotidine 20 MG Tablet PO ×2 (09:24→22:45)
[2020-01-02] MEDS: Aspirin E.C. 81 MG Tablet PO (09:24)
[2020-01-02 09:35] LABS: Anion Gap 9 (5-15); BUN 6 mg/dL (7-18); BUN/Creat Ratio 6.7 RATIO (10-20); Calcium,Total 8.7 mg/dL (8.5-10.1); Chloride 88 mmol/L (98-107); Creatinine, Serum 0.89 mg/dL (0.70-1.30); EST Glomerular Filtration Rate 93 mL/min (>60); Est Glom Filt Rate - Afr Amer 112 mL/min (>60); Estimated Creatinine Clearance 95.18 ml/min; Glucose 140 mg/dL (74-106); Potassium 4.1 mmol/L (3.5-5.1); Sodium Level 126 mmol/L (136-145)
[2020-01-02 11:02] LABS: M R Staph aureus DNA By PCR Negative (Negative); Probe Check PASS; Specimen Processing Control PASS; Staph aureus DNA By PCR NEGATIVE (Negative)
--- NOTE | 2020-01-02 11:25 | CASEMGMT ---
RN [employer] CM to room to meet with patient for initial transition planning/care coordination assessment. GERALD BEE introduced self and role at [facility]. Pt voices understanding and consents to assessment at this time. Pt sitting up in bed in no distress at this time. Pt is A/O at this time and answers all questions appropriately. Care providers, pharmacy, and demographics verified/updated at this time. PCP: Dr Cem Nj Specialists: Dr Almeida--cardiology. [facility]. Dr Alvarez-Podiatry Preferred Pharmacy: [facility] Insurance: MCR A B. No supplemental insurance. Prescription Benefit: none Living Will/HPOA: Pt states he thinks has completed paperwork for LW and Healthcare POA, and states if he has, it would be his niece, Shoshana Portillo. He states does not know where the paperwork is but it may be locked up in a lock box. He was made aware if he is unable to find paperwork or if he wants to do new/updated paperwork, that SW can assist with this while @ [facility] or as an out-pt. Given patient financial services specialist rac card. Pt states he does not wish to talk with SW at this time, that he wants to talk with Shoshana first to see if he may have the paperwork. LNOK: Niece, Shoshana Portillo--pt thinks she is his Healthcare POA. Sister, Belkis Robledo Living Arrangements: Lives alone in one story home w/2 steps to enter. is independent @ home w/ADL's and IADL's. Shoshana comes once a week to do cleaning. Transportation: Pt states drives self and states no transportation concerns at this time. Pt states his car is @ [facility] and he plans to drive himself home. DME: has the following DME: shower chair, Glucometer--states is working properly and he has all the needed supplies, has several canes, knee walker, and 2 W/C's. Does not have standard or wheeled walker. Pt states I've been getting around mostly with a W/C. States does not thinks he needs a walker, unless therapy would reocmmend it. Pt states no need for further DME at this time. [facility]. No history of HHC. Denies need for HHC and does not feel that he needs any OP therapy. Pt wishes to return home and states has no concerns with going home at time of discharge. Pt states I can't wait to go home. CM to follow for any discharge planning/needs. Pt voices no concerns/needs at this time. Advised pt to ask for CM if any further questions/concerns/needs arise. Voices understanding. PLAN: Home Follow for cost of meds @ d/c, as pt does not have prescription coverage PT/OT evals pending. Pt states does not feel like he needs any OP therapy and does not feel that he needs a walker, unless therapy recommends it. Leonid GUDINON RN CM
[2020-01-02] MEDS: Insulin Lispro 100 UNIT/ML INSULN.PEN SC ×3 (12:04→22:45)
[2020-01-02 12:41] LABS: Bedside Glucose 257 mg/dL (70-110)
--- NOTE | 2020-01-02 14:33 | PN_ITS ---
Patient Problems: Active and Suspected Problems (Last Reviewed 12/25/19 @ 15:[address] Cem Nj, DO) Infection of left foot (Acute) differential diagnosis Hyponatremia (Acute) Subjective: Patient seen and examined. He was admitted on account of malaise and fever after he went to see his hoop cutter for ongoing treatment of left foot diabetic wound infection. On admission, he was found to be hyponatremic with sodium of 115. He was started on IV fluid normal saline. Patient feels well today and was even asking about going home. He denies any nausea, vomiting, fever chills, abdominal pain. Review of systems otherwise negative. Vitals/I&O's: Vital Signs Temp Pulse Resp BP Pulse Ox 98.7 F 78 18 125/79 H 97 01/02/20 09:00 01/02/20 11:00 01/02/20 09:00 01/02/20 09:00 01/02/20 09:00 Oxygen Delivery Method Room Air Weight: 251 lb 8.759 oz Body Mass Index (BMI) 35.1 Intake and Output for Last 24 Hours 12/31/19 01/01/20 01/02/20 23:59 23:59 23:59 Intake Total 3004.17 / 3004.17 2525.83 / 2525.83 Output Total 1550 / 1550 Balance 3004.17 / 2404.17 975.83 / 975.83 General: Alert, Oriented x3, Cooperative, No apparent distress HEENT: Atraumatic, PERRLA, EOMI, Normocephalic Oral: Moist Mucosa Neck: Supple, No JVD, Negative Carotid Bruits Lungs: Clear to auscultation, Normal air movement, No rhonchi, No wheeze, No rales Cardiovascular: Regular rate, Regular Rhythm, Normal S1, Normal S2, No murmurs Abdomen: Bowel Sounds Present, Soft, Non Tender, Non-Distended, No Hepato- splenomegaly Extremities: No clubbing, No cyanosis, No edema, Capillary Refill Less than 3 Seconds Skin: - - left foot bandaged. Musculoskeletal: No Tenderness to Palpation of Joints or Extremities Lymphatic: No Cervical, Supraclavicular, or Inguinal Adenopathy Neurological: Cranial nerves II-XII grossly intact, Neuro grossly intact, Motor Exam 5/5 strength throughout Psych/Mental Status: Normal Affect, Appropriate, Alert and oriented to time, place, person, mood and affect Microbiology Past 72 Hours 01/02/20 01:26 Stool C. difficile DNA Amplification - Final 01/01/20 17:11 Mucosa - Nose Influenza Types A,B Direct FA (PAN) - Final Laboratory Results 01/01/20 17:00: WBC 7.6, RBC 4.05 L, Hgb 12.5 L, Hct 35.0 L, MCV 86.4, MCH 30.9, MCHC 35.7, RDW Std Deviation 38.1, RDW Coeff of Sherita 12.0, Plt Count 259, MPV 9.9, Immature Gran % (Auto) 1.200 H, Neut % (Auto) 80.9 H, Lymph % (Auto) 10.3 L , Lewis % (Auto) 5.9, Eos % (Auto) 0.8, Baso % (Auto) 0.9, Absolute Neuts (auto) 6.1, Absolute Lymphs (auto) 0.78 L, Nucleated RBC % 0, ESR 46 H 01/01/20 17:00: Sodium 115 L*, Potassium 3.8, Chloride 77 L, Carbon Dioxide 26.0, Anion Gap 12, BUN 8, Creatinine 0.91, Estim Creat Clear Calc 93.09, Est GFR (MDRD) Af Amer 110, Est GFR (MDRD) Non-Af 91, BUN/Creatinine Ratio 8.8 L, Glucose 153 H, Calcium 8.8, Total Bilirubin 0.80, Direct Bilirubin 0.29, AST 27, ALT 25, Alkaline Phosphatase 147 H, Troponin I < 0.015, C-React Prot Ext Range 23.90 H, Total Protein 7.3, Albumin 3.2, Globulin 4.1 01/01/20 17:00: Lactic Acid 1.4 01/01/20 17:00: Hemoglobin A1c 6.2 01/01/20 17:33: Urine Color Yellow, Urine Clarity Sl. Cloudy, Urine pH 5.0, Ur Specific [place] 1.020, Urine Protein 30 H, Urine Glucose (UA) Normal, Urine Ketones 50 H, Urine Occult Blood 25 H, Urine Nitrite Negative, Urine Bilirubin Negative, Urine Urobilinogen 1 H, Ur Leukocyte Esterase 25 H, Urine RBC 0 SEEN, Urine WBC 0 SEEN, Ur Squamous Epith Cells 0 SEEN, Urine Bacteria 0 SEEN, Hyaline Casts 10-25 SEEN, Urine Mucus 0 SEEN 01/01/20 17:33: Urine Opiates Screen NEGATIVE, Urine Methadone Screen NEGATIVE, Ur Barbiturates Screen NEGATIVE, Ur Phencyclidine Scrn NEGATIVE, Ur Amphetamines Screen NEGATIVE, U Methamphetamin-MDMA NEGATIVE, U Benzodiazepines Scrn NEGATIVE, Urine Cocaine Screen NEGATIVE, U Cannabinoids Screen POSITIVE H, Ur Drug Screen Comment 01/01/20 21:26: Ethyl Alcohol 6.0 01/01/20 21:26: Sodium 120 L, Potassium 4.0, Chloride 84 L, Carbon Dioxide 28.0, Anion Gap 8, BUN 7, Creatinine 0.80, Estim Creat Clear Calc 105.89, Est GFR (MDRD) Af Amer 127, Est GFR (MDRD) Non-Af 105, BUN/Creatinine Ratio 8.8 L, Glucose 153 H, Calcium 8.4 L, Phosphorus 2.3 L, Magnesium 1.5 L, TSH 1.88, Free T4 1.02 01/01/20 22:21: POC Glucose 142 H 01/02/20 00:02: Urine Osmolality 93 01/02/20 00:02: Urine Creatinine 15.70 01/02/20 00:02: Ur Random Sodium 20 01/02/20 01:00: Sodium 122 L, Potassium 3.9, Chloride 87 L, Carbon Dioxide 26.0, Anion Gap 9, BUN 7, Creatinine 0.76, Estim Creat Clear Calc 111.46, Est GFR (MDRD) Af Amer 135, Est GFR (MDRD) Non-Af 112, BUN/Creatinine Ratio 9.2 L, Glucose 125 H, Calcium 8.5 01/02/20 04:40: Sodium 122 L, Potassium 3.8, Chloride 87 L, Carbon Dioxide 25.0, Anion Gap 10, BUN 7, Creatinine 0.82, Estim Creat Clear Calc 103.31, Est GFR (MDRD) Af Amer 124, Est GFR (MDRD) Non-Af 103, BUN/Creatinine Ratio 8.6 L, Glucose 152 H, Calcium 8.2 L 01/02/20 04:40: WBC 6.2, RBC 3.73 L, Hgb 11.6 L, Hct 32.5 L, MCV 87.1, MCH 31.1, MCHC 35.7, RDW Std Deviation 39.0, RDW Coeff of Sherita 12.0, Plt Count 246, MPV 10.1, Immature Gran % (Auto) 1.000 H, Neut % (Auto) 73.3 H, Lymph % (Auto) 14.4 L, Lewis % (Auto) 8.7, Eos % (Auto) 1.3, Baso % (Auto) 1.3 H, Absolute Neuts (auto) 4.5, Absolute Lymphs (auto) 0.89, Nucleated RBC % 0 01/02/20 06:55: POC Glucose 142 H 01/02/20 08:06: S.aureus Protein A PCR NEGATIVE, MRSA (PCR) Negative 01/02/20 08:56: Sodium 126 L, Potassium 4.1, Chloride 88 L, Carbon Dioxide 29.0, Anion Gap 9, BUN 6 L, Creatinine 0.89, Estim Creat Clear Calc 95.18, Est GFR (MDRD) Af Amer 112, Est GFR (MDRD) Non-Af 93, BUN/Creatinine Ratio 6.7 L, Glucose 140 H, Calcium 8.7 01/02/20 11:57: POC Glucose 257 H Diagnostic Data Chest X-Ray 01/01/20 17:30 IMPRESSION: No acute disease Electronically Signed: Juan Garner MD at 18:32 EDT , Service support , Foot X-Ray 01/01/20 20:02 IMPRESSION: Increasing soft tissue swelling. 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 Triple phase bone scan or MRI with contrast would be more sensitive for infection. Electronically Signed: Juan Garner MD at 20:25 EDT , Service support , Current Medications Acetaminophen (Tylenol) 650 mg PO Q6H PRN PRN PRN Reason: Pain Score 1-10/Temp > 100.7 F Al Hydroxide/Mg Hydroxide (Mylanta Ii) 30 ml PO Q6H PRN PRN PRN Reason: Gastric Burning Albuterol Sulfate (Ventolin Aerosols) 2.5 mg INHALATION Q2H PRN PRN PRN Reason: SOB/Wheezing Amlodipine Besylate (Norvasc) 5 mg PO DAILY [facility] Last Admin: 01/02/20 09:24 Dose: 5 mg Documented by: Ascorbic Acid (Vitamin C) 500 mg PO BID [facility] Last Admin: 01/02/20 09:24 Dose: 500 mg Documented by: Aspirin (Ecotrin) 81 mg PO DAILY [facility] Last Admin: 01/02/20 09:24 Dose: 81 mg Documented by: Atenolol (Tenormin (Beta Yolanda)) 50 mg PO DAILY [facility] Last Admin: 01/02/20 09:24 Dose: 50 mg Documented by: Betamethasone Valerate (Valisone 0.1% Cream (Bkc)) 1 applic TOPICAL BID [facility] Last Admin: 01/02/20 09:25 Dose: 1 applicatio Documented by: Enoxaparin Sodium (Lovenox) 40 mg SC DAILY [facility] Last Admin: 01/02/20 09:24 Dose: 40 mg Documented by: Famotidine (Pepcid) 20 mg PO BID [facility] Last Admin: 01/02/20 09:24 Dose: 20 mg Documented by: Folic Acid (Folic Acid) 1 mg PO DAILY@0800 [facility] Stop: 01/04/20 08:01 Last Admin: 01/02/20 08:54 Dose: 1 mg Documented by: Glucagon () 1 mg IM .X1 PRN PRN Reason: Hypoglycemia Guaifenesin (Robitussin) 20 ml PO Q4H PRN PRN PRN Reason: COUGH Hydralazine HCl (Apresoline Iv) 10 mg IV Q4H PRN PRN PRN Reason: SBP > 160 Sodium Chloride () 1,000 mls @ 125 mls/hr IV .Q8H [facility] Last Infusion: 01/02/20 10:55 Dose: Infused Documented by: Piperacillin Sod/Tazobactam (Sod 3.375 gm/ Sodium Chloride) 50 mls @ 12.5 mls/hr IV Q8 [facility] Last Infusion: 01/02/20 13:13 Dose: Infused Documented by: Vancomycin IV Pharmacy to Dose (1 ea/ Sodium Chloride) 500 mls @ 250 mls/hr IV X1 PRN; Protocol PRN Reason: Rx to Dose Dextrose (Dextrose 10%-Water) 250 mls @ 999 mls/hr IV .Q16M PRN; Protocol PRN Reason: HYPOGLYCEMIA Vancomycin HCl 1,500 mg/ (Sodium Chloride) 530 mls @ 250 mls/hr IV Q8H [facility] Last Infusion: 01/02/20 11:39 Dose: Infused Documented by: Insulin Human Lispro (Humalog Kwikpen (Bkc)) 0 unit SC ACHS [facility]; Protocol Last Admin: 01/02/20 12:04 Dose: 3 u Documented by: Lactobacillus Acidophilus (Acidophilus) 2 tablet PO TID [facility] Last Admin: 01/02/20 08:46 Dose: 2 tablet Documented by: Lorazepam (Ativan) 2 mg PO Q2H PRN PRN; Protocol PRN Reason: CIWA score > 8 but <15 Lorazepam (Ativan) 2 mg PO UD PRN; Protocol PRN Reason: CIWA score >/=15. Lorazepam (Ativan) 2 mg IV Q2H PRN PRN; Protocol PRN Reason: CIWA score > 8 but <15 Lorazepam (Ativan) 2 mg IV UD PRN; Protocol PRN Reason: CIWA score >/=15. Losartan Potassium (Cozaar) 100 mg PO DAILY [facility] Last Admin: 01/02/20 09:24 Dose: 100 mg Documented by: Melatonin (Melatonin) 3 mg PO QHS PRN PRN PRN Reason: INSOMNIA Morphine Sulfate () 2 mg IV Q3H PRN PRN PRN Reason: Pain Score 6-10/10 Multivitamins/Minerals ([facility]ivitamin With Minerals (Bkc)) [facility] Last Admin: 01/02/20 08:54 Dose: 1 tablet Documented by: Nitroglycerin (Nitrostat) 0.4 mg SUBLINGUAL Q5M PRN PRN Reason: CARDIAC/CHEST PAIN Nutritional Formula (Lactose Free) (Glucerna Shake) 120 ml PO TIDCM [facility] Last Admin: 01/02/20 11:59 Dose: 120 ml Documented by: Ondansetron HCl (Zofran) 4 mg IV Q8H PRN PRN PRN Reason: NAUSEA/VOMITING Oxycodone HCl (Oxyir) 5 mg PO Q4H PRN PRN PRN Reason: Pain Score 4-5/10 Prochlorperazine Edisylate (Compazine Iv) 5 mg IV Q4H PRN PRN PRN Reason: Breakthrough Nausea/Vomiting Sodium Chloride () 10 - 40 ml IV UD PRN PRN Reason: SALINE FLUSH Last Admin: 01/02/20 09:07 Dose: 10 ml Documented by: Thiamine HCl (Vitamin B1) 100 mg PO BIDCM [facility] Stop: 01/04/20 17:01 Last Admin: 01/02/20 08:54 Dose: 100 mg Documented by: Throat Lozenges (Cepacol Sore Throat Lozenge) 1 lozenge MUCOUS MEM Q2H PRN PRN PRN Reason: SORE THROAT STROKE Vital Signs/Narrative: Vital Signs Pulse 01/02/20 11:00 78 Medical Necessity - Tobacco Use Smoking Status: Former smoker - Quit cigarette tobacco usage in 2002 with prior to this approximately 20-year history of 1 to 1.5 pack/day usage. Tobacco Use: Non-smoker Assessment/Plan All Active Problems (Last Reviewed 12/25/19 @ 15:[address] Cem Nj, DO) Infection of left foot (Acute) Hyponatremia (Acute) Ulcer of right lower extremity with fat layer exposed (Resolved) Ulcer of left lower extremity with fat layer exposed (Resolved) Onycholysis (Resolved) Elevated liver function tests (Acute) Chest pain (Acute) Chronic ulcer of right ankle with fat layer exposed (Acute) Diabetic ulcer of right foot (Acute) Diabetic ulcer of left foot (Acute) Ulcer of right ankle (Acute) Chronic ulcer of left foot with fat layer exposed (Resolved) Myocardial infarction (Resolved) 1. Acute on chronic hyponatremia * Patient's baseline sodium is usually around 128. On admission her sodium was 115. Sodium is now 126. * Likely due to be able to me as patient has a history of alcohol dependence. * Will DC IV fluids now. serum osmolality not checked on admission * continue monitoring sodium. Urine osmolality is 93 and urine sodium is 20. * sodium went up to 128; this is correction by 13 mmol over 22 hours. Discussed with nephrology. Will start patient on 10 5 mils per hour of D5 water due to overcorrection. Goal is to bring sodium down to around 1 23-1 25. check BMP q4hrly * nephrology consulted. * 2. Left diabetic foot infection: * podiatry on board. On IV vancomycin and zosyn * blood and wound cultures pending. 3. History of alcohol dependence: * States he occasionally drinks 4 to 512 ounce cans of beer daily. * On CIWA protocol. On Multivite, thiamine and folic acid. * 4. CAD status post stents: On aspirin, beta-yolanda and losartan. 5. History of ischemic cardiomyopathy: Known EF of 65% from echo done in 2019. On aspirin, beta-yolanda and losartan. 6. Hypertension : On amlodipine, atenolol and losartan. 8. Type 2 diabetes mellitus: Sliding scale. Accu-Cheks AC at bedtime. DVT prophylaxis: Lovenox Inpatient E&M: [id number] [facility] L3
[2020-01-02 16:07] LABS: Anion Gap 8 (5-15); BUN 8 mg/dL (7-18); BUN/Creat Ratio 7.5 RATIO (10-20); Calcium,Total 8.7 mg/dL (8.5-10.1); Chloride 93 mmol/L (98-107); Creatinine, Serum 1.06 mg/dL (0.70-1.30); EST Glomerular Filtration Rate 76 mL/min (>60); Est Glom Filt Rate - Afr Amer 92 mL/min (>60); Estimated Creatinine Clearance 79.92 ml/min; Glucose 186 mg/dL (74-106); Potassium 3.7 mmol/L (3.5-5.1); Sodium Level 128 mmol/L (136-145)
--- NOTE | 2020-01-02 16:08 | CHAPLAIN ---
Type of Pastoral Visit _x__ Initial Visit ___ Follow-up Visit ___ On-call Visit ___ General Patient Visit ___ Spiritual Assessment ___ Family Conference ___ Bereavement ___ Rapid Response ___ Code Blue ___ Other (describe below) Pastoral Care Referral From _x__ Patient ___ Family ___ Nurse ___ Physician ___ Manager Tax ___ Family Consumer Science [employer] Teacher ___ Other (describe below) Sacrament/Intervention _x__ Active listening ___ Anointing ___ Quaker ___ Bereavement ___ Communion ___ Kirti exploration ___ _x__ Life review _x__ Prayer ___ Reconciliation ___ Sacrament of Sick _x__ Supportive presence ___ Wedding ___ Other (describe below) Pastoral Comments
[2020-01-02 18:15] LABS: Bedside Glucose 244 mg/dL (70-110)
[2020-01-02 20:30] LABS: Anion Gap 6 (5-15); BUN 11 mg/dL (7-18); Calcium,Total 8.3 mg/dL (8.5-10.1); Chloride 95 mmol/L (98-107); EST Glomerular Filtration Rate 73 mL/min (>60); Est Glom Filt Rate - Afr Amer 88 mL/min (>60); Estimated Creatinine Clearance 77.01 ml/min; Glucose 202 mg/dL (74-106); Potassium 4.2 mmol/L (3.5-5.1); Sodium Level 129 mmol/L (136-145)
[2020-01-02 23:09] LABS: Vancomycin, Trough Level 23.1 ug/mL (5.0-15.0)
--- NOTE | 2020-01-02 23:09 | NURSING ---
All medications were originally scanned, computer locked up and could not verify medication administration. Had to restart computer and lost all previous scanned meds. Marked these as given without rescanning as there were not extra meds in pt. bin to scan a second time due to computer freeze.
--- NOTE | 2020-01-02 23:25 | NURSING ---
Pharmacy notified of vanc. trough 23.1. Ordered to hold tonight dose of vancomycin.
[2020-01-02 23:55] LABS: Bedside Glucose 184 mg/dL (70-110)
--- NOTE | 2020-01-03 01:00 | PCM.RX.CS ---
Consult Pharmacy has been consulted to manage selected antiobiotic: Vancomycin Type of Consult: Follow-up Labs: Sodium 129 mmol/L (136-145) L 01/02/20 19:58 Potassium 4.2 mmol/L (3.5-5.1) 01/02/20 19:58 Chloride 95 mmol/L (98-107) L 01/02/20 19:58 Carbon Dioxide 28.0 mmol/L (21.0-32.0) 01/02/20 19:58 Anion Gap 6 (5-15) 01/02/20 19:58 BUN 11 mg/dL (7-18) 01/02/20 19:58 Creatinine 1.10 mg/dL (0.70-1.30) 01/02/20 19:58 Est GFR (MDRD) Af Amer 88 mL/min (>60) 01/02/20 19:58 Est GFR (MDRD) Non-Af 73 mL/min (>60) 01/02/20 19:58 BUN/Creatinine Ratio 10.0 RATIO (10-20) 01/02/20 19:58 Glucose 202 mg/dL (74-106) H 01/02/20 19:58 Vancomycin Trough 23.1 ug/mL (5.0-15.0) H 01/02/20 22:30 Microbiology: Microbiology 01/02/20 08:06 Wound - Left Foot Gram Stain - Final 01/02/20 01:26 Stool C. difficile DNA Amplification - Final 01/01/20 17:11 Mucosa - Nose Influenza Types A,B Direct FA (PAN) - Final Goal Trough: 15-20 mcg/mL Pharmacy Plan for Drug Dosing: Pharmacy Service will continue to monitor and adjust dosing as required. TROUGH 23.1. HOLD DOSE AND REDRAW RANDOM TROUGH 01/02 @ 0700 Follow-Up Labs: Trough Vancomycin Labs to be done on [date and time ordered]: 01/02 @ 0700
[2020-01-03 03:08] VITALS: PULSE 70
[2020-01-03 04:40] VITALS: BP 135/62; PULSE 64; RESP 16; TEMP 36.6; O2SAT 97
[2020-01-03] MEDS: Insulin Lispro 100 UNIT/ML INSULN.PEN SC ×2 (06:47→11:02)
[2020-01-03 06:50] LABS: Bedside Glucose 180 mg/dL (70-110)
[2020-01-03 07:00] VITALS: PULSE 68
[2020-01-03 07:11] LABS: Absolute Lymphocyte Count 0.98 X10^3/uL (0.83-4.51); Absolute Neutrophil Count 2.7 X10^3/uL (2.0-7.7); Basophil# 0.07 X10^3/uL; Basophil% 1.6 % (0-1); Eosinophil# 0.12 X10^3/uL; Eosinophils% 2.8 % (0-5); Hematocrit 32.8 % (40-54); Hemoglobin 11.2 g/dL (13.0-16.5); Lymphocyte # 0.98 X10^3/ul (4.0); Lymphocyte % 22.8 % (19-41); Mean Corp Hgb Conc 34.1 g/dL (32-36); Mean Corpuscular Hgb 30.8 pg (27.0-32.0); Mean Corpuscular Volume 90.1 fL (80-94); Mean Platelet Vol. 9.8 fl (6.2-12.0); Monocyte# 0.41 X10^3/uL; Monocyte% 9.6 % (0-10); NRBC Flagged by Analyzer 0 % (0-5); Neutrophil # 2.67 X10^3/uL (2.7-7.7); Neutrophil % 62.3 % (47-70); Platelet Count 248 K/mm3 (150-450); RBC Distribution Width CV 12.4 % (11.6-14.6); RBC Distribution Width SD 41.3 fl (35.1-43.9); Red Blood Count 3.64 M/mm3 (4.6-6.2); White Blood Count 4.3 K/mm3 (4.4-11.0)
--- NOTE | 2020-01-03 07:31 | PN_ITS ---
Patient Problems: Active and Suspected Problems (Last Reviewed 12/25/19 @ 15:[address] Cem Nj, DO) Infection of left foot (Acute) differential diagnosis Hyponatremia (Acute) Subjective: Patient was seen this morning, he relates he would like to go home as soon as possible. He has no new pedal complaints, no complaints of fever, chills, nausea or vomiting. - Physical Exam Vitals/I&O's: Vital Signs Temp Pulse Resp BP Pulse Ox 97.9 F 64 16 135/62 H 97 01/03/20 04:40 01/03/20 04:40 01/03/20 04:40 01/03/20 04:40 01/03/20 04:40 Oxygen Delivery Method Room Air Weight: 114.1 kg Body Mass Index (BMI) 35.1 Intake and Output for Last 24 Hours 01/01/20 01/02/20 01/03/20 23:59 23:59 23:59 Intake Total 3004.17 / 3004.17 3965.83 / 3965.83 1417.5 / 1417.5 Output Total 2450 / 2450 1100 / 1100 Balance 3004.17 / 2404.17 1515.83 / 1515.83 317.5 / 317.5 General: Alert, Oriented x3, Cooperative, No apparent distress Extremities: Capillary Refill Less than 3 Seconds, No Calf Tenderness, - - Ulceration x 2 to the plantar left foot down to subcutaneous tissue, no probe to bone or joint, or to deeper tissue, tissues viable, there is no necrosis, no maloder, no fluctuance, no visible abscess, no crepitus, no purulence at this time; there mild erythema to the area. There is chronic charcot deformity to the left foot, no gross instability at this time. No POP or pain on ROM to the foot / ankle bilateral. Psych/Mental Status: Alert and oriented to time, place, person, mood and affect Microbiology Past 72 Hours 01/02/20 08:06 Wound - Left Foot Gram Stain - Final 01/02/20 01:26 Stool C. difficile DNA Amplification - Final 01/01/20 17:11 Mucosa - Nose Influenza Types A,B Direct FA (PAN) - Final Laboratory Results 01/02/20 08:06: S.aureus Protein A PCR NEGATIVE, MRSA (PCR) Negative 01/02/20 08:56: Sodium 126 L, Potassium 4.1, Chloride 88 L, Carbon Dioxide 29.0, Anion Gap 9, BUN 6 L, Creatinine 0.89, Estim Creat Clear Calc 95.18, Est GFR (MDRD) Af Amer 112, Est GFR (MDRD) Non-Af 93, BUN/Creatinine Ratio 6.7 L, Glucose 140 H, Calcium 8.7 01/02/20 11:57: POC Glucose 257 H 01/02/20 15:02: Sodium 128 L, Potassium 3.7, Chloride 93 L, Carbon Dioxide 27.0, Anion Gap 8, BUN 8, Creatinine 1.06, Estim Creat Clear Calc 79.92, Est GFR (MDRD) Af Amer 92, Est GFR (MDRD) Non-Af 76, BUN/Creatinine Ratio 7.5 L, Glucose 186 H, Calcium 8.7 01/02/20 17:42: POC Glucose 244 H 01/02/20 19:58: Sodium 129 L, Potassium 4.2, Chloride 95 L, Carbon Dioxide 28.0, Anion Gap 6, BUN 11, Creatinine 1.10, Estim Creat Clear Calc 77.01, Est GFR (MDRD) Af Amer 88, Est GFR (MDRD) Non-Af 73, BUN/Creatinine Ratio 10.0, Glucose 202 H, Calcium 8.3 L 01/02/20 22:30: Vancomycin Trough 23.1 H 01/02/20 22:44: POC Glucose 184 H 01/03/20 06:46: POC Glucose 180 H 01/03/20 06:58: WBC 4.3 L, RBC 3.64 L, Hgb 11.2 L, Hct 32.8 L, MCV 90.1, MCH 30.8, MCHC 34.1, RDW Std Deviation 41.3, RDW Coeff of Sherita 12.4, Plt Count 248, MPV 9.8, Immature Gran % (Auto) 0.900, Neut % (Auto) 62.3, Lymph % (Auto) 22.8, [place] % (Auto) 9.6, Eos % (Auto) 2.8, Baso % (Auto) 1.6 H, Absolute Neuts (auto) 2.7, Absolute Lymphs (auto) 0.98, Nucleated RBC % 0 01/03/20 06:58: Sodium Pending, Potassium Pending, Chloride Pending, Carbon Dioxide Pending, Anion Gap Pending, BUN Pending, Creatinine Pending, Est GFR (MDRD) Af Amer Pending, Est GFR (MDRD) Non-Af Pending, BUN/Creatinine Ratio Pending, Glucose Pending, Calcium Pending 01/03/20 06:58: Random Vancomycin Pending Current Medications Acetaminophen (Tylenol) 650 mg PO Q6H PRN PRN PRN Reason: Pain Score 1-10/Temp > 100.7 F Al Hydroxide/Mg Hydroxide (Mylanta Ii) 30 ml PO Q6H PRN PRN PRN Reason: Gastric Burning Albuterol Sulfate (Ventolin Aerosols) 2.5 mg INHALATION Q2H PRN PRN PRN Reason: SOB/Wheezing Amlodipine Besylate (Norvasc) 5 mg PO DAILY [facility] Last Admin: 01/02/20 09:24 Dose: 5 mg Documented by: Ascorbic Acid (Vitamin C) 500 mg PO BID [facility] Last Admin: 01/02/20 22:45 Dose: 500 mg Documented by: Aspirin (Ecotrin) 81 mg PO DAILY [facility] Last Admin: 01/02/20 09:24 Dose: 81 mg Documented by: Atenolol (Tenormin (Beta Yolanda)) 50 mg PO DAILY [facility] Last Admin: 01/02/20 09:24 Dose: 50 mg Documented by: Betamethasone Valerate (Valisone 0.1% Cream (Bkc)) 1 applic TOPICAL BID [facility] Last Admin: 01/02/20 22:45 Dose: Not Given Documented by: Enoxaparin Sodium (Lovenox) 40 mg SC DAILY [facility] Last Admin: 01/02/20 09:24 Dose: 40 mg Documented by: Famotidine (Pepcid) 20 mg PO BID [facility] Last Admin: 01/02/20 22:45 Dose: 20 mg Documented by: Folic Acid (Folic Acid) 1 mg PO DAILY@0800 [facility] Stop: 01/04/20 08:01 Last Admin: 01/02/20 08:54 Dose: 1 mg Documented by: Glucagon () 1 mg IM .X1 PRN PRN Reason: Hypoglycemia Guaifenesin (Robitussin) 20 ml PO Q4H PRN PRN PRN Reason: COUGH Hydralazine HCl (Apresoline Iv) 10 mg IV Q4H PRN PRN PRN Reason: SBP > 160 Piperacillin Sod/Tazobactam (Sod 3.375 gm/ Sodium Chloride) 50 mls @ 12.5 mls/hr IV Q8 [facility] Last Admin: 01/03/20 05:54 Dose: 12.5 mls/hr Documented by: Vancomycin IV Pharmacy to Dose (1 ea/ Sodium Chloride) 500 mls @ 250 mls/hr IV X1 PRN; Protocol PRN Reason: Rx to Dose Dextrose (Dextrose 10%-Water) 250 mls @ 999 mls/hr IV .Q16M PRN; Protocol PRN Reason: HYPOGLYCEMIA Insulin Human Lispro (Humalog Kwikpen (Bkc)) 0 unit SC ACHS [facility]; Protocol Last Admin: 01/03/20 06:47 Dose: 1 u Documented by: Lactobacillus Acidophilus (Acidophilus) 2 tablet PO TID [facility] Last Admin: 01/03/20 05:54 Dose: 2 tablet Documented by: Lorazepam (Ativan) 2 mg PO Q2H PRN PRN; Protocol PRN Reason: CIWA score > 8 but <15 Lorazepam (Ativan) 2 mg PO UD PRN; Protocol PRN Reason: CIWA score >/=15. Lorazepam (Ativan) 2 mg IV Q2H PRN PRN; Protocol PRN Reason: CIWA score > 8 but <15 Lorazepam (Ativan) 2 mg IV UD PRN; Protocol PRN Reason: CIWA score >/=15. Losartan Potassium (Cozaar) 100 mg PO DAILY [facility] Last Admin: 01/02/20 09:24 Dose: 100 mg Documented by: Melatonin (Melatonin) 3 mg PO QHS PRN PRN PRN Reason: INSOMNIA Morphine Sulfate () 2 mg IV Q3H PRN PRN PRN Reason: Pain Score 6-10/10 Multivitamins/Minerals (Multivitamin With Minerals (Bkc)) [facility] Last Admin: 01/02/20 08:54 Dose: 1 tablet Documented by: Nitroglycerin (Nitrostat) 0.4 mg SUBLINGUAL Q5M PRN PRN Reason: CARDIAC/CHEST PAIN Nutritional Formula (Bartolo - Foard Flavor) 1 packet PO BIDCM [facility] Last Admin: 01/02/20 17:47 Dose: 1 packet Documented by: Ondansetron HCl (Zofran) 4 mg IV Q8H PRN PRN PRN Reason: NAUSEA/VOMITING Oxycodone HCl (Oxyir) 5 mg PO Q4H PRN PRN PRN Reason: Pain Score 4-5/10 Prochlorperazine Edisylate (Compazine Iv) 5 mg IV Q4H PRN PRN PRN Reason: Breakthrough Nausea/Vomiting Sodium Chloride () 10 - 40 ml IV UD PRN PRN Reason: SALINE FLUSH Last Admin: 01/02/20 09:07 Dose: 10 ml Documented by: Thiamine HCl (Vitamin B1) 100 mg PO BIDCM [facility] Stop: 01/04/20 17:01 Last Admin: 01/02/20 17:47 Dose: 100 mg Documented by: Throat Lozenges (Cepacol Sore Throat Lozenge) 1 lozenge MUCOUS MEM Q2H PRN PRN PRN Reason: SORE THROAT Medical Necessity - Tobacco Use Smoking Status: Former smoker - Quit cigarette tobacco usage in 2002 with prior to this approximately 20-year history of 1 to 1.5 pack/day usage. Tobacco Use: Non-smoker Assessment/Plan All Active Problems (Last Reviewed 12/25/19 @ 15:[address] Cem Nj, DO) Infection of left foot (Acute) Hyponatremia (Acute) Ulcer of right lower extremity with fat layer exposed (Resolved) Ulcer of left lower extremity with fat layer exposed (Resolved) Onycholysis (Resolved) Elevated liver function tests (Acute) Chest pain (Acute) Chronic ulcer of right ankle with fat layer exposed (Acute) Diabetic ulcer of right foot (Acute) Diabetic ulcer of left foot (Acute) Ulcer of right ankle (Acute) Chronic ulcer of left foot with fat layer exposed (Resolved) Myocardial infarction (Resolved) Ulceration plantar left foot down to subcutaneous tissue layer w/ cellulitis Chronic Charcot Neuroarthropathy, left foot Alcoholism, Diabetes, w/ Peripheral Neuropathy Foot improving. Patient afebrile, left foot xrays reviewed - no gas, no acute osseous finding, there is chronic charcot neuroarthropathy. Culture from ulceration left foot has been obtained - gram negative rods, follow cultures. No urgent foot surgery needed at this time, but charcot reconstruction has been discussed with him in the past. He relates he really does not want surgery at this time because of the [place] afterwards. Wound care left foot: Aquacel Ag with overlying gauze, kerlix and nicholas - change daily. No weightbearing left foot. Diabetes and management of other medical conditions per medicine team. Podiatry will continue to follow. Patient will need to follow up with Dr. Alvarez (who he normally follows with as outpatient for foot/wound care) at wound center after discharge.
[2020-01-03 07:47] LABS: Vancomycin, Random Level 16.9 ug/mL (0.0-15.0)
[2020-01-03 08:16] LABS: Anion Gap 6 (5-15); BUN 9 mg/dL (7-18); BUN/Creat Ratio 9.8 RATIO (10-20); Calcium,Total 8.5 mg/dL (8.5-10.1); Chloride 95 mmol/L (98-107); Creatinine, Serum 0.92 mg/dL (0.70-1.30); EST Glomerular Filtration Rate 90 mL/min (>60); Est Glom Filt Rate - Afr Amer 108 mL/min (>60); Estimated Creatinine Clearance 92.08 ml/min; Glucose 206 mg/dL (74-106); Sodium Level 129 mmol/L (136-145)
[2020-01-03] MEDS: Thiamine Hydrochloride 100 MG Tablet PO (09:31)
[2020-01-03] MEDS: Enoxaparin 40 MG/0.4 ML Syringe SC (09:32)
[2020-01-03] MEDS: Multivitamins,Ther W-Minerals Tablet 1 TABLET PO (09:32)
[2020-01-03] MEDS: Aspirin E.C. 81 MG Tablet PO (09:32)
--- NOTE | 2020-01-03 09:32 | NURSING ---
Had talked with Dr Carrero. states dressing was changed this am. no need to change dressing. will leave D&I.
[2020-01-03] MEDS: Folic Acid 1 MG Tablet PO (09:37)
[2020-01-03] MEDS: Ascorbic Acid 500 MG Tablet PO (09:37)
[2020-01-03] MEDS: Famotidine 20 MG Tablet PO (09:37)
[2020-01-03 09:51] VITALS: BP 96/56; PULSE 72; RESP 14; TEMP 36.8; O2SAT 95
--- NOTE | 2020-01-03 10:01 | CON.PCM_ITS ---
Consultation - Renal PCP/ Referring MD: Requesting physician: [] Primary care physician: Cem Nj DO - History of Present Illness History of Present Illness: The patient is a 59 year old M PMH of DM, left infected diabetic foot, HTN, CAD, Ischemic cardiomyopathy, PVD,EtoH abuse Pt was sent from wound care center for hyponatremia. Na level was found to be low at 115. Pt has been on HCTZ for about a year Pt also has been having nausea and poor oral appetite for few weeks. Pt was admitted for acute hyponatremia. Pt was started on NS at 125 cc/hour . Na level corrected from 115 to 128 in 20 hour. D5W started yesterday for Na overcorrection Na level this am is appropriate at 129 Pt denied any headache, N/V this am ROS:12 system review is negative this am [] - Allergies Allergies: Allergies lisinopril Adverse Reaction (Verified 01/01/20 15:56) Cough pet dander Allergy (Intermediate, Uncoded 01/01/20 15:56) runny nose, sneezing - Current Medications Current Medications: Current Medications Acetaminophen (Tylenol) 650 mg PO Q6H PRN PRN PRN Reason: Pain Score 1-10/Temp > 100.7 F Al Hydroxide/Mg Hydroxide (Mylanta Ii) 30 ml PO Q6H PRN PRN PRN Reason: Gastric Burning Albuterol Sulfate (Ventolin Aerosols) 2.5 mg INHALATION Q2H PRN PRN PRN Reason: SOB/Wheezing Amlodipine Besylate (Norvasc) 5 mg PO DAILY [facility] Last Admin: 01/03/20 09:51 Dose: Not Given Documented by: Ascorbic Acid (Vitamin C) 500 mg PO BID [facility] Last Admin: 01/03/20 09:37 Dose: 500 mg Documented by: Aspirin (Ecotrin) 81 mg PO DAILY [facility] Last Admin: 01/03/20 09:32 Dose: 81 mg Documented by: Atenolol (Tenormin (Beta Yolanda)) 50 mg PO DAILY [facility] Last Admin: 01/03/20 09:51 Dose: Not Given Documented by: Betamethasone Valerate (Valisone 0.1% Cream (Bkc)) 1 applic TOPICAL BID [facility] Last Admin: 01/03/20 09:37 Dose: Not Given Documented by: Enoxaparin Sodium (Lovenox) 40 mg SC DAILY [facility] Last Admin: 01/03/20 09:32 Dose: 40 mg Documented by: Famotidine (Pepcid) 20 mg PO BID [facility] Last Admin: 01/03/20 09:37 Dose: 20 mg Documented by: Folic Acid (Folic Acid) 1 mg PO DAILY@0800 [facility] Stop: 01/04/20 08:01 Last Admin: 01/03/20 09:37 Dose: 1 mg Documented by: Glucagon () 1 mg IM .X1 PRN PRN Reason: Hypoglycemia Guaifenesin (Robitussin) 20 ml PO Q4H PRN PRN PRN Reason: COUGH Hydralazine HCl (Apresoline Iv) 10 mg IV Q4H PRN PRN PRN Reason: SBP > 160 Piperacillin Sod/Tazobactam (Sod 3.375 gm/ Sodium Chloride) 50 mls @ 12.5 mls/hr IV Q8 [facility] Last Infusion: 01/03/20 09:52 Dose: Infused Documented by: Vancomycin IV Pharmacy to Dose (1 ea/ Sodium Chloride) 500 mls @ 250 mls/hr IV X1 PRN; Protocol PRN Reason: Rx to Dose Dextrose (Dextrose 10%-Water) 250 mls @ 999 mls/hr IV .Q16M PRN; Protocol PRN Reason: HYPOGLYCEMIA Insulin Human Lispro (Humalog Kwikpen (Bkc)) 0 unit SC ACHS [facility]; Protocol Last Admin: 01/03/20 06:47 Dose: 1 u Documented by: Lactobacillus Acidophilus (Acidophilus) 2 tablet PO TID [facility] Last Admin: 01/03/20 05:54 Dose: 2 tablet Documented by: Lorazepam (Ativan) 2 mg PO Q2H PRN PRN; Protocol PRN Reason: CIWA score > 8 but <15 Lorazepam (Ativan) 2 mg PO UD PRN; Protocol PRN Reason: CIWA score >/=15. Lorazepam (Ativan) 2 mg IV Q2H PRN PRN; Protocol PRN Reason: CIWA score > 8 but <15 Lorazepam (Ativan) 2 mg IV UD PRN; Protocol PRN Reason: CIWA score >/=15. Losartan Potassium (Cozaar) 100 mg PO DAILY [facility] Last Admin: 01/03/20 09:51 Dose: Not Given Documented by: Melatonin (Melatonin) 3 mg PO QHS PRN PRN PRN Reason: INSOMNIA Morphine Sulfate () 2 mg IV Q3H PRN PRN PRN Reason: Pain Score 6-10/10 Multivitamins/Minerals (Multivitamin With Minerals (Bkc)) [facility] Last Admin: 01/03/20 09:32 Dose: 1 tablet Documented by: Nitroglycerin (Nitrostat) 0.4 mg SUBLINGUAL Q5M PRN PRN Reason: CARDIAC/CHEST PAIN Nutritional Formula ([place]art[place] - [place] Flavor) [facility] Last Admin: 01/03/20 09:32 Dose: 1 packet Documented by: Ondansetron HCl (Zofran) 4 mg IV Q8H PRN PRN PRN Reason: NAUSEA/VOMITING Oxycodone HCl (Oxyir) 5 mg PO Q4H PRN PRN PRN Reason: Pain Score 4-5/10 Prochlorperazine Edisylate (Compazine Iv) 5 mg IV Q4H PRN PRN PRN Reason: Breakthrough Nausea/Vomiting Sodium Chloride () 10 - 40 ml IV UD PRN PRN Reason: SALINE FLUSH Last Admin: 01/02/20 09:07 Dose: 10 ml Documented by: Thiamine HCl (Vitamin B1) [facility] Stop: 01/04/20 17:01 Last Admin: 01/03/20 09:31 Dose: 100 mg Documented by: Throat Lozenges (Cepacol Sore Throat Lozenge) 1 lozenge MUCOUS MEM Q2H PRN PRN PRN Reason: SORE THROAT - Past Medical History Past Medical History (Chronic Problems): Chronic Problems (Last Reviewed 12/25/19 @ 15:[address] Cem Nj, DO) Localized edema (Chronic) Former tobacco use (Chronic) Eczema of lower extremity (Chronic) Presence of stent in coronary artery (Chronic ~02/2016) PCI w/ KIRILL to distal RCA, ostial PDA, and mid RCA 03/07; previous PTCA w/stent to mid main CX 09/24 Atherosclerotic heart disease of [place] coronary artery without angina pectoris (Chronic) PCI w/ KIRILL to distal RCA, ostial PDA, and mid RCA 03/07; previous PTCA w/stent to mid main CX 09/24 Essential hypertension (Chronic) Hammertoe of right foot (Chronic) Diabetic ulcer of left lower leg (Chronic) s/p 2nd degree burn with fat layer exposed Diabetic ulcer of left lower leg with fat layer exposed (Chronic) 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 (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) Sleep disorder (Chronic) Depressive disorder (Chronic) Alcohol abuse (Chronic) Malnutrition (Chronic) Chronic ulcer of left foot with fat layer exposed (Chronic) Venous insufficiency of both lower extremities (Chronic) Ulcer of right foot with fat layer exposed (Chronic) Ischemic cardiomyopathy (Chronic) Angina pectoris (Chronic) Hyperlipidemia (Chronic) Diabetes 1.5, managed as type 2 (Chronic) Edema extremities (Chronic) Diabetes mellitus (Chronic) Diabetes mellitus with circulatory complication (Chronic) 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) Diabetes mellitus with neurologic complication, with long-term current use of insulin (Chronic) Charcot ankle (Chronic) Charc?t's arthritis due to secondary diabetes (Chronic) Charcot foot due to diabetes mellitus (Chronic) Diabetic foot ulcers (Chronic) Open wound of foot with complication (Chronic) Open wound of right ankle (Chronic) Open wound of left ankle with complication (Chronic) Acquired equinus deformity of both feet (Chronic) Healed ulcer of left foot on examination (Chronic) Diabetes mellitus with polyneuropathy (Chronic) Malnutrition (Chronic) Charcot's joint, left ankle and foot (Chronic) - Past Surgical History Surgical History: angioplasty, cholecystectomy, - - PCI x3, bilateral foot surgeries, cholecystectomy. - Social History Smoking Status: Former smoker - Quit cigarette tobacco usage in 2002 with prior to this approximately 20-year history of 1 to 1.5 pack/day usage. Alcohol: Heavy - Patient notes a 4 to 5, 12 ounce beers daily. Drugs: None - Family History Paternal Family History: Family History (Last Reviewed 12/25/19 @ 15:[address] Cem Nj DO) Mother Heart disease Father Heart disease History Items: High Cholesterol, Heart Disease - CHF, Hypertension Maternal Family History: Family History (Last Reviewed 12/25/19 @ 15:[address] Cem Nj DO) Mother Heart disease Father Heart disease History Items: High Cholesterol, Heart Disease - CHF, Hypertension Patient Problems: Active and Suspected Problems (Last Reviewed 12/25/19 @ 15:[address] Cem Nj DO) Infection of left foot (Acute) differential diagnosis Hyponatremia (Acute) - Physical Exam Vitals/I&O's: Vital Signs Temp Pulse Resp BP Pulse Ox 98.2 F 72 14 96/56 L 95 01/03/20 09:51 01/03/20 09:51 01/03/20 09:51 01/03/20 09:51 01/03/20 09:51 Oxygen Delivery Method Room Air Weight: 114.1 kg Body Mass Index (BMI) 35.1 Intake and Output for Last 24 Hours 01/01/20 01/02/20 01/03/20 23:59 23:59 23:59 Intake Total 3004.17 / 3004.17 3965.83 / 3965.83 1467.5 / 1467.5 Output Total 2450 / 2450 1100 / 1100 Balance 3004.17 / 2404.17 1515.83 / 1515.83 367.5 / 367.5 General: Alert, Oriented x3 HEENT: Atraumatic Oral: Moist Mucosa Neck: Supple, No JVD Lungs: Clear to auscultation, Normal air movement, No rhonchi, No wheeze Cardiovascular: Regular rate, Regular Rhythm, Normal S1, Normal S2 Abdomen: Bowel Sounds Present, Soft, Non Tender, Non-Distended Extremities: Edema - trace LLE Skin: No rashes Musculoskeletal: No Tenderness to Palpation of Joints or Extremities, Arthritic Changes Lymphatic: No Cervical, Supraclavicular, or Inguinal Adenopathy Neurological: Cranial nerves II-XII grossly intact, Neuro grossly intact Psych/Mental Status: Appropriate Microbiology Past 72 Hours 01/02/20 08:06 Wound - Left Foot Gram Stain - Final 01/02/20 01:26 Stool C. difficile DNA Amplification - Final 01/01/20 17:11 Mucosa - Nose Influenza Types A,B Direct FA (PAN) - Final Laboratory Results 01/02/20 08:06: S.aureus Protein A PCR NEGATIVE, MRSA (PCR) Negative 01/02/20 11:57: POC Glucose 257 H 01/02/20 15:02: Sodium 128 L, Potassium 3.7, Chloride 93 L, Carbon Dioxide 27.0, Anion Gap 8, BUN 8, Creatinine 1.06, Estim Creat Clear Calc 79.92, Est GFR (MDRD) Af Amer 92, Est GFR (MDRD) Non-Af 76, BUN/Creatinine Ratio 7.5 L, Glucose 186 H, Calcium 8.7 01/02/20 17:42: POC Glucose 244 H 01/02/20 19:58: Sodium 129 L, Potassium 4.2, Chloride 95 L, Carbon Dioxide 28.0, Anion Gap 6, BUN 11, Creatinine 1.10, Estim Creat Clear Calc 77.01, Est GFR (MDRD) Af Amer 88, Est GFR (MDRD) Non-Af 73, BUN/Creatinine Ratio 10.0, Glucose 202 H, Calcium 8.3 L 01/02/20 22:30: Vancomycin Trough 23.1 H 01/02/20 22:44: POC Glucose 184 H 01/03/20 06:46: POC Glucose 180 H 01/03/20 06:58: WBC 4.3 L, RBC 3.64 L, Hgb 11.2 L, Hct 32.8 L, MCV 90.1, MCH 30.8, MCHC 34.1, RDW Std Deviation 41.3, RDW Coeff of Sherita 12.4, Plt Count 248, MPV 9.8, Immature Gran % (Auto) 0.900, Neut % (Auto) 62.3, Lymph % (Auto) 22.8, Harlan % (Auto) 9.6, Eos % (Auto) 2.8, Baso % (Auto) 1.6 H, Absolute Neuts (auto) 2.7, Absolute Lymphs (auto) 0.98, Nucleated RBC % 0 01/03/20 06:58: Sodium 129 L, Potassium 4.0, Chloride 95 L, Carbon Dioxide 28.0, Anion Gap 6, BUN 9, Creatinine 0.92, Estim Creat Clear Calc 92.08, Est GFR (MDRD) Af Amer 108, Est GFR (MDRD) Non-Af 90, BUN/Creatinine Ratio 9.8 L, Glucose 206 H, Calcium 8.5 01/03/20 06:58: Random Vancomycin 16.9 H Current Medications Acetaminophen (Tylenol) 650 mg PO Q6H PRN PRN PRN Reason: Pain Score 1-10/Temp > 100.7 F Al Hydroxide/Mg Hydroxide (Mylanta Ii) 30 ml PO Q6H PRN PRN PRN Reason: Gastric Burning Albuterol Sulfate (Ventolin Aerosols) 2.5 mg INHALATION Q2H PRN PRN PRN Reason: SOB/Wheezing Amlodipine Besylate (Norvasc) 5 mg PO DAILY [facility] Last Admin: 01/03/20 09:51 Dose: Not Given Documented by: Ascorbic Acid (Vitamin C) 500 mg PO BID [facility] Last Admin: 01/03/20 09:37 Dose: 500 mg Documented by: Aspirin (Ecotrin) 81 mg PO DAILY [facility] Last Admin: 01/03/20 09:32 Dose: 81 mg Documented by: Atenolol (Tenormin (Beta Yolanda)) 50 mg PO DAILY [facility] Last Admin: 01/03/20 09:51 Dose: Not Given Documented by: Betamethasone Valerate (Valisone 0.1% Cream ([facility])) 1 applic TOPICAL BID [facility] Last Admin: 01/03/20 09:37 Dose: Not Given Documented by: Enoxaparin Sodium (Lovenox) 40 mg SC DAILY [facility] Last Admin: 01/03/20 09:32 Dose: 40 mg Documented by: Famotidine (Pepcid) 20 mg PO BID [facility] Last Admin: 01/03/20 09:37 Dose: 20 mg Documented by: Folic Acid (Folic Acid) 1 mg PO DAILY@0800 [facility] Stop: 01/04/20 08:01 Last Admin: 01/03/20 09:37 Dose: 1 mg Documented by: Glucagon () 1 mg IM .X1 PRN PRN Reason: Hypoglycemia Guaifenesin (Robitussin) 20 ml PO Q4H PRN PRN PRN Reason: COUGH Hydralazine HCl (Apresoline Iv) 10 mg IV Q4H PRN PRN PRN Reason: SBP > 160 Piperacillin Sod/Tazobactam (Sod 3.375 gm/ Sodium Chloride) 50 mls @ 12.5 mls/hr IV Q8 [facility] Last Infusion: 01/03/20 09:52 Dose: Infused Documented by: Vancomycin IV Pharmacy to Dose (1 ea/ Sodium Chloride) 500 mls @ 250 mls/hr IV X1 PRN; Protocol PRN Reason: Rx to Dose Dextrose (Dextrose 10%-Water) 250 mls @ 999 mls/hr IV .Q16M PRN; Protocol PRN Reason: HYPOGLYCEMIA Insulin Human Lispro (Humalog Kwikpen ([facility])) 0 unit SC ACHS [facility]; Protocol Last Admin: 01/03/20 06:47 Dose: 1 u Documented by: Lactobacillus Acidophilus (Acidophilus) 2 tablet PO TID [facility] Last Admin: 01/03/20 05:54 Dose: 2 tablet Documented by: Lorazepam (Ativan) 2 mg PO Q2H PRN PRN; Protocol PRN Reason: CIWA score > 8 but <15 Lorazepam (Ativan) 2 mg PO UD PRN; Protocol PRN Reason: CIWA score >/=15. Lorazepam (Ativan) 2 mg IV Q2H PRN PRN; Protocol PRN Reason: CIWA score > 8 but <15 Lorazepam (Ativan) 2 mg IV UD PRN; Protocol PRN Reason: CIWA score >/=15. Losartan Potassium (Cozaar) 100 mg PO DAILY [facility] Last Admin: 01/03/20 09:51 Dose: Not Given Documented by: Melatonin (Melatonin) 3 mg PO QHS PRN PRN PRN Reason: INSOMNIA Morphine Sulfate () 2 mg IV Q3H PRN PRN PRN Reason: Pain Score 6-10/10 Multivitamins/Minerals (Multivitamin With Minerals (Bkc)) [facility] Last Admin: 01/03/20 09:32 Dose: 1 tablet Documented by: Nitroglycerin (Nitrostat) 0.4 mg SUBLINGUAL Q5M PRN PRN Reason: CARDIAC/CHEST PAIN Nutritional Formula ([place] - [place] Flavor) [facility] Last Admin: 01/03/20 09:32 Dose: 1 packet Documented by: Ondansetron HCl (Zofran) 4 mg IV Q8H PRN PRN PRN Reason: NAUSEA/VOMITING Oxycodone HCl (Oxyir) 5 mg PO Q4H PRN PRN PRN Reason: Pain Score 4-5/10 Prochlorperazine Edisylate (Compazine Iv) 5 mg IV Q4H PRN PRN PRN Reason: Breakthrough Nausea/Vomiting Sodium Chloride () 10 - 40 ml IV UD PRN PRN Reason: SALINE FLUSH Last Admin: 01/02/20 09:07 Dose: 10 ml Documented by: Thiamine HCl (Vitamin B1) [facility] Stop: 01/04/20 17:01 Last Admin: 01/03/20 09:31 Dose: 100 mg Documented by: Throat Lozenges (Cepacol Sore Throat Lozenge) 1 lozenge MUCOUS MEM Q2H PRN PRN PRN Reason: SORE THROAT Assessment/Plan All Active Problems (Last Reviewed 12/25/19 @ 15:[address] Cem Nj, DO) Infection of left foot (Acute) Hyponatremia (Acute) Ulcer of right lower extremity with fat layer exposed (Resolved) Ulcer of left lower extremity with fat layer exposed (Resolved) Onycholysis (Resolved) Elevated liver function tests (Acute) Chest pain (Acute) Chronic ulcer of right ankle with fat layer exposed (Acute) Diabetic ulcer of right foot (Acute) Diabetic ulcer of left foot (Acute) Ulcer of right ankle (Acute) Chronic ulcer of left foot with fat layer exposed (Resolved) Myocardial infarction (Resolved) 1- Acute hyponatremia: likely from HCTZ in addition to decreased Na intake from poor appetite wit nausea/vomiting Pt presented with Na 115. Na level overcorrected to 128 with IVF NS . NS was stopped yesterday around 3 pm and D5W started at 75 cc/hour Na level is acceptable at 129. overall Na correction rate is acceptable as per today lab. ok to stop D5W Ok to d/c patient home today from nephrology stand point. Please hold HCTZ at discharge. If diuretic is needed for CHF prevention, then loop diuretics are preferred since likely won't cause hyponatremia I encouraged PO solute intake Check Na level in am if remains inpatient 2- HTN: BP seems well controlled please d/c HCTZ at discharge Continue losartan and Norvasc 3- infected left diabetic foot Abx as per the primary/ID service Continue wound care Thank you for the consult . please call if any question at [phone] Will d/w with the primary hospitalist service Angeline Parisi MD
[2020-01-03 11:36] LABS: Bedside Glucose 342 mg/dL (70-110)
--- NOTE | 2020-01-03 11:51 | DCINST_ITS ---
- Discharge Diagnoses Current Active Problems: Current Active and Chronic Problems (Last Reviewed 12/25/19 @ 15:[address] Cem Nj DO) Infection of left foot (Acute) differential diagnosis Localized edema (Chronic) Hyponatremia (Acute) Former tobacco use (Chronic) Chronic ulcer of left foot with fat layer exposed (Chronic) Venous insufficiency of both lower extremities (Chronic) Diabetes mellitus with polyneuropathy (Chronic) Malnutrition (Chronic) Charcot's joint, left ankle and foot (Chronic) You will use the following diet at home:: Calorie/Carbohydrate Controlled (specify 1200, 1400, etc) Your food should be the consistency of: Regular Your liquids should be the consistency of: Regular/Thin Discharge Activity: Return to Normal Activity Call your doctor if you observe: Fever of 101 or Higher, Shortness of breath, Dizziness, Fainting spells, Swelling in the ankles, Chest pain, Increased palpitations (irregular heartbeat) Additional Instructions: BMP in 3-5 days to monitor sodium Allergies/Adverse Reactions: Allergies lisinopril Adverse Reaction (Verified 01/01/20 15:56) Cough pet dander Allergy (Intermediate, Uncoded 01/01/20 15:56) runny nose, sneezing Medications to take at Discharge aspirin 81 mg tablet,delayed release 81 mg PO DAILY 10/12/17 ascorbic acid (vitamin C) 500 mg tablet 500 mg PO BID 03/23/18 nitroglycerin 0.4 mg sublingual tablet 0.4 mg SUBLINGUAL Q5M PRN #25 tab 07/19/18 atenolol 50 mg tablet 50 mg PO DAILY #90 tab 08/07/19 losartan 100 mg tablet 100 mg PO DAILY #90 tab 08/07/19 betamethasone dipropionate 0.05 % topical cream 1 applic TOPICAL BID #45 g 09/12/19 Amlodipine Besylate 5 mg PO DAILY 01/01/20 Amoxicillin/Potassium Clav [Augmentin 875-125 Tablet] 1 tab PO BID 01/01/20 Ciprofloxacin [Cipro] 500 mg PO BID 01/01/20 Metformin HCl 1,000 mg PO DAILY 01/01/20 glipiZIDE XL [Glucotrol Xl] 5 mg PO DAILY 01/01/20 Primary Care Physician: Cem Nj DO [Primary Care Provider] - Please follow up with your Primary Care Physician in: 3-5 days Test Results: Test results from this visit will be discussed in further detail at your follow- up appointment, if applicable. Please Follow Up With: Saba Alvarez DPM When: 3-5 days
--- NOTE | 2020-01-03 11:56 | DCINST_ITS ---
Discharge Activity: Return to Normal Activity Weight Bearing Status: No weight bearing - No weightbearing on left foot Keep extremity elevated above heart level: Left Leg Call your doctor if you observe: Fever of 101 or Higher, Shortness of breath, Dizziness, Fainting spells, Swelling in the ankles, Chest pain, Increased palpitations (irregular heartbeat) Additional Dressing/Incision Instructions:: Wound care left foot: cleanse w/ normal saline solution, apply aquacel Ag, w/ overlying gauze and nicholas dressing - change daily. Allergies/Adverse Reactions: Allergies lisinopril Adverse Reaction (Verified 01/01/20 15:56) Cough pet dander Allergy (Intermediate, Uncoded 01/01/20 15:56) runny nose, sneezing Medications to take at Discharge aspirin 81 mg tablet,delayed release 81 mg PO DAILY 10/12/17 ascorbic acid (vitamin C) 500 mg tablet 500 mg PO BID 03/23/18 nitroglycerin 0.4 mg sublingual tablet 0.4 mg SUBLINGUAL Q5M PRN #25 tab 07/19/18 atenolol 50 mg tablet 50 mg PO DAILY #90 tab 08/07/19 losartan 100 mg tablet 100 mg PO DAILY #90 tab 08/07/19 betamethasone dipropionate 0.05 % topical cream 1 applic TOPICAL BID #45 g 09/12/19 Amlodipine Besylate 5 mg PO DAILY 01/01/20 Amoxicillin/Potassium Clav [Augmentin 875-125 Tablet] 1 tab PO BID 01/01/20 Ciprofloxacin [Cipro] 500 mg PO BID 01/01/20 Metformin HCl 1,000 mg PO DAILY 01/01/20 glipiZIDE XL [Glucotrol Xl] 5 mg PO DAILY 01/01/20 Primary Care Physician: Cem Nj DO [Primary Care Provider] - Please follow up with your Primary Care Physician in: 3-5 days Test Results: Test results from this visit will be discussed in further detail at your follow- up appointment, if applicable. Please Follow Up With: Saba Alvarez DPM When: 3-5 days
[2020-01-03 13:06] VITALS: BP 127/69; PULSE 74; RESP 14; O2SAT 96
--- NOTE | 2020-01-03 14:57 | PCM.DC.SUM ---
Discharge Date and Diagnosis Date of Admission: 01/01/20 Date of Discharge: 01/03/20 - Secondary Discharge Diagnosis Chronic Problems (Last Reviewed 12/25/19 @ 15:[address] 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) PCI w/ KIRILL to distal RCA, ostial PDA, and mid RCA 03/07; previous PTCA w/stent to mid main CX 09/24 Essential hypertension (Chronic) Hammertoe of right foot (Chronic) Diabetic ulcer of left lower leg (Chronic) s/p 2nd degree burn with fat layer exposed Diabetic ulcer of left lower leg with fat layer exposed (Chronic) Other retirement (current) drug therapy (Chronic) Sleep disorder (Chronic) Depressive disorder (Chronic) Alcohol abuse (Chronic) Malnutrition (Chronic) Chronic ulcer of left foot with fat layer exposed (Chronic) Venous insufficiency of both lower extremities (Chronic) Ulcer of right foot with fat layer exposed (Chronic) Ischemic cardiomyopathy (Chronic) Angina pectoris (Chronic) Hyperlipidemia (Chronic) Diabetes 1.5, managed as type 2 (Chronic) Edema extremities (Chronic) Diabetes mellitus (Chronic) Diabetes mellitus with circulatory complication (Chronic) 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) Diabetes mellitus with neurologic complication, with long-term current use of insulin (Chronic) Charcot ankle (Chronic) Charc?t's arthritis due to secondary diabetes (Chronic) Charcot foot due to diabetes mellitus (Chronic) Diabetic foot ulcers (Chronic) Open wound of foot with complication (Chronic) Open wound of right ankle (Chronic) Open wound of left ankle with complication (Chronic) Acquired equinus deformity of both feet (Chronic) Healed ulcer of left foot on examination (Chronic) Diabetes mellitus with polyneuropathy (Chronic) Malnutrition (Chronic) Charcot's joint, left ankle and foot (Chronic) Hospital Course and Treatment Imaging Results: CXR: IMPRESSION: No acute disease Foot XR L: IMPRESSION: Increasing soft tissue swelling. 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 Triple phase bone scan or MRI with contrast would be more sensitive for infection. Consultations 01/02/20 04:50 Consult: Onc/Wound/tin dipper Routine Comment: Reason for Consult:: left foot ulcer Podiatry Nephrology Operations: None Procedures: None Summary of Care Provided: Per HPI: The patient is a 59 y/o M w/ PMHx: Chronic Hyponatremia, HTN, HLD, CAD s/p PCI x 4, Diabetes mellitus type II, Ischemic cardiomyopathy, PVD, Depression and Anxiety, Hx Charcot foot following w/ Dr. Alvarez, EtOH Abuse, Chronic L foot wound following with wound care who presents to the [facility] ED on 01/01/20 with history of ongoing treatment for L foot diabetic wound with [facility] evaluation on day of presentation, started on cipro and augmentin the day prior; however, noted to be feeling so poorly that he was referred to the ED for evaluation with ongoing history of mild nausea, occasional dry heaves, intermittent rare loose stool with poor appetite with no specific fevers or chills prompting evaluation. Work-up in the ED included T 97.8, heart rate of 73, BP 136/78, respiratory rate 16, 98% on room air, CBC with WC 7.6, hemoglobin 12.5, platelet 259 with mild left shift, ESR 46, CMP with sodium 115, chloride 77, glucose 153, lactic acid 1.4, total bilirubin 0.8, direct bilirubin 0.29, AST/ALT 27/25, alk phos 147, troponin less than 0.015, CRP 23.9, urinalysis with elevated specific raphe 1.020, protein 30, ketones 50, occult blood 25, negative nitrite, leukocyte esterase 25, no marketed urine WBCs or bacteria, blood culture x2 pending per ED, rapid influenza negative, chest x-ray with no acute cardiopulmonary findings, EKG was sinus rhythm with no acute evidence of ischemia. In the ED patient ministered normal saline, Zofran. Hospital Course: 1. Acute on chronic hyponatremia/chronic alcohol [id number] male who presents from home with chronic left foot wound that is being managed by podiatry as an outpatient as well as not feeling well with nausea and occasional dry heaves as well as intermittent loose stools. He was found to have a sodium of 115. His hydrochlorothiazide was discontinued and he was placed on IV fluids. Sodium is now 129, and he is doing well and wants to go home. This was discussed with nephrology and they said to continue holding his hydrochlorothiazide and otherwise from a renal standpoint he was good for discharge. He does admit to drinking 4 to 5 12 ounce cans of beer every day, however he states that he has quit drinking for. At the time of alcohol withdrawal. Initially he was placed on alcohol withdrawal protocol however he is asking to be discharged today. He was discharged home and his hydrochlorothiazide was discontinued as discussed with him he needs to follow-up with his primary care doctor in 3 to 5 days. 2. Acute left foot diabetic wound infection-a few days prior to admission he was started on Augmentin and Cipro as an outpatient, he was transitioned to vancomycin and Zosyn while here however he states he never came in for his foot and that his foot is not a problem. His vancomycin was discontinued as his cultures were growing gram-negative rods. Podiatry was consulted and they felt that his wound actually looked as good as it was prior to him coming in, therefore they are okay with him following up with them next week and to continue the Augmentin and Cipro that he had been on. 3. His other medical diagnoses were evaluated and his home medications were continued where appropriate - Physical Exam Vitals/I&O's: Vital Signs Temp Pulse Resp BP Pulse Ox 98.2 F 74 14 127/69 H 96 01/03/20 09:51 01/03/20 13:06 01/03/20 13:06 01/03/20 13:06 01/03/20 13:06 Oxygen Delivery Method Room Air Weight: 251 lb 8.759 oz Body Mass Index (BMI) 35.1 Intake and Output for Last 24 Hours 01/01/20 01/02/20 01/03/20 23:59 23:59 23:59 Intake Total 3004.17 / 3004.17 3965.83 / 3965.83 2250.0 / 2250.0 Output Total 2450 / 2450 1100 / 1100 Balance 3004.17 / 2404.17 1515.83 / 1515.83 1150.0 / 1150.0 General: Alert, Oriented x3, Cooperative, No apparent distress HEENT: Atraumatic, PERRLA, EOMI, Normocephalic Oral: Moist Mucosa Neck: Supple, No JVD Lungs: Clear to auscultation, Normal air movement, No rhonchi, No wheeze, No rales, Diminished Cardiovascular: Regular rate, Regular Rhythm, Normal S1, Normal S2, No murmurs Abdomen: Soft, Non Tender, Non-Distended, No Hepato-splenomegaly Extremities: No edema, Capillary Refill Less than 3 Seconds Skin: Ulcer/ Wound - Evaluated by wound care, dressing intact Neurological: Neuro grossly intact, Sensory exam intact to light touch and pain Psych/Mental Status: Normal Affect, Appropriate Microbiology Past 72 Hours 01/02/20 08:06 Wound - Left Foot Gram Stain - Final 01/02/20 08:06 Wound - Left Foot Wound Culture - Preliminary No growth-Final to follow 01/02/20 01:26 Stool C. difficile DNA Amplification - Final 01/01/20 17:11 Mucosa - Nose Influenza Types A,B Direct FA (PAN) - Final Laboratory Results 01/02/20 15:02: Sodium 128 L, Potassium 3.7, Chloride 93 L, Carbon Dioxide 27.0, Anion Gap 8, BUN 8, Creatinine 1.06, Estim Creat Clear Calc 79.92, Est GFR (MDRD) Af Amer 92, Est GFR (MDRD) Non-Af 76, BUN/Creatinine Ratio 7.5 L, Glucose 186 H, Calcium 8.7 01/02/20 17:42: POC Glucose 244 H 01/02/20 19:58: Sodium 129 L, Potassium 4.2, Chloride 95 L, Carbon Dioxide 28.0, Anion Gap 6, BUN 11, Creatinine 1.10, Estim Creat Clear Calc 77.01, Est GFR (MDRD) Af Amer 88, Est GFR (MDRD) Non-Af 73, BUN/Creatinine Ratio 10.0, Glucose 202 H, Calcium 8.3 L 01/02/20 22:30: Vancomycin Trough 23.1 H 01/02/20 22:44: POC Glucose 184 H 01/03/20 06:46: POC Glucose 180 H 01/03/20 06:58: WBC 4.3 L, RBC 3.64 L, Hgb 11.2 L, Hct 32.8 L, MCV 90.1, MCH 30.8, MCHC 34.1, RDW Std Deviation 41.3, RDW Coeff of Sherita 12.4, Plt Count 248, MPV 9.8, Immature Gran % (Auto) 0.900, Neut % (Auto) 62.3, Lymph % (Auto) 22.8, [place] % (Auto) 9.6, Eos % (Auto) 2.8, Baso % (Auto) 1.6 H, Absolute Neuts (auto) 2.7, Absolute Lymphs (auto) 0.98, Nucleated RBC % 0 01/03/20 06:58: Sodium 129 L, Potassium 4.0, Chloride 95 L, Carbon Dioxide 28.0, Anion Gap 6, BUN 9, Creatinine 0.92, Estim Creat Clear Calc 92.08, Est GFR (MDRD) Af Amer 108, Est GFR (MDRD) Non-Af 90, BUN/Creatinine Ratio 9.8 L, Glucose 206 H, Calcium 8.5 01/03/20 06:58: Random Vancomycin 16.9 H 01/03/20 11:01: POC Glucose 342 H Discharge Activity: Return to Normal Activity Weight Bearing Status: No weight bearing - No weightbearing on left foot Keep extremity elevated above heart level: Left Leg Call your doctor if you observe: Fever of 101 or Higher, Shortness of breath, Dizziness, Fainting spells, Swelling in the ankles, Chest pain, Increased palpitations (irregular heartbeat) Additional Dressing/Incision Instructions:: Wound care left foot: cleanse w/ normal saline solution, apply aquacel Ag, w/ overlying gauze and nicholas dressing - change daily. Home Medications: Medications to take at Discharge aspirin 81 mg tablet,delayed release 81 mg PO DAILY 10/12/17 ascorbic acid (vitamin C) 500 mg tablet 500 mg PO BID 03/23/18 nitroglycerin 0.4 mg sublingual tablet 0.4 mg SUBLINGUAL Q5M PRN #25 tab 07/19/18 atenolol 50 mg tablet 50 mg PO DAILY #90 tab 08/07/19 losartan 100 mg tablet 100 mg PO DAILY #90 tab 08/07/19 betamethasone dipropionate 0.05 % topical cream 1 applic TOPICAL BID #45 g 09/12/19 Amlodipine Besylate 5 mg PO DAILY 01/01/20 Amoxicillin/Potassium Clav [Augmentin 875-125 Tablet] 1 tab PO BID 01/01/20 Ciprofloxacin [Cipro] 500 mg PO BID 01/01/20 Metformin HCl 1,000 mg PO DAILY 01/01/20 glipiZIDE XL [Glucotrol Xl] 5 mg PO DAILY 01/01/20 Primary Care Physician: Cem Nj DO [Primary Care Provider] - Please follow up with your Primary Care Physician in: 3-5 days Please Follow Up With: Saba Alvarez DPM When: 3-5 days Disposition: Home Minutes spent on discharge:: 35 Patient Condition:: Stable Medical Necessity - Tobacco Use Smoking Status: Former smoker - Quit cigarette tobacco usage in 2002 with prior to this approximately 20-year history of 1 to 1.5 pack/day usage. Tobacco Use: Non-smoker Meaningful Use Info Meaningful Use Diagnoses (Choose all that apply): None applicable Inpatient E&M: 09739 [facility]
--- NOTE | 2020-01-07 14:44 | CASEMGMT ---
DC DATE: 01.03.2020 DC DISPOSITION: Home DC DIAGNOSIS: Hyponatremia, ETOH abuse LACE/STRATA: 07/25 F/U APPTS MADE PRIOR TO DC: no, pt has already been in contact with her physician. PRESCRIPTIONS ACQUIRED BY PT: yes Intro role of CM to patient via phone. Pt states he is doing well, no questions re: prescriptions or instructions. Pt states he is speaking with his physician re: lab work they would like to have him do. No care improvement suggestions at this time. Angelica GUDINON RN ACM
== END 2020-01-03 13:25 | disposition home or self-care (01) | DRG 641 ==
LOC: ED 18:48 → PCU 19:59
PROVIDERS: Podiatrist; Student in an Organized Health Care Education/Training Program; Admitting Provider Family Medicine; Emergency Provider Emergency Medicine; PCP Family Medicine; Visit Provider Family Medicine
DX: E87.1 Hypo-osmolality and hyponatremia (principal); L03.116 Cellulitis of left lower limb; L97.422 Non-pressure chronic ulcer of left heel and midfoot with fat layer exposed; E11.628 Type 2 diabetes mellitus with other skin complications; E11.621 Type 2 diabetes mellitus with foot ulcer; E11.42 Type 2 diabetes mellitus with diabetic polyneuropathy; I25.5 Ischemic cardiomyopathy; I25.10 Atherosclerotic heart disease of native coronary artery without angina pectoris; I10 Essential (primary) hypertension; E11.610 Type 2 diabetes mellitus with diabetic neuropathic arthropathy; E11.51 Type 2 diabetes mellitus with diabetic peripheral angiopathy without gangrene; I87.2 Venous insufficiency (chronic) (peripheral); Z79.82 Long term (current) use of aspirin; E78.5 Hyperlipidemia, unspecified; Z95.5 Presence of coronary angioplasty implant and graft; Z87.891 Personal history of nicotine dependence; Z79.84 Long term (current) use of oral hypoglycemic drugs; L97.522 Non-pressure chronic ulcer of other part of left foot with fat layer exposed; R60.0 Localized edema
CPT/HCPCS: 11042; 36415; 71045; 73630; 80048; 80076; 80202; 80307; 80320; 81001; 82570; 82962; 83036; 83605; 83735; 83935; 84100; 84300; 84439; 84443; 84484; 85025; 85652; 86140; 87040; 87070; 87075; 87077; 87186; 87205; 87493; 87640; 87804; 93005; 97802; 99251; 99283; J7030; J7040; A4216; G0463; G0480; J2405

== ENCOUNTER → 2020-01-07 12:06 | Outpatient (CLI) | payer MEDICARE, SELFPAY ==
[2020-01-01 20:30] VITALS: BMI 35.1
[2020-01-07 15:48] LABS: Anion Gap 10 (5-15); BUN 9 mg/dL (7-18); BUN/Creat Ratio 11.7 RATIO (10-20); Calcium,Total 8.4 mg/dL (8.5-10.1); Chloride 88 mmol/L (98-107); Creatinine, Serum 0.77 mg/dL (0.70-1.30); EST Glomerular Filtration Rate 110 mL/min (>60); Est Glom Filt Rate - Afr Amer 134 mL/min (>60); Glucose 104 mg/dL (74-106); Potassium 3.8 mmol/L (3.5-5.1); Sodium Level 122 mmol/L (136-145)
== END ==
PROVIDERS: PCP Family Medicine; Referring Provider Family Medicine; Visit Provider Family Medicine
DX: E87.1 Hypo-osmolality and hyponatremia (principal)
CPT/HCPCS: 36415; 80048

== ENCOUNTER 2020-01-15 14:00 | Outpatient (RCR) | payer MEDICARE, SELFPAY ==
[2019-11-26 15:25] VITALS: BMI 38.7
[2019-12-25 13:21] VITALS: BP 140/80; PULSE 77; RESP 20; TEMP 37.4; BMI 38.7
--- NOTE | 2019-12-25 21:53 | PN.PCM_ITS ---
(1) Chronic ulcer of left foot with fat layer exposed Status: Chronic Code(s): L97.522 - Non-pressure chronic ulcer of other part of left foot with fat layer exposed (2) Venous insufficiency of both lower extremities Status: Chronic Code(s): I87.2 - Venous insufficiency (chronic) (peripheral) (3) Diabetes mellitus with polyneuropathy Status: Chronic Qualifiers: Diabetes mellitus type: type 2 Qualified Code(s): E11.42 - Type 2 diabetes mellitus with diabetic polyneuropathy Code(s): E11.42 - Type 2 diabetes mellitus with diabetic polyneuropathy (4) Malnutrition Status: Chronic Code(s): E46 - Unspecified protein-calorie malnutrition (5) Charcot's joint, left ankle and foot Status: Suspected Code(s): M14.672 - Charcot's joint, left ankle and foot (6) Infection of left foot Status: Suspected Code(s): L08.9 - Local infection of the skin and subcutaneous tissue, unspecified Comment: differential diagnosis (7) Localized edema Status: Chronic Code(s): R60.0 - Localized edema Type of Wound Date of Service: 12/25/19 Chief Complaint: Nonhealing ulcer to left anterior lower extremity History of Wound: This is a 58 M who presents to the wound center for return of left foot ulcer with an onset within the past week. He denies trauma. He admits he is been active and he does have some intermittent lower extremity swelling. He reports a mild odor. There is some swelling and redness. He does have a significant past medical history of Charcot. He has a past medical history as listed above significant for uncontrolled type 2 diabetes mellitus. The patient otherwise denies any fever, chills, nausea, vomiting, shortness of breath, calf pain. Progress of Wound: New ulcer - Physical Exam Vital Signs Temp Pulse Resp BP 99.3 F H 77 20 H 140/80 H 12/25/19 13:21 12/25/19 13:21 12/25/19 13:21 12/25/19 13:21 General: Alert, Oriented x3, Cooperative, No apparent distress Extremities: No cyanosis, Capillary Refill Less than 3 Seconds, No Calf Tenderness - Negative Jyothi and Carranza bilateral, Diminished Peripheral Pulses, Edema Skin: Ulcer/ Wound - Skin discontinuity with granular base noted upon debridement there is no judith odor or purulence on expression. There is no bogginess or fluctuance or necrosis. There is no laxity of the midfoot with manipulation. There is some mild edema erythema and inflammation around this Ulcer site. This extends less than 1 cm. The compartments remain soft. His skin in general is hairless and atrophic Wound Measurements and Assessment WC - Nurse 1 - General Ulcer Measurement Start: 12/25/19 13:21 Freq: Status: Active Protocol: Activity Type Activity Date Activity User E-Sign Co-Sign Detail Recorded Client Recorded Date Recorded By Document 12/25/19 13:21 DL [id number] 12/25/19 13:46 DL 12/25/19 13:21 Wound Center Nurse 1 [Ulcer Assessment] #11 L Plantar -Current Size (cm) - Length 1.5 -Current Size (cm) - Width 1.4 -Current Size (cm) - Depth 0.1 -Total Square Cm 2.10 -Photo Taken Yes -Maximum Distance #2 (cm) 1.5 -Circular Undermining Yes -Classification - Rivera Grading ( Grade 3 Diabetic Ulcer) -Exudate Amt Small -Exudate Type Serosanguineous -Wound Margin Distinct, Outline Attached -Granulation Amt Large (67-100%) -Granulation Quality Pale,Sweeny -Necrosis Amt None Present (0 %) -Structure Exposed N/A -Texture (Ania-wound Skin Appearance) Localized Edema -Moisture (Ania-wound Skin Appearance Dry/Scaly ) -Color (Ania-wound Skin Appearance) Erythema -Temperature (Ania-wound Skin No Abnormality Appearance) (Pt Warm) -Tenderness on Palpation (Ania-wound No Skin Appearance) -Ulcer Cleansing Rinsed/ Irrigated with Saline -Foul Odor after Cleansing No -Anesthetic Used 4% Lidocaine Solution [Edema Assessment] -Left Calf (cm) 40 -Left Ankle (cm) 27 WC - Nurse 2 - General Ulcer CM Notes Start: 12/25/19 13:21 Freq: Status: Active Protocol: Activity Type Activity Date Activity User E-Sign Co-Sign Detail Recorded Client Recorded Date Recorded By Document 12/25/19 14:09 DL [id number] 12/25/19 14:14 DL 12/25/19 14:09 Wound Center Nurse 2 [Procedure/Treatment] #11 L Plantar -Time 14:13 -Correct Patient Yes -Correct Side, Site, Position Yes -Correct Procedure Yes -Procedure Performed Yes -Type of Procedure Debridement -Clinical Debridement Subcutaneous -Post Debridement Size (cm) - Length 3.1 -Post Debridement Size (cm) - Width 4.0 -Post Debridement Size (cm) - Depth 0.2 -Total Square Cm 12.40 -Wound/Ulcer Outcome Not Healed -Ulcer Cleansing Rinsed/ Irrigated with Saline -Foul Odor after Cleansing No -Bioengineered Tissue No -Bleeding Controlled with Pressure -Offloading Yes -Type of Offloading Surgical Shoe -Treatment Response Procedure Tolerated Well [See Physician Procedure note for Specifics] Pain Scale: 0-10 Numeric [Pain] -Is Patient Pain Free? Yes Musculoskeletal: No Tenderness to Palpation of Joints or Extremities, Muscle Wasting, - - Rocker-bottom left foot consistent with Charcot limb Neurological: - - Lack of epicritic sensation light touch is consistent with neuropathy Psych/Mental Status: Normal Affect, Appropriate Debridement Note Post-Debridement Measurements/Treatment WC - Nurse 2 - General Ulcer CM Notes Start: 12/25/19 13:21 Freq: Status: Active Protocol: Activity Type Activity Date Activity User E-Sign Co-Sign Detail Recorded Client Recorded Date Recorded By Document 12/25/19 14:09 DL [id number] 12/25/19 14:14 DL 12/25/19 14:09 Wound Center Nurse 2 #11 L Plantar -Time 14:13 -Correct Patient Yes -Correct Side, Site, Position Yes -Correct Procedure Yes -Procedure Performed Yes -Type of Procedure Debridement -Clinical Debridement Subcutaneous -Post Debridement Size (cm) - Length 3.1 -Post Debridement Size (cm) - Width 4.0 -Post Debridement Size (cm) - Depth 0.2 -Total Square Cm 12.40 -Wound/Ulcer Outcome Not Healed -Ulcer Cleansing Rinsed/ Irrigated with Saline -Foul Odor after Cleansing No -Bioengineered Tissue No -Bleeding Controlled with Pressure -Offloading Yes -Type of Offloading Surgical Shoe -Treatment Response Procedure Tolerated Well Pain Scale: 0-10 Numeric Is Patient Pain Free? Yes Wound debrided: plantar mid foot Laterality: Left Wound Grade/Stage: grade 1 Type of Debridement: Excisional debridement Anesthesia Used: 5% Lidocaine Gel Depth: in the subcutaneous layer Percentage of wound debrided: 100 Instrument Used: #15 blade Tissue Removed: fibrous, devitalized subcutaneous, biofilm, slough Severity: Fat Layer Exposed Amount of bleeding with debridement: Mild Bleeding Controlled with: Pressure Patient tolerated procedure well Assessment/Plan Assessment: Left Charcot foot acute versus subacute versus chronic. Left foot ulcer with fat layer exposed with inflammation secondary to Charcot versus infection. Infected left foot is a differential diagnosis. Lower extremity edema. peripheral vascular disease. diabetes with peripheral neuropathy. Malnutrition suspected. History of delayed healing Plan: I reviewed and discussed his case. Debridement was performed as noted in the clinical panel. It is noted his last hemoglobin A1c was 7.6%. I recommend that he update his labs and cultures and foot x-rays. These orders were provided today. A culture was obtained after debridement and brief saline irrigation. He is advised to offload by maintain a strict nonweightbearing status. He reports he has been using a wheelchair at home. I also recommended he wash his foot with Yudith-Hex anti-microbial medical grade soap. He has been started on antibiotics of cephalexin by his primary care physician, Dr. Nj. He was advised to continue with this. He did have ABIs at the time of January 2018 which these were normal. He did also have venous Dopplers performed with some evidence of venous insufficiency noted. He had a incompetent right greater saphenous vein to be specific. To maintain a healthy well-balanced diet to optimize blood glucose and healing. To return to clinic in 1 week or call s ooner if he has any questions or concerns.
[2019-12-26 13:17] LABS: M R Staph aureus DNA By PCR Negative (Negative); Probe Check PASS; Specimen Processing Control PASS; Staph aureus DNA By PCR NEGATIVE (Negative)
--- NOTE | 2019-12-27 11:25 | RAD_ITS ---
STUDY: X-RAY - LEFT FOOT CLINICAL: Charcot foot, open ulcer at the plantar aspect of the left foot. TECHNIQUE: 3 view(s) of the foot. COMPARISON: Radiographs 04/27/2016. FINDINGS: There is neuropathic osteoarthropathy of the midfoot and tarsometatarsal articulations with collapse of the arch of the foot as on the prior study. There is a plantar calcaneal enthesophyte. There is an os trigonum. There is chronic cortical thickening of the second through fourth metatarsals as on the prior study. Normal metatarsophalangeal joint of the great toe. Normal tibial and fibular sesamoid bones. There is flexion deformity at the interphalangeal joint of the great toe. Normal phalanges of the great toe. There is avascular necrosis with flattening of the third metatarsal head and third metatarsophalangeal arthrosis as on the prior study. Normal interphalangeal joints and phalanges of the lesser toes. There are hammertoe deformities of the lesser toes. There is soft tissue swelling. 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 Soft tissue swelling. No demonstrated active bone destruction. Electronically Signed: Edin Clark MD at 13:15 EST Tel , Service support ,
[2020-01-01 14:46] VITALS: BP 126/71; RESP 86; TEMP 36.4; BMI 38.7
--- NOTE | 2020-01-01 15:27 | PN.PCM_ITS ---
(1) Infection of left foot Status: Acute Current Visit: Yes Code(s): L08.9 - Local infection of the skin and subcutaneous tissue, unspecified Comment: differential diagnosis (2) Chronic ulcer of left foot with fat layer exposed Status: Chronic Current Visit: Yes Code(s): L97.522 - Non-pressure chronic ulcer of other part of left foot with fat layer exposed (3) Venous insufficiency of both lower extremities Status: Chronic Current Visit: Yes Code(s): I87.2 - Venous insufficiency (chronic) (peripheral) (4) Diabetes mellitus with polyneuropathy Status: Chronic Current Visit: Yes Qualifiers: Diabetes mellitus type: type 2 Qualified Code(s): E11.42 - Type 2 diabetes mellitus with diabetic polyneuropathy Code(s): E11.42 - Type 2 diabetes mellitus with diabetic polyneuropathy (5) Malnutrition Status: Chronic Current Visit: Yes Code(s): E46 - Unspecified protein- calorie malnutrition (6) Charcot's joint, left ankle and foot Status: Suspected Current Visit: Yes Code(s): M14.672 - Charcot's joint, left ankle and foot (7) Localized edema Status: Chronic Current Visit: Yes Code(s): R60.0 - Localized edema Type of Wound Date of Service: 01/01/20 Chief Complaint: Nonhealing ulcer to left anterior lower extremity History of Wound: This is a 59 M who presents to the wound center for return of left foot ulcer with an onset within the past 1 1/2 weeks. He does have a significant past podiatry history of Charcot. He has a past medical history as listed above significant for uncontrolled type 2 diabetes mellitus, hyperlipedemia and coronary artery disease. He denies trauma. He denies odor. There is some decrease swelling and redness compared to last week. He has been on oral cephalexin for over 2 weeks that was prescribed by his primary care physician, Dr. Nj. After culture result reviewed from the wound care center last week, I recommended Augmentin and ciprofloxacin. He was unable to pick this up and start this until yesterday. He relates overall he does not feel well. He has chills, loss of appetite, and fatigue. He denies coughing or fever. He is afebrile in clinic this afternoon and his glucose level is 149 mg/dL. He denies diarrhea. He denies recent travel. He does not have known exposure to coronavirus. Progress of Wound: Stable foot - Physical Exam Vital Signs Temp Pulse Resp BP 97.5 F L 77 86 H 126/71 H 01/01/20 14:46 12/25/19 13:21 01/01/20 14:46 01/01/20 14:46 General: Alert, Oriented x3, Cooperative, No apparent distress Extremities: No cyanosis, Capillary Refill Less than 3 Seconds, No Calf Tenderness - Negative Jyothi and Carranza sign left, Diminished Peripheral Pulses, Edema, - - There is no laxity with passive manipulation of the midfoot, left. He does have a rocker-bottom foot consistent with his previous Charcot neuroarthropathy left Skin: Ulcer/ Wound - There is no purulence on expression. The ulcer bed is mainly granular with about 20% fibrous tissue. There is no deep probing. There is no bogginess or fluctuance on palpation. The erythema from last week has decreased in intensity and location. Edema to the foot has also decreased. There is plantar skin peeling noted there was prior inflammation noted last week. His skin in general is hairless and atrophic. There is no deep probing to deep structures or judith necrosis. Wound Measurements and Assessment WC - Nurse 1 - General Ulcer Measurement Start: 12/25/19 13:21 Freq: Status: Active Protocol: Activity Type Activity Date Activity User E-Sign Co-Sign Detail Recorded Client Recorded Date Recorded By Document 01/01/20 14:46 MT [id number] 01/01/20 14:50 MT 01/01/20 14:46 Wound Center Nurse 1 [Ulcer Assessment] #11 L Plantar -Current Size (cm) - Length 2.7 -Current Size (cm) - Width 2.9 -Current Size (cm) - Depth 0.1 -Total Square Cm 7.83 -Exudate Amt Small -Exudate Type Purulent -Wound Margin Flat & Intact -Granulation Amt Medium (34-66%) -Granulation Quality Pale,Gardners -Necrosis Amt Small (1-33%) -Necrotic Tissue Type Adherent Slough -Texture (Ania-wound Skin Appearance) Assessed -Moisture (Ania-wound Skin Appearance Assessed ) -Color (Ania-wound Skin Appearance) No Abnormality -Temperature (Ania-wound Skin No Abnormality Appearance) (Pt Warm) -Tenderness on Palpation (Ania-wound No Skin Appearance) -Ulcer Cleansing Rinsed/ Irrigated with Saline -Foul Odor after Cleansing No -Anesthetic Used 4% Lidocaine Solution [Edema Assessment] -Lower Limb Edema Present NA - Nurse 2 - General Ulcer CM Notes Start: 12/25/19 13:21 Freq: Status: Active Protocol: Activity Type Activity Date Activity User E-Sign Co-Sign Detail Recorded Client Recorded Date Recorded By Document 01/01/20 15:18 [id number] 01/01/20 15:21 01/01/20 15:18 Wound Center Nurse 2 [Procedure/Treatment] #11 L Plantar -Time 15:19 -Correct Patient Yes -Correct Side, Site, Position Yes -Correct Procedure Yes -Procedure Performed Yes -Type of Procedure Debridement -Clinical Debridement Subcutaneous -Post Debridement Size (cm) - Length 2.4 -Post Debridement Size (cm) - Width 6.4 -Post Debridement Size (cm) - Depth 0.2 -Total Square Cm 15.36 -Wound/Ulcer Outcome Not Healed -Ulcer Cleansing Rinsed/ Irrigated with Saline -Foul Odor after Cleansing No -Bioengineered Tissue No -Bleeding Controlled with Pressure -Offloading Yes -Type of Offloading Camwalker -Treatment Response Procedure Tolerated Well [See Physician Procedure note for Specifics] Pain Scale: 0-10 Numeric [Pain] -Is Patient Pain Free? Yes Musculoskeletal: No Tenderness to Palpation of Joints or Extremities, Muscle Wasting Neurological: - - Lack of epicritic sensation to light touch is consistent with neuropathy status Psych/Mental Status: Normal Affect, Appropriate Debridement Note Post-Debridement Measurements/Treatment - Nurse 2 - General Ulcer CM Notes Start: 12/25/19 13:21 Freq: Status: Active Protocol: Activity Type Activity Date Activity User E-Sign Co-Sign Detail Recorded Client Recorded Date Recorded By Document 12/25/19 14:09 DL [id number] 12/25/19 14:14 DL Document 01/01/20 15:18 [id number] [id number] 01/01/20 15:21 12/25/19 01/01/20 14:09 15:18 Wound Center Nurse 2 #11 L Plantar -Time 14:13 15:19 -Correct Patient Yes Yes -Correct Side, Site, Position Yes Yes -Correct Procedure Yes Yes -Procedure Performed Yes Yes -Type of Procedure Debridement Debridement -Clinical Debridement Subcutaneous Subcutaneous -Post Debridement Size (cm) - Length 3.1 2.4 -Post Debridement Size (cm) - Width 4.0 6.4 -Post Debridement Size (cm) - Depth 0.2 0.2 -Total Square Cm 12.40 15.36 -Wound/Ulcer Outcome Not Healed Not Healed -Ulcer Cleansing Rinsed/ Rinsed/ Irrigated with Irrigated with Saline Saline -Foul Odor after Cleansing No No -Bioengineered Tissue No No -Bleeding Controlled with Pressure Pressure -Offloading Yes Yes -Type of Offloading Surgical Shoe Camwalker -Treatment Response Procedure Procedure Tolerated Well Tolerated Well Pain Scale: 0-10 Numeric Is Patient Pain Free? 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 Soft tissue swelling. No demonstrated active bone destruction. Electronically Signed: Edin Clark MD at 13:15 EST Tel , Service support , Active Problems (Last Reviewed 12/25/19 @ 15:[address] Cem Nj, DO) Infection of left foot (Acute) differential diagnosis Localized edema (Chronic) Chronic ulcer of left foot with fat layer exposed (Chronic) Venous insufficiency of both lower extremities (Chronic) Diabetes mellitus with polyneuropathy (Chronic) Malnutrition (Chronic) Assessment: Left Charcot foot, chronic. Left foot ulcer with fat layer exposed with inflammation secondary to Charcot versus infection. Infected left foot. Lower extremity edema. peripheral vascular disease. diabetes with peripheral neuropathy. Malnutrition suspected. History of delayed healing. Systemic illness Plan: I reviewed and discussed his case. Debridement was performed as noted in the clinical panel. A culture was obtained last week and he was advised to take Augmentin and ciprofloxacin and to transition off of his Keflex. He was unable to get this medication until yesterday. The clinical appearance of his foot does demonstrate some improvement compared to last week with decreased erythema intensity and location. There is no purulence. And there is less edema noted. However, he does not appear to be feeling well. He is afebrile and his glucose level is normal at this time. I am concerned that he is not fully responding to his outpatient clinical treatment of this left foot infection. He is high risk with his diabetes status and history of Charcot and other comorbidities. I am also concerned he has systemic illness from a different source. He is very fatigued in clinic and is barely able to hold his head up. This is uncharacteristic for him. He denies recent travel, cough, or fever. I have discussed the case with the emergency room physician. He will go over for screening including updated CBC, ESR, and C-reactive protein and additional clinical evaluation. This patient understands he may need to be admitted and will complete the screening process initially. It is also noted he may not be mounting as large of a systemic effect, for example fever, due to his immunocompromise status now to have a lower threshold for recommending admission. He is advised to offload by maintaining a strict nonweightbearing status. He reports he has been using a wheelchair at home. I also recommended he wash his foot with Yudith-Hex anti-microbial medical grade soap. He did have ABIs at the time of January 2018 which these were normal. He did also have venous Dopplers performed with some evidence of venous insufficiency noted. He had a incompetent right greater saphenous vein to be specific. To maintain a healthy well-balanced diet to optimize blood glucose and healing. We will follow him closely pending his emergency room visit potential mission.
[2020-01-01 15:40] LABS: Bedside Glucose 149 mg/dL (70-110)
[2020-01-08 14:38] VITALS: BP 148/85; PULSE 70; RESP 18; TEMP 37.2; BMI 38.7
--- NOTE | 2020-01-08 15:12 | PN.PCM_ITS ---
(1) Infection of left foot Status: Resolved Current Visit: Yes Code(s): L08.9 - Local infection of the skin and subcutaneous tissue, unspecified Comment: differential diagnosis (2) Chronic ulcer of left foot with fat layer exposed Status: Chronic Current Visit: Yes Code(s): L97.522 - Non-pressure chronic ulcer of other part of left foot with fat layer exposed (3) Venous insufficiency of both lower extremities Status: Chronic Current Visit: Yes Code(s): I87.2 - Venous insufficiency (chronic) (peripheral) (4) Diabetes mellitus with polyneuropathy Status: Chronic Current Visit: Yes Qualifiers: Diabetes mellitus type: type 2 Qualified Code(s): E11.42 - Type 2 diabetes mellitus with diabetic polyneuropathy Code(s): E11.42 - Type 2 diabetes mellitus with diabetic polyneuropathy (5) Malnutrition Status: Chronic Current Visit: Yes Code(s): E46 - Unspecified protein- calorie malnutrition (6) Charcot's joint, left ankle and foot Status: Chronic Current Visit: Yes Code(s): M14.672 - Charcot's joint, left ankle and foot (7) Localized edema Status: Chronic Current Visit: Yes Code(s): R60.0 - Localized edema Type of Wound Date of Service: 01/08/20 Chief Complaint: Nonhealing ulcer to left anterior lower extremity History of Wound: This is a 59 M who presents to the wound center for return of left foot ulcer with an onset within the past 1 1/2 weeks. He does have a significant past podiatry history of Charcot. He denies recent reinjury. He has a past medical history as listed above significant for uncontrolled type 2 diabetes mellitus, hyperlipedemia and coronary artery disease. He denies trauma. He denies odor. There is some decrease swelling and redness compared to last week after he was admitted to the hospital. He was admitted for hyponatremia and also for some residual cellulitis to the left foot. He denies fever, chill, nausea, vomiting, diarrhea. He is receiving oral antibiotics and will complete his initial prescription course. He relates he is also on a water pill now and is stopped his hydrochlorothiazide. Progress of Wound: Improving quality - Physical Exam Vital Signs Temp Pulse Resp BP 99 F 70 18 148/85 H 01/08/20 14:38 01/08/20 14:38 01/08/20 14:38 01/08/20 14:38 General: Alert, Oriented x3, Cooperative, No apparent distress Extremities: No cyanosis, Capillary Refill Less than 3 Seconds, No Calf Tenderness, Diminished Peripheral Pulses, Edema Skin: Ulcer/ Wound - No purulence, erythema, streaking, odor, infection. There is no warmth noted to the tissue or gross laxity with manipulation of the midfoot. He does have a rocker-bottom foot that is consistent with Charcot deformity., - - hIs adjacent skin is hairless and atrophic Wound Measurements and Assessment WC - Nurse 1 - General Ulcer Measurement Start: 12/25/19 13:21 Freq: Status: Active Protocol: Activity Type Activity Date Activity User E-Sign Co-Sign Detail Recorded Client Recorded Date Recorded By Document 01/08/20 14:38 RB [id number] 01/08/20 14:44 RB 01/08/20 14:38 Wound Center Nurse 1 [Ulcer Assessment] #11 L Plantar -Combined with other wound No -Current Size (cm) - Length 2.8 -Current Size (cm) - Width 2.5 -Current Size (cm) - Depth 0.1 -Total Square Cm 7.00 -Tunneling No -Undermining/Tunneling No -Circular Undermining No -Exudate Amt Small -Exudate Type Serosanguineous -Wound Margin Flat & Intact -Granulation Amt Medium (34-66%) -Granulation Quality Level Green -Slough/Fibrin Yes -Necrosis Amt Small (1-33%) -Necrotic Tissue Type Adherent Slough -Structure Exposed N/A -Texture (Ania-wound Skin Appearance) Callus -Moisture (Ania-wound Skin Appearance Dry/Scaly ) -Color (Ania-wound Skin Appearance) Assessed -Temperature (Ania-wound Skin No Abnormality Appearance) (Pt Warm) -Tenderness on Palpation (Ania-wound No Skin Appearance) -Ulcer Cleansing Wound Cleanser -Foul Odor after Cleansing No -Anesthetic Used 5% Lidocaine Gel WC - Nurse 2 - General Ulcer CM Notes Start: 12/25/19 13:21 Freq: Status: Active Protocol: Activity Type Activity Date Activity User E-Sign Co-Sign Detail Recorded Client Recorded Date Recorded By Document 01/08/20 14:55 [id number] 01/08/20 14:58 01/08/20 14:55 Wound Center Nurse 2 [Procedure/Treatment] 12-left medial plantar foot -Time 14:57 -Correct Patient Yes -Correct Side, Site, Position Yes -Correct Procedure Yes -Procedure Performed Yes -Type of Procedure Debridement -Clinical Debridement Subcutaneous -Post Debridement Size (cm) - Length 0.2 -Post Debridement Size (cm) - Width 0.5 -Post Debridement Size (cm) - Depth 0.6 -Total Square Cm 0.10 -Wound/Ulcer Outcome Not Healed -Ulcer Cleansing Rinsed/ Irrigated with Saline -Foul Odor after Cleansing No -Bioengineered Tissue No -Bleeding Controlled with Pressure -Offloading Yes -Type of Offloading Surgical Shoe -Treatment Response Procedure Tolerated Well #11 L Plantar -Time 14:55 -Correct Patient Yes -Correct Side, Site, Position Yes -Correct Procedure Yes -Procedure Performed Yes -Type of Procedure Debridement -Clinical Debridement Subcutaneous -Post Debridement Size (cm) - Length 2.8 -Post Debridement Size (cm) - Width 2.4 -Post Debridement Size (cm) - Depth 0.1 -Total Square Cm 6.72 -Wound/Ulcer Outcome Not Healed -Ulcer Cleansing Rinsed/ Irrigated with Saline -Foul Odor after Cleansing No -Bioengineered Tissue No -Bleeding Controlled with Pressure -Offloading Yes -Type of Offloading Surgical Shoe -Treatment Response Procedure Tolerated Well [See Physician Procedure note for Specifics] Pain Scale: 0-10 Numeric [Pain] -Is Patient Pain Free? Yes Musculoskeletal: No Tenderness to Palpation of Joints or Extremities, Muscle Wasting Neurological: - - Lack of epicritic sensation light touch is consistent with neuropathy status Psych/Mental Status: Normal Affect, Appropriate Debridement Note Post-Debridement Measurements/Treatment WC - Nurse 2 - General Ulcer CM Notes Start: 12/25/19 13:21 Freq: Status: Active Protocol: Activity Type Activity Date Activity User E-Sign Co-Sign Detail Recorded Client Recorded Date Recorded By Document 12/25/19 14:09 DL [id number] 12/25/19 14:14 DL Document 01/01/20 15:18 JF [id number] 01/01/20 15:21 JF Document 01/08/20 14:55 [id number] 01/08/20 14:58 12/25/19 01/01/20 01/08/20 14:09 15:18 14:55 Wound Center Nurse 2 12-left medial plantar foot -Time 14:57 -Correct Patient Yes -Correct Side, Site, Position Yes -Correct Procedure Yes -Procedure Performed Yes -Type of Procedure Debridement -Clinical Debridement Subcutaneous -Post Debridement Size (cm) - Length 0.2 -Post Debridement Size (cm) - Width 0.5 -Post Debridement Size (cm) - Depth 0.6 -Total Square Cm 0.10 -Wound/Ulcer Outcome Not Healed -Ulcer Cleansing Rinsed/ Irrigated with Saline -Foul Odor after Cleansing No -Bioengineered Tissue No -Bleeding Controlled with Pressure -Offloading Yes -Type of Offloading Surgical Shoe -Treatment Response Procedure Tolerated Well #11 L Plantar -Time 14:13 15:19 14:55 -Correct Patient Yes Yes Yes -Correct Side, Site, Position Yes Yes Yes -Correct Procedure Yes Yes Yes -Procedure Performed Yes Yes Yes -Type of Procedure Debridement Debridement Debridement -Clinical Debridement Subcutaneous Subcutaneous Subcutaneous -Post Debridement Size (cm) - Length 3.1 2.4 2.8 -Post Debridement Size (cm) - Width 4.0 6.4 2.4 -Post Debridement Size (cm) - Depth 0.2 0.2 0.1 -Total Square Cm 12.40 15.36 6.72 -Wound/Ulcer Outcome Not Healed Not Healed Not Healed -Ulcer Cleansing Rinsed/ Rinsed/ Rinsed/ Irrigated with Irrigated with Irrigated with Saline Saline Saline -Foul Odor after Cleansing No No No -Bioengineered Tissue No No No -Bleeding Controlled with Pressure Pressure Pressure -Offloading Yes Yes Yes -Type of Offloading Surgical Shoe Camwalker Surgical Shoe -Treatment Response Procedure Procedure Procedure Tolerated Well Tolerated Well Tolerated Well Pain Scale: 0-10 Numeric Is Patient Pain Free? Yes Yes Yes Wound debrided: plantar midfoot Laterality: Left Wound Grade/Stage: grade 1 Type of Debridement: Excisional debridement Anesthesia Used: 5% Lidocaine Gel Depth: in the subcutaneous layer Percentage of wound debrided: 100 Instrument Used: #15 blade Tissue Removed: fibrous, devitalized subcutaneous, biofilm, slough Severity: Fat Layer Exposed Amount of bleeding with debridement: Mild Bleeding Controlled with: Pressure Patient tolerated procedure well - Additional Wound Wound debrided: plantar medial foot Laterality: Left Wound Grade/Stage: grade 1 Type of Debridement: Excisional debridement Anesthesia Used: 5% Lidocaine Gel Depth: in the subcutaneous layer Percentage of wound debrided: 100 Instrument Used: #15 blade Tissue Removed: fibrous, devitalized subcutaneous, biofilm, slough Severity: Fat Layer Exposed Amount of bleeding with debridement: Mild Bleeding Controlled with: Pressure Patient tolerated procedure: Patient tolerated procedure well Assessment/Plan Clinical Impression(s) from Imaging Studies Foot X-Ray 12/27/19 11:25 IMPRESSION: Neuropathic osteoarthropathy as on the prior study. 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 Soft tissue swelling. No demonstrated active bone destruction. Electronically Signed: Edin Clark MD at 13:15 EST Tel , Service support , Active Problems (Last Reviewed 01/07/20 @ 12:[address] Cem Nj, DO) Localized edema (Chronic) Chronic ulcer of left foot with fat layer exposed (Chronic) Venous insufficiency of both lower extremities (Chronic) Diabetes mellitus with polyneuropathy (Chronic) Malnutrition (Chronic) Charcot's joint, left ankle and foot (Chronic) Assessment: Left Charcot foot, chronic. Left foot ulcer with fat layer exposed with inflammation secondary to Charcot chronic vs subacute. Infected left foot resolved. Lower extremity edema. peripheral vascular disease. diabetes with peripheral neuropathy. Malnutrition suspected. History of delayed healing. Systemic illness. recent hyponatremia Plan: I reviewed and discussed his case. Debridement was performed as noted in the clinical panel. He was reassured no local signs of infection were noted however he was advised to complete his oral antibiotic course including Augmentin and ciprofloxacin. It is noted he was admitted to the hospital last week for some residual cellulitis of the foot but mainly for hyponatremia. He had underwent medication adjustments he continues to work with his medical doctor in managing this condition. He is high risk with his diabetes status and history of Charcot and other comorbidities. We have discussed Charcot reconstruction surgical options intermittently for the past couple of years. He is unable to proceed so far because he cannot commit to taking the recovery time after correction. He is considering having this performed after he sells his house and does not have as many weightbearing tasks. He understands continued ulcer formation puts him at risk for limb loss and infections. He would like to proceed with a comprehensive wound healing plan at this time. He is advised to offload by maintaining a strict nonweightbearing status. He uses a wheelchair at home. I recommend he wears a surgical shoe even if he is in a wheelchair for additional protection especially when he is placing weight on his heel for transfers. He relates that he has one at home already. I also recommended he continues to wash his foot with Yudith-Hex anti-microbial medical grade soap. He did have ABIs at the time of January 2018 which these were normal. He did also have venous Dopplers performed with some evidence of venous insufficiency noted. He had a incompetent right greater saphenous vein to be specific. To maintain a healthy well-balanced diet to optimize blood glucose and healing. To return to clinic in 1 week for reassessment or call sooner if he has any questions or concerns. We reviewed signs of infection and Charcot reoccurrence; he demonstrates understanding.
[2020-01-15 14:06] VITALS: BP 140/73; PULSE 79; RESP 16; TEMP 36.6; BMI 38.7
--- NOTE | 2020-01-15 16:15 | PN.PCM_ITS ---
(1) Infection of left foot Status: Resolved Current Visit: Yes Code(s): L08.9 - Local infection of the skin and subcutaneous tissue, unspecified Comment: differential diagnosis (2) Chronic ulcer of left foot with fat layer exposed Status: Chronic Current Visit: Yes Code(s): L97.522 - Non-pressure chronic ulcer of other part of left foot with fat layer exposed (3) Venous insufficiency of both lower extremities Status: Chronic Current Visit: Yes Code(s): I87.2 - Venous insufficiency (chronic) (peripheral) (4) Diabetes mellitus with polyneuropathy Status: Chronic Current Visit: Yes Qualifiers: Diabetes mellitus type: type 2 Qualified Code(s): E11.42 - Type 2 diabetes mellitus with diabetic polyneuropathy Code(s): E11.42 - Type 2 diabetes mellitus with diabetic polyneuropathy (5) Malnutrition Status: Chronic Current Visit: Yes Code(s): E46 - Unspecified protein- calorie malnutrition (6) Charcot's joint, left ankle and foot Status: Chronic Current Visit: Yes Code(s): M14.672 - Charcot's joint, left ankle and foot (7) Localized edema Status: Chronic Current Visit: Yes Code(s): R60.0 - Localized edema Type of Wound Date of Service: 01/15/20 Chief Complaint: Nonhealing ulcer to left anterior lower extremity History of Wound: This is a 59 M who presents to the wound center for return of left foot. He does have a significant past podiatry history of Charcot. He denies recent reinjury. He has a past medical history as listed above significant for uncontrolled type 2 diabetes mellitus, hyperlipedemia and coronary artery disease. He denies trauma. He denies odor. He was recently admitted for hyponatremia and also for some residual cellulitis to the left foot. These conditions have resolved and he is doing much better. He denies fever, chill, nausea, vomiting, diarrhea. He completed his oral antibiotics. He has been trying to keep pressure off of his foot. Progress of Wound: Improving quality - Physical Exam Vital Signs Temp Pulse Resp BP 97.8 F 79 16 140/73 H 01/15/20 14:06 01/15/20 14:06 01/15/20 14:06 01/15/20 14:06 General: Alert, Oriented x3, Cooperative, No apparent distress Extremities: No cyanosis, Capillary Refill Less than 3 Seconds, No Calf Tenderness, Diminished Peripheral Pulses, Edema Skin: Ulcer/ Wound - No purulence, erythema, streaking, odor, infection. His peripheral skin is hairless and atrophic. Wound Measurements and Assessment WC - Nurse 1 - General Ulcer Measurement Start: 12/25/19 13:21 Freq: Status: Active Protocol: Activity Type Activity Date Activity User E-Sign Co-Sign Detail Recorded Client Recorded Date Recorded By Document 01/15/20 14:06 [id number] 01/15/20 14:12 01/15/20 14:06 Wound Center Nurse 1 [Ulcer Assessment] 12-left medial plantar foot -Combined with other wound No -Current Size (cm) - Length 0.3 -Current Size (cm) - Width 0.4 -Current Size (cm) - Depth 0.3 -Total Square Cm 0.12 -Photo Taken No -Epithelialization None Present -Tunneling No -Undermining/Tunneling No -Circular Undermining No -Exudate Amt None Present -Wound Margin Distinct, Outline Attached -Granulation Amt Medium (34-66%) -Granulation Quality Red -Slough/Fibrin Yes -Necrosis Amt None Present (0 %) -Necrotic Tissue Type Adherent Slough -Structure Exposed None/Limited to Skin Breakdown -Texture (Ania-wound Skin Appearance) No Abnormality, Assessed -Moisture (Ania-wound Skin Appearance No Abnormality, ) Assessed -Color (Ania-wound Skin Appearance) No Abnormality, Assessed -Temperature (Ania-wound Skin No Abnormality Appearance) (Pt Warm) -Tenderness on Palpation (Ania-wound No Skin Appearance) -Ulcer Cleansing Rinsed/ Irrigated with Saline -Foul Odor after Cleansing No -Anesthetic Used 4% Lidocaine Solution #11 L Plantar -Combined with other wound No -Current Size (cm) - Length 2.6 -Current Size (cm) - Width 2.3 -Current Size (cm) - Depth 0.1 -Total Square Cm 5.98 -Photo Taken No -Epithelialization None Present -Tunneling No -Undermining/Tunneling No -Circular Undermining No -Exudate Amt Medium -Exudate Type Serosanguineous -Wound Margin Distinct, Outline Attached -Granulation Amt Large (67-100%) -Granulation Quality Red -Slough/Fibrin Yes -Necrosis Amt None Present (0 %) -Necrotic Tissue Type Adherent Slough -Texture (Ania-wound Skin Appearance) No Abnormality, Assessed -Moisture (Ania-wound Skin Appearance Dry/Scaly ) -Color (Ania-wound Skin Appearance) No Abnormality, Assessed -Temperature (Ania-wound Skin No Abnormality Appearance) (Pt Warm) -Tenderness on Palpation (Ania-wound No Skin Appearance) -Ulcer Cleansing Rinsed/ Irrigated with Saline -Foul Odor after Cleansing No -Anesthetic Used 4% Lidocaine Solution [Edema Assessment] -Lower Limb Edema Present NA WC - Nurse 2 - General Ulcer CM Notes Start: 12/25/19 13:21 Freq: Status: Active Protocol: Activity Type Activity Date Activity User E-Sign Co-Sign Detail Recorded Client Recorded Date Recorded By Document 01/15/20 14:25 DEREK [id number] 01/15/20 14:28 DEREK 01/15/20 14:25 Wound Center Nurse 2 [Procedure/Treatment] 12-left medial plantar foot -Time 14:26 -Correct Patient Yes -Correct Side, Site, Position Yes -Correct Procedure Yes -Procedure Performed Yes -Type of Procedure Debridement -Clinical Debridement Subcutaneous -Post Debridement Size (cm) - Length 0.5 -Post Debridement Size (cm) - Width 0.7 -Post Debridement Size (cm) - Depth 0.3 -Total Square Cm 0.35 -Wound/Ulcer Outcome Not Healed -Ulcer Cleansing Rinsed/ Irrigated with Saline -Foul Odor after Cleansing No -Bioengineered Tissue No -Bleeding Controlled with Pressure -Offloading Yes -Type of Offloading Camwalker -Treatment Response Procedure Tolerated Well #11 L Plantar -Time 14:26 -Correct Patient Yes -Correct Side, Site, Position Yes -Correct Procedure Yes -Procedure Performed Yes -Type of Procedure Debridement -Clinical Debridement Subcutaneous -Post Debridement Size (cm) - Length 2.5 -Post Debridement Size (cm) - Width 2.1 -Post Debridement Size (cm) - Depth 0.1 -Total Square Cm 5.25 -Wound/Ulcer Outcome Not Healed -Ulcer Cleansing Rinsed/ Irrigated with Saline -Foul Odor after Cleansing No -Bioengineered Tissue No -Bleeding Controlled with Pressure -Offloading Yes -Type of Offloading Camwalker -Treatment Response Procedure Tolerated Well [See Physician Procedure note for Specifics] Pain Scale: 0-10 Numeric [Pain] -Is Patient Pain Free? Yes Musculoskeletal: No Tenderness to Palpation of Joints or Extremities, Muscle Wasting Neurological: - - Lack of normal epicritic sensation light touch is consistent with neuropathy status Psych/Mental Status: Normal Affect, Appropriate Debridement Note Post-Debridement Measurements/Treatment WC - Nurse 2 - General Ulcer CM Notes Start: 12/25/19 13:21 Freq: Status: Active Protocol: Activity Type Activity Date Activity User E-Sign Co-Sign Detail Recorded Client Recorded Date Recorded By Document 12/25/19 14:09 DL [id number] 12/25/19 14:14 DL Document 01/01/20 15:18 JF [id number] 01/01/20 15:21 JF Document 01/08/20 14:55 [id number] 01/08/20 14:58 Document 01/15/20 14:25 [id number] 01/15/20 14:28 12/25/19 01/01/20 01/08/20 14:09 15:18 14:55 Wound Center Nurse 2 12-left medial plantar foot -Time 14:57 -Correct Patient Yes -Correct Side, Site, Position Yes -Correct Procedure Yes -Procedure Performed Yes -Type of Procedure Debridement -Clinical Debridement Subcutaneous -Post Debridement Size (cm) - Length 0.2 -Post Debridement Size (cm) - Width 0.5 -Post Debridement Size (cm) - Depth 0.6 -Total Square Cm 0.10 -Wound/Ulcer Outcome Not Healed -Ulcer Cleansing Rinsed/ Irrigated with Saline -Foul Odor after Cleansing No -Bioengineered Tissue No -Bleeding Controlled with Pressure -Offloading Yes -Type of Offloading Surgical Shoe -Treatment Response Procedure Tolerated Well #11 L Plantar -Time 14:13 15:19 14:55 -Correct Patient Yes Yes Yes -Correct Side, Site, Position Yes Yes Yes -Correct Procedure Yes Yes Yes -Procedure Performed Yes Yes Yes -Type of Procedure Debridement Debridement Debridement -Clinical Debridement Subcutaneous Subcutaneous Subcutaneous -Post Debridement Size (cm) - Length 3.1 2.4 2.8 -Post Debridement Size (cm) - Width 4.0 6.4 2.4 -Post Debridement Size (cm) - Depth 0.2 0.2 0.1 -Total Square Cm 12.40 15.36 6.72 -Wound/Ulcer Outcome Not Healed Not Healed Not Healed -Ulcer Cleansing Rinsed/ Rinsed/ Rinsed/ Irrigated with Irrigated with Irrigated with Saline Saline Saline -Foul Odor after Cleansing No No No -Bioengineered Tissue No No No -Bleeding Controlled with Pressure Pressure Pressure -Offloading Yes Yes Yes -Type of Offloading Surgical Shoe Camwalker Surgical Shoe -Treatment Response Procedure Procedure Procedure Tolerated Well Tolerated Well Tolerated Well Pain Scale: 0-10 Numeric Is Patient Pain Free? Yes Yes Yes 01/15/20 14:25 Wound Center Nurse 2 12-left medial plantar foot -Time 14:26 -Correct Patient Yes -Correct Side, Site, Position Yes -Correct Procedure Yes -Procedure Performed Yes -Type of Procedure Debridement -Clinical Debridement Subcutaneous -Post Debridement Size (cm) - Length 0.5 -Post Debridement Size (cm) - Width 0.7 -Post Debridement Size (cm) - Depth 0.3 -Total Square Cm 0.35 -Wound/Ulcer Outcome Not Healed -Ulcer Cleansing Rinsed/ Irrigated with Saline -Foul Odor after Cleansing No -Bioengineered Tissue No -Bleeding Controlled with Pressure -Offloading Yes -Type of Offloading Camwalker -Treatment Response Procedure Tolerated Well #11 L Plantar -Time 14:26 -Correct Patient Yes -Correct Side, Site, Position Yes -Correct Procedure Yes -Procedure Performed Yes -Type of Procedure Debridement -Clinical Debridement Subcutaneous -Post Debridement Size (cm) - Length 2.5 -Post Debridement Size (cm) - Width 2.1 -Post Debridement Size (cm) - Depth 0.1 -Total Square Cm 5.25 -Wound/Ulcer Outcome Not Healed -Ulcer Cleansing Rinsed/ Irrigated with Saline -Foul Odor after Cleansing No -Bioengineered Tissue No -Bleeding Controlled with Pressure -Offloading Yes -Type of Offloading Camwalker -Treatment Response Procedure Tolerated Well Pain Scale: 0-10 Numeric Is Patient Pain Free? 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 Soft tissue swelling. No demonstrated active bone destruction. Electronically Signed: Edin Clark MD at 13:15 EST Tel , Service support , Active Problems (Last Reviewed 01/07/20 @ 12:[address] Cem Nj, DO) Localized edema (Chronic) Chronic ulcer of left foot with fat layer exposed (Chronic) Venous insufficiency of both lower extremities (Chronic) Diabetes mellitus with polyneuropathy (Chronic) Malnutrition (Chronic) Charcot's joint, left ankle and foot (Chronic) Assessment: Left Charcot foot, chronic. Left foot ulcer with fat layer exposed with inflammation secondary to Charcot chronic vs subacute. Infected left foot resolved. Lower extremity edema. peripheral vascular disease. diabetes with peripheral neuropathy. Malnutrition suspected. History of delayed healing. Systemic illness. recent hyponatremia Plan: I reviewed and discussed his case. Debridement was performed as noted in the clinical panel. He was reassured no local signs of infection were noted. he has completed his course of recent antibiotics and is doing well. He is high risk with his diabetes status and history of Charcot and other comorbidities. We have discussed Charcot reconstruction surgical options intermittently for the past couple of years. He is unable to proceed so far because he cannot commit to taking the recovery time after correction. He is considering having this performed after he sells his house and does not have as many weightbearing tasks. He understands continued ulcer formation puts him at risk for limb loss and infections. He would like to proceed with a comprehensive wound healing plan at this time. Advanced wound healing product such as epi-fix, will be considered there is still lack of overall significant progress after 1 month duration. He has high risk for limb loss and this is medically necessary. Prior authorization will be initiated at that time. He is advised to offload by maintaining a strict nonweightbearing status. He uses a wheelchair at home. I recommend he wears a surgical shoe even if he is in a wheelchair for additional protection especially when he is placing weight on his heel for transfers. He relates that he has one at home already. I recommend he washes the foot daily with soap and water and avoid soaking activities. He did have ABIs at the time of January 2018 which these were normal. He did also have venous Dopplers performed with some evidence of venous insufficiency noted. He had a incompetent right greater saphenous vein to be specific. To maintain a healthy well-balanced diet to optimize blood glucose and healing. To return to clinic in 1 week for reassessment or call sooner if he has any questions or c oncerns. We reviewed signs of infection and Charcot reoccurrence; he demonstrates understanding.
== END 2020-01-21 23:59 ==
LOC: WC 14:00
PROVIDERS: PCP Family Medicine; Referring Provider Podiatrist; Visit Provider Podiatrist
DX: E11.621 Type 2 diabetes mellitus with foot ulcer (principal); L97.522 Non-pressure chronic ulcer of other part of left foot with fat layer exposed; E11.42 Type 2 diabetes mellitus with diabetic polyneuropathy; I87.2 Venous insufficiency (chronic) (peripheral); R60.0 Localized edema; E78.5 Hyperlipidemia, unspecified; I25.10 Atherosclerotic heart disease of native coronary artery without angina pectoris; L97.422 Non-pressure chronic ulcer of left heel and midfoot with fat layer exposed; E11.610 Type 2 diabetes mellitus with diabetic neuropathic arthropathy
CPT/HCPCS: 11042; 73630; 82962; 87070; 87075; 87077; 87186; 87205; 87640; 99213; G0463

== ENCOUNTER 2020-02-19 15:00 | Outpatient (RCR) | payer MEDICARE, SELFPAY ==
[2020-01-22 00:56] VITALS: BP 140/73; PULSE 79; RESP 16; TEMP 36.6; BMI 35.1
[2020-01-22 13:49] VITALS: BP 104/73; PULSE 72; RESP 16; TEMP 36.6; BMI 35.1
--- NOTE | 2020-01-22 16:15 | PN.PCM_ITS ---
(1) Chronic ulcer of left foot with fat layer exposed Status: Chronic Current Visit: Yes Code(s): L97.522 - Non-pressure chronic ulcer of other part of left foot with fat layer exposed (2) Malnutrition Status: Chronic Current Visit: Yes Code(s): E46 - Unspecified protein- calorie malnutrition (3) Venous insufficiency of both lower extremities Status: Chronic Current Visit: Yes Code(s): I87.2 - Venous insufficiency (chronic) (peripheral) (4) Charcot foot due to diabetes mellitus Status: Chronic Current Visit: Yes Code(s): E11.610 - Type 2 diabetes mellitus with diabetic neuropathic arthropathy (5) Diabetes mellitus with polyneuropathy Status: Chronic Current Visit: Yes Qualifiers: Diabetes mellitus type: type 2 Code(s): E11.42 - Type 2 diabetes mellitus with diabetic polyneuropathy (6) Malnutrition Status: Chronic Current Visit: Yes Code(s): E46 - Unspecified protein- calorie malnutrition Type of Wound Date of Service: 01/22/20 Chief Complaint: Nonhealing ulcer to left foot History of Wound: This is a 59 M who presents to the wound center for return of left foot ulcer. He does have a significant past podiatry history of Charcot neuroarthropathy of the midfoot that is not acute at this time. He denies recent reinjury. He has a past medical history as listed above significant for uncontrolled type 2 diabetes mellitus, hyperlipedemia and coronary artery disease. He denies trauma. He denies odor. He was recently admitted for hyponatremia and also for some residual cellulitis to the left foot. These conditions have resolved and he is doing much better. He denies fever, chill, nausea, vomiting, diarrhea. He completed his oral antibiotics. He has been trying to keep pressure off of his foot. His infection signs have completely resolved. His ulcer is not considered chronic and has been open for over 4 weeks. He wears a [place] walker and also tries to keep a nonweightbearing status at home. Progress of Wound: Improving quality - Physical Exam Vital Signs Temp Pulse Resp BP 97.8 F 72 16 104/73 01/22/20 13:49 01/22/20 13:49 01/22/20 13:49 01/22/20 13:49 General: Alert, Oriented x3, Cooperative, No apparent distress Extremities: No cyanosis, Capillary Refill Less than 3 Seconds, No Calf Tenderness, Diminished Peripheral Pulses, Edema Skin: Ulcer/ Wound - No purulence, erythema, streaking, odor, infection. Peripheral skin is hairless and atrophic. There is no deep tissue exposed, necrosis, or maceration Wound Measurements and Assessment WC - Nurse 1 - General Ulcer Measurement Start: 01/22/20 13:49 Freq: Status: Active Protocol: Activity Type Activity Date Activity User E-Sign Co-Sign Detail Recorded Client Recorded Date Recorded By Document 01/22/20 13:49 MW [id number] 01/22/20 13:55 MW 01/22/20 13:49 Wound Center Nurse 1 [Ulcer Assessment] 12-left medial plantar foot -Combined with other wound No -Current Size (cm) - Length 0.1 -Current Size (cm) - Width 0.1 -Current Size (cm) - Depth 0.1 -Total Square Cm 0.01 -Photo Taken No -Epithelialization None Present -Tunneling No -Undermining/Tunneling No -Circular Undermining No -Exudate Amt None Present -Wound Margin Flat & Intact -Granulation Amt None Present (0 %) -Granulation Quality N/A -Slough/Fibrin Yes -Necrosis Amt Large (67-100%) -Necrotic Tissue Type Adherent Slough -Structure Exposed N/A -Texture (Ania-wound Skin Appearance) No Abnormality, Assessed -Moisture (Ania-wound Skin Appearance Assessed,Dry/ ) Scaly -Color (Ania-wound Skin Appearance) No Abnormality, Assessed -Temperature (Ania-wound Skin No Abnormality Appearance) (Pt Warm) -Tenderness on Palpation (Ania-wound Yes Skin Appearance) -Ulcer Cleansing Rinsed/ Irrigated with Saline -Foul Odor after Cleansing No -Anesthetic Used 4% Lidocaine Solution #11 L Plantar -Combined with other wound No -Current Size (cm) - Length 2.5 -Current Size (cm) - Width 1.5 -Current Size (cm) - Depth 0.1 -Total Square Cm 3.75 -Photo Taken No -Epithelialization None Present -Tunneling No -Undermining/Tunneling No -Circular Undermining No -Exudate Amt Medium -Exudate Type Serosanguineous -Wound Margin Flat & Intact -Granulation Amt Medium (34-66%) -Granulation Quality Red -Slough/Fibrin Yes -Necrosis Amt Medium (34-66%) -Necrotic Tissue Type Adherent Slough -Structure Exposed N/A -Texture (Ania-wound Skin Appearance) Assessed, Scarring -Moisture (Ania-wound Skin Appearance Assessed,Dry/ ) Scaly -Color (Ania-wound Skin Appearance) No Abnormality, Assessed -Temperature (Ania-wound Skin No Abnormality Appearance) (Pt Warm) -Tenderness on Palpation (Ania-wound Yes Skin Appearance) -Ulcer Cleansing Rinsed/ Irrigated with Saline -Foul Odor after Cleansing No -Anesthetic Used 4% Lidocaine Solution [Edema Assessment] -Lower Limb Edema Present No WC - Nurse 2 - General Ulcer CM Notes Start: 01/22/20 13:49 Freq: Status: Active Protocol: Activity Type Activity Date Activity User E-Sign Co-Sign Detail Recorded Client Recorded Date Recorded By Document 01/22/20 14:06 DEREK [id number] 01/22/20 14:08 DEREK 01/22/20 14:06 Wound Center Nurse 2 [Procedure/Treatment] 12-left medial plantar foot -Time 14:06 -Correct Patient Yes -Correct Side, Site, Position Yes -Correct Procedure Yes -Procedure Performed Yes -Type of Procedure Debridement -Clinical Debridement Subcutaneous -Post Debridement Size (cm) - Length 0.1 -Post Debridement Size (cm) - Width 0.2 -Post Debridement Size (cm) - Depth 0.2 -Total Square Cm 0.02 -Wound/Ulcer Outcome Not Healed -Ulcer Cleansing Rinsed/ Irrigated with Saline -Foul Odor after Cleansing No -Bioengineered Tissue No -Bleeding Controlled with Pressure -Offloading Yes -Type of Offloading Camwalker -Treatment Response Procedure Tolerated Well #11 L Plantar -Time 14:06 -Correct Patient Yes -Correct Side, Site, Position Yes -Correct Procedure Yes -Procedure Performed Yes -Type of Procedure Debridement -Clinical Debridement Subcutaneous -Post Debridement Size (cm) - Length 2.3 -Post Debridement Size (cm) - Width 1.6 -Post Debridement Size (cm) - Depth 0.2 -Total Square Cm 3.68 -Wound/Ulcer Outcome Not Healed -Ulcer Cleansing Rinsed/ Irrigated with Saline -Foul Odor after Cleansing No -Bioengineered Tissue No -Bleeding Controlled with Pressure -Offloading Yes -Type of Offloading Camwalker -Treatment Response Procedure Tolerated Well [See Physician Procedure note for Specifics] Pain Scale: 0-10 Numeric [Pain] -Is Patient Pain Free? Yes Musculoskeletal: No Tenderness to Palpation of Joints or Extremities, Muscle Wasting, - - Rocker-bottom left foot with no laxity, calor, bogginess or fluctuance with acid manipulation and palpation of the foot. Neurological: - - Lack of epicritic sensation light touch is consistent with neuropathy status Psych/Mental Status: Normal Affect, Appropriate Debridement Note Post-Debridement Measurements/Treatment WC - Nurse 2 - General Ulcer CM Notes Start: 01/22/20 13:49 Freq: Status: Active Protocol: Activity Type Activity Date Activity User E-Sign Co-Sign Detail Recorded Client Recorded Date Recorded By Document 01/22/20 14:06 DEREK [id number] 01/22/20 14:08 DEREK 01/22/20 14:06 Wound Center Nurse 2 12-left medial plantar foot -Time 14:06 -Correct Patient Yes -Correct Side, Site, Position Yes -Correct Procedure Yes -Procedure Performed Yes -Type of Procedure Debridement -Clinical Debridement Subcutaneous -Post Debridement Size (cm) - Length 0.1 -Post Debridement Size (cm) - Width 0.2 -Post Debridement Size (cm) - Depth 0.2 -Total Square Cm 0.02 -Wound/Ulcer Outcome Not Healed -Ulcer Cleansing Rinsed/ Irrigated with Saline -Foul Odor after Cleansing No -Bioengineered Tissue No -Bleeding Controlled with Pressure -Offloading Yes -Type of Offloading Camwalker -Treatment Response Procedure Tolerated Well #11 L Plantar -Time 14:06 -Correct Patient Yes -Correct Side, Site, Position Yes -Correct Procedure Yes -Procedure Performed Yes -Type of Procedure Debridement -Clinical Debridement Subcutaneous -Post Debridement Size (cm) - Length 2.3 -Post Debridement Size (cm) - Width 1.6 -Post Debridement Size (cm) - Depth 0.2 -Total Square Cm 3.68 -Wound/Ulcer Outcome Not Healed -Ulcer Cleansing Rinsed/ Irrigated with Saline -Foul Odor after Cleansing No -Bioengineered Tissue No -Bleeding Controlled with Pressure -Offloading Yes -Type of Offloading Camwalker -Treatment Response Procedure Tolerated Well Pain Scale: 0-10 Numeric Is Patient Pain Free? Yes Wound debrided: plantar foot, plantar medial foot Laterality: Left Wound Grade/Stage: grade 1 Type of Debridement: Excisional debridement Anesthesia Used: 5% Lidocaine Gel Depth: in the subcutaneous layer Percentage of wound debrided: 100 Instrument Used: #15 blade Tissue Removed: fibrous, devitalized subcutaneous, biofilm, slough Severity: Fat Layer Exposed Amount of bleeding with debridement: Mild Bleeding Controlled with: Pressure Patient tolerated procedure well Assessment/Plan Active Problems (Last Reviewed 01/07/20 @ 12:[address] Cem Nj, DO) Malnutrition (Chronic) Chronic ulcer of left foot with fat layer exposed (Chronic) Venous insufficiency of both lower extremities (Chronic) Charcot foot due to diabetes mellitus (Chronic) Diabetes mellitus with polyneuropathy (Chronic) Malnutrition (Chronic) Assessment: Left foot ulcer with fat layer exposed, bell grade 1. Charcot chronic, midfoot stable. Infected left foot resolved. Lower extremity edema. peripheral vascular disease. diabetes with peripheral neuropathy. Malnutrition suspected. History of delayed healing Plan: I reviewed and discussed his case. Debridement was performed as noted in the clinical panel. He was reassured no local signs of infection were noted. he has completed his course of recent antibiotics and is doing well. He is high risk with his diabetes status and history of Charcot and other c omorbidities. We have discussed Charcot reconstruction surgical options intermittently for the past couple of years. He is unable to proceed so far because he cannot commit to taking the recovery time after correction. He is considering having this performed after he sells his house and does not have as many weightbearing tasks. He understands continued ulcer formation puts him at risk for limb loss and infections. He would like to proceed with a comprehensive wound healing plan at this time. Advanced wound healing product such as epi-fix, is recommended at this time because there is still lack of overall significant progress after 1 month duration. He has high risk for limb loss and this is medically necessary. Prior authorization will be initiated at that time. He is advised to offload by maintaining a strict nonweightbearing status. He uses a wheelchair at home. I recommend he wears a surgical shoe even if he is in a wheelchair for additional protection especially when he is placing weight on his heel for transfers. He relates that he has one at home already. I recommend he washes the foot daily with soap and water and avoid soaking activities. He did have ABIs at the time of January 2018 which these were normal. He did also have venous Dopplers performed with some evidence of venous insufficiency noted. He had a incompetent right greater saphenous vein to be specific. To maintain a healthy well-balanced diet to optimize blood glucose and healing. To return to clinic in 1 week for reassessment or call sooner if he has any questions or concerns. We reviewed signs of infection and Charcot reoccurrence; he demonstrates understanding.
[2020-01-29 13:59] VITALS: BP 138/84; PULSE 78; RESP 18; TEMP 36.7; BMI 35.1
--- NOTE | 2020-01-29 15:23 | PCM.WC.PN ---
(1) Chronic ulcer of left foot with fat layer exposed Status: Chronic Current Visit: Yes Code(s): L97.522 - Non-pressure chronic ulcer of other part of left foot with fat layer exposed (2) Malnutrition Status: Chronic Current Visit: Yes Code(s): E46 - Unspecified protein-calorie malnutrition (3) Venous insufficiency of both lower extremities Status: Chronic Current Visit: Yes Code(s): I87.2 - Venous insufficiency (chronic) (peripheral) (4) Charcot foot due to diabetes mellitus Status: Chronic Current Visit: Yes Code(s): E11.610 - Type 2 diabetes mellitus with diabetic neuropathic arthropathy (5) Diabetes mellitus with polyneuropathy Status: Chronic Current Visit: Yes Qualifiers: Diabetes mellitus type: type 2 Qualified Code(s): E11.42 - Type 2 diabetes mellitus with diabetic polyneuropathy Code(s): E11.42 - Type 2 diabetes mellitus with diabetic polyneuropathy (6) Malnutrition Status: Chronic Current Visit: Yes Code(s): E46 - Unspecified protein-calorie malnutrition Type of Wound Date of Service: 01/29/20 Chief Complaint: Nonhealing ulcer to left foot History of Wound: This is a 59 M who presents to the wound center for return of left foot ulcer. He does have a significant past podiatry history of Charcot neuroarthropathy of the midfoot that is not acute at this time. He denies recent reinjury. He has a past medical history as listed above significant for uncontrolled type 2 diabetes mellitus, hyperlipedemia and coronary artery disease. He denies trauma. He denies odor. He was recently admitted for hyponatremia and also for some residual cellulitis to the left foot. These conditions have resolved and he is doing much better. He denies fever, chill, nausea, vomiting, diarrhea. He completed his oral antibiotics. He has been trying to keep pressure off of his foot. His infection signs have completely resolved. His ulcer is now considered chronic and has been present for well over a month. He wears a [place] walker and also tries to keep a nonweightbearing status at home. He was informed today that he is approved for advanced to healing product, epi-fix however would be responsible for copayment. He would like to think about this another week prior to proceeding with application. Progress of Wound: Improving quality - Physical Exam Vital Signs Temp Pulse Resp BP 98.1 F 78 18 138/84 H 01/29/20 13:59 01/29/20 13:59 01/29/20 13:59 01/29/20 13:59 General: Alert, Oriented x3, Cooperative, No apparent distress Extremities: No cyanosis, Capillary Refill Less than 3 Seconds, No Calf Tenderness, Diminished Peripheral Pulses, Edema Skin: Ulcer/ Wound - No purulence, erythema, streaking, odor, infection. The adjacent skin is hairless and atrophic. The medial plantar ulcer site is only pinpoint and is very superficial Wound Measurements and Assessment WC - Nurse 1 - General Ulcer Measurement Start: 01/22/20 13:49 Freq: Status: Active Protocol: Activity Type Activity Date Activity User E-Sign Co-Sign Detail Recorded Client Recorded Date Recorded By Document 01/29/20 13:59 PL [id number] 01/29/20 14:09 PL 01/29/20 13:59 Wound Center Nurse 1 [Ulcer Assessment] 12-left medial plantar foot -Combined with other wound No -Current Size (cm) - Length 0.1 -Current Size (cm) - Width 0.1 -Current Size (cm) - Depth 0.1 -Total Square Cm 0.01 -Photo Taken No -Epithelialization None Present -Tunneling No -Undermining/Tunneling No -Circular Undermining No -Exudate Amt None Present -Slough/Fibrin Yes -Necrosis Amt Large (67-100%) -Necrotic Tissue Type Eschar -Ulcer Cleansing Rinsed/ Irrigated with Saline -Foul Odor after Cleansing No #11 L Plantar -Combined with other wound No -Current Size (cm) - Length 2.2 -Current Size (cm) - Width 1.2 -Current Size (cm) - Depth 0.1 -Total Square Cm 2.64 -Photo Taken No -Tunneling No -Undermining/Tunneling No -Circular Undermining No -Exudate Amt Medium -Exudate Type Serosanguineous -Granulation Amt Large (67-100%) -Granulation Quality [place],Red -Necrosis Amt Small (1-33%) -Necrotic Tissue Type Eschar -Ulcer Cleansing Rinsed/ Irrigated with Saline -Foul Odor after Cleansing No -Anesthetic Used 4% Lidocaine Solution WC - Nurse 2 - General Ulcer CM Notes Start: 01/22/20 13:49 Freq: Status: Active Protocol: Activity Type Activity Date Activity User E-Sign Co-Sign Detail Recorded Client Recorded Date Recorded By Document 01/29/20 14:24 [id number] 01/29/20 14:30 01/29/20 14:24 Wound Center Nurse 2 [Procedure/Treatment] 12-left medial plantar foot -Time 14:29 -Correct Patient Yes -Correct Side, Site, Position Yes -Correct Procedure Yes -Procedure Performed Yes -Type of Procedure Debridement -Clinical Debridement Subcutaneous -Post Debridement Size (cm) - Length 0.1 -Post Debridement Size (cm) - Width 0.1 -Post Debridement Size (cm) - Depth 0.1 -Total Square Cm 0.01 -Wound/Ulcer Outcome Not Healed -Ulcer Cleansing Rinsed/ Irrigated with Saline -Foul Odor after Cleansing No -Bioengineered Tissue No -Bleeding Controlled with Pressure -Offloading Yes -Type of Offloading Camwalker -Treatment Response Procedure Tolerated Well #11 L Plantar -Time 14:29 -Correct Patient Yes -Correct Side, Site, Position Yes -Correct Procedure Yes -Procedure Performed Yes -Type of Procedure Debridement -Clinical Debridement Subcutaneous -Post Debridement Size (cm) - Length 2.0 -Post Debridement Size (cm) - Width 1.0 -Post Debridement Size (cm) - Depth 0.1 -Total Square Cm 2.00 -Wound/Ulcer Outcome Not Healed -Ulcer Cleansing Rinsed/ Irrigated with Saline -Foul Odor after Cleansing No -Bioengineered Tissue No -Bleeding Controlled with Pressure -Offloading Yes -Type of Offloading Camwalker -Treatment Response Procedure Tolerated Well [See Physician Procedure note for Specifics] Pain Scale: 0-10 Numeric [Pain] -Is Patient Pain Free? Yes Musculoskeletal: No Tenderness to Palpation of Joints or Extremities, Muscle Wasting, - - Rocker-bottom foot consistent with Charcot. There is no laxity, calor or erythema Neurological: - Psych/Mental Status: Normal Affect, Appropriate - Lack of normal epicritic sensation via light touch is consistent with his neuropathy status Debridement Note Post-Debridement Measurements/Treatment WC - Nurse 2 - General Ulcer CM Notes Start: 01/22/20 13:49 Freq: Status: Active Protocol: Activity Type Activity Date Activity User E-Sign Co-Sign Detail Recorded Client Recorded Date Recorded By Document 01/22/20 14:06 [id number] 01/22/20 14:08 JF Document 01/29/20 14:24 [id number] 01/29/20 14:30 01/22/20 01/29/20 14:06 14:24 Wound Center Nurse 2 12-left medial plantar foot -Time 14:06 14:29 -Correct Patient Yes Yes -Correct Side, Site, Position Yes Yes -Correct Procedure Yes Yes -Procedure Performed Yes Yes -Type of Procedure Debridement Debridement -Clinical Debridement Subcutaneous Subcutaneous -Post Debridement Size (cm) - Length 0.1 0.1 -Post Debridement Size (cm) - Width 0.2 0.1 -Post Debridement Size (cm) - Depth 0.2 0.1 -Total Square Cm 0.02 0.01 -Wound/Ulcer Outcome Not Healed Not Healed -Ulcer Cleansing Rinsed/ Rinsed/ Irrigated with Irrigated with Saline Saline -Foul Odor after Cleansing No No -Bioengineered Tissue No No -Bleeding Controlled with Pressure Pressure -Offloading Yes Yes -Type of Offloading Camwalker Camwalker -Treatment Response Procedure Procedure Tolerated Well Tolerated Well #11 L Plantar -Time 14:06 14:29 -Correct Patient Yes Yes -Correct Side, Site, Position Yes Yes -Correct Procedure Yes Yes -Procedure Performed Yes Yes -Type of Procedure Debridement Debridement -Clinical Debridement Subcutaneous Subcutaneous -Post Debridement Size (cm) - Length 2.3 2.0 -Post Debridement Size (cm) - Width 1.6 1.0 -Post Debridement Size (cm) - Depth 0.2 0.1 -Total Square Cm 3.68 2.00 -Wound/Ulcer Outcome Not Healed Not Healed -Ulcer Cleansing Rinsed/ Rinsed/ Irrigated with Irrigated with Saline Saline -Foul Odor after Cleansing No No -Bioengineered Tissue No No -Bleeding Controlled with Pressure Pressure -Offloading Yes Yes -Type of Offloading Camwalker Camwalker -Treatment Response Procedure Procedure Tolerated Well Tolerated Well Pain Scale: 0-10 Numeric Is Patient Pain Free? Yes Yes Wound debrided: plantar foot Laterality: Left Wound Grade/Stage: grade 1 Type of Debridement: Excisional debridement Anesthesia Used: 5% Lidocaine Gel Depth: in the subcutaneous layer Percentage of wound debrided: 100 Instrument Used: #15 blade Tissue Removed: fibrous, devitalized subcutaneous, biofilm, slough Severity: Fat Layer Exposed Amount of bleeding with debridement: Mild Bleeding Controlled with: Pressure Patient tolerated procedure well Assessment/Plan Active Problems (Last Reviewed 01/07/20 @ 12:[address] Cem Nj, DO) Malnutrition (Chronic) Chronic ulcer of left foot with fat layer exposed (Chronic) Venous insufficiency of both lower extremities (Chronic) Charcot foot due to diabetes mellitus (Chronic) Diabetes mellitus with polyneuropathy (Chronic) Malnutrition (Chronic) Assessment: Left foot ulcer with fat layer exposed, bell grade 1. Charcot chronic, midfoot stable. Infected left foot resolved. Lower extremity edema. peripheral vascular disease. diabetes with peripheral neuropathy. Malnutrition suspected. History of delayed healing Plan: I reviewed and discussed his case. Debridement was performed as noted in the clinical panel. He was reassured no local signs of infection were noted. he has completed his course of recent antibiotics and is doing well. He is high risk with his diabetes status and history of Charcot and other comorbidities. We have discussed Charcot reconstruction surgical options intermittently for the past couple of years. He is unable to proceed so far because he cannot commit to taking the recovery time after correction. He is considering having this performed after he sells his house and does not have as many weightbearing tasks. He understands continued ulcer formation puts him at risk for limb loss and infections. He would like to proceed with a comprehensive wound healing plan at this time. Advanced wound healing product such as epi-fix, is recommended at this time because there is still lack of overall significant progress after 1 month duration. He has high risk for limb loss and this is medically necessary. Prior authorization was initiated at that time. He was approved but has a copayment of approximately 20%. He would like to see think about this and consider his financial situation prior to proceeding and will make a decision hopefully by next week. He is advised to offload by maintaining a strict nonweightbearing status. He uses a wheelchair at home. I recommend he wears a surgical shoe even if he is in a wheelchair for additional protection especially when he is placing weight on his heel for transfers. He relates that he has one at home already. I recommend he washes the foot daily with soap and water and avoid soaking activities. He did have ABIs at the time of January 2018 which these were normal. He did also have venous Dopplers performed with some evidence of venous insufficiency noted. He had a incompetent right greater saphenous vein to be specific. To maintain a healthy well-balanced diet to optimize blood glucose and healing. To return to clinic in 1 week for reassessment or call sooner if he has any questions or concerns. We reviewed signs of infection and Charcot reoccurrence; he demonstrates understanding. He was offered a telehealth follow-up option due to the coronavirus pandemic and defers. He would like to return to clinic in person next week and he would benefit from this to proceed with serial debridements and potential application of advanced wound healing product.
[2020-02-05 15:16] VITALS: PULSE 70; RESP 18; TEMP 36.1; O2SAT 98; BMI 35.1
--- NOTE | 2020-02-05 15:48 | PCM.WC.PN ---
(1) Chronic ulcer of left foot with fat layer exposed Status: Chronic Current Visit: Yes Code(s): L97.522 - Non-pressure chronic ulcer of other part of left foot with fat layer exposed (2) Malnutrition Status: Chronic Current Visit: Yes Code(s): E46 - Unspecified protein-calorie malnutrition (3) Venous insufficiency of both lower extremities Status: Chronic Current Visit: Yes Code(s): I87.2 - Venous insufficiency (chronic) (peripheral) (4) Charcot foot due to diabetes mellitus Status: Chronic Current Visit: Yes Code(s): E11.610 - Type 2 diabetes mellitus with diabetic neuropathic arthropathy (5) Diabetes mellitus with polyneuropathy Status: Chronic Current Visit: Yes Qualifiers: Diabetes mellitus type: type 2 Qualified Code(s): E11.42 - Type 2 diabetes mellitus with diabetic polyneuropathy Code(s): E11.42 - Type 2 diabetes mellitus with diabetic polyneuropathy (6) Malnutrition Status: Chronic Current Visit: Yes Code(s): E46 - Unspecified protein-calorie malnutrition Type of Wound Date of Service: 02/05/20 Chief Complaint: Nonhealing ulcer to left foot History of Wound: This is a 59 M who presents to the wound center for return of left foot ulcer. He does have a significant past podiatry history of Charcot neuroarthropathy of the midfoot that is not acute at this time. He denies recent reinjury. He has a past medical history as listed above significant for uncontrolled type 2 diabetes mellitus, hyperlipedemia and coronary artery disease. He denies trauma. He denies odor. He was recently admitted for hyponatremia and also for some residual cellulitis to the left foot. These conditions have resolved and he is doing much better. He denies fever, chill, nausea, vomiting, diarrhea. He completed his oral antibiotics. He has been trying to keep pressure off of his foot. His infection signs have completely resolved. His ulcer is now considered chronic and has been present for well over a month. He wears a [place] walker and also tries to keep a nonweightbearing status at home. He was informed today that he is approved for advanced to healing product, epi-fix. He would like to proceed with an application today. Progress of Wound: Improving quality - Physical Exam Vital Signs Temp Pulse Resp BP Pulse Ox 97.0 F L 70 18 138/84 H 98 02/05/20 15:16 02/05/20 15:16 02/05/20 15:16 01/29/20 13:59 02/05/20 15:16 General: Alert, Oriented x3, Cooperative HEENT: Atraumatic Extremities: No cyanosis, Capillary Refill Less than 3 Seconds, No Calf Tenderness, Diminished Peripheral Pulses, Edema Skin: Ulcer/ Wound - No purulence, erythema, string, odor, infection. Adjacent skin is hairless and atrophic. The medial foot ulcer is healed with full epithelialization noted. Peripheral epithelialization does progress to the central plantar foot ulcer site Wound Measurements and Assessment WC - Nurse 1 - General Ulcer Measurement Start: 01/22/20 13:49 Freq: Status: Active Protocol: Activity Type Activity Date Activity User E-Sign Co-Sign Detail Recorded Client Recorded Date Recorded By Document 02/05/20 15:16 MT [id number] 02/05/20 15:18 MT 02/05/20 15:16 Wound Center Nurse 1 [Ulcer Assessment] 12-left medial plantar foot -Current Size (cm) - Length 1.8 -Current Size (cm) - Width 0.8 -Current Size (cm) - Depth 0.1 -Total Square Cm 1.44 -Wound Margin Flat & Intact -Granulation Amt Large (67-100%) -Granulation Quality Pale,[place],Red -Necrosis Amt Small (1-33%) -Necrotic Tissue Type Adherent Slough -Texture (Ania-wound Skin Appearance) Assessed,Callus -Moisture (Ania-wound Skin Appearance Assessed ) -Color (Ania-wound Skin Appearance) Assessed -Temperature (Ania-wound Skin No Abnormality Appearance) (Pt Warm) -Tenderness on Palpation (Ania-wound No Skin Appearance) -Ulcer Cleansing Rinsed/ Irrigated with Saline -Foul Odor after Cleansing No -Anesthetic Used 4% Lidocaine Solution #11 L Plantar -Current Size (cm) - Length 0.1 -Current Size (cm) - Width 0.1 -Current Size (cm) - Depth 0.1 -Total Square Cm 0.01 WC - Nurse 2 - General Ulcer CM Notes Start: 01/22/20 13:49 Freq: Status: Active Protocol: Activity Type Activity Date Activity User E-Sign Co-Sign Detail Recorded Client Recorded Date Recorded By Document 02/05/20 15:44 [email or web address] [id number] 02/05/20 15:48 02/05/20 15:44 Wound Center Nurse 2 [Procedure/Treatment] 12-left medial plantar foot -Time 15:44 -Correct Patient No -Correct Side, Site, Position No -Correct Procedure No -Procedure Performed No -Post Debridement Size (cm) - Length 0 -Post Debridement Size (cm) - Width 0 -Post Debridement Size (cm) - Depth 0 -Total Square Cm 0 -Wound/Ulcer Outcome Healed- Epithelialized -Ulcer Cleansing Rinsed/ Irrigated with Saline -Foul Odor after Cleansing No -Bioengineered Tissue No -Bleeding Controlled with Pressure -Offloading Yes -Type of Offloading Camwalker -Treatment Response Procedure Tolerated Well #11 L Plantar -Time 15:46 -Correct Patient Yes -Correct Side, Site, Position Yes -Correct Procedure Yes -Procedure Performed Yes -Type of Procedure Debridement -Clinical Debridement Subcutaneous -Post Debridement Size (cm) - Length 1.8 -Post Debridement Size (cm) - Width 0.8 -Post Debridement Size (cm) - Depth 0.2 -Total Square Cm 1.44 -Wound/Ulcer Outcome Not Healed -Ulcer Cleansing Rinsed/ Irrigated with Saline -Foul Odor after Cleansing No -Bioengineered Tissue Yes -Type of bioengineered Tissue EPIFIX -Expiration Date 09/22/24 -Product Lot Number [id number] -Percent Used 100 -Saline Lot Number [id number] -Bleeding Controlled with Pressure -Offloading Yes -Type of Offloading Camwalker -Treatment Response Procedure Tolerated Well [See Physician Procedure note for Specifics] Pain Scale: 0-10 Numeric [Pain] -Is Patient Pain Free? Yes Musculoskeletal: No Tenderness to Palpation of Joints or Extremities, Muscle Wasting, - - Rocker-bottom foot deformity Neurological: - - Lack of epicritic sensation light touch is consistent with neuropathy status Psych/Mental Status: Normal Affect, Appropriate Debridement Note Post-Debridement Measurements/Treatment WC - Nurse 2 - General Ulcer CM Notes Start: 01/22/20 13:49 Freq: Status: Active Protocol: Activity Type Activity Date Activity User E-Sign Co-Sign Detail Recorded Client Recorded Date Recorded By Document 01/22/20 14:06 [id number] 01/22/20 14:08 Document 01/29/20 14:24 [id number] 01/29/20 14:30 JF Document 02/05/20 15:44 [id number] 02/05/20 15:48 JF 01/22/20 01/29/20 02/05/20 14:06 14:24 15:44 Wound Center Nurse 2 12-left medial plantar foot -Time 14:06 14:29 15:44 -Correct Patient Yes Yes No -Correct Side, Site, Position Yes Yes No -Correct Procedure Yes Yes No -Procedure Performed Yes Yes No -Type of Procedure Debridement Debridement -Clinical Debridement Subcutaneous Subcutaneous -Post Debridement Size (cm) - Length 0.1 0.1 0 -Post Debridement Size (cm) - Width 0.2 0.1 0 -Post Debridement Size (cm) - Depth 0.2 0.1 0 -Total Square Cm 0.02 0.01 0 -Wound/Ulcer Outcome Not Healed Not Healed Healed- Epithelialized -Ulcer Cleansing Rinsed/ Rinsed/ Rinsed/ Irrigated with Irrigated with Irrigated with Saline Saline Saline -Foul Odor after Cleansing No No No -Bioengineered Tissue No No No -Bleeding Controlled with Pressure Pressure Pressure -Offloading Yes Yes Yes -Type of Offloading Camwalker Camwalker Camwalker -Treatment Response Procedure Procedure Procedure Tolerated Well Tolerated Well Tolerated Well #11 L Plantar -Time 14:06 14:29 15:46 -Correct Patient Yes Yes Yes -Correct Side, Site, Position Yes Yes Yes -Correct Procedure Yes Yes Yes -Procedure Performed Yes Yes Yes -Type of Procedure Debridement Debridement Debridement -Clinical Debridement Subcutaneous Subcutaneous Subcutaneous -Post Debridement Size (cm) - Length 2.3 2.0 1.8 -Post Debridement Size (cm) - Width 1.6 1.0 0.8 -Post Debridement Size (cm) - Depth 0.2 0.1 0.2 -Total Square Cm 3.68 2.00 1.44 -Wound/Ulcer Outcome Not Healed Not Healed Not Healed -Ulcer Cleansing Rinsed/ Rinsed/ Rinsed/ Irrigated with Irrigated with Irrigated with Saline Saline Saline -Foul Odor after Cleansing No No No -Bioengineered Tissue No No Yes -Type of bioengineered Tissue EPIFIX -Expiration Date 09/22/24 -Product Lot Number [id number] -Percent Used 100 -Saline Lot Number [id number] -Bleeding Controlled with Pressure Pressure Pressure -Offloading Yes Yes Yes -Type of Offloading Camwalker Camwalker Camwalker -Treatment Response Procedure Procedure Procedure Tolerated Well Tolerated Well Tolerated Well Pain Scale: 0-10 Numeric Is Patient Pain Free? Yes Yes Yes Wound debrided: plantar midfoot Laterality: Left Wound Grade/Stage: grade 1 Type of Debridement: Excisional debridement Anesthesia Used: 5% Lidocaine Gel Depth: in the subcutaneous layer Percentage of wound debrided: 100 Instrument Used: #15 blade Tissue Removed: fibrous, devitalized subcutaneous, biofilm, slough Severity: Fat Layer Exposed Amount of bleeding with debridement: Mild Bleeding Controlled with: Compression and gauze Patient tolerated procedure well Assessment/Plan Active Problems (Last Reviewed 01/07/20 @ 12:[address] Cem Nj, DO) Malnutrition (Chronic) Chronic ulcer of left foot with fat layer exposed (Chronic) Venous insufficiency of both lower extremities (Chronic) Charcot foot due to diabetes mellitus (Chronic) Diabetes mellitus with polyneuropathy (Chronic) Malnutrition (Chronic) Assessment: Left foot ulcer with fat layer exposed, bell grade 1. Charcot chronic, midfoot stable. Infected left foot resolved. Lower extremity edema. peripheral vascular disease. diabetes with peripheral neuropathy. Malnutrition suspected. History of delayed healing Plan: I reviewed and discussed his case. Debridement was performed as noted in the clinical panel. He was reassured no local signs of infection were noted. he has completed his course of recent antibiotics and is doing well. He is high risk with his diabetes status and history of Charcot and other comorbidities. We have discussed Charcot reconstruction surgical options intermittently for the past couple of years. He is unable to proceed so far because he cannot commit to taking the recovery time after correction. He is considering having this performed after he sells his house and does not have as many weightbearing tasks. He understands continued ulcer formation puts him at risk for limb loss and infections. He would like to proceed with a comprehensive wound healing plan at this time. Advanced wound healing product such as epi-fix, is recommended at this time because there is still lack of overall significant progress after 1 month duration. He has high risk for limb loss and this is medically necessary. Prior authorization was initiated at that time. He was approved but has a copayment of approximately 20%. He is amenable to proceed today. Verbal consent was obtained and this was applied according standard protocol. The advancement plain product was secured in place with a wound veil and Steri-Strips. He was advised to keep this clean, dry, and intact until follow-up visit next week. Secondary dressing was also applied. He tolerated this procedure well. He is advised to offload by maintaining a strict nonweightbearing status. He uses a wheelchair at home. I recommend he wears a surgical shoe even if he is in a wheelchair for additional protection especially when he is placing weight on his heel for transfers. He relates that he has one at home already. He did have ABIs at the time of January 2018 which these were normal. He did also have venous Dopplers performed with some evidence of venous insufficiency noted. He had a incompetent right greater saphenous vein to be specific. To maintain a healthy well-balanced diet to optimize blood glucose and healing. To return to clinic in 1 week for reassessment or call sooner if he has any questions or concerns. We reviewed signs of infection and Charcot reoccurrence; he demonstrates understanding. He was offered a telehealth follow-up option due to the coronavirus pandemic and defers. He would like to return to clinic in person next week and he would benefit from this to proceed with serial debridements and potential application of advanced wound healing product.
[2020-02-19 15:16] VITALS: BP 137/82; PULSE 69; RESP 16; TEMP 36.6; BMI 35.1
--- NOTE | 2020-02-19 22:49 | PCM.WC.PN ---
(1) Chronic ulcer of left foot with fat layer exposed Status: Chronic Code(s): L97.522 - Non-pressure chronic ulcer of other part of left foot with fat layer exposed (2) Malnutrition Status: Chronic Code(s): E46 - Unspecified protein-calorie malnutrition (3) Venous insufficiency of both lower extremities Status: Chronic Code(s): I87.2 - Venous insufficiency (chronic) (peripheral) (4) Charcot foot due to diabetes mellitus Status: Chronic Code(s): E11.610 - Type 2 diabetes mellitus with diabetic neuropathic arthropathy (5) Diabetes mellitus with polyneuropathy Status: Chronic Qualifiers: Diabetes mellitus type: type 2 Qualified Code(s): E11.42 - Type 2 diabetes mellitus with diabetic polyneuropathy Code(s): E11.42 - Type 2 diabetes mellitus with diabetic polyneuropathy (6) Malnutrition Status: Chronic Code(s): E46 - Unspecified protein-calorie malnutrition Type of Wound Date of Service: 02/19/20 Chief Complaint: Nonhealing ulcer to left foot History of Wound: This is a 59 M who presents to the wound center for return of left foot ulcer. He does have a significant past podiatry history of Charcot neuroarthropathy of the midfoot that is not acute at this time. He denies recent reinjury. He has a past medical history as listed above significant for uncontrolled type 2 diabetes mellitus, hyperlipedemia and coronary artery disease. He denies trauma. He denies odor. He was recently admitted for hyponatremia and also for some residual cellulitis to the left foot. These conditions have resolved and he is doing much better. He denies fever, chill, nausea, vomiting, diarrhea. He completed his oral antibiotics. He has been trying to keep pressure off of his foot. His infection signs have completely resolved. His ulcer is now considered chronic and has been present for well over a month. He wears a [place] walker and also tries to keep a nonweightbearing status at home. He was informed today that he is approved for advanced to healing product, epi-fix. He would not like to proceed forward with additional applications at this time due to the cost. Progress of Wound: Improving quality - Physical Exam Vital Signs Temp Pulse Resp BP Pulse Ox 98 F 69 16 137/82 H 98 02/19/20 15:16 02/19/20 15:16 02/19/20 15:16 02/19/20 15:16 02/05/20 15:16 General: Alert, Oriented x3, Cooperative, No apparent distress Extremities: No cyanosis, Capillary Refill Less than 3 Seconds, No Calf Tenderness, Diminished Peripheral Pulses, Edema Skin: Ulcer/ Wound - No purulence, erythema, streaking, odor, infection. The adjacent skin is Wound Measurements and Assessment WC - Nurse 1 - General Ulcer Measurement Start: 01/22/20 13:49 Freq: Status: Active Protocol: Activity Type Activity Date Activity User E-Sign Co-Sign Detail Recorded Client Recorded Date Recorded By Document 02/19/20 15:16 CP [id number] 02/19/20 15:23 CP 02/19/20 15:16 Wound Center Nurse 1 [Ulcer Assessment] #11 L Plantar -Current Size (cm) - Length 1 -Current Size (cm) - Width 0.5 -Current Size (cm) - Depth 0.2 -Total Square Cm 0.5 -Epithelialization None Present -Exudate Amt Small -Exudate Type Serosanguineous -Wound Margin Thickened -Granulation Amt Medium (34-66%) -Granulation Quality [place] -Slough/Fibrin Yes -Necrosis Amt Medium (34-66%) -Necrotic Tissue Type Adherent Slough -Structure Exposed N/A -Texture (Ania-wound Skin Appearance) Callus -Moisture (Ania-wound Skin Appearance No Abnormality ) -Color (Ania-wound Skin Appearance) No Abnormality -Temperature (Ania-wound Skin No Abnormality Appearance) (Pt Warm) -Tenderness on Palpation (Ania-wound No Skin Appearance) -Ulcer Cleansing Rinsed/ Irrigated with Saline -Foul Odor after Cleansing No -Anesthetic Used 4% Lidocaine Solution - Nurse 2 - General Ulcer CM Notes Start: 01/22/20 13:49 Freq: Status: Active Protocol: Activity Type Activity Date Activity User E-Sign Co-Sign Detail Recorded Client Recorded Date Recorded By Document 02/19/20 15:32 [id number] 02/19/20 15:33 JF 02/19/20 15:32 Wound Center Nurse 2 [Procedure/Treatment] -Time 15:33 -Correct Patient Yes -Correct Side, Site, Position Yes -Correct Procedure Yes -Procedure Performed Yes -Type of Procedure Debridement -Clinical Debridement Subcutaneous -Post Debridement Size (cm) - Length 1.0 -Post Debridement Size (cm) - Width 0.5 -Post Debridement Size (cm) - Depth 0.1 -Total Square Cm 0.50 -Wound/Ulcer Outcome Not Healed -Ulcer Cleansing Rinsed/ Irrigated with Saline -Foul Odor after Cleansing No -Bioengineered Tissue No -Bleeding Controlled with Pressure -Offloading Yes -Type of Offloading Camwalker -Treatment Response Procedure Tolerated Well [See Physician Procedure note for Specifics] Pain Scale: 0-10 Numeric [Pain] -Is Patient Pain Free? Yes Musculoskeletal: No Tenderness to Palpation of Joints or Extremities, Muscle Wasting, - - Rocker-bottom foot Neurological: - - Lack of normal epicritic sensation Psych/Mental Status: Normal Affect, Appropriate Debridement Note Post-Debridement Measurements/Treatment WC - Nurse 2 - General Ulcer CM Notes Start: 01/22/20 13:49 Freq: Status: Active Protocol: Activity Type Activity Date Activity User E-Sign Co-Sign Detail Recorded Client Recorded Date Recorded By Document 01/22/20 14:06 [id number] 01/22/20 14:08 Document 01/29/20 14:24 [id number] 01/29/20 14:30 Document 02/05/20 15:44 [id number] 02/05/20 15:48 Document 02/19/20 15:32 [id number] 02/19/20 15:33 01/22/20 01/29/20 02/05/20 14:06 14:24 15:44 Wound Center Nurse 2 12-left medial plantar foot -Time 14:06 14:29 15:44 -Correct Patient Yes Yes No -Correct Side, Site, Position Yes Yes No -Correct Procedure Yes Yes No -Procedure Performed Yes Yes No -Type of Procedure Debridement Debridement -Clinical Debridement Subcutaneous Subcutaneous -Post Debridement Size (cm) - Length 0.1 0.1 0 -Post Debridement Size (cm) - Width 0.2 0.1 0 -Post Debridement Size (cm) - Depth 0.2 0.1 0 -Total Square Cm 0.02 0.01 0 -Wound/Ulcer Outcome Not Healed Not Healed Healed- Epithelialized -Ulcer Cleansing Rinsed/ Rinsed/ Rinsed/ Irrigated with Irrigated with Irrigated with Saline Saline Saline -Foul Odor after Cleansing No No No -Bioengineered Tissue No No No -Bleeding Controlled with Pressure Pressure Pressure -Offloading Yes Yes Yes -Type of Offloading Camwalker Camwalker Camwalker -Treatment Response Procedure Procedure Procedure Tolerated Well Tolerated Well Tolerated Well #11 L Plantar -Time 14:06 14:29 15:46 -Correct Patient Yes Yes Yes -Correct Side, Site, Position Yes Yes Yes -Correct Procedure Yes Yes Yes -Procedure Performed Yes Yes Yes -Type of Procedure Debridement Debridement Debridement -Clinical Debridement Subcutaneous Subcutaneous Subcutaneous -Post Debridement Size (cm) - Length 2.3 2.0 1.8 -Post Debridement Size (cm) - Width 1.6 1.0 0.8 -Post Debridement Size (cm) - Depth 0.2 0.1 0.2 -Total Square Cm 3.68 2.00 1.44 -Wound/Ulcer Outcome Not Healed Not Healed Not Healed -Ulcer Cleansing Rinsed/ Rinsed/ Rinsed/ Irrigated with Irrigated with Irrigated with Saline Saline Saline -Foul Odor after Cleansing No No No -Bioengineered Tissue No No Yes -Type of bioengineered Tissue EPIFIX -Expiration Date 09/22/24 -Product Lot Number [id number] -Percent Used 100 -Saline Lot Number [id number] -Bleeding Controlled with Pressure Pressure Pressure -Offloading Yes Yes Yes -Type of Offloading Camwalker Camwalker Camwalker -Treatment Response Procedure Procedure Procedure Tolerated Well Tolerated Well Tolerated Well Pain Scale: 0-10 Numeric Is Patient Pain Free? Yes Yes Yes 02/19/20 15:32 Wound Center Nurse 2 12-left medial plantar foot -Time -Correct Patient -Correct Side, Site, Position -Correct Procedure -Procedure Performed -Type of Procedure -Clinical Debridement -Post Debridement Size (cm) - Length -Post Debridement Size (cm) - Width -Post Debridement Size (cm) - Depth -Total Square Cm -Wound/Ulcer Outcome -Ulcer Cleansing -Foul Odor after Cleansing -Bioengineered Tissue -Bleeding Controlled with -Offloading -Type of Offloading -Treatment Response #11 L Plantar -Time 15:33 -Correct Patient Yes -Correct Side, Site, Position Yes -Correct Procedure Yes -Procedure Performed Yes -Type of Procedure Debridement -Clinical Debridement Subcutaneous -Post Debridement Size (cm) - Length 1.0 -Post Debridement Size (cm) - Width 0.5 -Post Debridement Size (cm) - Depth 0.1 -Total Square Cm 0.50 -Wound/Ulcer Outcome Not Healed -Ulcer Cleansing Rinsed/ Irrigated with Saline -Foul Odor after Cleansing No -Bioengineered Tissue No -Type of bioengineered Tissue -Expiration Date -Product Lot Number -Percent Used -Saline Lot Number -Bleeding Controlled with Pressure -Offloading Yes -Type of Offloading Camwalker -Treatment Response Procedure Tolerated Well Pain Scale: 0-10 Numeric Is Patient Pain Free? Yes Wound debrided: plantar foot Laterality: Left Wound Grade/Stage: grade 1 Type of Debridement: Excisional debridement Anesthesia Used: 5% Lidocaine Gel Depth: in the subcutaneous layer Percentage of wound debrided: 100 Instrument Used: #15 blade Tissue Removed: fibrous, devitalized subcutaneous, biofilm, slough Severity: Fat Layer Exposed Amount of bleeding with debridement: Mild Bleeding Controlled with: Pressure Patient tolerated procedure well Assessment/Plan Assessment: Left foot ulcer with fat layer exposed, bell grade 1. Charcot chronic, midfoot stable. Infected left foot resolved. Lower extremity edema. peripheral vascular disease. diabetes with peripheral neuropathy. Malnutrition suspected. History of delayed healing Plan: I reviewed and discussed his case. Debridement was performed as noted in the clinical panel. He was reassured no local signs of infection were noted. he has completed his course of recent antibiotics and is doing well. He is high risk with his diabetes status and history of Charcot and other comorbidities. We have discussed Charcot reconstruction surgical options intermittently for the past couple of years. He is unable to proceed so far because he cannot commit to taking the recovery time after correction. He is considering having this performed after he sells his house and does not have as many weightbearing tasks. He understands continued ulcer formation puts him at risk for limb loss and infections. He would like to proceed with a comprehensive wound healing plan at this time. Advanced wound healing product such as epi-fix, is recommended at this time because there is still lack of overall significant progress after 1 month duration. He has high risk for limb loss and this is medically necessary. Prior authorization was initiated at that time. He does not like to proceed forward with additional applications (he had one applied recently) due to cost and he will consider this in the future again. He is advised to offload by maintaining a strict nonweightbearing status. He uses a wheelchair at home. I recommend he wears a surgical shoe even if he is in a wheelchair for additional protection especially when he is placing weight on his heel for transfers. He relates that he has one at home already. He did have ABIs at the time of January 2018 which these were normal. He did also have venous Dopplers performed with some evidence of venous insufficiency noted. He had a incompetent right greater saphenous vein to be specific. To maintain a healthy well-balanced diet to optimize blood glucose and healing. To return to clinic in 1 week for reassessment or call sooner if he has any questions or concerns. He relates he will return in 2 to 3 weeks. We reviewed signs of infection and Charcot reoccurrence; he demonstrates understanding. He was offered a telehealth follow-up option due to the coronavirus pandemic and defers. He would like to return to clinic in person next week and he would benefit from this to proceed with serial debridements and potential application of advanced wound healing product.
== END 2020-02-20 23:59 ==
LOC: WC 15:00
PROVIDERS: PCP Family Medicine; Referring Provider Podiatrist; Visit Provider Podiatrist
DX: E11.621 Type 2 diabetes mellitus with foot ulcer (principal); L97.522 Non-pressure chronic ulcer of other part of left foot with fat layer exposed; E11.42 Type 2 diabetes mellitus with diabetic polyneuropathy; I87.2 Venous insufficiency (chronic) (peripheral); R60.0 Localized edema; E78.5 Hyperlipidemia, unspecified; I25.10 Atherosclerotic heart disease of native coronary artery without angina pectoris; L97.422 Non-pressure chronic ulcer of left heel and midfoot with fat layer exposed; E11.610 Type 2 diabetes mellitus with diabetic neuropathic arthropathy; E46 Unspecified protein-calorie malnutrition; I73.9 Peripheral vascular disease, unspecified; E11.51 Type 2 diabetes mellitus with diabetic peripheral angiopathy without gangrene
CPT/HCPCS: 11042; 15275; Q4186

== ENCOUNTER 2020-03-04 13:18 | Outpatient (RCR) | payer MEDICARE, SELFPAY ==
[2020-02-21 00:18] VITALS: BP 137/82; PULSE 69; RESP 16; TEMP 36.6; O2SAT 98
== END 2020-03-22 23:59 ==
LOC: WC 13:18
PROVIDERS: PCP Family Medicine; Referring Provider Podiatrist; Visit Provider Podiatrist
DX: E11.621 Type 2 diabetes mellitus with foot ulcer (principal); L97.522 Non-pressure chronic ulcer of other part of left foot with fat layer exposed; E11.42 Type 2 diabetes mellitus with diabetic polyneuropathy; I87.2 Venous insufficiency (chronic) (peripheral); R60.0 Localized edema; E78.5 Hyperlipidemia, unspecified; I25.10 Atherosclerotic heart disease of native coronary artery without angina pectoris; L97.422 Non-pressure chronic ulcer of left heel and midfoot with fat layer exposed

== ENCOUNTER → 2020-05-21 10:21 | Outpatient (CLI) | payer MEDICARE, SELFPAY ==
[2020-04-07 15:05] VITALS: BMI 35.1
[2020-05-21 12:07] LABS: AST(SGOT) 17 U/L (15-37); Alanine Aminotransfer ALT/SGPT 18 U/L (16-61); Albumin, Serum 3.4 g/dL (3.2-5.0); Alkaline Phosphatase 123 U/L (45-117); Bilirubin, Direct 0.21 mg/dL (0.00-0.30); Cholesterol 199 mg/dL (200); Globulin 3.7 g/dL (2.2-4.2); High Density Lipoprotein 102 mg/dL; Protein, Total 7.1 g/dL (6.4-8.2); Triglycerides 77 mg/dL; Very Low Density Lipoprotein 15 mg/dL (5-40)
== END ==
PROVIDERS: PCP Family Medicine; Referring Provider Internal Medicine Cardiovascular Disease; Visit Provider Internal Medicine Cardiovascular Disease
DX: E78.5 Hyperlipidemia, unspecified (principal)
CPT/HCPCS: 36415; 80061; 80076

== ENCOUNTER → 2021-01-15 16:35 | Outpatient (CLI) | payer MEDICARE, SELFPAY ==
[2020-10-06 15:16] VITALS: BMI 37.3
[2021-01-15 17:50] LABS: AST(SGOT) 35 U/L (15-37); Alanine Aminotransfer ALT/SGPT 34 U/L (16-61); Albumin, Serum 3.5 g/dL (3.2-5.0); Alkaline Phosphatase 148 U/L (45-117); Bilirubin, Direct 0.33 mg/dL (0.00-0.30); Cholesterol 153 mg/dL (200); Globulin 3.6 g/dL (2.2-4.2); High Density Lipoprotein 122 mg/dL; Protein, Total 7.1 g/dL (6.4-8.2); Triglycerides 45 mg/dL; Very Low Density Lipoprotein 9 mg/dL (5-40)
== END ==
PROVIDERS: PCP Family Medicine; Referring Provider Internal Medicine Cardiovascular Disease; Visit Provider Internal Medicine Cardiovascular Disease
DX: E78.00 Pure hypercholesterolemia, unspecified (principal)
CPT/HCPCS: 36415; 80061; 80076

== ENCOUNTER → 2021-02-11 14:05 | Outpatient (CLI) | payer MEDICARE, SELFPAY ==
[2021-02-11 15:17] LABS: Absolute Lymphocyte Count 0.83 X10^3/uL (0.83-4.51); Basophil# 0.08 X10^3/uL; Basophil% 0.9 % (0-1); Eosinophil# 0.04 X10^3/uL; Eosinophils% 0.5 % (0-5); Hematocrit 34.8 % (40-54); Hemoglobin 11.9 g/dL (13.0-16.5); Lymphocyte # 0.83 X10^3/ul (0.83-4.51); Lymphocyte % 9.7 % (19-41); Mean Corp Hgb Conc 34.2 g/dL (32-36); Mean Corpuscular Hgb 30.5 pg (27.0-32.0); Mean Corpuscular Volume 89.2 fL (80-94); Mean Platelet Vol. 10.1 fl (6.2-12.0); Monocyte# 0.55 X10^3/uL; Monocyte% 6.5 % (0-10); NRBC Flagged by Analyzer 0 % (0-5); Neutrophil # 6.97 X10^3/uL (2.7-7.7); Neutrophil % 81.8 % (47-70); Platelet Count 248 K/mm3 (150-450); RBC Distribution Width CV 13.1 % (11.6-14.6); RBC Distribution Width SD 42.7 fl (35.1-43.9); White Blood Count 8.5 K/mm3 (4.4-11.0)
[2021-02-11 15:46] LABS: ALB/GLOB Ratio 0.9 RATIO (0.9-2.4); AST(SGOT) 25 U/L (15-37); Alanine Aminotransfer ALT/SGPT 27 U/L (16-61); Albumin, Serum 3.6 g/dL (3.2-5.0); Alkaline Phosphatase 205 U/L (45-117); Anion Gap 9 (5-15); BUN 8 mg/dL (7-18); BUN/Creat Ratio 10.4 RATIO (10-20); Chloride 79 mmol/L (98-107); Creatinine, Serum 0.77 mg/dL (0.70-1.30); EST Glomerular Filtration Rate 110 mL/min (>60); Est Glom Filt Rate - Afr Amer 133 mL/min (>60); Globulin 3.9 g/dL (2.2-4.2); Glucose 150 mg/dL (74-106); Potassium 4.1 mmol/L (3.5-5.1); Protein, Total 7.5 g/dL (6.4-8.2); Sodium Level 117 mmol/L (136-145)
== END ==
PROVIDERS: PCP Family Medicine; Referring Provider Physician Assistant; Visit Provider Physician Assistant
DX: R53.83 Other fatigue (principal)
CPT/HCPCS: 36415; 80053; 85025

== ENCOUNTER 2021-02-11 17:07 | Inpatient (IN) | payer MEDICARE, SELFPAY ==
[2021-02-11 17:08] VITALS: BP 143/73; PULSE 88; RESP 15; TEMP 35.7; O2SAT 96; BMI 36.2
--- NOTE | 2021-02-11 17:45 | ED.VIS.GEN ---
History of Present Illness Chief Complaint: Abn Labs Informant: Patient Narrative: Patient is a 60-year-old male with history of alcohol dependency, hypertension, diabetes mellitus, chronic diabetic foot wounds and hyponatremia presenting with generalized weakness and hyponatremia. Patient states he has been feeling well recently has been more fatigued. He notes he really has not been eating much. He states he does drink 4-6 natural light beers a day and more on the weekends. He went to his PCP and had blood work performed which showed a low sodium. He was instructed to come to the emergency room for likely admission. Patient states has been compliant with his home medications. He states he had a similar event a little over 1 year ago where he was hyponatremic. He was thought to be from his medications and he was taken off something. He does not recall the name of the medicine. Patient denies any chest pain, shortness of breath or difficulty breathing. He denies any other complaints at this time. He states if he does not have a drink he no longer gets withdrawal symptoms since he does not drink hard liquor anymore. Past Medical History - Allergies and Home Meds Allergies/Adverse Reactions: Allergies lisinopril Adverse Reaction (Verified 02/11/21 17:10) Cough pet dander Allergy (Intermediate, Uncoded 02/11/21 17:10) runny nose, sneezing Primary Care Physician: Cem Nj DO [Primary Care Provider] - Past Medical History: - - Hypertension, hyperlipidemia, diabetes mellitus, chronic foot wound Surgical History: angioplasty, cholecystectomy, - Smoking Status: Former smoker - Family History Paternal Family History: Family History (Last Reviewed 01/26/21 @ 14:53 by Cammie Fink) Mother Heart disease Father Heart disease Family History: Reports: High Cholesterol, Heart Disease - CHF, Hypertension Maternal Family History: Family History (Last Reviewed 01/26/21 @ 14:53 by Cammie Fink) Mother Heart disease Father Heart disease Family History: Reports: High Cholesterol, Heart Disease - CHF, Hypertension Review of Systems General: Reports: Malaise. Denies: Chills, Fever, Sweats Eyes: Denies: Visual changes - bilaterally, Diplopia ENT: Denies: Rhinorrhea, Sore throat Cardiovascular: Denies: Chest pain, Palpitations Respiratory: Denies: Dyspnea, Cough, Dyspnea on exertion Gastrointestinal: Denies: Abdominal pain, Nausea, Vomiting, Diarrhea, Melena, Hematochezia Genitourinary: Denies: Dysuria, Hematuria, Frequency Musculoskeletal: Denies: Back pain, Extremity Pain Skin: Reports: - - Itching?following with dermatology. Denies: Rash, Wounds Neurological: Denies: Headache, Weakness, Numbness Physical Exam Vital Signs/Narrative: Vital Signs Temp Pulse Resp BP Pulse Ox 02/11/21 17:08 96.3 F L 88 15 143/73 H 96 Inital Vital Signs reviewed: Yes General: Well nourished, Well developed, No Acute Distress Head: Normocephalic, Atraumatic Eyes: Perrl, EOMI ENT: Moist mucous membranes, No rhinorrhea Neck: Supple, Nontender Cardiovascular: Regular rate, Regular rhythm, No murmurs Respiratory: No distress, CTA bilaterally, Chest nontender Abdomen: Soft, Nontender, Nondistended, Normal bowel sounds Back: Nontender, Normal Inspection Extremities: Nontender, No edema Skin: Normal color, No rash Neurological: Alert, Oriented x3, Cranial nerves II-XII grossly intact, Normal Strength, Normal Sensation Psychological: Normal affect, Normal Mood Diagnostic/Tx/Re-eval Laboratory Data 02/11/21 17:37 Sodium 118 L* Potassium 4.1 Chloride 80 L Carbon Dioxide 29.0 Anion Gap 9 BUN 8 Creatinine 0.87 Estim Creat Clear Calc 150.62 Est GFR (MDRD) Af Amer 116 Est GFR (MDRD) Non-Af 96 BUN/Creatinine Ratio 9.2 L Glucose 171 H Calcium 9.0 - Medical Decision Making Evaluated for hyponatremia and outpatient blood work. He had a full set of labs ordered today so I only repeated the BMP. Patient continues to have hyponatremia with a sodium of 118. Patient is given a liter of IV fluids. He will be admitted for further management of his hyponatremia. I suspect this is what is causing his weakness at home. ED Disposition - Plan for ED Patient: Disposition: Acute Care Hospital [facility] Diagnosis: Hyponatremia, Alcohol abuse Referrals: Cem Nj DO [Primary Care Provider] -
[2021-02-11] MEDS: 0.9% Normal Saline 1,000 ML 999 ML IV (18:05)
[2021-02-11 18:23] LABS: Anion Gap 9 (5-15); BUN 8 mg/dL (7-18); BUN/Creat Ratio 9.2 RATIO (10-20); Chloride 80 mmol/L (98-107); Creatinine, Serum 0.87 mg/dL (0.70-1.30); EST Glomerular Filtration Rate 96 mL/min (>60); Est Glom Filt Rate - Afr Amer 116 mL/min (>60); Estimated Creatinine Clearance 150.62 ml/min; Glucose 171 mg/dL (74-106); Potassium 4.1 mmol/L (3.5-5.1); Sodium Level 118 mmol/L (136-145)
--- NOTE | 2021-02-11 18:45 | HP.PCM_ITS ---
History of Present Illness Date of Admission: 02/11/21 Chief Complaint: abnormal labs The patient is a 60 year old M with a PMH as outlined who was admitted with a complaint of weakness and lethargy which had been worsening. He has a history of chronic hyponatremia, and was admitted about a year ago for hyponatremia. His HCTZ was discontinued then. He has also a history of chronic alcohol abuse. He said he had not been feeling well and went see his PCP today. Labs were done which showed his sodium was 118. On the basis of the abnormal labs, he was told to come into the ED. He admitted to nausea, but denied any vomiting, fever chills or any other symptoms. He also admits to some occasional diarrhea. He has been compliant with his medication and drinks about 5 beers daily, though he says he drinks more on the weekends. In the ED, vitals show temperature of 96.3 with blood pressure of 143/73, pulse rate of 88 and respiratory to 15. Chemistry shows sodium of 118 with chloride of 18 and creatinine of 0.87. CBC done on outpatient basis today showed hemoglobin of 11.9 with WBC of 8.5 and platelets of 248. He has been admitted to be managed for acute on chronic hyponatremia likely due to diuretics and chronic alcohol abuse. Past Medical History Past Medical History (Chronic Problems): Chronic Problems (Last Reviewed 01/26/21 @ 14:53 by Cammie Fink) Localized edema (Chronic) Former tobacco use (Chronic) Xeroderma (Chronic) Eczema of lower extremity (Chronic) Presence of stent in coronary artery (Chronic ~02/2016) PCI w/ KIRILL to distal RCA, ostial PDA, and mid RCA 03/07; previous PTCA w/stent to mid main CX 09/24 Atherosclerotic heart disease of [place] coronary artery without angina pectoris (Chronic) PCI w/ KIRILL to distal RCA, ostial PDA, and mid RCA 03/07; previous PTCA w/stent to mid main CX 09/24 Essential hypertension (Chronic) Hammertoe of right foot (Chronic) Diabetic ulcer of left lower leg (Chronic) s/p 2nd degree burn with fat layer exposed Diabetic ulcer of left lower leg with fat layer exposed (Chronic) Other supervisor intermediates (current) drug therapy (Chronic) Sleep disorder (Chronic) Depressive disorder (Chronic) Alcohol abuse (Chronic) Malnutrition (Chronic) Chronic ulcer of left foot with fat layer exposed (Chronic) Venous insufficiency of both lower extremities (Chronic) Ulcer of right foot with fat layer exposed (Chronic) Ischemic cardiomyopathy (Chronic) Angina pectoris (Chronic) Hyperlipidemia (Chronic) Diabetes 1.5, managed as type 2 (Chronic) Edema extremities (Chronic) Diabetes mellitus (Chronic) Diabetes mellitus with circulatory complication (Chronic) 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) Diabetes mellitus with neurologic complication, with long-term current use of insulin (Chronic) Charcot ankle (Chronic) Charc?t's arthritis due to secondary diabetes (Chronic) Charcot foot due to diabetes mellitus (Chronic) Diabetic foot ulcers (Chronic) Open wound of foot with complication (Chronic) Open wound of right ankle (Chronic) Open wound of left ankle with complication (Chronic) Acquired equinus deformity of both feet (Chronic) Healed ulcer of left foot on examination (Chronic) Diabetes mellitus with polyneuropathy (Chronic) Malnutrition (Chronic) Charcot's joint, left ankle and foot (Chronic) Medical History: Medical History (Last Reviewed 01/26/21 @ 14:53 by Cammie Fink) Presence of stent in coronary artery (Chronic) Onset Date: ~02/2016 Z95.5 PCI w/ KIRILL to distal RCA, ostial PDA, and mid RCA 05/16; previous PTCA w/stent to mid main CX 1203 Atherosclerotic heart disease of [place] coronary artery without angina pectoris (Chronic) I25.10 PCI w/ KIRILL to distal RCA, ostial PDA, and mid RCA 05/16; previous PTCA w/stent to mid main CX 12/03 Essential hypertension (Chronic) I10 Ulcer of right lower extremity with fat layer exposed (Resolved) L97.912 Other supervisor intermediates (current) drug therapy (Chronic) Z79.899 Ulcer of left lower extremity with fat layer exposed (Resolved) L97.922 Sleep disorder (Chronic) G47.9 Depressive disorder (Chronic) F32.9 Alcohol abuse (Chronic) F10.10 Malnutrition (Chronic) E46 Chronic ulcer of left foot with fat layer exposed (Chronic) L97.522 Venous insufficiency of both lower extremities (Chronic) I87.2 Peripheral vascular disease (Suspected) I73.9 Onycholysis (Resolved) L60.1 Ulcer of right foot with fat layer exposed (Chronic) L97.512 Elevated liver function tests (Acute) R79.89 Ischemic cardiomyopathy (Chronic) I25.5 Angina pectoris (Chronic) I20.9 Chest pain (Acute) R07.9 Hyperlipidemia (Chronic) E78.5 Chronic ulcer of right ankle with fat layer exposed (Acute) L97.312 Diabetes 1.5, managed as type 2 (Chronic) E13.9 Edema extremities (Chronic) R60.0 Diabetes mellitus (Chronic) E11.9 Diabetes mellitus with circulatory complication (Chronic) E11.59 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) E11.610 Diabetes mellitus with neurologic complication, with long-term current use of insulin (Chronic) E11.49, Z79.4 Charcot ankle (Chronic) M14.679 Charc?t's arthritis due to secondary diabetes (Chronic) E13.610 Charcot foot due to diabetes mellitus (Chronic) E11.610 Diabetic foot ulcers (Chronic) E11.621, L97.509 Open wound of foot with complication (Chronic) S91.309A Open wound of right ankle (Chronic) S91.001A Open wound of left ankle with complication (Chronic) S91.002A Diabetic ulcer of right foot (Acute) E11.621, L97.519 Diabetic ulcer of left foot (Acute) E11.621, L97.529 Ulcer of right ankle (Acute) L97.319 Acquired equinus deformity of both feet (Chronic) M21.6X1, M21.6X2 Healed ulcer of left foot on examination (Chronic) L97.529 Chronic ulcer of left foot with fat layer exposed (Resolved) L97.522 Diabetes mellitus with polyneuropathy (Chronic) E11.42 Malnutrition (Chronic) E46 Charcot's joint, left ankle and foot (Chronic) M14.672 Allergies lisinopril Adverse Reaction (Verified 02/11/21 17:10) Cough pet dander Allergy (Intermediate, Uncoded 02/11/21 17:10) runny nose, sneezing Home Medications: Ambulatory Orders Medication Instructions Recorded aspirin 81 mg tablet,delayed 81 mg PO DAILY 10/12/17 release nitroglycerin 0.4 mg sublingual 0.4 mg SUBLINGUAL Q5M PRN #25 tab 07/19/18 tablet glipizide 5 mg tablet, extended 5 mg PO DAILY #90 tab 02/13/20 release 24 hr ascorbic acid (vitamin C) 500 mg 500 mg PO DAILY 07/07/20 tablet losartan 100 mg tablet 100 mg PO DAILY #90 tab 08/26/20 metformin 1,000 mg tablet 1,000 mg PO DAILY #90 tab 08/31/20 atorvastatin 10 mg tablet 10 mg PO DAILY #90 tab 09/11/20 amlodipine 5 mg tablet 5 mg PO DAILY #90 tab 09/23/20 atenolol 50 mg tablet 50 mg PO DAILY #90 tab 11/06/20 furosemide 40 mg tablet 40 mg PO QAM #30 tab 01/26/21 Surgical History: Surgical History (Last Reviewed 01/26/21 @ 14:53 by Cammie Fink) S/P PTCA (percutaneous transluminal coronary angioplasty) Onset Date: ~02/2016 Z98.61 PCI w/ KIRILL to distal RCA, ostial PDA, and mid RCA 03/07; previous PTCA w/stent to mid main CX 09/24 History of amputation of toe Z89.429 Rt middle toe Hx of cholecystectomy Z90.49 Hx of oral surgery Z98.890 Surgical History: angioplasty, cholecystectomy, - Psychiatric History: Anxiety, Depression Smoking Status: Former smoker - *Family History Paternal Family History: Family History (Last Reviewed 01/26/21 @ 14:53 by Cammie Fink) Mother Heart disease Father Heart disease History Items: High Cholesterol, Heart Disease - CHF, Hypertension Maternal Family History: Family History (Last Reviewed 01/26/21 @ 14:53 by Cammie Fink) Mother Heart disease Father Heart disease History Items: High Cholesterol, Heart Disease - CHF, Hypertension Review of Systems Constitutional: Reports: Malaise, Weakness, Fatigue. Denies: Anorexia, Chills, Fever Eyes: Denies: Blurred vision, Cataracts HEENT: Denies: Head Aches, Sinus Congestion, Sinus Drainage Cardiovascular: Denies: Chest Pain, Chest Pressure, Chest Tightness, Palpitations Respiratory: Denies: Cough, Shortness of Breath, Shortness of breath at rest, Shortness of breath upon exertion, Sputum production Gastrointestinal: Reports: Diarrhea, Nausea. Denies: Abdominal Pain, Vomiting Genitourinary: Denies: Dysuria Musculoskeletal: Denies: Joint Pain, Joint Tenderness Skin: Denies: Rash, Wounds Neurological: Denies: Numbness, Tingling, Focal weakness Psychiatric: Denies: Anxiety, Depression, Homicidal Ideations, Suicidal Ideations Hematologic/ Lymphatic: Denies: Easy Bruising, Easy Bleeding VTE Information - Inpt Only VTE Present on Admission: No VTE Pharm Prophylaxis ordered?: Yes - Physical Exam Vitals/I&O's: Vital Signs Temp Pulse Resp BP Pulse Ox 96.3 F L 88 15 143/73 H 96 02/11/21 17:08 02/11/21 17:08 02/11/21 17:08 02/11/21 17:08 02/11/21 17:08 Oxygen Delivery Method Room Air Weight: 260 lb Body Mass Index (BMI) 0.2 General: Alert, Oriented x3, Cooperative, No apparent distress HEENT: Atraumatic, PERRLA, EOMI, Normocephalic Oral: Dry Mucosa Neck: Supple, No JVD, Negative Carotid Bruits Lungs: Clear to auscultation, Normal air movement, No rhonchi, No wheeze, No rales Cardiovascular: Regular rate, Regular Rhythm, Normal S1, Normal S2, No murmurs Abdomen: Bowel Sounds Present, Soft, Non Tender, Non-Distended, No Hepato- splenomegaly Extremities: No clubbing, No cyanosis, Capillary Refill Less than 3 Seconds, - - mild 1+ edema of RLE, LLE in podiatry boot Skin: No rashes, No breakdown Musculoskeletal: No Tenderness to Palpation of Joints or Extremities Lymphatic: No Cervical, Supraclavicular, or Inguinal Adenopathy Neurological: Cranial nerves II-XII grossly intact, Neuro grossly intact, Motor Exam 5/5 strength throughout Psych/Mental Status: Normal Affect, Alert and oriented to time, place, person, mood and affect Laboratory Results 02/11/21 17:37: Sodium 118 L*, Potassium 4.1, Chloride 80 L, Carbon Dioxide 29.0, Anion Gap 9, BUN 8, Creatinine 0.87, Estim Creat Clear Calc 150.62, Est GFR (MDRD) Af Amer 116, Est GFR (MDRD) Non-Af 96, BUN/Creatinine Ratio 9.2 L, Glucose 171 H, Calcium 9.0 Assessment/Plan All Active Problems (Last Reviewed 01/26/21 @ 14:53 by Cammie Fink) Infection of left foot (Resolved) Hyponatremia (Acute) Ulcer of right lower extremity with fat layer exposed (Resolved) Ulcer of left lower extremity with fat layer exposed (Resolved) Onycholysis (Resolved) Elevated liver function tests (Acute) Chest pain (Acute) Chronic ulcer of right ankle with fat layer exposed (Acute) Diabetic ulcer of right foot (Acute) Diabetic ulcer of left foot (Acute) Ulcer of right ankle (Acute) Chronic ulcer of left foot with fat layer exposed (Resolved) Myocardial infarction (Resolved) 60 y/o admitted with a complaint of weakness and lethargy. #Acute on chronic hyponatremia * Sodium is 118 with his baseline usually around 128. * Likely due to alcohol abuse as well as diuretics as he is on Lasix. * Start hydration with IV fluid normal saline. Check serum osmolality and urine osmolality as well as urine sodium. * Consult nephrology. * Goal is to correct sodium by 8 to 10 mmol/L over the next 24 hours. * * #History of alcohol dependence: Put on CIWA protocol. On thiamine, multivitamin folic acid. #CAD s/p stents: On aspirin, atenolol and losartan. #History of ischemic cardiomyopathy: On aspirin, atenolol and losartan. #Hypertension: On amlodipine, atenolol and losartan #Type 2 diabetes mellitus: Continue current diabetes meds. Insulin sliding scale. Accu-Cheks AC at bedtime. DVT prophylaxis: Lovenox CODE STATUS: full code * Patient counseled extensively about different types of CODE STATUS including full code, DNR CCA and DNR CCA. Patient elects to be full code. * Total [id number] time 16 minutes. Inpatient E&M: 96815 Init Hosp L3 Procedures: 90954 Advncd Care Plan 30 Min
[2021-02-11 18:53] VITALS: BMI 36.3
[2021-02-11 19:21] VITALS: BP 124/87; PULSE 68; RESP 16; TEMP 35.9; O2SAT 99
[2021-02-11 19:32] VITALS: BMI 35.2
[2021-02-11 19:39] VITALS: BP 139/79; PULSE 92; RESP 16; TEMP 36.8; O2SAT 99
[2021-02-11 20:20] VITALS: PULSE 87
[2021-02-11] MEDS: 0.9% Normal Saline 1,000 ML 150 ML IV (21:01)
[2021-02-11 21:06] VITALS: PULSE 89
[2021-02-11] MEDS: Atorvastatin Calcium 10 MG Tablet PO (21:24)
[2021-02-11] MEDS: Acetaminophen 325 MG Tablet 650 MG PO (21:29)
[2021-02-11 21:43] LABS: Anion Gap 8 (5-15); BUN 8 mg/dL (7-18); BUN/Creat Ratio 10.6 RATIO (10-20); Calcium,Total 8.9 mg/dL (8.5-10.1); Chloride 83 mmol/L (98-107); Creatinine, Serum 0.76 mg/dL (0.70-1.30); EST Glomerular Filtration Rate 111 mL/min (>60); Est Glom Filt Rate - Afr Amer 135 mL/min (>60); Estimated Creatinine Clearance 110.09 ml/min; Glucose 167 mg/dL (74-106); Sodium Level 119 mmol/L (136-145)
[2021-02-11] MEDS: Insulin Lispro 100 UNIT/ML INSULN.PEN SC (22:34)
[2021-02-11 22:36] LABS: Bedside Glucose 193 mg/dL (70-110)
[2021-02-12] VITALS (10 sets, daily range): BP systolic 114–154; BP diastolic 70–83; PULSE 67–88; RESP 16–18; TEMP 36.5–36.9; O2SAT 93–99
[2021-02-12 00:18] LABS: Anion Gap 5 (5-15); BUN 7 mg/dL (7-18); BUN/Creat Ratio 9.7 RATIO (10-20); Calcium,Total 8.5 mg/dL (8.5-10.1); Chloride 85 mmol/L (98-107); Creatinine, Serum 0.72 mg/dL (0.70-1.30); EST Glomerular Filtration Rate 118 mL/min (>60); Est Glom Filt Rate - Afr Amer 143 mL/min (>60); Glucose 206 mg/dL (74-106); Potassium 3.7 mmol/L (3.5-5.1); Sodium Level 120 mmol/L (136-145)
[2021-02-12] MEDS: 0.9% Normal Saline 1,000 ML 150 ML IV (03:53)
[2021-02-12 05:36] LABS: Absolute Lymphocyte Count 1.17 X10^3/uL (0.83-4.51); Absolute Neutrophil Count 4.5 X10^3/uL (2.0-7.7); Basophil# 0.07 X10^3/uL; Basophil% 1.1 % (0-1); Eosinophils% 1.5 % (0-5); Hematocrit 30.1 % (40-54); Hemoglobin 10.2 g/dL (13.0-16.5); Lymphocyte # 1.17 X10^3/ul (0.83-4.51); Lymphocyte % 18.1 % (19-41); Mean Corp Hgb Conc 33.9 g/dL (32-36); Mean Corpuscular Hgb 30.4 pg (27.0-32.0); Mean Corpuscular Volume 89.9 fL (80-94); Mean Platelet Vol. 9.8 fl (6.2-12.0); Monocyte# 0.59 X10^3/uL; Monocyte% 9.1 % (0-10); NRBC Flagged by Analyzer 0 % (0-5); Neutrophil # 4.52 X10^3/uL (2.7-7.7); Neutrophil % 69.9 % (47-70); Platelet Count 204 K/mm3 (150-450); RBC Distribution Width SD 43.1 fl (35.1-43.9); Red Blood Count 3.35 M/mm3 (4.6-6.2); White Blood Count 6.5 K/mm3 (4.4-11.0)
[2021-02-12 05:54] LABS: Anion Gap 7 (5-15); BUN 5 mg/dL (7-18); BUN/Creat Ratio 7.3 RATIO (10-20); Calcium,Total 8.6 mg/dL (8.5-10.1); Chloride 89 mmol/L (98-107); Creatinine, Serum 0.68 mg/dL (0.70-1.30); EST Glomerular Filtration Rate 126 mL/min (>60); Est Glom Filt Rate - Afr Amer 152 mL/min (>60); Estimated Creatinine Clearance 123.04 ml/min; Glucose 196 mg/dL (74-106); Potassium 3.5 mmol/L (3.5-5.1); Sodium Level 124 mmol/L (136-145)
[2021-02-12] MEDS: Insulin Lispro 100 UNIT/ML INSULN.PEN SC ×4 (06:21→21:31)
[2021-02-12 06:36] LABS: Bedside Glucose 185 mg/dL (70-110)
[2021-02-12] MEDS: amLODIPine 5 MG Tablet PO (08:08)
[2021-02-12] MEDS: Aspirin E.C. 81 MG Tablet PO (08:08)
[2021-02-12] MEDS: Ascorbic Acid 500 MG Tablet PO (08:08)
[2021-02-12] MEDS: glipiZIDE XL 5 MG Tablet PO (08:08)
[2021-02-12] MEDS: Losartan Potassium 100 MG Tablet PO (08:08)
[2021-02-12] MEDS: Multivitamins,Ther W-Minerals Tablet 1 TABLET PO (08:08)
[2021-02-12] MEDS: Thiamine Hydrochloride 100 MG Tablet PO ×2 (08:09→17:11)
[2021-02-12] MEDS: metFORMIN HCl 1,000 MG Tablet 1000 MG PO (08:09)
[2021-02-12] MEDS: Atenolol 50 MG Tablet PO (08:09)
[2021-02-12] MEDS: Enoxaparin 40 MG/0.4 ML Syringe SC (08:09)
[2021-02-12] MEDS: Folic Acid 1 MG Tablet PO (08:10)
[2021-02-12] MEDS: Potassium Chloride Oral Tablet 20 MEQ 40 MEQ PO ×2 (08:16→11:51)
[2021-02-12 08:43] LABS: Anion Gap 3 (5-15); BUN 5 mg/dL (7-18); BUN/Creat Ratio 7.2 RATIO (10-20); Calcium,Total 8.6 mg/dL (8.5-10.1); Chloride 91 mmol/L (98-107); EST Glomerular Filtration Rate 122 mL/min (>60); Est Glom Filt Rate - Afr Amer 148 mL/min (>60); Estimated Creatinine Clearance 119.52 ml/min; Glucose 147 mg/dL (74-106); Potassium 3.6 mmol/L (3.5-5.1); Sodium Level 126 mmol/L (136-145)
--- NOTE | 2021-02-12 10:40 | CASEMGMT ---
RN CM Face to Face with patient for initial transition planning/care coordination assessment. RN CM introduced self and role at [facility]. Patient lying in bed, alert and oriented. Patient willing to participate in assessment and is able to answer all questions appropriately. Care providers, pharmacy, and demographics verified. Patient wishes to discharge home, denies need for home health at this time. Patient states he has no further needs or concerns at this time. CM to follow for discharge planning needs that may arise. PCP: Clem Specialists: Elle, coarse wire drawer; Antonio, air brush artist Preferred Pharmacy: [facility] Insurance: [facility] Prescription Benefit: yes Living Will/HPOA: yes, niece Shoshana Portillo LNOK: sister, niece Living Arrangements: Patient lives alone in a single story home with 2 steps and grab bars to enter the home. Patient states he is independent at home. Transportation: self/niece DME/HHC: patient states he has shower chair, cane, and knee walker. Patient denies previous HHC. Disposition Plan: Patient to discharge home with family support and follow-up plans in place. Teresa DIALLO, RN, CM
[2021-02-12 11:13] LABS: Sodium Level 127 mmol/L (136-145)
--- NOTE | 2021-02-12 11:41 | PCM.CONS.R ---
Consultation - Renal 02/12/21 PCP/ Referring MD: Requesting physician: [] Primary care physician: Dr. 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 His HCTZ was discontinued prior admission now on lasix and Intravascularly volume depletion. He has also a history of chronic alcohol abuse. - Allergies Allergies: Allergies lisinopril Adverse Reaction (Verified 02/11/21 17:10) Cough pet dander Allergy (Intermediate, Uncoded 02/11/21 17:10) runny nose, sneezing - Current Medications Current Medications: Current Medications Acetaminophen (Acetaminophen 325 Mg Tablet) 650 mg PO Q6H PRN PRN PRN Reason: Pain Score 1-10/Temp > 100.7 F Last Admin: 02/11/21 21:29 Dose: 650 mg Documented by: Amlodipine Besylate (Amlodipine 5 Mg Tablet) 5 mg PO DAILY [facility] Last Admin: 02/12/21 08:08 Dose: 5 mg Documented by: Ascorbic Acid (Ascorbic Acid 500 Mg Tablet) 500 mg PO DAILY [facility] Last Admin: 02/12/21 08:08 Dose: 500 mg Documented by: Aspirin (Aspirin E.C. 81 Mg Tablet) [facility] Last Admin: 02/12/21 08:08 Dose: 81 mg Documented by: Atenolol (Atenolol 50 Mg Tablet) 50 mg PO DAILY [facility] Last Admin: 02/12/21 08:09 Dose: 50 mg Documented by: Atorvastatin Calcium (Atorvastatin Calcium 10 Mg Tablet) 10 mg PO QHS [facility] Last Admin: 02/11/21 21:24 Dose: 10 mg Documented by: Enoxaparin Sodium (Enoxaparin 40 Mg/0.4 Ml Syringe) 40 mg SC DAILY [facility] Last Admin: 02/12/21 08:09 Dose: 40 mg Documented by: Folic Acid (Folic Acid 1 Mg Tablet) 1 mg PO DAILY@0800 [facility] Stop: 02/14/21 08:01 Last Admin: 02/12/21 08:10 Dose: 1 mg Documented by: Glipizide (Glipizide Xl 5 Mg Tablet) [facility] Last Admin: 02/12/21 08:08 Dose: 5 mg Documented by: Insulin Human Lispro (Insulin Lispro 100 Unit/Ml Insuln.Pen) 0 unit SC [facility]; Protocol Last Admin: 02/12/21 06:21 Dose: 2 units Documented by: Lorazepam (Lorazepam 1 Mg Tablet) 2 mg PO Q2H PRN PRN; Protocol PRN Reason: CIWA score > 8 but <15 Lorazepam (Lorazepam 1 Mg Tablet) 2 mg PO UD PRN; Protocol PRN Reason: CIWA score >/=15. Lorazepam (Lorazepam 2 Mg/Ml Syringe) 2 mg IV Q2H PRN PRN; Protocol PRN Reason: CIWA score > 8 but <15 Lorazepam (Lorazepam 2 Mg/Ml Syringe) 2 mg IV UD PRN; Protocol PRN Reason: CIWA score >/=15. Lorazepam (Lorazepam 1 Mg Tablet) 1 mg PO Q24H PRN PRN Reason: Agitation Losartan Potassium (Losartan Potassium 100 Mg Tablet) 100 mg PO DAILY [facility] Last Admin: 02/12/21 08:08 Dose: 100 mg Documented by: Metformin HCl (Metformin Hcl 1,000 Mg Tablet) [facility] Last Admin: 02/12/21 08:09 Dose: 1,000 mg Documented by: Multivitamins/Minerals (Multivitamins,Ther W-Minerals Tablet) [facility] Last Admin: 02/12/21 08:08 Dose: 1 tablet Documented by: Nitroglycerin (Nitroglycerin (Inpatient Use) 0.4 Mg Tab.Subl) 0.4 mg SL Q5M PRN PRN Reason: CARDIAC/CHEST PAIN Ondansetron HCl (Ondansetron 4 Mg/2 Ml Vial) 4 mg IV Q8H PRN PRN PRN Reason: NAUSEA/VOMITING Sodium Chloride (0.9% Saline Lock 10 Ml Syringe) 10 - 40 ml IV UD PRN PRN Reason: SALINE FLUSH Thiamine HCl (Thiamine Hydrochloride 100 Mg Tablet) [facility] Stop: 02/14/21 17:01 Last Admin: 02/12/21 08:09 Dose: 100 mg Documented by: - Past Medical History Past Medical History (Chronic Problems): Chronic Problems (Last Reviewed 01/26/21 @ 14:53 by Cammie Fink) Localized edema (Chronic) Former tobacco use (Chronic) Xeroderma (Chronic) Eczema of lower extremity (Chronic) Presence of stent in coronary artery (Chronic ~02/2016) PCI w/ KIRILL to distal RCA, ostial PDA, and mid RCA 03/07; previous PTCA w/stent to mid main CX 09/24 Atherosclerotic heart disease of [place] coronary artery without angina pectoris (Chronic) PCI w/ KIRILL to distal RCA, ostial PDA, and mid RCA 03/07; previous PTCA w/stent to mid main CX 09/24 Essential hypertension (Chronic) Hammertoe of right foot (Chronic) Diabetic ulcer of left lower leg (Chronic) s/p 2nd degree burn with fat layer exposed Diabetic ulcer of left lower leg with fat layer exposed (Chronic) Other penitentiary (current) drug therapy (Chronic) Sleep disorder (Chronic) Depressive disorder (Chronic) Alcohol abuse (Chronic) Malnutrition (Chronic) Chronic ulcer of left foot with fat layer exposed (Chronic) Venous insufficiency of both lower extremities (Chronic) Ulcer of right foot with fat layer exposed (Chronic) Ischemic cardiomyopathy (Chronic) Angina pectoris (Chronic) Hyperlipidemia (Chronic) Diabetes 1.5, managed as type 2 (Chronic) Edema extremities (Chronic) Diabetes mellitus (Chronic) Diabetes mellitus with circulatory complication (Chronic) 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) Diabetes mellitus with neurologic complication, with long-term current use of insulin (Chronic) Charcot ankle (Chronic) Charc?t's arthritis due to secondary diabetes (Chronic) Charcot foot due to diabetes mellitus (Chronic) Diabetic foot ulcers (Chronic) Open wound of foot with complication (Chronic) Open wound of right ankle (Chronic) Open wound of left ankle with complication (Chronic) Acquired equinus deformity of both feet (Chronic) Healed ulcer of left foot on examination (Chronic) Diabetes mellitus with polyneuropathy (Chronic) Malnutrition (Chronic) Charcot's joint, left ankle and foot (Chronic) - Past Surgical History Surgical History: angioplasty, cholecystectomy, - - Social History Smoking Status: Former smoker - Family History Paternal Family History: Family History (Last Reviewed 01/26/21 @ 14:53 by Cammie Fink) Mother Heart disease Father Heart disease History Items: High Cholesterol, Heart Disease - CHF, Hypertension Maternal Family History: Family History (Last Reviewed 01/26/21 @ 14:53 by Cammie Fink) Mother Heart disease Father Heart disease History Items: High Cholesterol, Heart Disease - CHF, Hypertension Review of Systems Cardiovascular: Denies: Chest Pain, Palpitations Respiratory: Denies: Cough, Shortness of breath at rest, Sputum production Gastrointestinal: Denies: Abdominal Pain, Nausea, Vomiting Genitourinary: Denies: Dysuria Musculoskeletal: Reports: Leg Pain Skin: Denies: Rash, Wounds Neurological: Reports: Focal weakness Psychiatric: Denies: Anxiety, Depression, Homicidal Ideations, Suicidal Ideations Patient Problems: Active and Suspected Problems Hyponatremia (Acute) Alcohol abuse (Acute) - Physical Exam Vitals/I&O's: Vital Signs Temp Pulse Resp BP Pulse Ox 98.5 F 78 16 154/78 H 97 02/12/21 07:59 02/12/21 07:59 02/12/21 07:59 02/12/21 07:59 02/12/21 07:59 Oxygen Delivery Method Room Air Weight: 114.759 kg Body Mass Index (BMI) 35.2 Intake and Output for Last 24 Hours 02/10/21 02/11/21 02/12/21 23:59 23:59 23:59 Intake Total 1000 / 1000 1840 / 1840 Balance 1000 / 1000 1840 / 1840 General: Alert, Oriented x3, Cooperative HEENT: Atraumatic, PERRLA, EOMI, Normocephalic Neck: Supple, No JVD, Negative Carotid Bruits Lungs: Clear to auscultation, Normal air movement Cardiovascular: Regular rate, No murmurs Abdomen: Bowel Sounds Present, Soft, Non Tender Extremities: No edema, Capillary Refill Less than 3 Seconds Skin: No rashes, No breakdown Musculoskeletal: No Tenderness to Palpation of Joints or Extremities Neurological: Cranial nerves II-XII grossly intact Psych/Mental Status: Normal Affect, Appropriate Laboratory Results 02/11/21 17:37: Sodium 118 L*, Potassium 4.1, Chloride 80 L, Carbon Dioxide 29.0, Anion Gap 9, BUN 8, Creatinine 0.87, Estim Creat Clear Calc 150.62, Est GFR (MDRD) Af Amer 116, Est GFR (MDRD) Non-Af 96, BUN/Creatinine Ratio 9.2 L, Glucose 171 H, Calcium 9.0 02/11/21 21:05: Sodium 119 L*, Potassium 4.0, Chloride 83 L, Carbon Dioxide 28.0, Anion Gap 8, BUN 8, Creatinine 0.76, Estim Creat Clear Calc 110.09, Est GFR (MDRD) Af Amer 135, Est GFR (MDRD) Non-Af 111, BUN/Creatinine Ratio 10.6, Glucose 167 H, Calcium 8.9 02/11/21 22:30: POC Glucose 193 H 02/11/21 23:45: Sodium 120 L, Potassium 3.7, Chloride 85 L, Carbon Dioxide 30.0, Anion Gap 5, BUN 7, Creatinine 0.72, Estim Creat Clear Calc 116.20, Est GFR (MDRD) Af Amer 143, Est GFR (MDRD) Non-Af 118, BUN/Creatinine Ratio 9.7 L, Glucose 206 H, Calcium 8.5 02/12/21 04:35: Sodium 124 L, Potassium 3.5, Chloride 89 L, Carbon Dioxide 28.0, Anion Gap 7, BUN 5 L, Creatinine 0.68 L, Estim Creat Clear Calc 123.04, Est GFR (MDRD) Af Amer 152, Est GFR (MDRD) Non-Af 126, BUN/Creatinine Ratio 7.3 L, Glucose 196 H, Calcium 8.6 02/12/21 04:35: WBC 6.5, RBC 3.35 L, Hgb 10.2 L, Hct 30.1 L, MCV 89.9, MCH 30.4, MCHC 33.9, RDW Std Deviation 43.1, RDW Coeff of Sherita 13.0, Plt Count 204, MPV 9.8, Immature Gran % (Auto) 0.300, Neut % (Auto) 69.9, Lymph % (Auto) 18.1 L, [place] % (Auto) 9.1, Eos % (Auto) 1.5, Baso % (Auto) 1.1 H, Absolute Neuts (auto) 4.5, Absolute Lymphs (auto) 1.17, Nucleated RBC % 0 02/12/21 06:18: POC Glucose 185 H 02/12/21 08:00: Sodium 126 L, Potassium 3.6, Chloride 91 L, Carbon Dioxide 32.0, Anion Gap 3 L, BUN 5 L, Creatinine 0.70, Estim Creat Clear Calc 119.52, Est GFR (MDRD) Af Amer 148, Est GFR (MDRD) Non-Af 122, BUN/Creatinine Ratio 7.2 L, Glucose 147 H, Calcium 8.6 04/23/21 10:45: Sodium 127 L Current Medications Acetaminophen (Acetaminophen 325 Mg Tablet) 650 mg PO Q6H PRN PRN PRN Reason: Pain Score 1-10/Temp > 100.7 F Last Admin: 02/11/21 21:29 Dose: 650 mg Documented by: Amlodipine Besylate (Amlodipine 5 Mg Tablet) 5 mg PO DAILY [facility] Last Admin: 02/12/21 08:08 Dose: 5 mg Documented by: Ascorbic Acid (Ascorbic Acid 500 Mg Tablet) 500 mg PO DAILY [facility] Last Admin: 02/12/21 08:08 Dose: 500 mg Documented by: Aspirin (Aspirin E.C. 81 Mg Tablet) [facility] Last Admin: 02/12/21 08:08 Dose: 81 mg Documented by: Atenolol (Atenolol 50 Mg Tablet) 50 mg PO DAILY [facility] Last Admin: 02/12/21 08:09 Dose: 50 mg Documented by: Atorvastatin Calcium (Atorvastatin Calcium 10 Mg Tablet) 10 mg PO QHS [facility] Last Admin: 02/11/21 21:24 Dose: 10 mg Documented by: Enoxaparin Sodium (Enoxaparin 40 Mg/0.4 Ml Syringe) 40 mg SC DAILY [facility] Last Admin: 02/12/21 08:09 Dose: 40 mg Documented by: Folic Acid (Folic Acid 1 Mg Tablet) 1 mg PO DAILY@0800 [facility] Stop: 02/14/21 08:01 Last Admin: 02/12/21 08:10 Dose: 1 mg Documented by: Glipizide (Glipizide Xl 5 Mg Tablet) [facility] Last Admin: 02/12/21 08:08 Dose: 5 mg Documented by: Insulin Human Lispro (Insulin Lispro 100 Unit/Ml Insuln.Pen) 0 unit SC [facility]; Protocol Last Admin: 02/12/21 06:21 Dose: 2 units Documented by: Lorazepam (Lorazepam 1 Mg Tablet) 2 mg PO Q2H PRN PRN; Protocol PRN Reason: CIWA score > 8 but <15 Lorazepam (Lorazepam 1 Mg Tablet) 2 mg PO UD PRN; Protocol PRN Reason: CIWA score >/=15. Lorazepam (Lorazepam 2 Mg/Ml Syringe) 2 mg IV Q2H PRN PRN; Protocol PRN Reason: CIWA score > 8 but <15 Lorazepam (Lorazepam 2 Mg/Ml Syringe) 2 mg IV UD PRN; Protocol PRN Reason: CIWA score >/=15. Lorazepam (Lorazepam 1 Mg Tablet) 1 mg PO Q24H PRN PRN Reason: Agitation Losartan Potassium (Losartan Potassium 100 Mg Tablet) 100 mg PO DAILY [facility] Last Admin: 02/12/21 08:08 Dose: 100 mg Documented by: Metformin HCl (Metformin Hcl 1,000 Mg Tablet) 1,[facility] Last Admin: 02/12/21 08:09 Dose: 1,000 mg Documented by: Multivitamins/Minerals (Multivitamins,Ther W-Minerals Tablet) [facility] Last Admin: 02/12/21 08:08 Dose: 1 tablet Documented by: Nitroglycerin (Nitroglycerin (Inpatient Use) 0.4 Mg Tab.Subl) 0.4 mg SL Q5M PRN PRN Reason: CARDIAC/CHEST PAIN Ondansetron HCl (Ondansetron 4 Mg/2 Ml Vial) 4 mg IV Q8H PRN PRN PRN Reason: NAUSEA/VOMITING Sodium Chloride (0.9% Saline Lock 10 Ml Syringe) 10 - 40 ml IV UD PRN PRN Reason: SALINE FLUSH Thiamine HCl (Thiamine Hydrochloride 100 Mg Tablet) [facility] Stop: 02/14/21 17:01 Last Admin: 02/12/21 08:09 Dose: 100 mg Documented by: Assessment/Plan All Active Problems (Last Reviewed 01/26/21 @ 14:53 by Cammie Fink) Infection of left foot (Resolved) Hyponatremia (Acute) Hyponatremia (Acute) Alcohol abuse (Acute) Ulcer of right lower extremity with fat layer exposed (Resolved) Ulcer of left lower extremity with fat layer exposed (Resolved) Onycholysis (Resolved) Elevated liver function tests (Acute) Chest pain (Acute) Chronic ulcer of right ankle with fat layer exposed (Acute) Diabetic ulcer of right foot (Acute) Diabetic ulcer of left foot (Acute) Ulcer of right ankle (Acute) Chronic ulcer of left foot with fat layer exposed (Resolved) Myocardial infarction (Resolved) Hypoosmolar hypovolumic hyponatremia with prioe Hx of SIADH now it is mutifactorial due to decreasd PO intake, low osmolar secretion and Intravascular volume depletion Goal for increase is 4-5/24 hrs High risk for Demyelination due to low wt, +alcoholism Urine studies Gentle IV NS Not an candidate for tolvaptan due to IV volume depletion and ?high risk for transaminitis
--- NOTE | 2021-02-12 11:46 | PCM.PN.HOSP ---
Patient Problems: Active and Suspected Problems Hyponatremia (Acute) Alcohol abuse (Acute) Reason for Visit: Follow-up for severe hyponatremia with chronic alcohol use disorder Objective: The patient is chronic alcoholic and has been admitted in the past for hyponatremia and chronic alcohol use disorder. He drinks 12 ounce of beer 6 bottles daily on weekdays and 12 bottles on weekends. Currently patient not having hallucinations, nightmares or delusions. No seizures. General: Alert, Oriented x3, Cooperative, obese BMI 35.3 kg/m? HEENT: Atraumatic, PERRLA, EOMI, Normocephalic Oral: No Gingival or Mucosal Lesions/ Ulcerations Neck: Supple, No JVD, Negative Carotid Bruits Lungs: Air entry diminished in bilateral lung bases. No crepitation/rhonchi Cardiovascular: Regular rate, Regular Rhythm, Normal S1, Normal S2, No murmurs Abdomen: Bowel Sounds Present, Soft, Non Tender, Non-Distended : No renal angle tenderness. No suprapubic tenderness. Extremities: No edema, Capillary Refill Less than 3 Seconds Skin: No rashes, No breakdown Musculoskeletal: No Tenderness to Palpation of Joints or Extremities Neurological: Cranial nerves II-XII grossly intact, Deep Tendon Reflexes 2+/4 and Symmetrical, Neuro grossly intact Psych/Mental Status: Normal Affect, Appropriate. Vitals/I&O's: Vital Signs Temp Pulse Resp BP Pulse Ox 98.5 F 78 16 154/78 H 97 02/12/21 07:59 02/12/21 07:59 02/12/21 07:59 02/12/21 07:59 02/12/21 07:59 Oxygen Delivery Method Room Air Weight: 253 lb Body Mass Index (BMI) 35.2 Intake and Output for Last 24 Hours 02/10/21 02/11/21 02/12/21 23:59 23:59 23:59 Intake Total 1000 / 1000 1839 / 184 Balance 1000 / 1000 1839 / 1839 Laboratory Results 02/11/21 17:37: Sodium 118 L*, Potassium 4.1, Chloride 80 L, Carbon Dioxide 29.0, Anion Gap 9, BUN 8, Creatinine 0.87, Estim Creat Clear Calc 150.62, Est GFR (MDRD) Af Amer 116, Est GFR (MDRD) Non-Af 96, BUN/Creatinine Ratio 9.2 L, Glucose 171 H, Calcium 9.0 02/11/21 21:05: Sodium 119 L*, Potassium 4.0, Chloride 83 L, Carbon Dioxide 28.0, Anion Gap 8, BUN 8, Creatinine 0.76, Estim Creat Clear Calc 110.09, Est GFR (MDRD) Af Amer 135, Est GFR (MDRD) Non-Af 111, BUN/Creatinine Ratio 10.6, Glucose 167 H, Calcium 8.9 02/11/21 22:30: POC Glucose 193 H 02/11/21 23:45: Sodium 120 L, Potassium 3.7, Chloride 85 L, Carbon Dioxide 30.0, Anion Gap 5, BUN 7, Creatinine 0.72, Estim Creat Clear Calc 116.20, Est GFR (MDRD) Af Amer 143, Est GFR (MDRD) Non-Af 118, BUN/Creatinine Ratio 9.7 L, Glucose 206 H, Calcium 8.5 02/12/21 04:35: Sodium 124 L, Potassium 3.5, Chloride 89 L, Carbon Dioxide 28.0, Anion Gap 7, BUN 5 L, Creatinine 0.68 L, Estim Creat Clear Calc 123.04, Est GFR (MDRD) Af Amer 152, Est GFR (MDRD) Non-Af 126, BUN/Creatinine Ratio 7.3 L, Glucose 196 H, Calcium 8.6 02/12/21 04:35: WBC 6.5, RBC 3.35 L, Hgb 10.2 L, Hct 30.1 L, MCV 89.9, MCH 30.4, MCHC 33.9, RDW Std Deviation 43.1, RDW Coeff of Sherita 13.0, Plt Count 204, MPV 9.8, Immature Gran % (Auto) 0.300, Neut % (Auto) 69.9, Lymph % (Auto) 18.1 L, [place] % (Auto) 9.1, Eos % (Auto) 1.5, Baso % (Auto) 1.1 H, Absolute Neuts (auto) 4.5, Absolute Lymphs (auto) 1.17, Nucleated RBC % 0 02/12/21 06:18: POC Glucose 185 H 02/12/21 08:00: Sodium 126 L, Potassium 3.6, Chloride 91 L, Carbon Dioxide 32.0, Anion Gap 3 L, BUN 5 L, Creatinine 0.70, Estim Creat Clear Calc 119.52, Est GFR (MDRD) Af Amer 148, Est GFR (MDRD) Non-Af 122, BUN/Creatinine Ratio 7.2 L, Glucose 147 H, Calcium 8.6 02/12/21 10:45: Sodium 127 L Current Medications Acetaminophen (Acetaminophen 325 Mg Tablet) 650 mg PO Q6H PRN PRN PRN Reason: Pain Score 1-10/Temp > 100.7 F Last Admin: 02/11/21 21:29 Dose: 650 mg Documented by: Amlodipine Besylate (Amlodipine 5 Mg Tablet) 5 mg PO DAILY [facility] Last Admin: 02/12/21 08:08 Dose: 5 mg Documented by: Ascorbic Acid (Ascorbic Acid 500 Mg Tablet) 500 mg PO DAILY [facility] Last Admin: 02/12/21 08:08 Dose: 500 mg Documented by: Aspirin (Aspirin E.C. 81 Mg Tablet) [facility] Last Admin: 02/12/21 08:08 Dose: 81 mg Documented by: Atenolol (Atenolol 50 Mg Tablet) 50 mg PO DAILY [facility] Last Admin: 02/12/21 08:09 Dose: 50 mg Documented by: Atorvastatin Calcium (Atorvastatin Calcium 10 Mg Tablet) 10 mg PO QHS [facility] Last Admin: 02/11/21 21:24 Dose: 10 mg Documented by: Enoxaparin Sodium (Enoxaparin 40 Mg/0.4 Ml Syringe) 40 mg SC DAILY [facility] Last Admin: 02/12/21 08:09 Dose: 40 mg Documented by: Folic Acid (Folic Acid 1 Mg Tablet) 1 mg PO DAILY@0800 [facility] Stop: 02/14/21 08:01 Last Admin: 02/12/21 08:10 Dose: 1 mg Documented by: Glipizide (Glipizide Xl 5 Mg Tablet) [facility] Last Admin: 02/12/21 08:08 Dose: 5 mg Documented by: Insulin Human Lispro (Insulin Lispro 100 Unit/Ml Insuln.Pen) 0 unit SC [facility]; Protocol Last Admin: 02/12/21 06:21 Dose: 2 units Documented by: Lorazepam (Lorazepam 1 Mg Tablet) 2 mg PO Q2H PRN PRN; Protocol PRN Reason: CIWA score > 8 but <15 Lorazepam (Lorazepam 1 Mg Tablet) 2 mg PO UD PRN; Protocol PRN Reason: CIWA score >/=15. Lorazepam (Lorazepam 2 Mg/Ml Syringe) 2 mg IV Q2H PRN PRN; Protocol PRN Reason: CIWA score > 8 but <15 Lorazepam (Lorazepam 2 Mg/Ml Syringe) 2 mg IV UD PRN; Protocol PRN Reason: CIWA score >/=15. Lorazepam (Lorazepam 1 Mg Tablet) 1 mg PO Q24H PRN PRN Reason: Agitation Losartan Potassium (Losartan Potassium 100 Mg Tablet) 100 mg PO DAILY [facility] Last Admin: 02/12/21 08:08 Dose: 100 mg Documented by: Metformin HCl (Metformin Hcl 1,000 Mg Tablet) [facility] Last Admin: 02/12/21 08:09 Dose: 1,000 mg Documented by: Multivitamins/Minerals (Multivitamins,Ther W-Minerals Tablet) [facility] Last Admin: 02/12/21 08:08 Dose: 1 tablet Documented by: Nitroglycerin (Nitroglycerin (Inpatient Use) 0.4 Mg Tab.Subl) 0.4 mg SL Q5M PRN PRN Reason: CARDIAC/CHEST PAIN Ondansetron HCl (Ondansetron 4 Mg/2 Ml Vial) 4 mg IV Q8H PRN PRN PRN Reason: NAUSEA/VOMITING Sodium Chloride (0.9% Saline Lock 10 Ml Syringe) 10 - 40 ml IV UD PRN PRN Reason: SALINE FLUSH Thiamine HCl (Thiamine Hydrochloride 100 Mg Tablet) [facility] Stop: 02/14/21 17:01 Last Admin: 02/12/21 08:09 Dose: 100 mg Documented by: STROKE Vital Signs/Narrative: Vital Signs Temp Pulse Resp BP Pulse Ox 02/12/21 07:59 98.5 F 78 16 154/78 H 97 Medical Necessity - Tobacco Use Smoking Status: Former smoker Tobacco Use: Cigarettes Assessment/Plan All Active Problems (Last Reviewed 01/26/21 @ 14:53 by Cammie Fink) Infection of left foot (Resolved) Hyponatremia (Acute) Hyponatremia (Acute) Alcohol abuse (Acute) Ulcer of right lower extremity with fat layer exposed (Resolved) Ulcer of left lower extremity with fat layer exposed (Resolved) Onycholysis (Resolved) Elevated liver function tests (Acute) Chest pain (Acute) Chronic ulcer of right ankle with fat layer exposed (Acute) Diabetic ulcer of right foot (Acute) Diabetic ulcer of left foot (Acute) Ulcer of right ankle (Acute) Chronic ulcer of left foot with fat layer exposed (Resolved) Myocardial infarction (Resolved) 60 y/o admitted with a complaint of weakness and lethargy. #Acute on chronic hyponatremia, hypotonic hypovolemic hyponatremia with prior history of SIADH: Patient has history of hypovolemia, decreased oral intake, low osmolar secretion. Goal of increase is 4 to 5 mEq in 24 hours. Seen by airport security screener and opinion was high risk for demyelination due to low weight and alcoholism. Urine studies ordered. Serum sodium increased from 1 18-127 in about 17 hours. IV fluid sodium chloride was held in the morning to prevent acute rise. Patient is allowed oral intake #History of alcohol dependence: Put on CIWA protocol. On thiamine, multivitamin folic acid. Currently not showing any acute alcohol withdrawal symptoms. #CAD s/p stents: On aspirin, atenolol and losartan. #History of ischemic cardiomyopathy: On aspirin, atenolol and losartan. #Hypertension: On amlodipine, atenolol and losartan #Type 2 diabetes mellitus: Continue current diabetes meds. Insulin sliding scale. Accu-Cheks AC at bedtime. Glucose about 150s to 200. DVT prophylaxis: Lovenox CODE STATUS: full code Inpatient E&M: 99636 Subs Hosp L2
[2021-02-12 12:15] LABS: Bedside Glucose 171 mg/dL (70-110)
--- NOTE | 2021-02-12 13:47 | CASEMGMT ---
KAREN met with patient. Introduced self and role at [facility]. KAREN confirmed he wanted resources to help him cut back on drinking. KAREN gave him a folder with resources including AA meetings. He was very interested in AA meetings. He thanked KAREN. Esther LUX
[2021-02-12 18:34] LABS: Sodium Level 128 mmol/L (136-145)
[2021-02-12 19:26] LABS: Bedside Glucose 164 mg/dL (70-110)
[2021-02-12] MEDS: Atorvastatin Calcium 10 MG Tablet PO (21:20)
[2021-02-12 22:25] LABS: Bedside Glucose 216 mg/dL (70-110)
[2021-02-13] VITALS (9 sets, daily range): BP systolic 119–143; BP diastolic 73–84; PULSE 67–90; RESP 16–18; TEMP 36.6–36.9; O2SAT 98–100
[2021-02-13 01:50] LABS: Sodium Level 128 mmol/L (136-145)
[2021-02-13 06:12] LABS: Absolute Lymphocyte Count 1.22 X10^3/uL (0.83-4.51); Absolute Neutrophil Count 3.9 X10^3/uL (2.0-7.7); Basophil# 0.07 X10^3/uL; Basophil% 1.2 % (0-1); Eosinophil# 0.15 X10^3/uL; Eosinophils% 2.6 % (0-5); Hematocrit 29.2 % (40-54); Hemoglobin 9.7 g/dL (13.0-16.5); Lymphocyte # 1.22 X10^3/ul (0.83-4.51); Lymphocyte % 20.8 % (19-41); Mean Corp Hgb Conc 33.2 g/dL (32-36); Mean Corpuscular Hgb 31.1 pg (27.0-32.0); Mean Corpuscular Volume 93.6 fL (80-94); Mean Platelet Vol. 9.8 fl (6.2-12.0); Monocyte# 0.55 X10^3/uL; Monocyte% 9.4 % (0-10); NRBC Flagged by Analyzer 0 % (0-5); Neutrophil # 3.85 X10^3/uL (2.7-7.7); Neutrophil % 65.5 % (47-70); Platelet Count 195 K/mm3 (150-450); RBC Distribution Width CV 13.2 % (11.6-14.6); RBC Distribution Width SD 45.5 fl (35.1-43.9); Red Blood Count 3.12 M/mm3 (4.6-6.2); White Blood Count 5.9 K/mm3 (4.4-11.0)
[2021-02-13 06:33] LABS: Anion Gap 5 (5-15); BUN 4 mg/dL (7-18); BUN/Creat Ratio 5.7 RATIO (10-20); Calcium,Total 8.6 mg/dL (8.5-10.1); Chloride 95 mmol/L (98-107); EST Glomerular Filtration Rate 123 mL/min (>60); Est Glom Filt Rate - Afr Amer 149 mL/min (>60); Estimated Creatinine Clearance 119.52 ml/min; Glucose 184 mg/dL (74-106); Magnesium 1.7 mg/dL (1.6-2.6); Potassium 3.7 mmol/L (3.5-5.1); Sodium Level 126 mmol/L (136-145)
[2021-02-13] MEDS: Insulin Lispro 100 UNIT/ML INSULN.PEN SC ×3 (06:58→21:17)
[2021-02-13 07:05] LABS: Bedside Glucose 181 mg/dL (70-110)
[2021-02-13] MEDS: 0.9% Normal Saline 1,000 ML 60 ML IV (08:32)
[2021-02-13] MEDS: Aspirin E.C. 81 MG Tablet PO (08:33)
[2021-02-13] MEDS: Folic Acid 1 MG Tablet PO (08:33)
[2021-02-13] MEDS: metFORMIN HCl 1,000 MG Tablet 1000 MG PO (08:33)
[2021-02-13] MEDS: Multivitamins,Ther W-Minerals Tablet 1 TABLET PO (08:34)
[2021-02-13] MEDS: Thiamine Hydrochloride 100 MG Tablet PO ×2 (08:34→18:25)
[2021-02-13] MEDS: glipiZIDE XL 5 MG Tablet PO (08:34)
[2021-02-13] MEDS: Losartan Potassium 100 MG Tablet PO (08:34)
[2021-02-13] MEDS: Enoxaparin 40 MG/0.4 ML Syringe SC (08:34)
[2021-02-13] MEDS: Atenolol 50 MG Tablet PO (08:35)
[2021-02-13] MEDS: amLODIPine 5 MG Tablet PO (08:35)
[2021-02-13] MEDS: Ascorbic Acid 500 MG Tablet PO (08:35)
[2021-02-13] MEDS: Acetaminophen 325 MG Tablet 650 MG PO (09:16)
[2021-02-13] MEDS: Menthol/Lanolin/Calamine/Znox 113 GM Tube 1 APPLIC TOPICAL ×2 (09:17→21:16)
[2021-02-13] MEDS: Nystatin Powder 15gm Bottle 1 APPLIC TOPICAL ×2 (09:17→21:16)
--- NOTE | 2021-02-13 12:18 | PCM.PN.HOSP ---
Patient Problems: Active and Suspected Problems Hyponatremia (Acute) Alcohol abuse (Acute) Reason for Visit: Follow-up for hyponatremia and chronic alcohol use. Objective: Patient does not have confusion, disorientation. No acute alcohol withdrawal symptoms. Patient has low p.o. intake and sometimes he does not eat or 1 to 2 days. Physical exam General: Alert, Oriented x3, Cooperative HEENT: Atraumatic, PERRLA, EOMI, Normocephalic Oral: No Gingival or Mucosal Lesions/ Ulcerations Neck: Supple, No JVD, Negative Carotid Bruits Lungs: Air entry diminished in bilateral lung bases. No crepitation/rhonchi Cardiovascular: Regular rate, Regular Rhythm, Normal S1, Normal S2, No murmurs Abdomen: Bowel Sounds Present, Soft, Non Tender, Non-Distended : No renal angle tenderness. No suprapubic tenderness. Extremities: No edema, Capillary Refill Less than 3 Seconds Skin: No rashes, No breakdown. Healed callosity on the left foot, plantar surface. Musculoskeletal: Left foot Charcot joint. no Tenderness to Palpation of Joints or Extremities Neurological: Cranial nerves II-XII grossly intact, Deep Tendon Reflexes 2+/4 and Symmetrical, Neuro grossly intact Psych/Mental Status: Normal Affect, Appropriate. Vitals/I&O's: Vital Signs Temp Pulse Resp BP Pulse Ox 98.5 F 70 16 142/75 H 98 02/13/21 09:15 02/13/21 09:15 02/13/21 09:15 02/13/21 09:15 02/13/21 09:15 Oxygen Delivery Method Room Air Weight: 253 lb 0.004 oz Body Mass Index (BMI) 35.2 Intake and Output for Last 24 Hours 02/11/21 02/12/21 02/13/21 23:59 23:59 23:59 Intake Total 1000 / 1000 2800 / 2800 480 / 480 Balance 1000 / 1000 2800 / 2800 480 / 480 Laboratory Results 02/12/21 17:03: POC Glucose 164 H 02/12/21 17:42: Sodium 128 L 02/12/21 21:30: POC Glucose 216 H 02/13/21 01:35: Sodium 128 L 02/13/21 05:48: WBC 5.9, RBC 3.12 L, Hgb 9.7 L, Hct 29.2 L, MCV 93.6, MCH 31.1, MCHC 33.2, RDW Std Deviation 45.5 H, RDW Coeff of Sherita 13.2, Plt Count 195, MPV 9.8, Immature Gran % (Auto) 0.500, Neut % (Auto) 65.5, Lymph % (Auto) 20.8, [place] % (Auto) 9.4, Eos % (Auto) 2.6, Baso % (Auto) 1.2 H, Absolute Neuts (auto) 3.9, Absolute Lymphs (auto) 1.22, Nucleated RBC % 0 02/13/21 05:48: Sodium 126 L, Potassium 3.7, Chloride 95 L, Carbon Dioxide 26.0, Anion Gap 5, BUN 4 L, Creatinine 0.70, Estim Creat Clear Calc 119.52, Est GFR (MDRD) Af Amer 149, Est GFR (MDRD) Non-Af 123, BUN/Creatinine Ratio 5.7 L, Glucose 184 H, Calcium 8.6, Magnesium 1.7 02/13/21 06:57: POC Glucose 181 H Current Medications Acetaminophen (Acetaminophen 325 Mg Tablet) 650 mg PO Q6H PRN PRN PRN Reason: Pain Score 1-10/Temp > 100.7 F Last Admin: 02/13/21 09:16 Dose: 650 mg Documented by: Amlodipine Besylate (Amlodipine 5 Mg Tablet) 5 mg PO DAILY [facility] Last Admin: 02/13/21 08:35 Dose: 5 mg Documented by: Ascorbic Acid (Ascorbic Acid 500 Mg Tablet) 500 mg PO DAILY [facility] Last Admin: 02/13/21 08:35 Dose: 500 mg Documented by: Aspirin (Aspirin E.C. 81 Mg Tablet) [facility] Last Admin: 02/13/21 08:33 Dose: 81 mg Documented by: Atenolol (Atenolol 50 Mg Tablet) 50 mg PO DAILY [facility] Last Admin: 02/13/21 08:35 Dose: 50 mg Documented by: Atorvastatin Calcium (Atorvastatin Calcium 10 Mg Tablet) 10 mg PO QHS [facility] Last Admin: 02/12/21 21:20 Dose: 10 mg Documented by: Calamine/Phenol (Menthol/Lanolin/Calamine/Znox 113 Gm Tube) 1 applic TOPICAL BID [facility]; Protocol Last Admin: 02/13/21 09:17 Dose: 1 applic Documented by: Enoxaparin Sodium (Enoxaparin 40 Mg/0.4 Ml Syringe) 40 mg SC DAILY [facility] Last Admin: 02/13/21 08:34 Dose: 40 mg Documented by: Folic Acid (Folic Acid 1 Mg Tablet) 1 mg PO DAILY@0800 [facility] Stop: 02/14/21 08:01 Last Admin: 02/13/21 08:33 Dose: 1 mg Documented by: Glipizide (Glipizide Xl 5 Mg Tablet) [facility] Last Admin: 02/13/21 08:34 Dose: 5 mg Documented by: Sodium Chloride () 1,000 mls @ 60 mls/hr IV .[id number] [facility] Stop: 02/14/21 00:34 Last Admin: 02/13/21 08:32 Dose: 60 mls/hr Documented by: Insulin Human Lispro (Insulin Lispro 100 Unit/Ml Insuln.Pen) 0 unit SC [facility]; Protocol Last Admin: 02/13/21 12:13 Dose: 4 units Documented by: Lorazepam (Lorazepam 1 Mg Tablet) 2 mg PO Q2H PRN PRN; Protocol PRN Reason: CIWA score > 8 but <15 Lorazepam (Lorazepam 1 Mg Tablet) 2 mg PO UD PRN; Protocol PRN Reason: CIWA score >/=15. Lorazepam (Lorazepam 2 Mg/Ml Syringe) 2 mg IV Q2H PRN PRN; Protocol PRN Reason: CIWA score > 8 but <15 Lorazepam (Lorazepam 2 Mg/Ml Syringe) 2 mg IV UD PRN; Protocol PRN Reason: CIWA score >/=15. Lorazepam (Lorazepam 1 Mg Tablet) 1 mg PO Q24H PRN PRN Reason: Agitation Losartan Potassium (Losartan Potassium 100 Mg Tablet) 100 mg PO DAILY [facility] Last Admin: 02/13/21 08:34 Dose: 100 mg Documented by: Metformin HCl (Metformin Hcl 1,000 Mg Tablet) 1,000 mg PO [facility] Last Admin: 02/13/21 08:33 Dose: 1,000 mg Documented by: Multivitamins/Minerals (Multivitamins,Ther W-Minerals Tablet) 1 tablet PO [facility]ILY[facility] Last Admin: 02/13/21 08:34 Dose: 1 tablet Documented by: Nitroglycerin (Nitroglycerin (Inpatient Use) 0.4 Mg Tab.Subl) 0.4 mg SL Q5M PRN PRN Reason: CARDIAC/CHEST PAIN Nystatin (Nystatin Powder 15gm Bottle) 1 applic TOPICAL BID [facility]; Protocol Last Admin: 02/13/21 09:17 Dose: 1 applic Documented by: Ondansetron HCl (Ondansetron 4 Mg/2 Ml Vial) 4 mg IV Q8H PRN PRN PRN Reason: NAUSEA/VOMITING Sodium Chloride (0.9% Saline Lock 10 Ml Syringe) 10 - 40 ml IV UD PRN PRN Reason: SALINE FLUSH Thiamine HCl (Thiamine Hydrochloride 100 Mg Tablet) 100 mg PO BIDCM [facility] Stop: 02/14/21 17:01 Last Admin: 02/13/21 08:34 Dose: 100 mg Documented by: STROKE Vital Signs/Narrative: Vital Signs Temp Pulse Resp BP Pulse Ox 02/13/21 09:15 98.5 F 70 16 142/75 H 98 Medical Necessity - Tobacco Use Smoking Status: Former smoker Tobacco Use: Cigarettes Assessment/Plan All Active Problems (Last Reviewed 01/26/21 @ 14:53 by Cammie Fink) Infection of left foot (Resolved) Hyponatremia (Acute) Hyponatremia (Acute) Alcohol abuse (Acute) Ulcer of right lower extremity with fat layer exposed (Resolved) Ulcer of left lower extremity with fat layer exposed (Resolved) Onycholysis (Resolved) Elevated liver function tests (Acute) Chest pain (Acute) Chronic ulcer of right ankle with fat layer exposed (Acute) Diabetic ulcer of right foot (Acute) Diabetic ulcer of left foot (Acute) Ulcer of right ankle (Acute) Chronic ulcer of left foot with fat layer exposed (Resolved) Myocardial infarction (Resolved) 60 y/o admitted with a complaint of weakness and lethargy. #Acute on chronic hyponatremia, hypotonic hypovolemic hyponatremia with prior history of SIADH: Patient has history of hypovolemia, decreased oral intake, low osmolar secretion. Goal of increase is 4 to 5 mEq in 24 hours. Seen by tool crib lead and opinion was high risk for demyelination due to low weight and alcoholism. Urine studies ordered. Serum sodium increased from 1 18-127 in about 17 hours. IV fluid sodium chloride was held in the morning to prevent acute rise. Patient is allowed oral intake 02/13: Serum sodium 126, from 118 in about 36 hours. I reviewed normal sling resume at 60 mils per hour. Follow-up serum sodium in afternoon. Gambling Broker consult reviewed and appreciated. Mild hypokalemia: Potassium is getting replaced. K3.7 #History of alcohol dependence: Put on CIWA protocol. On thiamine, multivitamin folic acid. Currently not showing any acute alcohol withdrawal symptoms. #CAD s/p stents: On aspirin, atenolol and losartan. #History of ischemic cardiomyopathy: On aspirin, atenolol and losartan. #Hypertension: On amlodipine, atenolol and losartan #Type 2 diabetes mellitus: Continue current diabetes meds. Insulin sliding scale. Accu-Cheks AC at bedtime. Glucose about 150s to 200. DVT prophylaxis: Lovenox CODE STATUS: full code Inpatient E&M: 53036 Subs Hosp L2
[2021-02-13 12:21] LABS: Bedside Glucose 209 mg/dL (70-110)
[2021-02-13] MEDS: Potassium Chloride Oral Soln 20 MEQ/15 ML UDC 40 MEQ PO (14:16)
[2021-02-13 16:02] LABS: Sodium Level 128 mmol/L (136-145)
[2021-02-13 18:21] LABS: Bedside Glucose 121 mg/dL (70-110)
--- NOTE | 2021-02-13 18:42 | PN.RENAL_ITS ---
Patient Problems: Active and Suspected Problems Hyponatremia (Acute) Alcohol abuse (Acute) Subjective: Denied headache No blurry vision. No nausea No vomiting No diarrhea - Physical Exam Vitals/I&O's: Vital Signs Temp Pulse Resp BP Pulse Ox 97.9 F 67 18 119/73 100 02/13/21 15:15 02/13/21 15:15 02/13/21 15:15 02/13/21 15:15 02/13/21 15:15 Oxygen Delivery Method Room Air Weight: 114.759 kg Body Mass Index (BMI) 35.2 Intake and Output for Last 24 Hours 02/11/21 02/12/21 02/13/21 23:59 23:59 23:59 Intake Total 1000 / 1000 2800 / 2800 960 / 960 Balance 1000 / 1000 2800 / 2800 960 / 960 General: Alert, Oriented x3 HEENT: Atraumatic Oral: Moist Mucosa Neck: Supple, No JVD Lungs: Clear to auscultation, Normal air movement, No rhonchi, No wheeze Cardiovascular: Regular rate, Regular Rhythm, Normal S1, Normal S2 Abdomen: Bowel Sounds Present, Soft, Non Tender, Non-Distended Extremities: No clubbing, No cyanosis, No edema Skin: No rashes Musculoskeletal: No Tenderness to Palpation of Joints or Extremities Neurological: Cranial nerves II-XII grossly intact, Neuro grossly intact Psych/Mental Status: Appropriate Laboratory Results 02/12/21 17:03: POC Glucose 164 H 02/12/21 21:30: POC Glucose 216 H 02/13/21 01:35: Sodium 128 L 02/13/21 05:48: WBC 5.9, RBC 3.12 L, Hgb 9.7 L, Hct 29.2 L, MCV 93.6, MCH 31.1, MCHC 33.2, RDW Std Deviation 45.5 H, RDW Coeff of Sherita 13.2, Plt Count 195, MPV 9.8, Immature Gran % (Auto) 0.500, Neut % (Auto) 65.5, Lymph % (Auto) 20.8, [place] % (Auto) 9.4, Eos % (Auto) 2.6, Baso % (Auto) 1.2 H, Absolute Neuts (auto) 3.9, Absolute Lymphs (auto) 1.22, Nucleated RBC % 0 02/13/21 05:48: Sodium 126 L, Potassium 3.7, Chloride 95 L, Carbon Dioxide 26.0, Anion Gap 5, BUN 4 L, Creatinine 0.70, Estim Creat Clear Calc 119.52, Est GFR (MDRD) Af Amer 149, Est GFR (MDRD) Non-Af 123, BUN/Creatinine Ratio 5.7 L, Glucose 184 H, Calcium 8.6, Magnesium 1.7 02/13/21 06:57: POC Glucose 181 H 02/13/21 12:11: POC Glucose 209 H 02/13/21 15:41: Sodium 128 L 02/13/21 18:19: POC Glucose 121 H Current Medications Acetaminophen (Acetaminophen 325 Mg Tablet) 650 mg PO Q6H PRN PRN PRN Reason: Pain Score 1-10/Temp > 100.7 F Last Admin: 02/13/21 09:16 Dose: 650 mg Documented by: Amlodipine Besylate (Amlodipine 5 Mg Tablet) 5 mg PO DAILY [facility] Last Admin: 02/13/21 08:35 Dose: 5 mg Documented by: Ascorbic Acid (Ascorbic Acid 500 Mg Tablet) 500 mg PO DAILY [facility] Last Admin: 02/13/21 08:35 Dose: 500 mg Documented by: Aspirin (Aspirin E.C. 81 Mg Tablet) [facility] Last Admin: 02/13/21 08:33 Dose: 81 mg Documented by: Atenolol (Atenolol 50 Mg Tablet) 50 mg PO DAILY [facility] Last Admin: 02/13/21 08:35 Dose: 50 mg Documented by: Atorvastatin Calcium (Atorvastatin Calcium 10 Mg Tablet) 10 mg PO QHS [facility] Last Admin: 02/12/21 21:20 Dose: 10 mg Documented by: Calamine/Phenol (Menthol/Lanolin/Calamine/Znox 113 Gm Tube) 1 applic TOPICAL BID [facility]; Protocol Last Admin: 02/13/21 09:17 Dose: 1 applic Documented by: Enoxaparin Sodium (Enoxaparin 40 Mg/0.4 Ml Syringe) 40 mg SC DAILY [facility] Last Admin: 02/13/21 08:34 Dose: 40 mg Documented by: Folic Acid (Folic Acid 1 Mg Tablet) 1 mg PO DAILY@0800 [facility] Stop: 02/14/21 08:01 Last Admin: 02/13/21 08:33 Dose: 1 mg Documented by: Glipizide (Glipizide Xl 5 Mg Tablet) [facility] Last Admin: 02/13/21 08:34 Dose: 5 mg Documented by: Sodium Chloride () 1,000 mls @ 60 mls/hr IV .[id number] [facility] Stop: 02/14/21 00:34 Last Admin: 02/13/21 08:32 Dose: 60 mls/hr Documented by: Insulin Human Lispro (Insulin Lispro 100 Unit/Ml Insuln.Pen) 0 unit SC [facility]; Protocol Last Admin: 02/13/21 18:24 Dose: Not Given Documented by: Lorazepam (Lorazepam 1 Mg Tablet) 2 mg PO Q2H PRN PRN; Protocol PRN Reason: CIWA score > 8 but <15 Lorazepam (Lorazepam 1 Mg Tablet) 2 mg PO UD PRN; Protocol PRN Reason: CIWA score >/=15. Lorazepam (Lorazepam 2 Mg/Ml Syringe) 2 mg IV Q2H PRN PRN; Protocol PRN Reason: CIWA score > 8 but <15 Lorazepam (Lorazepam 2 Mg/Ml Syringe) 2 mg IV UD PRN; Protocol PRN Reason: CIWA score >/=15. Lorazepam (Lorazepam 1 Mg Tablet) 1 mg PO Q24H PRN PRN Reason: Agitation Losartan Potassium (Losartan Potassium 100 Mg Tablet) 100 mg PO DAILY [facility] Last Admin: 02/13/21 08:34 Dose: 100 mg Documented by: Metformin HCl (Metformin Hcl 1,000 Mg Tablet) 1,[facility] Last Admin: 02/13/21 08:33 Dose: 1,000 mg Documented by: Multivitamins/Minerals (Multivitamins,Ther W-Minerals Tablet) 1 tablet [facility] Last Admin: 02/13/21 08:34 Dose: 1 tablet Documented by: Nitroglycerin (Nitroglycerin (Inpatient Use) 0.4 Mg Tab.Subl) 0.4 mg SL Q5M PRN PRN Reason: CARDIAC/CHEST PAIN Nystatin (Nystatin Powder 15gm Bottle) 1 applic TOPICAL BID [facility]; Protocol Last Admin: 02/13/21 09:17 Dose: 1 applic Documented by: Ondansetron HCl (Ondansetron 4 Mg/2 Ml Vial) 4 mg IV Q8H PRN PRN PRN Reason: NAUSEA/VOMITING Potassium Chloride (Potassium Chloride Oral Soln 20 Meq/15 Ml Udc) 40 meq PO DAILY [facility] Stop: 02/15/21 10:01 Last Admin: 02/13/21 14:16 Dose: 40 meq Documented by: Sodium Chloride (0.9% Saline Lock 10 Ml Syringe) 10 - 40 ml IV UD PRN PRN Reason: SALINE FLUSH Thiamine HCl (Thiamine Hydrochloride 100 Mg Tablet) 100 mg PO BIDCM [facility] Stop: 02/14/21 17:01 Last Admin: 02/13/21 18:25 Dose: 100 mg Documented by: Medical Necessity - Tobacco Use Smoking Status: Former smoker Tobacco Use: Cigarettes Assessment/Plan All Active Problems (Last Reviewed 01/26/21 @ 14:53 by Cammie Fink) Infection of left foot (Resolved) Hyponatremia (Acute) Hyponatremia (Acute) Alcohol abuse (Acute) Ulcer of right lower extremity with fat layer exposed (Resolved) Ulcer of left lower extremity with fat layer exposed (Resolved) Onycholysis (Resolved) Elevated liver function tests (Acute) Chest pain (Acute) Chronic ulcer of right ankle with fat layer exposed (Acute) Diabetic ulcer of right foot (Acute) Diabetic ulcer of left foot (Acute) Ulcer of right ankle (Acute) Chronic ulcer of left foot with fat layer exposed (Resolved) Myocardial infarction (Resolved) Hypoosmolar hypovolumic hyponatremia . Patient has h/o chronic hyponatremia . 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 Baseline Na level 125-130 mmol/l Acute worsening of hyponatremia likely from poor oral intake and Intravascular volume depletion Na correction rate in appropriate for the last 24 hrs Patient was re started on NS at 60 cc/hour Monitor Na level. Stop IVF if Na drops Will check urine and serum osmo along with Urine Na No need for 3% NaCl Will continue to follow. Call if any question Angeline Parisi MD
[2021-02-13 20:52] LABS: Urine Sodium 92 mmol/L (Not Establ.)
[2021-02-13 20:58] LABS: Osmolality, Urine 293 mOsm/KG
[2021-02-13] MEDS: Atorvastatin Calcium 10 MG Tablet PO (21:17)
[2021-02-13 21:25] LABS: Bedside Glucose 196 mg/dL (70-110)
[2021-02-14] VITALS (10 sets, daily range): BP systolic 127–154; BP diastolic 73–83; PULSE 62–77; RESP 14–16; TEMP 36.5–37.1; O2SAT 98–99
[2021-02-14] MEDS: Acetaminophen 325 MG Tablet 650 MG PO (01:33)
[2021-02-14 05:13] LABS: Osmolality, Serum 265 mOsm/KG (275-295)
[2021-02-14 05:18] LABS: Anion Gap 5 (5-15); BUN 3 mg/dL (7-18); Calcium,Total 8.8 mg/dL (8.5-10.1); Chloride 97 mmol/L (98-107); EST Glomerular Filtration Rate 146 mL/min (>60); Est Glom Filt Rate - Afr Amer 177 mL/min (>60); Estimated Creatinine Clearance 139.44 ml/min; Glucose 146 mg/dL (74-106); Potassium 4.2 mmol/L (3.5-5.1); Sodium Level 128 mmol/L (136-145)
[2021-02-14] MEDS: Insulin Lispro 100 UNIT/ML INSULN.PEN SC ×3 (06:35→21:33)
[2021-02-14 06:45] LABS: Bedside Glucose 166 mg/dL (70-110)
[2021-02-14] MEDS: Enoxaparin 40 MG/0.4 ML Syringe SC (09:18)
[2021-02-14] MEDS: Atenolol 50 MG Tablet PO (09:18)
[2021-02-14] MEDS: amLODIPine 5 MG Tablet PO (09:18)
[2021-02-14] MEDS: metFORMIN HCl 1,000 MG Tablet 1000 MG PO (09:18)
[2021-02-14] MEDS: Losartan Potassium 100 MG Tablet PO (09:18)
[2021-02-14] MEDS: Aspirin E.C. 81 MG Tablet PO (09:18)
[2021-02-14] MEDS: Folic Acid 1 MG Tablet PO (09:19)
[2021-02-14] MEDS: Thiamine Hydrochloride 100 MG Tablet PO ×2 (09:19→17:11)
[2021-02-14] MEDS: Ascorbic Acid 500 MG Tablet PO (09:19)
[2021-02-14] MEDS: glipiZIDE XL 5 MG Tablet PO (09:19)
[2021-02-14] MEDS: Multivitamins,Ther W-Minerals Tablet 1 TABLET PO (09:19)
[2021-02-14] MEDS: Potassium Chloride Oral Soln 20 MEQ/15 ML UDC 40 MEQ PO (09:20)
[2021-02-14] MEDS: Nystatin Powder 15gm Bottle 1 APPLIC TOPICAL ×2 (09:26→21:29)
[2021-02-14] MEDS: Menthol/Lanolin/Calamine/Znox 113 GM Tube 1 APPLIC TOPICAL ×2 (09:26→21:29)
[2021-02-14] MEDS: 0.9% Normal Saline 1,000 ML 75 ML IV (09:31)
--- NOTE | 2021-02-14 12:06 | PCM.PN.HOSP ---
Patient Problems: Active and Suspected Problems Hyponatremia (Acute) Alcohol abuse (Acute) Reason for Visit: Follow-up for hyponatremia Objective: Patient sodium is still 128. No acute symptoms of alcohol withdrawal or lethargy altered mental status status; symptoms of hyponatremia Physical exam General: Alert, Oriented x3, Cooperative HEENT: Atraumatic, PERRLA, EOMI, Normocephalic Oral: No Gingival or Mucosal Lesions/ Ulcerations Neck: Supple, No JVD, Negative Carotid Bruits Lungs: Air entry diminished in bilateral lung bases. No crepitation/rhonchi Cardiovascular: Regular rate, Regular Rhythm, Normal S1, Normal S2, No murmurs Abdomen: Bowel Sounds Present, Soft, Non Tender, Non-Distended : No renal angle tenderness. No suprapubic tenderness. Extremities: No edema, Capillary Refill Less than 3 Seconds Skin: No rashes, No breakdown. Healed callosity on the left foot, plantar surface. Musculoskeletal: Left foot Charcot joint. no Tenderness to Palpation of Joints or Extremities Neurological: Cranial nerves II-XII grossly intact,Neuro grossly intact Psych/Mental Status: Normal Affect, Appropriate. Vitals/I&O's: Vital Signs Temp Pulse Resp BP Pulse Ox 98.8 F 77 14 137/79 H 99 02/14/21 09:16 02/14/21 09:16 02/14/21 09:16 02/14/21 09:16 02/14/21 09:16 Oxygen Delivery Method Room Air Weight: 253 lb 0.004 oz Body Mass Index (BMI) 35.2 Intake and Output for Last 24 Hours 02/12/21 02/13/21 02/14/21 23:59 23:59 23:59 Intake Total 2800 / 2800 2237 / 2237 873 / 873 Balance 2800 / 2800 2237 / 2237 873 / 873 Laboratory Results 02/13/21 12:11: POC Glucose 209 H 02/13/21 15:41: Sodium 128 L 02/13/21 18:19: POC Glucose 121 H 02/13/21 20:17: Ur Random Sodium 92 02/13/21 20:17: Urine Osmolality 293 02/13/21 21:14: POC Glucose 196 H 02/14/21 04:35: Sodium 128 L, Potassium 4.2, Chloride 97 L, Carbon Dioxide 26.0, Anion Gap 5, BUN 3 L, Creatinine 0.60 L, Estim Creat Clear Calc 139.44, Est GFR (MDRD) Af Amer 177, Est GFR (MDRD) Non-Af 146, BUN/Creatinine Ratio 5.0 L, Glucose 146 H, Calcium 8.8 02/14/21 04:35: Serum Osmolality 265 L 02/14/21 06:31: POC Glucose 166 H Current Medications Acetaminophen (Acetaminophen 325 Mg Tablet) 650 mg PO Q6H PRN PRN PRN Reason: Pain Score 1-10/Temp > 100.7 F Last Admin: 02/14/21 01:33 Dose: 650 mg Documented by: Amlodipine Besylate (Amlodipine 5 Mg Tablet) 5 mg PO DAILY [facility] Last Admin: 02/14/21 09:18 Dose: 5 mg Documented by: Ascorbic Acid (Ascorbic Acid 500 Mg Tablet) 500 mg PO DAILY [facility] Last Admin: 02/14/21 09:19 Dose: 500 mg Documented by: Aspirin (Aspirin E.C. 81 Mg Tablet) [facility] Last Admin: 02/14/21 09:18 Dose: 81 mg Documented by: Atenolol (Atenolol 50 Mg Tablet) 50 mg PO DAILY [facility] Last Admin: 02/14/21 09:18 Dose: 50 mg Documented by: Atorvastatin Calcium (Atorvastatin Calcium 10 Mg Tablet) 10 mg PO QHS [facility] Last Admin: 02/13/21 21:17 Dose: 10 mg Documented by: Calamine/Phenol (Menthol/Lanolin/Calamine/Znox 113 Gm Tube) 1 applic TOPICAL BID [facility]; Protocol Last Admin: 02/14/21 09:26 Dose: 1 applic Documented by: Enoxaparin Sodium (Enoxaparin 40 Mg/0.4 Ml Syringe) 40 mg SC DAILY [facility] Last Admin: 02/14/21 09:18 Dose: 40 mg Documented by: Glipizide (Glipizide Xl 5 Mg Tablet) [facility] Last Admin: 02/14/21 09:19 Dose: 5 mg Documented by: Sodium Chloride () 1,000 mls @ 75 mls/hr IV .[id number] [facility] Stop: 02/14/21 22:09 Last Admin: 02/14/21 09:31 Dose: 75 mls/hr Documented by: Insulin Human Lispro (Insulin Lispro 100 Unit/Ml Insuln.Pen) 0 unit SC ACHS [facility]; Protocol Last Admin: 02/14/21 11:55 Dose: 4 units Documented by: Lorazepam (Lorazepam 1 Mg Tablet) 2 mg PO Q2H PRN PRN; Protocol PRN Reason: CIWA score > 8 but <15 Lorazepam (Lorazepam 1 Mg Tablet) 2 mg PO UD PRN; Protocol PRN Reason: CIWA score >/=15. Lorazepam (Lorazepam 2 Mg/Ml Syringe) 2 mg IV Q2H PRN PRN; Protocol PRN Reason: CIWA score > 8 but <15 Lorazepam (Lorazepam 2 Mg/Ml Syringe) 2 mg IV UD PRN; Protocol PRN Reason: CIWA score >/=15. Lorazepam (Lorazepam 1 Mg Tablet) 1 mg PO Q24H PRN PRN Reason: Agitation Losartan Potassium (Losartan Potassium 100 Mg Tablet) 100 mg PO DAILY [facility] Last Admin: 02/14/21 09:18 Dose: 100 mg Documented by: Metformin HCl (Metformin Hcl 1,000 Mg Tablet) [facility] Last Admin: 02/14/21 09:18 Dose: 1,000 mg Documented by: Multivitamins/Minerals (Multivitamins,Ther W-Minerals Tablet) [facility] Last Admin: 02/14/21 09:19 Dose: 1 tablet Documented by: Nitroglycerin (Nitroglycerin (Inpatient Use) 0.4 Mg Tab.Subl) 0.4 mg SL Q5M PRN PRN Reason: CARDIAC/CHEST PAIN Nystatin (Nystatin Powder 15gm Bottle) 1 applic TOPICAL BID [facility]; Protocol Last Admin: 02/14/21 09:26 Dose: 1 applic Documented by: Ondansetron HCl (Ondansetron 4 Mg/2 Ml Vial) 4 mg IV Q8H PRN PRN PRN Reason: NAUSEA/VOMITING Potassium Chloride (Potassium Chloride Oral Soln 20 Meq/15 Ml Udc) 40 meq PO DAILY [facility] Stop: 02/15/21 10:01 Last Admin: 02/14/21 09:20 Dose: 40 meq Documented by: Sodium Chloride (0.9% Saline Lock 10 Ml Syringe) 10 - 40 ml IV UD PRN PRN Reason: SALINE FLUSH Thiamine HCl (Thiamine Hydrochloride 100 Mg Tablet) [facility] Stop: 02/14/21 17:01 Last Admin: 02/14/21 09:19 Dose: 100 mg Documented by: STROKE Vital Signs/Narrative: Vital Signs Temp Pulse Resp BP Pulse Ox 02/14/21 09:16 98.8 F 77 14 137/79 H 99 Medical Necessity - Tobacco Use Smoking Status: Former smoker Tobacco Use: Cigarettes Assessment/Plan All Active Problems (Last Reviewed 01/26/21 @ 14:53 by Cammie Fink) Infection of left foot (Resolved) Hyponatremia (Acute) Hyponatremia (Acute) Alcohol abuse (Acute) Ulcer of right lower extremity with fat layer exposed (Resolved) Ulcer of left lower extremity with fat layer exposed (Resolved) Onycholysis (Resolved) Elevated liver function tests (Acute) Chest pain (Acute) Chronic ulcer of right ankle with fat layer exposed (Acute) Diabetic ulcer of right foot (Acute) Diabetic ulcer of left foot (Acute) Ulcer of right ankle (Acute) Chronic ulcer of left foot with fat layer exposed (Resolved) Myocardial infarction (Resolved) 60 y/o admitted with a complaint of weakness and lethargy. #Acute on chronic hyponatremia, hypotonic hypovolemic hyponatremia with prior history of SIADH: Patient has history of hypovolemia, decreased oral intake, low osmolar secretion. Goal of increase is 4 to 5 mEq in 24 hours. Seen by central office inspector and opinion was high risk for demyelination due to low weight and alcoholism. Urine studies ordered. Serum sodium increased from 1 18-127 in about 17 hours. IV fluid sodium chloride was held in the morning to prevent acute rise. Patient is allowed oral intake 02/13: Serum sodium 126, from 118 in about 36 hours. I reviewed normal saline resume at 60 mils per hour. Follow-up serum sodium in afternoon. Field Inspector consult reviewed and appreciated. 02/14: Serum sodium 128. Serum osmolality 265, urine osmolality 293, urine sodium 92. IV fluid normal saline 75 mill per hour for 1 L and if sodium does not improve, most likely SIADH and will need fluid restriction/urea/tolvaptan Mild hypokalemia: Potassium is getting replaced. K3.7 Repeat potassium 4.2. #History of alcohol dependence: Put on CIWA protocol. On thiamine, multivitamin folic acid. Currently not showing any acute alcohol withdrawal symptoms. #CAD s/p stents: On aspirin, atenolol and losartan. #History of ischemic cardiomyopathy: On aspirin, atenolol and losartan. #Hypertension: On amlodipine, atenolol and losartan #Type 2 diabetes mellitus: Continue current diabetes meds. Insulin sliding scale. Accu-Cheks AC at bedtime. Glucose about 150s to 200. DVT prophylaxis: Lovenox CODE STATUS: full code Laboratory Results 02/13/21 12:11: POC Glucose 209 H 02/13/21 15:41: Sodium 128 L 02/13/21 18:19: POC Glucose 121 H 02/13/21 20:17: Ur Random Sodium 92 02/13/21 20:17: Urine Osmolality 293 02/13/21 21:14: POC Glucose 196 H 02/14/21 04:35: Sodium 128 L, Potassium 4.2, Chloride 97 L, Carbon Dioxide 26.0, Anion Gap 5, BUN 3 L, Creatinine 0.60 L, Estim Creat Clear Calc 139.44, Est GFR (MDRD) Af Amer 177, Est GFR (MDRD) Non-Af 146, BUN/Creatinine Ratio 5.0 L, Glucose 146 H, Calcium 8.8 02/14/21 04:35: Serum Osmolality 265 L 02/14/21 06:31: POC Glucose 166 H Inpatient E&M: 90150 Subs Hosp L2
[2021-02-14 12:15] LABS: Bedside Glucose 234 mg/dL (70-110)
--- NOTE | 2021-02-14 16:26 | PN.RENAL_ITS ---
Patient Problems: Active and Suspected Problems Hyponatremia (Acute) Alcohol abuse (Acute) Subjective: no acute complaints - Physical Exam Vitals/I&O's: Vital Signs Temp Pulse Resp BP Pulse Ox 98.2 F 66 14 127/73 H 99 02/14/21 14:42 02/14/21 14:42 02/14/21 14:42 02/14/21 14:42 02/14/21 14:42 Oxygen Delivery Method Room Air Weight: 114.759 kg Body Mass Index (BMI) 35.2 Intake and Output for Last 24 Hours 02/12/21 02/13/21 02/14/21 23:59 23:59 23:59 Intake Total 2800 / 2800 2237 / 2237 873 / 873 Balance 2800 / 2800 2237 / 2237 873 / 873 General: Alert HEENT: Atraumatic Oral: Moist Mucosa Neck: Supple, No JVD Lungs: Clear to auscultation Cardiovascular: Regular rate, Regular Rhythm, Normal S1 Abdomen: Bowel Sounds Present, Soft, Non Tender, Non-Distended Extremities: No clubbing, No cyanosis, No edema Skin: No rashes Musculoskeletal: No Tenderness to Palpation of Joints or Extremities Lymphatic: No Cervical, Supraclavicular, or Inguinal Adenopathy Neurological: Cranial nerves II-XII grossly intact, Neuro grossly intact Psych/Mental Status: Normal Affect, Appropriate Laboratory Results 02/13/21 18:19: POC Glucose 121 H 02/13/21 20:17: Ur Random Sodium 92 02/13/21 20:17: Urine Osmolality 293 02/13/21 21:14: POC Glucose 196 H 02/14/21 04:35: Sodium 128 L, Potassium 4.2, Chloride 97 L, Carbon Dioxide 26.0, Anion Gap 5, BUN 3 L, Creatinine 0.60 L, Estim Creat Clear Calc 139.44, Est GFR (MDRD) Af Amer 177, Est GFR (MDRD) Non-Af 146, BUN/Creatinine Ratio 5.0 L, Glucose 146 H, Calcium 8.8 02/14/21 04:35: Serum Osmolality 265 L 02/14/21 06:31: POC Glucose 166 H 02/14/21 11:51: POC Glucose 234 H 02/14/21 16:14: Sodium Pending Current Medications Acetaminophen (Acetaminophen 325 Mg Tablet) 650 mg PO Q6H PRN PRN PRN Reason: Pain Score 1-10/Temp > 100.7 F Last Admin: 02/14/21 01:33 Dose: 650 mg Documented by: Amlodipine Besylate (Amlodipine 5 Mg Tablet) 5 mg PO DAILY [facility] Last Admin: 02/14/21 09:18 Dose: 5 mg Documented by: Ascorbic Acid (Ascorbic Acid 500 Mg Tablet) 500 mg PO DAILY [facility] Last Admin: 02/14/21 09:19 Dose: 500 mg Documented by: Aspirin (Aspirin E.C. 81 Mg Tablet) 81 mg PO DAILYCM [facility] Last Admin: 02/14/21 09:18 Dose: 81 mg Documented by: Atenolol (Atenolol 50 Mg Tablet) 50 mg PO DAILY [facility] Last Admin: 02/14/21 09:18 Dose: 50 mg Documented by: Atorvastatin Calcium (Atorvastatin Calcium 10 Mg Tablet) 10 mg PO QHS [facility] Last Admin: 02/13/21 21:17 Dose: 10 mg Documented by: Calamine/Phenol (Menthol/Lanolin/Calamine/Znox 113 Gm Tube) 1 applic TOPICAL BID [facility]; Protocol Last Admin: 02/14/21 09:26 Dose: 1 applic Documented by: Enoxaparin Sodium (Enoxaparin 40 Mg/0.4 Ml Syringe) 40 mg SC DAILY [facility] Last Admin: 02/14/21 09:18 Dose: 40 mg Documented by: Glipizide ([facility] Xl 5 Mg [facility]) [facility] Last Admin: 02/14/21 09:19 Dose: 5 mg Documented by: Sodium Chloride () 1,000 mls @ 75 mls/hr IV .[id number] [facility] Stop: 02/14/21 22:09 Last Admin: 02/14/21 09:31 Dose: 75 mls/hr Documented by: Insulin Human Lispro (Insulin Lispro 100 Unit/Ml Insuln.Pen) 0 unit SC [facility]; Protocol Last Admin: 02/14/21 11:55 Dose: 4 units Documented by: Lorazepam (Lorazepam 1 Mg Tablet) 2 mg PO Q2H PRN PRN; Protocol PRN Reason: CIWA score > 8 but <15 Lorazepam (Lorazepam 1 Mg Tablet) 2 mg PO UD PRN; Protocol PRN Reason: CIWA score >/=15. Lorazepam (Lorazepam 2 Mg/Ml Syringe) 2 mg IV Q2H PRN PRN; Protocol PRN Reason: CIWA score > 8 but <15 Lorazepam (Lorazepam 2 Mg/Ml Syringe) 2 mg IV UD PRN; Protocol PRN Reason: CIWA score >/=15. Lorazepam (Lorazepam 1 Mg Tablet) 1 mg PO Q24H PRN PRN Reason: Agitation Losartan Potassium (Losartan Potassium 100 Mg Tablet) 100 mg PO DAILY [facility] Last Admin: 02/14/21 09:18 Dose: 100 mg Documented by: Metformin HCl (Metformin Hcl 1,000 Mg Tablet) [facility] Last Admin: 02/14/21 09:18 Dose: 1,000 mg Documented by: Multivitamins/Minerals (Multivitamins,Ther W-Minerals Tablet) [facility] Last Admin: 02/14/21 09:19 Dose: 1 tablet Documented by: Nitroglycerin (Nitroglycerin (Inpatient Use) 0.4 Mg Tab.Subl) 0.4 mg SL Q5M PRN PRN Reason: CARDIAC/CHEST PAIN Nystatin (Nystatin Powder 15gm Bottle) 1 applic TOPICAL BID [facility]; Protocol Last Admin: 02/14/21 09:26 Dose: 1 applic Documented by: Ondansetron HCl (Ondansetron 4 Mg/2 Ml Vial) 4 mg IV Q8H PRN PRN PRN Reason: NAUSEA/VOMITING Potassium Chloride (Potassium Chloride Oral Soln 20 Meq/15 Ml Udc) 40 meq PO DAILY [facility] Stop: 02/15/21 10:01 Last Admin: 02/14/21 09:20 Dose: 40 meq Documented by: Sodium Chloride (0.9% Saline Lock 10 Ml Syringe) 10 - 40 ml IV UD PRN PRN Reason: SALINE FLUSH Thiamine HCl (Th[facility]amine Hydrochloride 100 Mg Tablet) [facility] Stop: 02/14/21 17:01 Last Admin: 02/14/21 09:19 Dose: 100 mg Documented by: Medical Necessity - Tobacco Use Smoking Status: Former smoker Tobacco Use: Cigarettes Assessment/Plan All Active Problems (Last Reviewed 01/26/21 @ 14:53 by Cammie Fink) Infection of left foot (Resolved) Hyponatremia (Acute) Hyponatremia (Acute) Alcohol abuse (Acute) Ulcer of right lower extremity with fat layer exposed (Resolved) Ulcer of left lower extremity with fat layer exposed (Resolved) Onycholysis (Resolved) Elevated liver function tests (Acute) Chest pain (Acute) Chronic ulcer of right ankle with fat layer exposed (Acute) Diabetic ulcer of right foot (Acute) Diabetic ulcer of left foot (Acute) Ulcer of right ankle (Acute) Chronic ulcer of left foot with fat layer exposed (Resolved) Myocardial infarction (Resolved) Hypoosmolar hypovolumic hyponatremia . Patient has h/o chronic hyponatremia . 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 Baseline Na level 125-130 mmol/l Acute worsening of hyponatremia likely from poor oral intake and Intravascular volume depletion Na correction rate in appropriate for the last 24 hrs Patient was re started on NS at 60 cc/hour 02/13 Na this am stable at 128. Urine Na 92 yesterday d/c VIF Monitor Na level. might need to add lasix with fluid restriction No need for 3% NaCl Will continue to follow. Call if any question Angeline Parisi MD
[2021-02-14 16:32] LABS: Sodium Level 128 mmol/L (136-145)
[2021-02-14 17:41] LABS: Bedside Glucose 90 mg/dL (70-110)
[2021-02-14] MEDS: Furosemide 40 MG Tablet PO (18:44)
[2021-02-14] MEDS: Atorvastatin Calcium 10 MG Tablet PO (21:33)
[2021-02-14 21:45] LABS: Bedside Glucose 176 mg/dL (70-110)
[2021-02-15] VITALS (7 sets, daily range): BP systolic 111–146; BP diastolic 69–87; PULSE 71–81; RESP 14–17; TEMP 36.3–36.9; O2SAT 97–100
[2021-02-15 05:34] LABS: Anion Gap 8 (5-15); BUN 5 mg/dL (7-18); BUN/Creat Ratio 5.9 RATIO (10-20); Calcium,Total 9.2 mg/dL (8.5-10.1); Chloride 95 mmol/L (98-107); Creatinine, Serum 0.84 mg/dL (0.70-1.30); EST Glomerular Filtration Rate 98 mL/min (>60); Est Glom Filt Rate - Afr Amer 119 mL/min (>60); Glucose 152 mg/dL (74-106); Potassium 3.9 mmol/L (3.5-5.1); Sodium Level 130 mmol/L (136-145)
[2021-02-15] MEDS: Insulin Lispro 100 UNIT/ML INSULN.PEN SC ×2 (06:43→11:42)
[2021-02-15 06:50] LABS: Bedside Glucose 206 mg/dL (70-110)
[2021-02-15] MEDS: Aspirin E.C. 81 MG Tablet PO (08:46)
[2021-02-15] MEDS: glipiZIDE XL 5 MG Tablet PO (08:46)
[2021-02-15] MEDS: metFORMIN HCl 1,000 MG Tablet 1000 MG PO (08:46)
[2021-02-15] MEDS: Losartan Potassium 100 MG Tablet PO (08:47)
[2021-02-15] MEDS: Multivitamins,Ther W-Minerals Tablet 1 TABLET PO (08:47)
[2021-02-15] MEDS: Menthol/Lanolin/Calamine/Znox 113 GM Tube 1 APPLIC TOPICAL (08:47)
[2021-02-15] MEDS: Furosemide 40 MG Tablet PO (08:48)
[2021-02-15] MEDS: Enoxaparin 40 MG/0.4 ML Syringe SC (08:48)
[2021-02-15] MEDS: Potassium Chloride Oral Soln 20 MEQ/15 ML UDC 40 MEQ PO (08:48)
[2021-02-15] MEDS: Nystatin Powder 15gm Bottle 1 APPLIC TOPICAL (08:48)
[2021-02-15] MEDS: Atenolol 50 MG Tablet PO (08:49)
[2021-02-15] MEDS: Ascorbic Acid 500 MG Tablet PO (08:49)
[2021-02-15] MEDS: amLODIPine 5 MG Tablet PO (08:49)
--- NOTE | 2021-02-15 11:49 | CASEMGMT ---
Pt screened with [facility] Palliative Screening Tool due to Strata 3. Pt did not meet criteria.
[2021-02-15 11:51] LABS: Bedside Glucose 264 mg/dL (70-110)
--- NOTE | 2021-02-15 11:55 | PCM.DC ---
- Discharge Diagnoses Current Active Problems: Current Active and Chronic Problems Hyponatremia (Acute) Alcohol abuse (Acute) You will use the following diet at home:: Cardiac, Fluid restricted (specify 2000 mls, 1500 mls) - 1500 mls Your food should be the consistency of: Regular Your liquids should be the consistency of: Regular/Thin Discharge Activity: Return to Normal Activity Additional Instructions: Take note of changes to your medications. Continue to follow a fluid restricted diet 1500 mils per day. You need repeat blood work in a week with nephrology or your primary care doctor. You are strongly advised to stop drinking. Follow-up in the outpatient with resources with behavioral health for alcohol cessation program. Allergies/Adverse Reactions: Allergies lisinopril Adverse Reaction (Verified 02/11/21 17:10) Cough pet dander Allergy (Intermediate, Uncoded 02/11/21 17:10) runny nose, sneezing Medications to take at Discharge aspirin 81 mg tablet,delayed release 81 mg PO DAILY 10/12/17 nitroglycerin 0.4 mg sublingual tablet 0.4 mg SUBLINGUAL Q5M PRN #25 tab 07/19/18 glipizide 5 mg tablet, extended release 24 hr 5 mg PO DAILY #90 tab 02/13/20 ascorbic acid (vitamin C) 500 mg tablet 500 mg PO DAILY 07/07/20 losartan 100 mg tablet 100 mg PO DAILY #90 tab 08/26/20 metformin 1,000 mg tablet 1,000 mg PO DAILY #90 tab 08/31/20 atorvastatin 10 mg tablet 10 mg PO DAILY #90 tab 09/11/20 amlodipine 5 mg tablet 5 mg PO DAILY #90 tab 09/23/20 atenolol 50 mg tablet 50 mg PO DAILY #90 tab 11/06/20 Acetaminophen [Tylenol Tablet] 650 mg PO Q6H PRN PRN tablet 02/15/21 Furosemide [Lasix] 20 mg PO BID 30 Days #60 tablet 02/15/21 The following prescriptions were given: Furosemide [Lasix] 20 mg PO BID 30 Days #60 tablet Transmission Status: Pending to [employer] #30 Primary Care Physician: Cem Nj DO [Primary Care Provider] - Please follow up with your Primary Care Physician in: within 1 week Test Results: Test results from this visit will be discussed in further detail at your follow-up appointment, if applicable. Proposed Discharge Date: 02/15/21
--- NOTE | 2021-02-15 12:19 | PHA.DC.MR ---
Pharmacy Service has performed discharge medication reconciliation for this patient. The patient's discharge medication list was reviewed for discrepancies and discrepancies were resolved. Home Medications aspirin 81 mg tablet,delayed release 81 mg PO DAILY 10/12/17 nitroglycerin 0.4 mg sublingual tablet 0.4 mg SUBLINGUAL Q5M PRN #25 tab 07/19/18 glipizide 5 mg tablet, extended release 24 hr 5 mg PO DAILY #90 tab 02/13/20 ascorbic acid (vitamin C) 500 mg tablet 500 mg PO DAILY 07/07/20 losartan 100 mg tablet 100 mg PO DAILY #90 tab 08/26/20 metformin 1,000 mg tablet 1,000 mg PO DAILY #90 tab 08/31/20 atorvastatin 10 mg tablet 10 mg PO DAILY #90 tab 09/11/20 amlodipine 5 mg tablet 5 mg PO DAILY #90 tab 09/23/20 atenolol 50 mg tablet 50 mg PO DAILY #90 tab 11/06/20 Acetaminophen [Tylenol Tablet] 650 mg PO Q6H PRN PRN tablet 02/15/21 Furosemide [Lasix] 20 mg PO BID 30 Days #60 tablet 02/15/21
--- NOTE | 2021-02-15 12:22 | PCM.DC.SUM ---
Discharge Date and Diagnosis - Problem List Patient Problems: Active and Suspected Problems Hyponatremia (Acute) Alcohol abuse (Acute) Date of Admission: 02/11/21 Date of Discharge: 02/15/21 - Primary Discharge Diagnosis Acute Problems: Active Problems Acute on chronic hyponatremia Hypokalemia Chronic alcohol use disorder/dependence - Secondary Discharge Diagnosis Chronic Problems: Chronic Problems (Last Reviewed 01/26/21 @ 14:53 by Cammie Fink) Localized edema (Chronic) Former tobacco use (Chronic) Xeroderma (Chronic) Eczema of lower extremity (Chronic) Presence of stent in coronary artery (Chronic ~02/2016) PCI w/ KIRILL to distal RCA, ostial PDA, and mid RCA 03/07; previous PTCA w/stent to mid main CX 09/24 Atherosclerotic heart disease of [place] coronary artery without angina pectoris (Chronic) PCI w/ KIRILL to distal RCA, ostial PDA, and mid RCA 03/07; previous PTCA w/stent to mid main CX 09/24 Essential hypertension (Chronic) Hammertoe of right foot (Chronic) Diabetic ulcer of left lower leg (Chronic) s/p 2nd degree burn with fat layer exposed Diabetic ulcer of left lower leg with fat layer exposed (Chronic) Other fci (current) drug therapy (Chronic) Sleep disorder (Chronic) Depressive disorder (Chronic) Alcohol abuse (Chronic) Malnutrition (Chronic) Chronic ulcer of left foot with fat layer exposed (Chronic) Venous insufficiency of both lower extremities (Chronic) Ulcer of right foot with fat layer exposed (Chronic) Ischemic cardiomyopathy (Chronic) Angina pectoris (Chronic) Hyperlipidemia (Chronic) Diabetes 1.5, managed as type 2 (Chronic) Edema extremities (Chronic) Diabetes mellitus (Chronic) Diabetes mellitus with circulatory complication (Chronic) 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) Diabetes mellitus with neurologic complication, with long-term current use of insulin (Chronic) Charcot ankle (Chronic) Charc?t's arthritis due to secondary diabetes (Chronic) Charcot foot due to diabetes mellitus (Chronic) Diabetic foot ulcers (Chronic) Open wound of foot with complication (Chronic) Open wound of right ankle (Chronic) Open wound of left ankle with complication (Chronic) Acquired equinus deformity of both feet (Chronic) Healed ulcer of left foot on examination (Chronic) Diabetes mellitus with polyneuropathy (Chronic) Malnutrition (Chronic) Charcot's joint, left ankle and foot (Chronic) Hospital Course and Treatment Nephrology Operations: None Procedures: None Summary of Care Provided: The patient is a 60 year old M with multiple comorbidities who presented with weakness and lethargy. Patient stated that his hydrochlorthiazide was discontinued a year ago. He has history of chronic alcohol use disorder. He had followed up with his primary care doctor and had blood work done which showed sodium of 118. He admitted to some nausea but no vomiting. He admits to some occasional diarrhea. He drinks about 5 beers every day, more during the weekend. Patient was admitted to the telemetry floor managed as hypotonic hypovolemic hyponatremia and with IV fluids. Her serum osmolality was 265, urine osmolality was 293, urine sodium was 92. Patient was managed as SIADH. Nephrology was also consulted. His sodium gradually increase. Patient was transitioned to Lasix with fluid restriction. His sodium on discharge was 130. Patient will have repeat sodium done within a week. He will follow-up with his primary care doctor and nephrology. Patient Problems: Active and Suspected Problems Hyponatremia (Acute) Alcohol abuse (Acute) Subjective: On the day of discharge, patient was seen and examined. He feels improved. No acute concerns. Objective: Physical exam: General: Alert, Oriented x3, Cooperative, No apparent distress, Well developed HEENT: Atraumatic Oral: Moist Mucosa Neck: Supple Lungs: Clear to auscultation Cardiovascular: HS I+II, regular, no murmurs Abdomen: Bowel Sounds Present, Soft, Non Tender Extremities: No edema Skin: No rashes, No breakdown Neurological: Grossly intact Psych/Mental Status: Appropriate - Physical Exam Vitals/I&O's: Vital Signs Temp Pulse Resp BP Pulse Ox 97.8 F 78 14 146/87 H 100 02/15/21 08:36 02/15/21 08:36 02/15/21 08:36 02/15/21 08:36 02/15/21 08:36 Oxygen Delivery Method Room Air Weight: 114.759 kg Body Mass Index (BMI) 35.2 Intake and Output for Last 24 Hours 02/13/21 02/14/21 02/15/21 23:59 23:59 23:59 Intake Total 2237 / 2237 2669.25 / 2669.25 140 / 140 Output Total 1650 / 1650 1300 / 1300 Balance 2237 / 2237 1019.25 / 1019.25 -1160 / -1160 Laboratory Results 02/14/21 16:14: Sodium 128 L 02/14/21 17:09: POC Glucose 90 02/14/21 21:32: POC Glucose 176 H 02/15/21 04:58: Sodium 130 L, Potassium 3.9, Chloride 95 L, Carbon Dioxide 27.0, Anion Gap 8, BUN 5 L, Creatinine 0.84, Estim Creat Clear Calc 99.60, Est GFR (MDRD) Af Amer 119, Est GFR (MDRD) Non-Af 98, BUN/Creatinine Ratio 5.9 L, Glucose 152 H, Calcium 9.2 02/15/21 06:42: POC Glucose 206 H 02/15/21 11:41: POC Glucose 264 H Current Medications Acetaminophen (Acetaminophen 325 Mg Tablet) 650 mg PO Q6H PRN PRN PRN Reason: Pain Score 1-10/Temp > 100.7 F Last Admin: 02/14/21 01:33 Dose: 650 mg Documented by: Amlodipine Besylate (Amlodipine 5 Mg Tablet) 5 mg PO DAILY [facility] Last Admin: 02/15/21 08:49 Dose: 5 mg Documented by: Ascorbic Acid (Ascorbic Acid 500 Mg Tablet) 500 mg PO DAILY [facility] Last Admin: 02/15/21 08:49 Dose: 500 mg Documented by: Aspirin (Aspirin E.C. 81 Mg Tablet) [facility] Last Admin: 02/15/21 08:46 Dose: 81 mg Documented by: Atenolol (Atenolol 50 Mg Tablet) 50 mg PO DAILY [facility] Last Admin: 02/15/21 08:49 Dose: 50 mg Documented by: Atorvastatin Calcium (Atorvastatin Calcium 10 Mg Tablet) 10 mg PO QHS [facility] Last Admin: 02/14/21 21:33 Dose: 10 mg Documented by: Calamine/Phenol (Menthol/Lanolin/Calamine/Znox 113 Gm Tube) 1 applic TOPICAL BID [facility]; Protocol Last Admin: 02/15/21 08:47 Dose: 1 applic Documented by: Enoxaparin Sodium (Enoxaparin 40 Mg/0.4 Ml Syringe) 40 mg SC DAILY [facility] Last Admin: 02/15/21 08:48 Dose: 40 mg Documented by: Furosemide (Furosemide 40 Mg Tablet) 40 mg PO DAILY [facility] Last Admin: 02/15/21 08:48 Dose: 40 mg Documented by: Glipizide (Glipizide Xl 5 Mg Tablet) 5 mg PO DAILYCM [facility] Last Admin: 02/15/21 08:46 Dose: 5 mg Documented by: Insulin Human Lispro (Insulin Lispro 100 Unit/Ml Insuln.Pen) 0 unit SC [facility]; Protocol Last Admin: 02/15/21 11:42 Dose: 6 units Documented by: Lorazepam (Lorazepam 1 Mg Tablet) 2 mg PO Q2H PRN PRN; Protocol PRN Reason: CIWA score > 8 but <15 Lorazepam (Lorazepam 1 Mg Tablet) 2 mg PO UD PRN; Protocol PRN Reason: CIWA score >/=15. Lorazepam (Lorazepam 2 Mg/Ml Syringe) 2 mg IV Q2H PRN PRN; Protocol PRN Reason: CIWA score > 8 but <15 Lorazepam (Lorazepam 2 Mg/Ml Syringe) 2 mg IV UD PRN; Protocol PRN Reason: CIWA score >/=15. Lorazepam (Lorazepam 1 Mg Tablet) 1 mg PO Q24H PRN PRN Reason: Agitation Losartan Potassium (Losartan Potassium 100 Mg Tablet) 100 mg PO DAILY [facility] Last Admin: 02/15/21 08:47 Dose: 100 mg Documented by: Metformin HCl (Metformin Hcl 1,000 Mg Tablet) 1,[facility] Last Admin: 02/15/21 08:46 Dose: 1,000 mg Documented by: Multivitamins/Minerals (Multivitamins,Ther W-Minerals Tablet) [facility] Last Admin: 02/15/21 08:47 Dose: 1 tablet Documented by: Nitroglycerin (Nitroglycerin (Inpatient Use) 0.4 Mg Tab.Subl) 0.4 mg SL Q5M PRN PRN Reason: CARDIAC/CHEST PAIN Nystatin (Nystatin Powder 15gm Bottle) 1 applic TOPICAL BID [facility]; Protocol Last Admin: 02/15/21 08:48 Dose: 1 applic Documented by: Ondansetron HCl (Ondansetron 4 Mg/2 Ml Vial) 4 mg IV Q8H PRN PRN PRN Reason: NAUSEA/VOMITING Sodium Chloride (0.9% Saline Lock 10 Ml Syringe) 10 - 40 ml IV UD PRN PRN Reason: SALINE FLUSH Discharge Diet: Low fat/ Low Cholesterol, 6 Cup Fluid Restriction, 2000 mg Sodium Diet Discharge Activity: Return to Normal Activity Home Medications: Medications to take at Discharge aspirin 81 mg tablet,delayed release 81 mg PO DAILY 10/12/17 nitroglycerin 0.4 mg sublingual tablet 0.4 mg SUBLINGUAL Q5M PRN #25 tab 07/19/18 glipizide 5 mg tablet, extended release 24 hr 5 mg PO DAILY #90 tab 02/13/20 ascorbic acid (vitamin C) 500 mg tablet 500 mg PO DAILY 07/07/20 losartan 100 mg tablet 100 mg PO DAILY #90 tab 08/26/20 metformin 1,000 mg tablet 1,000 mg PO DAILY #90 tab 08/31/20 atorvastatin 10 mg tablet 10 mg PO DAILY #90 tab 09/11/20 amlodipine 5 mg tablet 5 mg PO DAILY #90 tab 09/23/20 atenolol 50 mg tablet 50 mg PO DAILY #90 tab 11/06/20 Acetaminophen [Tylenol Tablet] 650 mg PO Q6H PRN PRN tablet 02/15/21 Furosemide [Lasix] 20 mg PO BID 30 Days #60 tablet 02/15/21 Following Prescriptions Were Given to Patient: Furosemide [Lasix] 20 mg PO BID 30 Days #60 tablet Transmission Status: Received by [employer] #30 Primary Care Physician: Cem Nj DO [Primary Care Provider] - Please follow up with your Primary Care Physician in: within 1 week Disposition: Home Minutes spent on discharge:: 40 Patient Condition:: Stable Medical Necessity - Tobacco Use Smoking Status: Former smoker Tobacco Use: Cigarettes Meaningful Use Info Meaningful Use Diagnoses (Choose all that apply): None applicable Inpatient E&M: 22751 Disch Hosp
--- NOTE | 2021-02-17 15:11 | CASEMGMT ---
GERALD BEE Discharge Follow-Up Phone Call. Lace: 12: Strata 3 Discharge Date: 02/15/21 Adm Dx: Acute on Chronic Hyponatremia Call to pt to inquire about how he has been doing since being discharged from the hospital. Pt states he does not think he is getting enough fluids w/the fluid restriction of 1500 ml/day. He states yesterday he did 3 hours of yard work and that he was thirsty and feels that he may be getting dehydrated. GERALD BEE informed pt that he most likely will need to increase his fluid intake on days he is doing more strenuous activity and sweating, to prevent dehydration. Pt inquired about how may ml extra he could have. GERALD BEE advised pt to contact his PCP or food handler to discuss this with him and to give him any further instructions for additional fluid intake. Pt also made aware, they may wish to have his lab work checked sooner than in a week to monitor his labs more closely. Pt also made aware, using ice chips may help feel less thirsty and to count any ice chips as only 1/2 the amt of fluids as the container it is in, ie: 100 ml ice chips would equal 50 ml fluid. GERALD BEE again reinforced w/pt, though, the importance of not getting dehydrated and to f/u with MD for any new instructions. Pt thanked GERALD BEE for the advice and states he plans to call his PCP or Dr Sanchez's office as soon as he returns home today. He denies having any other questions/concerns/needs. He is aware of the upcoming appts w/Dr Nj and Dr Sanchez, and he did get the Lasix @ [facility] and is taking that as prescribed. He denies having questions about the discharge instructions or medications. Leonid GUDINON GERALD BEE
== END 2021-02-15 14:50 | disposition home or self-care (01) | DRG 645 ==
LOC: ED 18:50 → PCU 19:15
PROVIDERS: Internal Medicine; Internal Medicine Nephrology; Admitting Provider Student in an Organized Health Care Education/Training Program; Emergency Provider Emergency Medicine; PCP Family Medicine; Visit Provider Internal Medicine
DX: E22.2 Syndrome of inappropriate secretion of antidiuretic hormone (principal); F10.20 Alcohol dependence, uncomplicated; E11.42 Type 2 diabetes mellitus with diabetic polyneuropathy; E11.51 Type 2 diabetes mellitus with diabetic peripheral angiopathy without gangrene; E11.610 Type 2 diabetes mellitus with diabetic neuropathic arthropathy; I25.5 Ischemic cardiomyopathy; I25.10 Atherosclerotic heart disease of native coronary artery without angina pectoris; I10 Essential (primary) hypertension; E87.6 Hypokalemia; E86.1 Hypovolemia; T50.1X5A Adverse effect of loop [high-ceiling] diuretics, initial encounter; Y92.9 Unspecified place or not applicable; E11.59 Type 2 diabetes mellitus with other circulatory complications; E78.5 Hyperlipidemia, unspecified; F32.9 Major depressive disorder, single episode, unspecified; F41.9 Anxiety disorder, unspecified; E66.9 Obesity, unspecified; Z68.35 Body mass index [BMI] 35.0-35.9, adult; Z79.4 Long term (current) use of insulin; Z79.82 Long term (current) use of aspirin; Z79.899 Other long term (current) drug therapy; Z86.31 Personal history of diabetic foot ulcer; I25.2 Old myocardial infarction; Z87.891 Personal history of nicotine dependence; Z95.5 Presence of coronary angioplasty implant and graft; Z89.421 Acquired absence of other right toe(s)
CPT/HCPCS: 36415; 80048; 80053; 82962; 83735; 83930; 83935; 84295; 84300; 85025; 99284; J7030; A4216

== ENCOUNTER → 2021-02-18 13:33 | Outpatient (CLI) | payer MEDICARE, SELFPAY ==
[2021-02-11 19:32] VITALS: BMI 35.2
[2021-02-18 15:36] LABS: Anion Gap 6 (5-15); BUN 22 mg/dL (7-18); BUN/Creat Ratio 17.5 RATIO (10-20); Calcium,Total 9.3 mg/dL (8.5-10.1); Chloride 100 mmol/L (98-107); Creatinine, Serum 1.26 mg/dL (0.70-1.30); EST Glomerular Filtration Rate 62 mL/min (>60); Est Glom Filt Rate - Afr Amer 75 mL/min (>60); Glucose 177 mg/dL (74-106); Potassium 3.8 mmol/L (3.5-5.1); Sodium Level 135 mmol/L (136-145)
== END ==
PROVIDERS: PCP Family Medicine; Visit Provider Internal Medicine Nephrology
DX: E87.1 Hypo-osmolality and hyponatremia (principal)
CPT/HCPCS: 36415; 80048

== ENCOUNTER → 2021-03-02 10:36 | Outpatient (CLI) | payer MEDICARE, SELFPAY ==
[2021-02-24 14:07] VITALS: BMI 35.2
--- NOTE | 2021-03-02 11:00 | RAD_ITS ---
STUDY: X-RAY CHEST REASON FOR EXAM: Male, 60 years old. ALLERGY TECHNIQUE: PA and lateral views of the chest. COMPARISON: 01/01/2020 FINDINGS: The lungs are clear and expanded. There is no demonstrated pleural abnormality. Normal size heart. Normal mediastinum and annemarie. Normal visualized pulmonary arteries. Normal visualized aortic arch and descending thoracic aorta. Normal visualized thoracic spine. Multiple healed right rib fractures. There is no demonstrated abnormality of the visualized soft tissue structures of the upper abdomen. RAD/Chest PA and Lateral IMPRESSION: No active disease. Electronically Signed: Serge Galo MD at 8:10 EDT Tel , Service support ,
[2021-03-02 11:08] LABS: Absolute Lymphocyte Count 1.06 X10^3/uL (0.83-4.51); Absolute Neutrophil Count 5.1 X10^3/uL (2.0-7.7); Basophil# 0.03 X10^3/uL; Basophil% 0.4 % (0-1); Eosinophil# 0.16 X10^3/uL; Eosinophils% 2.3 % (0-5); Hematocrit 30.1 % (40-54); Hemoglobin 9.9 g/dL (13.0-16.5); Lymphocyte # 1.06 X10^3/ul (0.83-4.51); Lymphocyte % 15.5 % (19-41); Mean Corp Hgb Conc 32.9 g/dL (32-36); Mean Corpuscular Hgb 30.3 pg (27.0-32.0); Mean Platelet Vol. 10.5 fl (6.2-12.0); Monocyte# 0.43 X10^3/uL; Monocyte% 6.3 % (0-10); NRBC Flagged by Analyzer 0 % (0-5); Neutrophil # 5.12 X10^3/uL (2.7-7.7); Neutrophil % 74.9 % (47-70); Platelet Count 263 K/mm3 (150-450); RBC Distribution Width SD 44.1 fl (35.1-43.9); Red Blood Count 3.27 M/mm3 (4.6-6.2); White Blood Count 6.8 K/mm3 (4.4-11.0)
[2021-03-02 11:46] LABS: AST(SGOT) 12 U/L (15-37); Alanine Aminotransfer ALT/SGPT 13 U/L (16-61); Alkaline Phosphatase 165 U/L (45-117); Anion Gap 6 (5-15); BUN 12 mg/dL (7-18); Bilirubin, Direct 0.15 mg/dL (0.00-0.30); Chloride 96 mmol/L (98-107); Creatinine, Serum 1.17 mg/dL (0.70-1.30); EST Glomerular Filtration Rate 68 mL/min (>60); Est Glom Filt Rate - Afr Amer 82 mL/min (>60); Globulin 3.9 g/dL (2.2-4.2); Glucose 430 mg/dL (74-106); Potassium 3.8 mmol/L (3.5-5.1); Protein, Total 6.9 g/dL (6.4-8.2); Sodium Level 132 mmol/L (136-145); Thyroid Stim Hormone (TSH) 5.45 uIU/mL (0.358-3.74); Uric Acid 5.7 mg/dL (3.5-7.2)
[2021-03-02 12:07] LABS: Hepatitis B Surface Antibody Non-Reactive; Hepatitis C Antibody Non-Reactive (Nonreactive)
[2021-03-04 04:12] LABS: PROEL- A/G Ratio 0.9 (0.7-1.7); PROEL- Albumin 2.9 g/dL (2.9-4.4); PROEL- Alpha-1 Globulin 0.3 g/dL (0.0-0.4); PROEL- Alpha-2 Globulin 0.9 g/dL (0.4-1.0); PROEL- Gamma Globulin 0.9 g/dL (0.4-1.8); PROEL- Globulin, Total 3.1 g/dL (2.2-3.9)
== END ==
PROVIDERS: PCP Family Medicine
DX: L29.8 Other pruritus (principal)
CPT/HCPCS: 36415; 71046; 80051; 80076; 82565; 82947; 83520; 84165; 84443; 84520; 84550; 85025; 86706; 86803

== ENCOUNTER → 2021-04-27 09:11 | Outpatient (CLI) | payer MEDICARE, SELFPAY ==
[2021-03-17 14:44] VITALS: BMI 34.2
[2021-04-27 11:33] LABS: Anion Gap 6 (5-15); BUN 17 mg/dL (7-18); BUN/Creat Ratio 15.2 RATIO (10-20); Calcium,Total 9.4 mg/dL (8.5-10.1); Chloride 99 mmol/L (98-107); Creatinine, Serum 1.12 mg/dL (0.70-1.30); EST Glomerular Filtration Rate 71 mL/min (>60); Est Glom Filt Rate - Afr Amer 86 mL/min (>60); Glucose 340 mg/dL (74-106); Potassium 3.7 mmol/L (3.5-5.1); Sodium Level 133 mmol/L (136-145)
== END ==
PROVIDERS: PCP Family Medicine; Referring Provider Family Medicine; Visit Provider Family Medicine
DX: E87.1 Hypo-osmolality and hyponatremia (principal)
CPT/HCPCS: 36415; 80048

== ENCOUNTER → 2021-05-21 15:35 | Outpatient (CLI) | payer MEDICARE, SELFPAY ==
[2021-05-17 13:33] VITALS: BMI 34.2
[2021-05-21 18:06] LABS: Anion Gap 7 (5-15); BUN 17 mg/dL (7-18); BUN/Creat Ratio 18.3 RATIO (10-20); Calcium,Total 8.9 mg/dL (8.5-10.1); Chloride 98 mmol/L (98-107); Creatinine, Serum 0.93 mg/dL (0.70-1.30); EST Glomerular Filtration Rate 88 mL/min (>60); Est Glom Filt Rate - Afr Amer 107 mL/min (>60); Glucose 191 mg/dL (74-106); Potassium 4.2 mmol/L (3.5-5.1); Sodium Level 135 mmol/L (136-145)
== END ==
PROVIDERS: PCP Family Medicine; Referring Provider Internal Medicine Nephrology; Visit Provider Internal Medicine Nephrology
DX: E87.1 Hypo-osmolality and hyponatremia (principal)
CPT/HCPCS: 36415; 80048

== ENCOUNTER → 2021-08-09 10:25 | Outpatient (CLI) | payer MEDICARE, SELFPAY ==
[2021-08-09 12:38] LABS: AST(SGOT) 16 U/L (15-37); Alanine Aminotransfer ALT/SGPT 23 U/L (16-61); Albumin, Serum 3.2 g/dL (3.2-5.0); Alkaline Phosphatase 112 U/L (45-117); Bilirubin, Direct 0.19 mg/dL (0.00-0.30); Cholesterol 135 mg/dL (200); Globulin 3.6 g/dL (2.2-4.2); High Density Lipoprotein 79 mg/dL; Protein, Total 6.8 g/dL (6.4-8.2); Triglycerides 62 mg/dL; Very Low Density Lipoprotein 12 mg/dL (5-40)
== END ==
PROVIDERS: PCP Family Medicine; Referring Provider Internal Medicine Cardiovascular Disease; Visit Provider Internal Medicine Cardiovascular Disease
DX: E78.00 Pure hypercholesterolemia, unspecified (principal); E78.5 Hyperlipidemia, unspecified
CPT/HCPCS: 36415; 80061; 80076

== ENCOUNTER 2021-10-28 15:39 | Outpatient (CLI) | payer MEDICARE, SELFPAY ==
[2021-10-28 17:56] LABS: ALB/GLOB Ratio 0.9 RATIO (0.9-2.4); AST(SGOT) 14 U/L (15-37); Alanine Aminotransfer ALT/SGPT 24 U/L (16-61); Albumin, Serum 3.5 g/dL (3.2-5.0); Alkaline Phosphatase 129 U/L (45-117); Anion Gap 6 (5-15); BUN 11 mg/dL (7-18); BUN/Creat Ratio 11.4 RATIO (10-20); Calcium,Total 9.2 mg/dL (8.5-10.1); Chloride 93 mmol/L (98-107); Creatinine, Serum 0.97 mg/dL (0.70-1.30); EST Glomerular Filtration Rate 84 mL/min (>60); Est Glom Filt Rate - Afr Amer 101 mL/min (>60); Globulin 3.9 g/dL (2.2-4.2); Glucose 264 mg/dL (74-106); Potassium 4.9 mmol/L (3.5-5.1); Protein, Total 7.4 g/dL (6.4-8.2); Sodium Level 129 mmol/L (136-145)
== END 2021-10-28 23:59 | disposition short-term general hospital (02) ==
LOC: BIMLAB 15:40
PROVIDERS: PCP Family Medicine; Referring Provider Family Medicine; Visit Provider Family Medicine
DX: E87.1 Hypo-osmolality and hyponatremia (principal)
CPT/HCPCS: 36415; 80053

== ENCOUNTER 2021-11-24 11:49 | Outpatient (CLI) | payer MEDICARE, SELFPAY ==
[2021-11-24 15:53] LABS: Anion Gap 9 (5-15); BUN 16 mg/dL (7-18); BUN/Creat Ratio 14.7 RATIO (10-20); Calcium,Total 9.1 mg/dL (8.5-10.1); Chloride 94 mmol/L (98-107); Creatinine, Serum 1.09 mg/dL (0.70-1.30); EST Glomerular Filtration Rate 73 mL/min (>60); Est Glom Filt Rate - Afr Amer 88 mL/min (>60); Glucose 343 mg/dL (74-106); Potassium 4.3 mmol/L (3.5-5.1); Sodium Level 129 mmol/L (136-145)
== END 2021-11-24 23:59 | disposition short-term general hospital (02) ==
LOC: BIMLAB 11:50
PROVIDERS: PCP Family Medicine; Referring Provider Internal Medicine Nephrology; Visit Provider Internal Medicine Nephrology
DX: I10 Essential (primary) hypertension (principal)
CPT/HCPCS: 36415; 80048

== ENCOUNTER → 2022-02-23 | Outpatient (CLI) | payer MEDICARE, SELFPAY ==
[2022-02-23 17:53] LABS: AST(SGOT) 14 U/L (15-37); Alanine Aminotransfer ALT/SGPT 19 U/L (16-61); Albumin, Serum 3.3 g/dL (3.2-5.0); Alkaline Phosphatase 124 U/L (45-117); Bilirubin, Direct 0.25 mg/dL (0.00-0.30); Cholesterol 124 mg/dL (200); Globulin 3.5 g/dL (2.2-4.2); High Density Lipoprotein 69 mg/dL; Protein, Total 6.8 g/dL (6.4-8.2); Triglycerides 56 mg/dL; Very Low Density Lipoprotein 11 mg/dL (5-40)
== END | disposition home or self-care (01) ==
LOC: LAB 15:58
PROVIDERS: PCP Family Medicine; Visit Provider Physician Assistant Medical
DX: E78.00 Pure hypercholesterolemia, unspecified (principal); E78.5 Hyperlipidemia, unspecified
CPT/HCPCS: 36415; 80061; 80076

== ENCOUNTER → 2022-05-19 | Outpatient (CLI) | payer MEDICARE, SELFPAY ==
[2022-05-19 15:21] LABS: Protein, Urine (Random) 6.3 mg/dL (<11.9); Protein:Creat Ratio 177 mg/g CRE (0-200)
[2022-05-19 15:28] LABS: Anion Gap 6 (5-15); BUN 9 mg/dL (7-18); BUN/Creat Ratio 8.6 RATIO (10-20); Chloride 96 mmol/L (98-107); Creatinine, Serum 1.05 mg/dL (0.70-1.30); EST Glomerular Filtration Rate 76 mL/min (>60); Est Glom Filt Rate - Afr Amer 92 mL/min (>60); Glucose 312 mg/dL (74-106); Potassium 4.4 mmol/L (3.5-5.1); Sodium Level 131 mmol/L (136-145)
== END | disposition home or self-care (01) ==
LOC: LAB 14:16
PROVIDERS: PCP Family Medicine; Referring Provider Internal Medicine Nephrology; Visit Provider Internal Medicine Nephrology
DX: E87.1 Hypo-osmolality and hyponatremia (principal)
CPT/HCPCS: 36415; 80048; 82570; 84156

== ENCOUNTER → 2022-08-24 | Outpatient (CLI) | payer MEDICARE, SELFPAY | END | disposition home or self-care (01) | PROVIDERS: PCP Family Medicine; Visit Provider Podiatrist | DX: L97.522 Non-pressure chronic ulcer of other part of left foot with fat layer exposed (principal) | CPT/HCPCS: 87070; 87077; 87186; 87205 ==

== ENCOUNTER → 2022-09-21 | Outpatient (CLI) | payer MEDICARE, SELFPAY ==
--- NOTE | 2022-09-21 12:59 | ART_ITS ---
Reason For Study: PAD Procedure A bilateral lower extremity continuous wave Doppler with analog waveform analysis,segmental pressures,and ankle brachial indexes without exercise. Patient uses walker. Unable to exercise. Left Segmental Pressures Left brachial= 135mmHg. Left thigh = 207mmHg. Left calf = 145mmHg. Left posterior tibial artery = 127mmHg. Left dorsalis pedis artery = 136mmHg. Left digit = 90 mmHg. The left posterior tibial artery waveforms are triphasic. The left dorsalis pedis waveforms are biphasic. Right Segmental Pressures Right brachial= 128mmHg. Right posterior tibial artery = 161mmHg. Right dorsalis pedis artery = 157mmHg. Right digit = 140 mmHg. The right posterior tibial artery waveforms are triphasic. The right dorsalis pedis waveforms are triphasic. Indices The right ankle brachial index by the posterior tibial artery is 1.19. The right ankle brachial index by the dorsalis pedis is 1.16. The right digital-brachial index is 1.04. The left ankle brachial index by the posterior tibial artery is 0.94. The left ankle brachial index by the dorsalis pedis is 1.01. The left digital-brachial index is 0.67. VL/Lower Ext Art Exam w/o Exercis Interpretation Summary Triphasic Doppler waveforms are noted at ankle level on the right. Triphasic an d biphasic Doppler waveforms are noted at ankle level on the left. Pulse-volume recordings appear diminished at digital level on the left, but satisfactory at all other levels bilaterally. Resting an kle-brachial indices are normal bilaterally. The right digital-brachial index is normal. The left di gital-brachial index is mildly diminished. Arterial flow appears normal at ankle level bilaterally, and at digital level o n the right. There is evidence of mild arterial occlusive disease at digital level on the left. Ordering Physician: Evans Irvin Referring Physician: EVANS IRVIN DPM Performed By: Carlton Omer RVT
== END | disposition home or self-care (01) ==
LOC: CVS 12:57
PROVIDERS: PCP Family Medicine; Referring Provider Podiatrist; Visit Provider Podiatrist
DX: I73.9 Peripheral vascular disease, unspecified (principal)
CPT/HCPCS: 93923